=== PATIENT | female | born 1945 | race Two or more races ===

== ENCOUNTER → 2020-02-09 09:32 | Outpatient (BNVA) | payer MEDICARE, SELFPAY | PROVIDERS: PCP Internal Medicine; Referring Provider Internal Medicine; Visit Provider Internal Medicine Endocrinology, Diabetes & Metabolism | DX: Z13.89 Encounter for screening for other disorder (principal) | CPT/HCPCS: 99212 ==

== ENCOUNTER 2020-04-01 12:58 | Outpatient (REF) | payer MEDICARE, SELFPAY ==
--- NOTE | 2020-04-01 | MM_ITS ---
EXAMINATION: MM SCREENING DIGITAL BREAST TOMOSYNTHESIS, BILATERAL CLINICAL INFORMATION: Screening. Asymptomatic. The lifetime risk of breast cancer based on the Tyrer-Cuzick Model is 2%. COMPARISON: Mammography: 08/09/2018, 07/19/2017, 06/22/2016 TECHNIQUE: Digital breast tomosynthesis is performed in both the craniocaudal and mediolateral oblique views along with computer-aided detection (CAD). Synthesized 2D images are generated from the tomosynthesis. FINDINGS: There are scattered areas of fibroglandular density (ACR BI-RADS breast composition Category b). Breast tissue composition borders on heterogeneously dense in the anterior breasts. Parenchymal pattern is similar to prior studies. There are multiple bilateral benign round and rim and some vascular calcifications again seen. There are no significant masses, abnormal calcifications, or other abnormalities. MM/MM tomosynthesis screening BI IMPRESSION: No mammographic evidence of malignancy. ASSESSMENT: BI-RADS 2: Benign RECOMMENDATION: Routine annual mammography screening. This patient's information was entered into a reminder system with a target due date for their next mammogram.
== END 2020-04-01 12:59 | disposition home or self-care (01) ==
LOC: HO.MAMMO 12:58
PROVIDERS: PCP Internal Medicine; Visit Provider Internal Medicine
DX: Z12.31 Encounter for screening mammogram for malignant neoplasm of breast (principal)
CPT/HCPCS: 77063; 77067

== ENCOUNTER → 2020-05-28 09:56 | Outpatient (BNVA) | payer MEDICARE, SELFPAY | PROVIDERS: PCP Internal Medicine; Visit Provider Internal Medicine Endocrinology, Diabetes & Metabolism | DX: E11.65 Type 2 diabetes mellitus with hyperglycemia (principal); E11.42 Type 2 diabetes mellitus with diabetic polyneuropathy; E11.21 Type 2 diabetes mellitus with diabetic nephropathy; Z79.4 Long term (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; E78.00 Pure hypercholesterolemia, unspecified; E55.9 Vitamin D deficiency, unspecified; I10 Essential (primary) hypertension; E53.8 Deficiency of other specified B group vitamins | CPT/HCPCS: 82947; 99212 ==

== ENCOUNTER 2020-05-28 10:45 | Outpatient (REF) | payer MEDICARE, SELFPAY ==
[2020-05-28 13:58] LABS: MANUAL DIFF FLAG NO
[2020-05-28 14:05] LABS: Basophils Percent Auto 0.4 % (0-2); Eosinophils Absolute Auto 0.2 X10*3/uL (0.0-0.4); Eosinophils Percent Auto 2.5 % (0-4); Hematocrit 35.4 % (37-47); Hemoglobin 10.8 g/dl (12.0-16.0); Imm Gran Abs Auto 0.02 X10*3/uL (0.00-0.03); Imm Gran Pct Auto 0.3 % (0.0-0.4); Lymphocytes Absolute Auto 1.8 X10*3/uL (1.2-4.9); Lymphocytes Percent Auto 24.4 % (20-40); Mean Corpuscular HGB Conc 30.5 g/dl (31.0-35.0); Mean Corpuscular Hemoglobin 25.7 pg (27.0-33.0); Mean Corpuscular Volume 84.3 fL (80-98); Mean Platelet Volume 12.2 fL (9.4-12.3); Monocytes Absolute Auto 0.5 X10*3/uL (0.1-1.2); Monocytes Percent Auto 6.4 % (2-11); Neutrophils Absolute Auto 4.8 X10*3/uL (2.0-8.3); Platelet Count 263 X10*3/uL (160-400); Red Cell Distribution Width 14.1 % (11.0-16.0); White Blood Count 7.2 X10*3/uL (4.8-10.8)
[2020-05-28 14:38] LABS: Alanine Aminotransferase 12 U/L (0-31); Albumin Level 3.9 g/dL (3.5-5.0); Alkaline Phosphatase 100 U/L (39-117); Anion Gap 11 (12-20); Aspartate Amino Transferase 17 U/L (5-31); Bilirubin Total 0.3 mg/dL (0.0-1.0); Blood Urea Nitrogen 31 mg/dL (9-16); Calcium 9.3 mg/dL (8.4-10.2); Carbon Dioxide 29 mmol/L (22-29); Chloride 105 mmol/L (96-108); Cholesterol 182 mg/dL; Estimated Glomerular Filt Rate 34; Glucose Fasting 146 mg/dL (60-99); HDL Cholesterol 54 mg/dL; LDL Cholesterol Calculated 101 mg/dl; Potassium 4.4 mmol/L (3.3-5.1); Sodium 141 mmol/L (135-145); Total Protein 7.3 g/dL (6.5-8.0); Triglycerides 135 mg/dL
[2020-05-28 15:01] LABS: Creatinine Urine 128.34 mg/dL; Microalbum/Creatinine Ratio Ur 168.3 ug/mg cr
[2020-05-28 15:20] LABS: Vitamin B12 300 pg/mL (200-900)
[2020-05-30 00:22] LABS: LDL Cholesterol Direct 90 mg/dL (<100)
== END 2020-05-28 10:46 | disposition home or self-care (01) ==
LOC: HO.10HDL 10:45
PROVIDERS: Internal Medicine; Visit Provider Internal Medicine Endocrinology, Diabetes & Metabolism
DX: D64.9 Anemia, unspecified (principal); E11.9 Type 2 diabetes mellitus without complications
CPT/HCPCS: 36415; 80053; 80061; 82043; 82607; 83721; 85025

== ENCOUNTER 2021-02-23 10:44 | Outpatient (REF) | payer MEDICARE, SELFPAY ==
--- NOTE | ~2021-02-23 | MM_ITS ---
EXAMINATION: BONE DENSITOMETRY CLINICAL INDICATION: Encounter for screening for osteoporosis. COMPARISON: None (current study represents initial baseline exam). TECHNIQUE: Using a GENELINK DXA System (software version: 13.1) manufactured by [employer], dual-energy x-ray absorptiometry was performed of the lumbar spine and left hip. The images are of good technical quality. Summary results are attached. FINDINGS: AP SPINE L1-L4: BMD 0.870 g/cm2, Z-score -1.4, T-score -2.6, osteoporosis. LEFT FEMUR, NECK: BMD 0.717 g/cm2, Z-score -0.7, T-score -2.3, osteopenia. LEFT FEMUR, TOTAL: BMD 0.893 g/cm2, Z-score 0.5, T-score -0.9, normal. IDENTIFIED RISK FACTORS: Anticonvulsants, menopause, hysterectomy. HISTORY OF FRACTURE: None listed. MEDICATIONS: Vitamin D. MM/XR DEXA axial skeleton IMPRESSION: 1. DIAGNOSIS: Osteoporosis based on the lowest T-score value of -2.6 in the lumbar spine applying World Health Organization criteria. 2. 10-YEAR FRACTURE RISK PREDICTION, FRAX: According to the guidelines, FRAX calculation should only be performed on patients in the osteopenia bone density category. 3. Treatment Recommendations: NOF guidelines recommend consideration for treatment in postmenopausal women and men age 50 and older presenting with the following: -A hip or vertebral (clinical or morphometric) fracture. -T-score less than or equal to -2.5 at the femoral neck or spine after appropriate evaluation to exclude secondary causes. -Low bone mass at the hip or spine and a 10-year fracture probability by FRAX of greater than or equal to 3% for hip fracture or greater than or equal to 20% for major osteoporotic fracture based on the [place] adapted WHO algorithm. 4. Other Recommendations: All treatment decisions require clinical judgment and consideration of individual patient factors, including patient preferences, comorbidities, previous drug use, risk factors not captured in the FRAX model (e.g. frailty, falls, vitamin D deficiency, increased bone turnover, interval significant decline in bone density) and possible under or overestimation of fracture risk by FRAX. Additional medical evaluation for secondary cause of low bone mineral density may be appropriate. FUTURE SCAN RECOMMENDATION: People with diagnosed cases of osteoporosis or at high risk for fracture should have regular bone mineral density tests. For patients eligible for Medicare, routine testing is allowed once every 2 years. The testing frequency can be increased to one year for patients who have rapidly progressing disease, those who are receiving or discontinuing medical therapy to restore bone mass, or have additional risk factors.
== END 2021-02-23 10:45 | disposition home or self-care (01) ==
LOC: HO.MAMMO 10:44
PROVIDERS: PCP Student in an Organized Health Care Education/Training Program; Visit Provider Nurse Practitioner Family
DX: Z13.820 Encounter for screening for osteoporosis (principal); M81.0 Age-related osteoporosis without current pathological fracture; Z78.0 Asymptomatic menopausal state; Z90.722 Acquired absence of ovaries, bilateral; Z79.899 Other long term (current) drug therapy
CPT/HCPCS: 77080

== ENCOUNTER 2021-04-25 10:08 | Outpatient (REF) | payer MEDICARE, SELFPAY ==
[2021-04-25 13:40] LABS: MANUAL DIFF FLAG NO
[2021-04-25 13:54] LABS: Basophils Percent Auto 0.4 % (0-2); Eosinophils Absolute Auto 0.2 X10*3/uL (0.0-0.4); Hemoglobin 11.5 g/dl (12.0-16.0); Imm Gran Abs Auto 0.02 X10*3/uL (0.00-0.03); Imm Gran Pct Auto 0.3 % (0.0-0.4); Lymphocytes Absolute Auto 1.7 X10*3/uL (1.2-4.9); Lymphocytes Percent Auto 22.5 % (20-40); Mean Corpuscular HGB Conc 30.3 g/dl (31.0-35.0); Mean Corpuscular Hemoglobin 24.9 pg (27.0-33.0); Mean Corpuscular Volume 82.4 fL (80.0-98.0); Mean Platelet Volume 12.5 fL (9.4-12.3); Monocytes Absolute Auto 0.4 X10*3/uL (0.1-1.2); Monocytes Percent Auto 4.9 % (2-11); Neutrophils Absolute Auto 5.2 x10*3/uL (2.0-8.3); Neutrophils Percent Auto 69.9 % (45-73); Platelet Count 270 X10*3/uL (160-400); Red Blood Count 4.61 X10*6/uL (4.20-5.50); Red Cell Distribution Width 15.1 % (11.0-16.0); White Blood Count 7.4 X10*3/uL (4.8-10.8)
[2021-04-25 14:06] LABS: Cholesterol 168 mg/dL; HDL Cholesterol 48 mg/dL; LDL Cholesterol Calculated 100 mg/dl; Triglycerides 103 mg/dL
[2021-04-25 14:18] LABS: Creatinine Urine 187.58 mg/dL; Microalbum/Creatinine Ratio Ur 260.1 ug/mg cr
[2021-04-30 13:15] LABS: Vitamin D 25-OH, D2 <4 ng/mL; Vitamin D 25-OH, D3 39 ng/mL; Vitamin D 25-OH, Total 39 ng/mL (30-100)
== END 2021-04-25 10:09 | disposition home or self-care (01) ==
LOC: HO.10HDL 10:08
PROVIDERS: Visit Provider Internal Medicine
DX: D64.9 Anemia, unspecified (principal); E55.9 Vitamin D deficiency, unspecified; E11.9 Type 2 diabetes mellitus without complications; E78.5 Hyperlipidemia, unspecified
CPT/HCPCS: 36415; 80061; 82043; 82306; 85025

== ENCOUNTER → 2021-08-17 09:28 | Outpatient (BNVA) | payer MEDICARE, SELFPAY | PROVIDERS: PCP Internal Medicine; Visit Provider Nurse Practitioner Gerontology | DX: E11.65 Type 2 diabetes mellitus with hyperglycemia (principal); E11.42 Type 2 diabetes mellitus with diabetic polyneuropathy; E11.21 Type 2 diabetes mellitus with diabetic nephropathy; E78.00 Pure hypercholesterolemia, unspecified; E55.9 Vitamin D deficiency, unspecified; E53.8 Deficiency of other specified B group vitamins; I10 Essential (primary) hypertension; Z79.4 Long term (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 | CPT/HCPCS: 82947; 83036; 99212 ==

== ENCOUNTER 2021-09-22 10:13 | Outpatient (REF) | payer MEDICARE, SELFPAY ==
--- NOTE | ~2021-09-22 | MM_ITS ---
EXAMINATION: MM SCREENING DIGITAL BREAST TOMOSYNTHESIS, BILATERAL CLINICAL INFORMATION: Screening. Asymptomatic. The lifetime risk of breast cancer based on the Tyrer-Cuzick Model is 1.8%. COMPARISON: Mammography: April 01, 2020 and studies dating back to November 28, 2011 TECHNIQUE: Digital breast tomosynthesis is performed in both the craniocaudal and mediolateral oblique views along with computer-aided detection (CAD). Synthesized 2D images are generated from the tomosynthesis. FINDINGS: The breasts are heterogeneously dense, which may obscure small masses (ACR BI-RADS breast composition Category c). There is a stable parenchymal pattern within the left breast with no new abnormal dominant mass or new suspicious grouping of microcalcifications. Within the lateral aspect of the right breast there is a region of some increasing linear calcifications for which spot magnification views are recommended. MM/MM tomosynthesis screening BI IMPRESSION: Right breast calcifications for further evaluation with spot magnification views. ASSESSMENT: BI-RADS 0: Incomplete - Need Additional Imaging Evaluation RECOMMENDATION: 1. Additional views of the right breast. 2. Targeted ultrasound if warranted after review of the additional views. 3. Radiology department staff will contact the patient for additional imaging. This patient's information was entered into a reminder system with a target due date for their next mammogram.
== END 2021-09-22 10:14 | disposition home or self-care (01) ==
LOC: HO.MAMMO 10:13
PROVIDERS: PCP Internal Medicine; Visit Provider Internal Medicine
DX: Z12.31 Encounter for screening mammogram for malignant neoplasm of breast (principal)
CPT/HCPCS: 77063; 77067

== ENCOUNTER → 2021-09-26 09:49 | Outpatient (BNVA) | payer MEDICARE, SELFPAY | PROVIDERS: PCP Internal Medicine | DX: Z87.440 Personal history of urinary (tract) infections (principal); Z87.442 Personal history of urinary calculi | CPT/HCPCS: 51798; 99202 ==

== ENCOUNTER 2021-10-05 13:24 | Outpatient (REF) | payer MEDICARE, SELFPAY ==
--- NOTE | ~2021-10-05 | MM_ITS ---
EXAMINATION: MM DIAGNOSTIC DIGITAL MAMMOGRAPHY, RIGHT CLINICAL INFORMATION: Recall from screening for question of new punctate calcifications anterior lateral right breast. COMPARISON: Mammography: 09/22/2021, 04/01/2020, 08/09/2018 TECHNIQUE: Digital mammography is performed in the following views: Magnification CC, magnification ML FINDINGS: There are scattered areas of fibroglandular density (ACR BI-RADS breast composition Category b). The additional magnification views show some fine vascular calcification anterior outer breast on CC view corresponding to the area of recall. Other benign coarse round, ring, vascular, and ductal secretory calcifications are again seen. No pleomorphic types or ductal distribution. Results are discussed with the patient at time of visit, using an records management coordinator. MM/MM added views RT IMPRESSION: Some fine vascular calcifications reside anterior outer breast corresponding to area of recall. Other benign calcifications again noted scattered in the breast. ASSESSMENT: BI-RADS 2: Benign RECOMMENDATION: Routine annual mammography screening. This patient's information was entered into a reminder system with a target due date for their next mammogram.
== END 2021-10-05 13:25 | disposition home or self-care (01) ==
LOC: HO.MAMMO 13:24
PROVIDERS: PCP Internal Medicine; Visit Provider Internal Medicine
DX: R92.1 Mammographic calcification found on diagnostic imaging of breast (principal)
CPT/HCPCS: 77065

== ENCOUNTER 2021-11-24 09:58 | Outpatient (REF) | payer MEDICARE, SELFPAY ==
--- NOTE | ~2021-11-24 | US_ITS ---
EXAMINATION: US RETROPERITONEAL LIMITED (RENAL ONLY) CLINICAL INFORMATION: Calculus of kidney. COMPARISON: US retroperitoneal limited (renal only) 02/17/2019 and 12/26/2018. XR abdomen KUB 10/24/2017 and 02/14/2017. CT abdomen and pelvis with contrast 01/21/2018. TECHNIQUE: Real-time imaging of the kidneys. FINDINGS: RIGHT KIDNEY: 10.1 x 5.2 x 4.3 cm (SAG x AP x TRV). The kidney is normal in size, contour, and echogenicity. Renal cortical thickness is normal. 3 x 4 mm echogenic density in the midpole questionable for a stone. No focal parenchymal lesions or hydronephrosis. LEFT KIDNEY: 9.5 x 4.6 x 4.2 cm (SAG x AP x TRV). The kidney is normal in size, contour, and echogenicity. Renal cortical thickness is normal. There is a 8 mm cyst in the upper pole. No renal calculi or hydronephrosis. US/US renal BI IMPRESSION: Question small right renal stone. Small left renal cyst.
== END 2021-11-24 09:59 | disposition home or self-care (01) ==
LOC: HO.US 09:58
DX: N20.0 Calculus of kidney (principal)
CPT/HCPCS: 76775

== ENCOUNTER → 2022-03-10 10:36 | Outpatient (BNVA) | payer MEDICARE, SELFPAY | PROVIDERS: PCP Internal Medicine; Visit Provider Internal Medicine Endocrinology, Diabetes & Metabolism | DX: E11.65 Type 2 diabetes mellitus with hyperglycemia (principal); E11.21 Type 2 diabetes mellitus with diabetic nephropathy; E11.40 Type 2 diabetes mellitus with diabetic neuropathy, unspecified; Z79.4 Long term (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 | CPT/HCPCS: 82947; 99212 ==

== ENCOUNTER → 2022-04-14 13:02 | Outpatient (BNVA) | payer MEDICARE, SELFPAY | PROVIDERS: PCP Internal Medicine; Visit Provider Registered Nurse Diabetes Educator | DX: E11.21 Type 2 diabetes mellitus with diabetic nephropathy (principal) | CPT/HCPCS: 99211 ==

== ENCOUNTER 2022-05-24 20:58 | Emergency (ER) | payer MEDICARE, SELFPAY ==
[2022-05-24] VITALS (9 sets, daily range): BP systolic 157–187; BP diastolic 59–99; PULSE 95–120; RESP 16–18; TEMP 36.8–36.9; O2SAT 94–99; BMI 33.0; BMI 32.7
--- NOTE | ~2022-05-24 | XR_ITS ---
EXAMINATION: XR CHEST CLINICAL INFORMATION: Chest pain. COMPARISON: Chest x-ray 05/21/2015 TECHNIQUE: Frontal portable view of the chest was obtained. 9:56 PM FINDINGS: Lungs are clear. No pulmonary vascular congestion. There is no pleural effusion. The heart size is normal. The cardiac and mediastinal contours are normal. There are calcifications of the thoracic aorta. There are multilevel degenerative changes of dorsal spine. XR/XR chest 1V IMPRESSION: Unremarkable examination.
--- NOTE | 2022-05-24 21:08 | ECG_ITS ---
Test Reason : chest pain Blood Pressure : / mmHG Vent. Rate : 112 BPM Atrial Rate : 112 BPM P-R Int : 182 ms QRS Dur : 062 ms QT Int : 312 ms P-R-T Axes : 069 003 034 degrees QTc Int : 425 ms Sinus tachycardia Minimal voltage criteria for LVH, may be normal variant ( R in aVL ) Nonspecific ST and T wave abnormality Abnormal ECG When compared with ECG of 22-JAN-2019 09:35, Vent. rate has increased BY 41 BPM Nonspecific T wave abnormality, worse in Anterior leads Referred By: Generic ED Physician Electronically Signed By:WHIT ALLEN
--- NOTE | 2022-05-24 21:28 | ED_ITS ---
HPI - Chest Pain General Chief Complaint: Chest Pain Stated Complaint: Chest Pain Time Seen by Provider: 05/24/22 21:23 Source: patient Mode of arrival: EMS Limitations: no limitations History of Present Illness HPI narrative: Patient is 76 years old female with history of hypertension major depression diabetes type 2 on insulin, anxiety comes for having chest pain after having an anxiety attack started at 18:00 patient usually gets anxiety but never had similar chest pain in the past, this time felt heaviness in the mid chest with numbness of the jaw and right shoulder pain lasted for about 2 hours resolved after receiving 1 nitro sublingual and aspirin no chest pain on arrival on arrival patient's blood pressure was 187/64 heart rate 112 saturating 96% on room no nausea no vomiting no palpitations no short of breath Related Data Home Medications Medication Instructions Recorded Confirmed furosemide 20 mg tablet 20 mg PO BID 08/17/21 04/06/22 Previous Rx's Medication Instructions Recorded blood pressure monitor #1 ea 01/13/21 blood-glucose meter (FreeStyle #1 ea 01/31/21 Lite Meter kit) acetaminophen 650 mg 1,300 mg PO Q8H PRN fever or pain 04/28/21 tablet,extended release (Mapap 30 days #180 tabs Arthritis Pain) escitalopram oxalate 10 mg tablet 10 mg PO DAILY 90 days #90 tabs 11/09/21 simvastatin 40 mg tablet 40 mg PO BEDTIME 90 days #90 tabs 12/07/21 loratadine 10 mg tablet 10 mg PO DAILY #28 tabs 01/04/22 lisinopril 40 mg tablet 40 mg PO DAILY #28 tabs 01/05/22 metoprolol succinate 100 mg 100 mg PO DAILY #28 tabs 01/20/22 tablet,extended release 24 hr alendronate 70 mg tablet 70 mg PO QWEEK 90 days #13 tabs 03/01/22 blood sugar diagnostic (FreeStyle 1 strip miscellaneous QID for 03/10/22 Lite Strips) diabetes mellitus 90 days #300 strips glucagon 3 mg/actuation nasal 3 mg intranasal ONCE #2 ea 03/10/22 spray (Baqsimi) insulin glargine 100 unit/mL (3 20 unit (0.2 mL) subcut QAM #15 mL 04/16/22 mL) subcutaneous pen (Lantus Solostar U-100 Insulin) insulin lispro 100 unit/mL 8 unit (0.08 mL) subcut TID #15 mL 04/16/22 subcutaneous pen (Humalog KwikPen (U-100) Insulin) pen needle, diabetic 32 gauge x #100 ea 04/16/2208/15 (Comfort EZ Pen [place]) aspirin 81 mg tablet,delayed 81 mg PO DAILY 90 days #90 tabs 05/09/22 release cholecalciferol (vitamin D3) 25 25 mcg PO DAILY #28 tabs 05/12/22 mcg (1,000 unit) tablet lancets 28 gauge (FreeStyle 28 gauge miscellaneous QID for 05/12/22 Lancets) diabetes mellitus 90 days #300 caps linagliptin 5 mg tablet (Tradjenta) 5 mg PO DAILY 30 days #30 tabs 05/12/22 hydralazine 50 mg tablet 50 mg PO TID 30 days #90 tabs 05/24/22 pantoprazole 40 mg tablet,delayed 40 mg PO DAILY #90 tabs 05/24/22 release Allergies Allergy/AdvReac Type Severity Reaction Status Date / Time dulaglutide [Trulicity] Allergy Intermediate headache, Verified 05/24/22 21:16 memory loss amlodipine AdvReac Intermediate leg edema Verified 05/24/22 21:16 atorvastatin AdvReac Intermediate dry mouth Verified 05/24/22 21:16 omeprazole [OMEPRAZOLE] AdvReac Intermediate N/V; Verified 05/24/22 21:16 ABDOMINAL PAIN PMFSH Past Medical History Medical History Acute back pain Anemia Angina at rest Arthritis of knee B12 deficiency Chest discomfort Constipation Depression Diabetes mellitus Diabetic nephropathy associated with type 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 Elevated blood pressure reading Female pelvic pain KEYONNA (generalized anxiety disorder) Generalized abdominal pain GERD (gastroesophageal reflux disease) GERD (gastroesophageal reflux disease) HTN (hypertension) Hypertension Hypovitaminosis 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 Long-term use of aspirin therapy Mild recurrent major depression OA (osteoarthritis) Osteoporosis Pure hypercholesterolemia Renal stones Secondary hypertension Uncontrolled type 2 diabetes mellitus with hyperglycemia Surgical History History of total abdominal hysterectomy Hx of cataract removal with insertion of prosthetic lens Hx of colonoscopy Hx of lithotripsy Family History Family History Father Hypertension Diabetes Mother Diabetes Social History Social History Housing: Apartment Alcohol intake: never Patient Tobacco Use Status: Never used Tobacco Smoked in Last 30 Days: No e-Cigarette/Vaping Use: Never Used Second Hand Smoke Exposure: No Use of substances other than those prescribed or required for medical reasons: No Advance Directives: Yes Advance Directives Information Provided: No Advance Directives on File: No service: No Current occupational status: disabled Cognitive needs: Yes (cane ) Hearing needs: No Vision needs: No Physical Exam Vital Signs: Vital Signs: Last Vital Signs Temp 98.5 F 05/25/22 00:59 Pulse 82 05/25/22 00:59 Resp 21 H 05/25/22 00:59 BP 163/59 H 05/25/22 00:59 Pulse Ox 96 05/25/22 00:59 O2 Del Method 05/25/22 00:59 BMI result Body Mass Index 31.8 Appearance: Alert. Oriented X3. No acute distress. Eyes: PERRLA, No Nystagmus ENT: Pharynx normal. Oral Mucosa moist Neck: Normal inspection. Neck supple. CVS: Normal heart rate and rhythm. Pulses normal. Respiratory: No respiratory distress. Equal air entry bilateral, no wheezing/rales/rhonchi Abdomen: Soft and nontender. Bowel sounds are present, no mass palpable, no CVA tenderness Skin: Skin warm and dry. Normal skin color. Normal skin turgor. Extremities: No lower extremity edema. No calf tenderness Neuro: Oriented X 3. No motor deficit. No sensory deficit.No cerebellar signs , cranial nerves II-XII intact Medications Administered Discontinued Medications Generic Name Dose Route Start Last Admin Trade Name Freq PRN Reason Stop Dose Admin Aspirin 162 mg 05/24/22 21:41 05/24/22 22:07 Aspirin Enteric Coated 81 Mg Tablet. PO 05/24/22 21:42 Not Given ONCE ONE Heparin Sodium (Porcine) 5,000 unit 05/24/22 22:31 05/24/22 22:56 Heparin Sodium,Porcine 5,000 Unit/Ml Vial IVPUSH 05/24/22 22:32 5,000 unit ONCE ONE Administration Heparin Sodium/Sodium Chloride 25,000 unit in 250 mls @ 0 mls/hr 05/25/22 00:45 05/25/22 00:53 Heparin Sodium,Porcine/1/2ns IVCONT 12 units/kg/hr .Q0M RUSLAN 9.49 mls/hr Administration Protocol Per Protocol Lorazepam 0.5 mg 05/24/22 21:39 05/24/22 22:06 Lorazepam 0.5 Mg Tablet PO 05/24/22 21:40 0.5 mg ONCE ONE Administration Metoprolol Tartrate 5 mg 05/24/22 21:39 05/24/22 22:06 Metoprolol Tartrate 5 Mg/5 Ml Vial IVPUSH 05/24/22 21:40 5 mg ONCE ONE Administration Nitroglycerin 1 inch 05/24/22 22:17 05/24/22 22:21 Nitroglycerin 2 % Oint 1 Gm Packet TRANSDERMA 05/24/22 22:18 1 inch ONCE ONE Administration Medical Decision Making Medical Decision Making [facility] Narrative: 2334 Patient with chest pain no acute ischemic changes in EKG initial troponin was 71.8 will repeat delta troponin patient's chest pain improved after the nitroglycerin recurred in the ER nitropaste was applied and pain improved likely ACS plan for admission heparin 5000 bolus was given awaiting for the delta tro ponin, started on heparin drip. 0 200 patient is still complaining of mild discomfort in right shoulder without any movements no jaw pain no chest pain will start patient on nitroglycerin drip case discussed with Tug [employer] Dr. Light advised to consult [facility]iology for possible catheterization advised to continue heparin drip. 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 advised to continue nitroglycerin drip and heparin, delta troponin increased to 154 Differential Diagnosis Differential Diagnoses: The differential diagnosis associated with the presentation includes ACS/unstable angina/STEMI/non-STEMI Lab Data [facility] Lab Attestation statement: I reviewed the patient's lab results. 05/24/22 21:48 05/24/22 21:48 Labs: Lab Results 05/24/22 05/24/22 05/24/22 Range/Units 21:48 21:48 21:48 WBC 8.9 (4.8-10.8) X10*3/uL RBC 4.16 L (4.20-5.50) X10*6/uL Hgb 11.7 L (12.0-16.0) g/dl Hct 36.4 L (37.0-47.0) % MCV 87.5 (80.0-98.0) fL MCH 28.1 (27.0-33.0) pg MCHC 32.1 (31.0-35.0) g/dl RDW 14.0 (11.0-16.0) % Plt Count 210 (160-400) X10*3/uL MPV 11.9 (9.4-12.3) fL Immature Gran % (Auto) 0.3 (0.0-0.4) % Neut % (Auto) 82.4 H (45-73) % Lymph % (Auto) 10.8 L (20-40) % [place] % (Auto) 5.5 (2-11) % Eos % (Auto) 0.6 (0-4) % Baso % (Auto) 0.4 (0-2) % Lymph # (Auto) 1.0 L (1.2-4.9) X10*3/uL [place] # (Auto) 0.5 (0.1-1.2) X10*3/uL Eos # (Auto) 0.1 (0.0-0.4) X10*3/uL Baso # (Auto) 0.0 (0.0-0.2) X10*3/uL Abs Immat Gran (auto) 0.03 (0.00-0.03) X10*3/uL Absolute Neuts (auto) 7.4 (2.0-8.3) x10*3/uL Absolute Nucleated RBC 0.000 (0.0-0.012) X10*3/uL Nucleated RBC % (auto) 0.0 (0.0-0.2) /100WBC PT 10.4 (10.0-13.1) SEC INR 0.9 (0.9-1.1) APTT 31.1 (26.0-36.4) SEC Sodium 139 (135-145) mmol/L Potassium 4.3 (3.3-5.1) mmol/L Chloride 106 (96-108) mmol/L Carbon Dioxide 24 (22-29) mmol/L Anion Gap 13 (12-20) BUN 16 (9-16) mg/dL Creatinine 1.40 (0.5-1.4) mg/dL Estim Creat Clear Calc 32.8 Estimated GFR 36 Random Glucose 232 H (60-115) mg/dL Calcium 9.1 (8.4-10.2) mg/dL Total Bilirubin 0.3 (0.0-1.0) mg/dL AST 21 (5-31) U/L ALT 12 (0-31) U/L Alkaline Phosphatase 86 (39-117) U/L Troponin I High Sens (<3.5-17.0) ng/L Total Protein 6.6 (6.5-8.0) g/dL Albumin 3.6 (3.5-5.0) g/dL COVID-19 (KEVIN) (Negative) COVID-19 Clin Com 05/24/22 05/24/22 05/25/22 Range/Units 21:48 23:37 00:15 WBC (4.8-10.8) X10*3/uL RBC (4.20-5.50) X10*6/uL Hgb (12.0-16.0) g/dl Hct (37.0-47.0) % MCV (80.0-98.0) fL MCH (27.0-33.0) pg MCHC (31.0-35.0) g/dl RDW (11.0-16.0) % Plt Count (160-400) X10*3/uL MPV (9.4-12.3) fL Immature Gran % (Auto) (0.0-0.4) % Neut % (Auto) (45-73) % Lymph % (Auto) (20-40) % [place] % (Auto) (2-11) % Eos % (Auto) (0-4) % Baso % (Auto) (0-2) % Lymph # (Auto) (1.2-4.9) X10*3/uL [place] # (Auto) (0.1-1.2) X10*3/uL Eos # (Auto) (0.0-0.4) X10*3/uL Baso # (Auto) (0.0-0.2) X10*3/uL Abs Immat Gran (auto) (0.00-0.03) X10*3/uL Absolute Neuts (auto) (2.0-8.3) x10*3/uL Absolute Nucleated RBC (0.0-0.012) X10*3/uL Nucleated RBC % (auto) (0.0-0.2) /100WBC PT (10.0-13.1) SEC INR (0.9-1.1) APTT (26.0-36.4) SEC Sodium (135-145) mmol/L Potassium (3.3-5.1) mmol/L Chloride (96-108) mmol/L Carbon Dioxide (22-29) mmol/L Anion Gap (12-20) BUN (9-16) mg/dL Creatinine (0.5-1.4) mg/dL Estim Creat Clear Calc Estimated GFR Random Glucose (60-115) mg/dL Calcium (8.4-10.2) mg/dL Total Bilirubin (0.0-1.0) mg/dL AST (5-31) U/L ALT (0-31) U/L Alkaline Phosphatase (39-117) U/L Troponin I High Sens 71.8 H* 154.1 H* D (<3.5-17.0) ng/L Total Protein (6.5-8.0) g/dL Albumin (3.5-5.0) g/dL COVID-19 (KEVIN) Negative (Negative) COVID-19 Clin Com See Note Independent Interpretation I performed an independent interpretation of an: EKG Interpretation: Sinus tachycardia with heart rate 112, LVH, nonspecific ST T wave changes no acute ischemic repeat ekg showed slight uprising st segment in ant lateral leads Critical Care Time Critical Care Time Critical Care Time: Yes Total Critical Care Time: 65 Attestation: The patient was critically ill with a high probability of imminent or life threatening deterioration. I spent greater than 70 minutes of discontinuous time evaluating the patient,delivering critical care at the bedside, discussing and evaluating pertinent data with consultants. Critical care time does not include time spent performing separately billable procedures or teaching. Total time spent performing critical care was 65 minutes. Discharge Plan Discharge Clinical Impression: Acute coronary syndrome, Acute non-ST elevation myocardial infarction (NSTEMI) Patient Disposition: Xfer [facility] Transfer Details: [facility] Dr. eFliz Prescriptions: No Action (DME) blood-glucose meter [FreeStyle Lite Meter] Kit See Rx Instructions .ROUTE .MEDSUPPLY Qty: 1 0RF Rx Instructions: As directed four times a day escitalopram oxalate 10 mg tablet 10 mg PO DAILY 90 Days Qty: 90 3RF simvastatin 40 mg tablet 40 mg PO BEDTIME 90 Days Qty: 90 1RF loratadine 10 mg tablet 10 mg PO DAILY Qty: 28 6RF lisinopril 40 mg tablet 40 mg PO DAILY Qty: 28 4RF metoprolol succinate 100 mg tablet extended release 24 hr 100 mg PO DAILY Qty: 28 3RF alendronate 70 mg tablet 70 mg PO QWEEK 90 Days Qty: 13 1RF insulin glargine [Lantus Solostar U-100 Insulin] 100 unit/mL (3 mL) insulin pen 20 unit subcut QAM Qty: 15 5RF insulin lispro [Humalog KwikPen Insulin] 100 unit/mL insulin pen 8 unit subcut TID Qty: 15 4RF (DME) pen needle, diabetic [Comfort EZ Pen [place]] 32 gauge x 5/16 needle See Rx Instructions .Route Qty: 100 4RF Rx Instructions: As directed -injects 5 X/day aspirin 81 mg tablet,delayed release (DR/EC) 81 mg PO DAILY 90 Days Qty: 90 1RF cholecalciferol (vitamin D3) 25 mcg (1,000 unit) tablet 25 mcg PO DAILY Qty: 28 5RF lancets [FreeStyle Lancets] 28 gauge misc 28 gauge miscellaneous QID 90 Days Qty: 300 2RF Tradjenta 5 mg tablet 5 mg PO DAILY 30 Days Qty: 30 1RF pantoprazole 40 mg tablet,delayed release (DR/EC) 40 mg PO DAILY Qty: 90 6RF hydralazine 50 mg tablet 50 mg PO TID 30 Days Qty: 90 1RF (DME) blood pressure monitor Kit See Rx Instructions .Route Qty: 1 0RF Rx Instructions: As directed acetaminophen [Mapap Arthritis Pain] 650 mg tablet extended release 1,300 mg PO Q8H PRN (Reason: fever or pain) 30 Days Qty: 180 6RF furosemide 20 mg tablet 20 mg PO BID Baqsimi 3 mg/actuation spray,non-aerosol 3 mg intranasal ONCE Qty: 2 5RF FreeStyle Lite Strips Strip 1 strip miscellaneous QID 90 Days Qty: 300 3RF Interventions: Acute Care Transfer Worksheet (ED) Last Done: 05/25/22 02:30 Discharge Date/Time: 05/25/22 05:11
--- NOTE | 2022-05-24 21:45 | PC.NURSE ---
pt also states that she has numbness in her jaw. daughter at bedside. all aware ofplan of care.
[2022-05-24 21:52] LABS: MANUAL DIFF FLAG NO
[2022-05-24 21:55] LABS: Basophils Percent Auto 0.4 % (0-2); Eosinophils Absolute Auto 0.1 X10*3/uL (0.0-0.4); Eosinophils Percent Auto 0.6 % (0-4); Hematocrit 36.4 % (37.0-47.0); Hemoglobin 11.7 g/dl (12.0-16.0); Imm Gran Abs Auto 0.03 X10*3/uL (0.00-0.03); Imm Gran Pct Auto 0.3 % (0.0-0.4); Lymphocytes Percent Auto 10.8 % (20-40); Mean Corpuscular HGB Conc 32.1 g/dl (31.0-35.0); Mean Corpuscular Hemoglobin 28.1 pg (27.0-33.0); Mean Corpuscular Volume 87.5 fL (80.0-98.0); Mean Platelet Volume 11.9 fL (9.4-12.3); Monocytes Absolute Auto 0.5 X10*3/uL (0.1-1.2); Monocytes Percent Auto 5.5 % (2-11); Neutrophils Absolute Auto 7.4 x10*3/uL (2.0-8.3); Neutrophils Percent Auto 82.4 % (45-73); Platelet Count 210 X10*3/uL (160-400); Red Blood Count 4.16 X10*6/uL (4.20-5.50); White Blood Count 8.9 X10*3/uL (4.8-10.8)
[2022-05-24 22:02] LABS: INTERNATIONAL NORM RATIO 0.9 (0.9-1.1); Prothrombin Time 10.4 SEC (10.0-13.1)
[2022-05-24 22:05] LABS: Partial Thromboplastin Time 31.1 SEC (26.0-36.4)
[2022-05-24] MEDS: Metoprolol Tartrate 5 MG/5 ML VIAL IVPUSH (22:06)
[2022-05-24] MEDS: LORazepam 0.5 MG TABLET PO (22:06)
--- NOTE | 2022-05-24 22:10 | PC.NURSE ---
pt states that CP is fully resolved. jaw remains nmumb and morena shoulders have pain. reproducible with movement. shoulder pain started around time of arrival to ED. pt appeared anxious at arrival and is calmer. RR decreased. .
[2022-05-24 22:12] LABS: Alanine Aminotransferase 12 U/L (0-31); Albumin Level 3.6 g/dL (3.5-5.0); Alkaline Phosphatase 86 U/L (39-117); Anion Gap 13 (12-20); Aspartate Amino Transferase 21 U/L (5-31); Bilirubin Total 0.3 mg/dL (0.0-1.0); Blood Urea Nitrogen 16 mg/dL (9-16); Calcium 9.1 mg/dL (8.4-10.2); Carbon Dioxide 24 mmol/L (22-29); Chloride 106 mmol/L (96-108); Creatinine Clr Calc Pharmacy 32.8; Estimated Glomerular Filt Rate 36; Glucose Random 232 mg/dL (60-115); Potassium 4.3 mmol/L (3.3-5.1); Sodium 139 mmol/L (135-145); Total Protein 6.6 g/dL (6.5-8.0)
[2022-05-24 22:17] LABS: Troponin-I High Sensitivity 71.8 ng/L (<3.5-17.0)
[2022-05-24] MEDS: Nitroglycerin 2 % Oint 1 GM Packet 1 INCH TRANSDERMA (22:21)
--- NOTE | 2022-05-24 22:23 | PC.NURSE ---
pt reported developing cp during admin of metoprolol after 1mg administered. med held and md consulted. nitro ordered, metoprolol admin completed. pt remains alert. skin pwd. no changes on monitor. 12 lead to be repeated. cp is described as tight .
--- NOTE | 2022-05-24 22:26 | ECG_ITS ---
Test Reason : chest pain Blood Pressure : / mmHG Vent. Rate : 098 BPM Atrial Rate : 098 BPM P-R Int : 220 ms QRS Dur : 064 ms QT Int : 354 ms P-R-T Axes : 067 -06 051 degrees QTc Int : 451 ms Sinus rhythm with 1st degree A-V block Minimal voltage criteria for LVH, may be normal variant ( R in aVL ) Borderline ECG When compared with ECG of 24-MAY-2022 21:12, Nonspecific T wave abnormality no longer evident in Anterior leads Referred By: Estrada Watson Electronically Signed By:WHIT ALLEN
[2022-05-24] MEDS: Heparin Sodium,Porcine 5,000 UNIT/ML VIAL 5000 UNIT IVPUSH (22:56)
--- NOTE | 2022-05-24 23:01 | PC.NURSE ---
c/o slight dizziness when trying to get up to br. back in bed to await commode.
--- NOTE | 2022-05-24 23:56 | PC.NURSE ---
Addendum entered by Bo Santos 05/24/22 23:59: Pt second trop was drawn and sent to the lab pt is BP Q1 5 mins. Original Note: Pt's hypertensive on the monitor, pt is on the continuos cardiac rehabilitation specialist and it shoes NSR with slightly elevated t wave. Pt family member is at bedside, pt has a commode to utlize as needed and was advised to call the nurse if she needs assistance due to she feels dizzy. Pt second IV line was inserted 20g on her right wrist. will continue to monitor.
[2022-05-25 00:22] LABS: Troponin-I High Sensitivity 154.1 ng/L (<3.5-17.0)
--- NOTE | 2022-05-25 00:27 | ECG_ITS ---
Test Reason : chest pain Blood Pressure : / mmHG Vent. Rate : 086 BPM Atrial Rate : 086 BPM P-R Int : 206 ms QRS Dur : 070 ms QT Int : 378 ms P-R-T Axes : 062 -09 034 degrees QTc Int : 452 ms Normal sinus rhythm Minimal voltage criteria for LVH, may be normal variant ( R in aVL ) Borderline ECG When compared with ECG of 24-MAY-2022 22:27, No significant change was found Referred By: Estrada Watson Electronically Signed By:WHIT ALLEN
[2022-05-25 00:30] VITALS: BMI 31.8
[2022-05-25 00:40] LABS: COVID-19 Test Negative (Negative); IDNOW Serial# 6674DD1D
[2022-05-25] MEDS: Heparin Sodium,Porcine/1/2NS 25,000 UNIT/250 ML IV.SOLN 9.49 UNIT IVCONT (00:53)
[2022-05-25 00:59] VITALS: BP 163/59; PULSE 82; RESP 21; TEMP 36.9; O2SAT 96
--- NOTE | 2022-05-25 01:01 | PC.NURSE ---
Pt's hep drip was administered, 12u/kg/, order was created for PTT at 6am following the protocol. Pt is on continuos quality assurance monitor and no changes.
--- NOTE | 2022-05-25 06:24 | PC.NURSE ---
Pt was transfer to [facility] [place]/25/2022 at 02:30 am related to non stemi secondary to hypertension.
== END 2022-05-25 05:11 | disposition short-term general hospital (02) ==
PROVIDERS: Emergency Provider Internal Medicine; PCP Internal Medicine
DX: I21.4 Non-ST elevation (NSTEMI) myocardial infarction (principal); R07.89 Other chest pain; I10 Essential (primary) hypertension; E11.9 Type 2 diabetes mellitus without complications; F41.9 Anxiety disorder, unspecified; Z20.822 Contact with and (suspected) exposure to COVID-19; Z20.828 Contact with and (suspected) exposure to other viral communicable diseases; Z79.899 Other long term (current) drug therapy
CPT/HCPCS: 36415; 71045; 80053; 84484; 85025; 85610; 85730; 87635; 93005; 96365; 96375; 99285; J1643

== ENCOUNTER 2022-06-08 09:22 | Outpatient (REF) | payer MEDICARE, SELFPAY ==
[2022-06-08 10:46] LABS: MANUAL DIFF FLAG NO
[2022-06-08 11:04] LABS: Basophils Absolute Auto 0.1 X10*3/uL (0.0-0.2); Basophils Percent Auto 0.7 % (0-2); Eosinophils Absolute Auto 0.1 X10*3/uL (0.0-0.4); Eosinophils Percent Auto 1.1 % (0-4); Hemoglobin 11.7 g/dl (12.0-16.0); Imm Gran Abs Auto 0.02 X10*3/uL (0.00-0.03); Imm Gran Pct Auto 0.3 % (0.0-0.4); Lymphocytes Absolute Auto 1.9 X10*3/uL (1.2-4.9); Lymphocytes Percent Auto 26.7 % (20-40); Mean Corpuscular HGB Conc 31.6 g/dl (31.0-35.0); Mean Corpuscular Hemoglobin 27.6 pg (27.0-33.0); Mean Corpuscular Volume 87.3 fL (80.0-98.0); Monocytes Absolute Auto 0.4 X10*3/uL (0.1-1.2); Monocytes Percent Auto 5.7 % (2-11); Neutrophils Absolute Auto 4.6 x10*3/uL (2.0-8.3); Neutrophils Percent Auto 65.5 % (45-73); Platelet Count 263 X10*3/uL (160-400); Red Blood Count 4.24 X10*6/uL (4.20-5.50); White Blood Count 7.1 X10*3/uL (4.8-10.8)
[2022-06-08 11:16] LABS: Cholesterol 168 mg/dL; HDL Cholesterol 54 mg/dL; Iron 65 mcg/dL (30-160); LDL Cholesterol Calculated 93 mg/dl; Percent Iron Saturation 21 % (15-50); Total Iron Binding Capacity 311 mcg/dL (228-428); Triglycerides 109 mg/dL; Unsaturated Iron Binding 246 ug/dL
[2022-06-08 12:46] LABS: Creatinine Urine 155.95 mg/dL; Microalbum/Creatinine Ratio Ur 227.6 ug/mg cr
== END 2022-06-08 09:23 | disposition home or self-care (01) ==
LOC: HO.10HDL 09:22
PROVIDERS: Referring Provider Internal Medicine Endocrinology, Diabetes & Metabolism; Visit Provider Internal Medicine
DX: E78.5 Hyperlipidemia, unspecified (principal); D64.9 Anemia, unspecified; E55.9 Vitamin D deficiency, unspecified; E11.65 Type 2 diabetes mellitus with hyperglycemia; Z79.4 Long term (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
CPT/HCPCS: 36415; 80061; 82043; 82306; 83540; 85025

== ENCOUNTER → 2022-06-14 10:20 | Outpatient (BNVA) | payer MEDICARE, SELFPAY | PROVIDERS: PCP Internal Medicine; Visit Provider Internal Medicine Endocrinology, Diabetes & Metabolism | DX: E11.65 Type 2 diabetes mellitus with hyperglycemia (principal); Z79.4 Long term (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 | CPT/HCPCS: 82947; 83036; 99212 ==

== ENCOUNTER → 2022-08-11 10:13 | Outpatient (BNVA) | payer MEDICARE, SELFPAY | PROVIDERS: PCP Internal Medicine; Visit Provider Registered Nurse Diabetes Educator | DX: E11.42 Type 2 diabetes mellitus with diabetic polyneuropathy (principal); Z79.4 Long term (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 | CPT/HCPCS: 99211 ==

== ENCOUNTER → 2022-09-06 10:38 | Outpatient (BNVA) | payer MEDICARE, SELFPAY | PROVIDERS: PCP Internal Medicine; Visit Provider Internal Medicine Endocrinology, Diabetes & Metabolism | DX: E11.65 Type 2 diabetes mellitus with hyperglycemia (principal); E11.40 Type 2 diabetes mellitus with diabetic neuropathy, unspecified; E11.22 Type 2 diabetes mellitus with diabetic chronic kidney disease; N18.9 Chronic kidney disease, unspecified; Z79.4 Long term (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 | CPT/HCPCS: 82947; 83036; 99212 ==

== ENCOUNTER 2022-11-13 09:08 | Outpatient (AMB) | payer MEDICARE, SELFPAY ==
--- NOTE | 2022-11-13 09:31 | MHC.AMDMED ---
Intake Intake Visit Reasons: DM Blood Bank Assistant Required: Yes Blood Bank Assistant Language: Morgue Technician Name: Pts Granddaughter Information Interpreted: non-clinical & clinical Accompanied by: Grand Child Allergies dulaglutide [Trulicity] Allergy (Intermediate, Verified 09/06/22 10:59) headache, memory loss amlodipine Adverse Reaction (Intermediate, Verified 09/06/22 10:59) leg edema atorvastatin Adverse Reaction (Intermediate, Verified 09/06/22 10:59) dry mouth omeprazole [OMEPRAZOLE] Adverse Reaction (Intermediate, Verified 09/06/22 10:59) N/V; ABDOMINAL PAIN HPI Comprehensive Diabetes Asmnt Most Recent Diabetes Results: Microalb/Creat Ratio 227.6 ug/mg cr 06/08/22 Cholesterol 168 mg/dL 06/08/22 HDL Cholesterol 54 mg/dL 06/08/22 Triglycerides 109 mg/dL 06/08/22 Creatinine 1.40 mg/dL (0.5-1.4) 05/24/22 Blood Urea Nitrogen 16 mg/dL (9-16) 05/24/22 Sodium 139 mmol/L (135-145) 05/24/22 Potassium 4.3 mmol/L (3.3-5.1) 05/24/22 Chloride 106 mmol/L (96-108) 05/24/22 Carbon Dioxide 24 mmol/L (22-29) 05/24/22 Calcium 9.1 mg/dL (8.4-10.2) 05/24/22 AST 21 U/L (5-31) 05/24/22 ALT 12 U/L (0-31) 05/24/22 Total Protein 6.6 g/dL (6.5-8.0) 05/24/22 Albumin 3.6 g/dL (3.5-5.0) 05/24/22 [facility] Medical History Acute back pain Anemia Angina at rest Arthritis of knee B12 deficiency Chest discomfort Constipation Depression Diabetes mellitus Diabetic nephropathy associated with type 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 Elevated blood pressure reading Female pelvic pain KEYONNA (generalized anxiety disorder) Generalized abdominal pain GERD (gastroesophageal reflux disease) GERD (gastroesophageal reflux disease) HTN (hypertension) Hypertension Hypovitaminosis 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 Long-term use of aspirin therapy Mild recurrent major depression OA (osteoarthritis) Osteoporosis Pure hypercholesterolemia Renal stones Secondary hypertension Uncontrolled type 2 diabetes mellitus with hyperglycemia Surgical History History of total abdominal hysterectomy Hx of cataract removal with insertion of prosthetic lens Hx of colonoscopy Hx of lithotripsy Family History Father Hypertension Diabetes Mother Diabetes Social History Housing: Apartment Alcohol intake: never Patient Tobacco Use Status: Never used Tobacco e-Cigarette/Vaping Use: Never Used Second Hand Smoke Exposure: No service: No Current occupational status: disabled Cognitive needs: Yes (cane ) Hearing needs: No Vision needs: No Assessment & Plan Assessment & Plan (1) Diabetic polyneuropathy associated with type 2 diabetes mellitus: Code(s): E11.42 - Type 2 diabetes mellitus with diabetic polyneuropathy Plan: CGM Info Instructed Pt on what CGM can and can't do CGM Can: Give Pt minute by minute reading of glucose levels Displays glucose trend arrows that represents the direction glucose levels are fluctuating Give insight on decisions about how to dose insulin CGM cannot: Improve glucose control on its own Completely eliminate the need for all finger sticks Make dosing decision for you Patient will make a trip appointment to do a a Dexcom G7 trial Patient uses freestyle Lite meter to test glucose 3 times daily Patient has 1 episode fasting hypoglycemia Instructed patient if bedtime glucose is less than 140 mg/dL, have a 15 g snack before going to sleep DIABETES PROBLEMS HOMECARE INSTRUCTIONS Hypo instructions ? When first signs of insulin reaction occur, immediately drink orange juice or cola, or suck on a sugar cube, but only if the person is conscious. Signs and symptoms of low blood sugar (happen quickly) Each person's reaction to low blood sugar is different. Learn your own signs and symptoms of when your blood sugar is low. Taking time to write these symptoms down may help you learn your own symptoms of when your blood sugar is low. From milder, more common indicators to most severe, signs and symptoms of low blood sugar include: Feeling shaky Being nervous or anxious Sweating, chills and clamminess Irritability or impatience Confusion Fast heartbeat Feeling lightheaded or dizzy Hunger Nausea Color draining from the skin (pallor) Feeling Sleepy Feeling weak or having no energy Blurred/impaired vision Tingling or numbness in the lips, tongue, or cheeks Headaches Coordination problems, clumsiness Hypoglycemia or blood glucose under 80 use the rule of 15's: If you have your blood glucose meter test your blood glucose, if you do not have your meter still follow below instruction: Keep quick-sugar foods with you at all times.? Take 15 grams of fast acting carbohydrates. Examples are 4 ounces of fruit juice or regular soda pop, 8 ounces fat-free milk, 1 tablespoon of table sugar, honey or corn syrup, jam, one miniature box of raisins, 7-8 gumdrops or Life Savers candy, 4 glucose tablets, and glucose gel.? Retest blood glucose in 15 minutes, if blood glucose is still under 80 ,repeat rule of 15's. If blood glucose is under 50, take 30 grams of fast acting carbohydrates If you are having hypoglycemia, or insulin reaction, more that a few times a week, call MD or personal development educator Coding Level of Care Code Est Pt Level 1 (44005) Diagnoses Diabetic polyneuropathy associated with type 2 diabetes mellitus E11.42
== END 2022-11-13 13:36 | disposition home or self-care (01) ==
PROVIDERS: PCP Internal Medicine; Visit Provider Registered Nurse Diabetes Educator
DX: E11.42 Type 2 diabetes mellitus with diabetic polyneuropathy (principal)

== ENCOUNTER → 2022-11-13 09:08 | Outpatient (BNVA) | payer MEDICARE, SELFPAY | PROVIDERS: Visit Provider Registered Nurse Diabetes Educator | DX: E11.65 Type 2 diabetes mellitus with hyperglycemia (principal); E11.42 Type 2 diabetes mellitus with diabetic polyneuropathy; E11.21 Type 2 diabetes mellitus with diabetic nephropathy; Z79.4 Long term (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 | CPT/HCPCS: 99211 ==

== ENCOUNTER 2022-11-24 09:50 | Outpatient (REF) | payer MEDICARE, SELFPAY ==
--- NOTE | ~2022-11-24 | US_ITS ---
EXAMINATION: US RETROPERITONEAL LIMITED (RENAL ONLY) CLINICAL INFORMATION: Calculus of kidney. COMPARISON: Renals only ultrasound 6 dated 02/17/2019 and 12/26/2018. CT abdomen and pelvis with contrast dated 01/21/2018. KUBs dated 10/24/2017 and 02/14/2017. TECHNIQUE: Real-time imaging of the kidneys. FINDINGS: RIGHT KIDNEY: 8.6 x 4.0 x 4.8 cm (SAG x AP x TRV). The kidney is normal in size, contour, and echogenicity. Renal cortical thickness is normal. No hydronephrosis. At the interpolar aspect, a 5 mm nonobstructing calculus is seen. At the interpolar aspect, a 4 mm anechoic, simple cyst is seen. This is a benign finding, for which no imaging follow-up is recommended. LEFT KIDNEY: 9.1 x 4.2 x 3.3 cm (SAG x AP x TRV). The kidney is normal in size, contour, and echogenicity. Renal cortical thickness is normal. No focal parenchymal lesions or hydronephrosis. At the interpolar aspect, a 6 mm nonobstructing calculus is seen. At the lower pole, a 4 mm nonobstructing calculus is seen. US/US renal BI IMPRESSION: There are nonobstructing bilateral renal calculi, as detailed. No hydronephrosis is seen bilaterally.
== END 2022-11-24 09:51 | disposition home or self-care (01) ==
LOC: HO.US 09:50
PROVIDERS: PCP Internal Medicine; Visit Provider Nurse Practitioner Family
DX: N20.0 Calculus of kidney (principal)
CPT/HCPCS: 76775

== ENCOUNTER 2022-12-08 09:02 | Outpatient (REF) | payer MEDICARE, SELFPAY | END 2022-12-08 09:03 | disposition home or self-care (01) | LOC: HO.LNP 09:02 | PROVIDERS: Visit Provider Nurse Practitioner Family | DX: N39.0 Urinary tract infection, site not specified (principal); M81.0 Age-related osteoporosis without current pathological fracture; N20.0 Calculus of kidney; N28.1 Cyst of kidney, acquired; R10.9 Unspecified abdominal pain; Z79.82 Long term (current) use of aspirin; Z79.899 Other long term (current) drug therapy | CPT/HCPCS: 81003; 87086; 99212 ==

== ENCOUNTER 2022-12-08 09:02 | Outpatient (AMB) | payer MEDICARE, SELFPAY ==
--- NOTE | 2022-12-08 09:46 | A.OFFVIS_ITS ---
Intake Intake Visit Reasons: one year nephrolithiasis follow up w/renal US(set) Intake Note: Patient presents for follow up nephrolithiasis/ultrasound (imaging 11/24/22) Urology Medications: none Blood Thinner: aspirin Elevator Builder Required: Yes Accompanied by: Unknown Allergies dulaglutide [Trulicity] Allergy (Intermediate, Verified 12/08/22 09:47) headache, memory loss amlodipine Adverse Reaction (Intermediate, Verified 12/08/22 09:47) leg edema atorvastatin Adverse Reaction (Intermediate, Verified 12/08/22 09:47) dry mouth omeprazole [OMEPRAZOLE] Adverse Reaction (Intermediate, Verified 12/08/22 09:47) N/V; ABDOMINAL PAIN Medication List - Last Reconciled 12/09/22 by CORINNE Perera acetaminophen ER (Mapap Arthritis Pain) 1,300 mg (2 x 650 mg) PO Q8H PRN 30 days alendronate 70 mg PO QWEEK 90 days aspirin 81 mg PO DAILY 90 days blood pressure monitor As directed blood sugar diagnostic (FreeStyle Lite Strips) 1 strip miscellaneous QID 90 days blood-glucose meter (FreeStyle Lite Meter kit) As directed four times a day cholecalciferol (vitamin D3) 25 mcg PO DAILY escitalopram oxalate 10 mg PO DAILY 90 days furosemide 20 mg PO BID glucagon 3 mg/actuation (Baqsimi) 3 mg intranasal ONCE glucose 4 grams PO Q15M PRN hydralazine 50 mg PO TID 30 days insulin glargine (Lantus Solostar U-100 Insulin) 20 units (0.2 mL) subcut QAM insulin lispro (Humalog KwikPen (U-100) Insulin) 2 - 4 units subcut TID lactulose 10 grams (15 mL) PO DAILY PRN 30 days lancets (FreeStyle Lancets) 28 gauge miscellaneous QID 90 days linagliptin (Tradjenta) 5 mg PO DAILY 30 days lisinopril 20 mg PO DAILY loratadine 10 mg PO DAILY metoprolol succinate ER 100 mg PO DAILY nitrofurantoin macrocrystal 100 mg PO BID 10 days pantoprazole 40 mg PO DAILY pen needle, diabetic (Comfort EZ Pen Peetz) As directed -injects 5 X/day pen needle, diabetic (UltiCare Pen Needle) As directed simvastatin 40 mg PO BEDTIME 90 days HPI HPI Comments History of Present Illness Details Rupali is a 77 year old Cymro speaking female patient of Dr. Triana who is accompanied by her granddaughter Shahida at todays visit. She has a past medical history of anemia, osteoarthritis, vitamin B12 deficiency, constipation, depression, diabetes mellitus, anxiety, GERD, hypertension, osteoporosis, hypercholesteremia, and nephrolithiasis. She presents to the office today for a follow up of her nephrolithaisis. When asked she reports to be doing and feeling well. Recent renal imaging results reviewed with the patient and her granddaughter today. Right kidney with no hydronephrosis. At the interpolar aspect, a 5 mm nonobstructing calculus is seen. At the interpolar aspect, a 4 mm anechoic, simple cyst is seen. Per radiology report no imaging follow-up is recommended. The left kidney with no hydronephrosis and or lesions. At the interpolar aspect, a 6 mm nonobstructing calculus is seen. At the lower pole, a 4mm nonobstructing calculus is seen. When asked she does report intermittent bilateral flank pain. She also reports new onset urinary frequency, urinary urgency, and dysuria. When asked she denies incontinence, nocturia, hematuria, foul smelling urine, changes to urinary stream, flank pain, fever, and or chills. In office urinalysis results reviewed with the patient and grandaughter today. Discussed obtaining CT KUB for further assessment and evaluation. 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 Hypertension 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 Pure hypercholesterolemia Hypovitaminosis D Depression Long-term use of aspirin therapy Diabetes mellitus Surgical History Hx of colonoscopy Hx of cataract removal with insertion of prosthetic lens Hx of lithotripsy History of total abdominal hysterectomy Family History Father Hypertension Diabetes Mother Diabetes Social History Housing: Apartment Alcohol intake: never Patient Tobacco Use Status: Never used Tobacco e-Cigarette/Vaping Use: Never Used Second Hand Smoke Exposure: No service: No Current occupational status: disabled Cognitive needs: Yes (cane ) Hearing needs: No Vision needs: No Review of Systems Const Reports as per [facility] Eyes Reports no additional complaints ENT Reports no additional complaints Card Reports as per HPI Resp Reports no additional complaints GI Reports as per HPI Reports as per HPI Musc Reports as per HPI Neuro Reports as per HPI Psych Reports as per HPI Endo Reports as per HPI Physical Exam Const General: cooperative, healthy appearing, comfortable, no acute distress, well developed, alert and awake Orientation/consciousness: patient oriented x3 Limitations: no limitations HEENT Head: Yes normal to inspection, Yes normocephalic and Yes atraumatic Ears: hearing grossly normal bilaterally Eyes General: appearance normal, both eyes and all related structures Neck Neck: Yes normal visual inspection and Yes trachea midline Chest Chest palpation & inspection: normal inspection of the chest Resp Effort & Inspection: normal respiratory effort and able to speak in complete sentences Cardio Rate: regular rate GI Inspection: Yes normal to inspection General: Yes no CVA tenderness Back/Spine/Pelvis Back: no CVA tenderness Skin General skin exam: no rashes or lesions noted Neuro General: patient oriented x3 Extrem General: Yes normal to inspection Psych Appearance: grossly normal and well kempt Mental Status: mental status grossly normal Speech and movement: Normal speech and movement present and Clear speech present Affect: normal affect Attitude: cooperative Thought process: Normal thought process present Thought content: Normal thought content present Insight: Fair insight present (Psych) Judgement: Fair judgement present (Psych) Results AMB Urinalysis, Automated UA Leukoctes 500 Derick/uL Last Edit by Stanley Garg on 12/08/22 09:54 UA Nitrite Last Edit by Stanley Garg on 12/08/22 09:54 UA Urobilinogen 0.2 mg/dL Last Edit by Stanley Garg on 12/08/22 09:54 UA Protein 30 mg/dL Last Edit by Stanley Garg on 12/08/22 09:54 UA pH 6.0 Last Edit by Stanley Garg on 12/08/22 09:54 UA Blood 0 Jerry/uL Last Edit by Stanley Garg on 12/08/22 09:54 UA Specific Jackson 1.015 Last Edit by Stanley Garg on 12/08/22 09:54 UA Ketone Negative Last Edit by Stanley Garg on 12/08/22 09:54 UA Bilirubin 1 mg/dL Last Edit by Stanley Garg on 12/08/22 09:54 UA Glucose 0 mg/dL Last Edit by Stanley Garg on 12/08/22 09:54 Results Reviewed Results Reviewed: Laboratory Last Values Urine pH (Auto) 6.0 12/08/22 09:53 Specific Jackson (Auto) 1.015 12/08/22 09:53 Urine Protein (Auto) 30 mg/dL 12/08/22 09:53 Glucose (UA)(Auto) 0 mg/dL 12/08/22 09:53 Urine Ketones (Auto) Negative 12/08/22 09:53 Urine Blood (Auto) 0 Jerry/uL 12/08/22 09:53 Urine Bilirubin (Auto) 1 mg/dL 12/08/22 09:53 Urine Urobilinogen (Auto) 0.2 mg/dL 12/08/22 09:53 Leukocyte Esterase (Auto) 500 Derick/uL 12/08/22 09:53 Date of Service: 11/24/22 EXAMINATION: US RETROPERITONEAL LIMITED (RENAL ONLY) FINDINGS: RIGHT KIDNEY: 8.6 x 4.0 x 4.8 cm (SAG x AP x TRV). The kidney is normal in size, contour, and echogenicity. Renal cortical thickness is normal. No hydronephrosis. At the interpolar aspect, a 5 mm nonobstructing calculus is seen. At the interpolar aspect, a 4 mm anechoic, simple cyst is seen. This is a benign finding, for which no imaging follow-up is recommended. LEFT KIDNEY: 9.1 x 4.2 x 3.3 cm (SAG x AP x TRV). The kidney is normal in size, contour, and echogenicity. Renal cortical thickness is normal. No focal parenchymal lesions or hydronephrosis. At the interpolar aspect, a 6 mm nonobstructing calculus is seen. At the lower pole, a 4 mm nonobstructing calculus is seen. IMPRESSION: There are nonobstructing bilateral renal calculi, as detailed. No hydronephrosis is seen bilaterally. Assessment & Plan Assessment & Plan (1) Renal calculi: Code(s): N20.0 - Calculus of kidney (2) Urinary tract infection: Code(s): N39.0 - Urinary tract infection, site not specified (3) Renal cyst: Code(s): N28.1 - Cyst of kidney, acquired Plan In office urinalysis results reviewed with the patient; will send for urine culture Start Macrobid as discussed and prescribed Recent renal imaging results reviewed with the patient; as noted above Discussed, educated, and stressed the importance of drinking plenty of water daily Will obtain CT KUB for further assessment and evaluation Discussed seeking medical treatment and or calling office if symptoms persist and or worsen. Follow up in 2-4 weeks with imaging to be completed prior; or sooner with any questions, concerns, or issues. [facility] phone number is [phone] Orders: Orders CT kidney stone 12/08/22 N20.0 - Calculus of kidney, R10.9 - Unspecified abdominal pain AMB Urinalysis Automated 12/08/22 Z13.9 - Encounter for screening, unspecified Urine Culture 12/08/22 N39.0 - Urinary tract infection, site not specified Medications: New nitrofurantoin macrocrystal must administer with a meal/food 100 mg PO BID 10 days 20 caps 0RF N39.0 - Urinary tract infection, site not specified Patient Instructions: The patient had an opportunity to ask questions regarding the treatment plan. All questions were answered. Physical exam, labs, and imaging were discussed and reviewed in detail. As well as risks, benefits, and discussion of treatment choices. No major barriers to understanding were identified. The patient expressed understanding and agreement with the above treatment plan. The patient was made aware they should contact our office by phone for worsening of their current condition, the appearance of new symptoms, or with any questions or concerns. Compliance is encouraged with any medications and follow up testing that is ordered. It is a privilege to be allowed the opportunity to participate in? your urological care.? Again, if you have any questions or concerns If you have any questions or concerns please do not hesitate to contact me. The office is [phone]. This note is constructed using voice recognition software. While every effort has been made to ensure accuracy brush cleaner errors may have been included. Yours sincerely, DARIAN Perera-SALINAS Coding Level of Care Code Est Pt Level 4 (71060) Diagnoses Renal calculi N20.0 Urinary tract infection N39.0 Renal cyst N28.1
== END 2022-12-08 09:59 | disposition home or self-care (01) ==
PROVIDERS: PCP Internal Medicine; Visit Provider Nurse Practitioner Family
DX: N20.0 Calculus of kidney (principal); N39.0 Urinary tract infection, site not specified; N28.1 Cyst of kidney, acquired
CPT/HCPCS: 99214

== ENCOUNTER 2023-01-15 09:47 | Outpatient (REF) | payer MEDICARE, SELFPAY ==
--- NOTE | ~2023-01-15 | CT_ITS ---
EXAMINATION: CT ABDOMEN AND PELVIS WITHOUT CONTRAST (KIDNEY STONE) CLINICAL INFORMATION: Renal calculus. COMPARISON: Renal ultrasound dated 11/24/2022; CT abdomen and pelvis dated 01/21/2018. TECHNIQUE: Multidetector volumetric imaging was performed from the superior aspect of the liver through the pubic symphysis. Sagittal and coronal reformatted images were obtained on the technologist's workstation. This CT examination was performed using dose optimization techniques as appropriate, variously including the following: *Automated exposure control *Adjustment of mA and/or kV according to patient size (this includes techniques or standardized protocols for targeted exams where dose is matched to indication/reason for exam; i.e. extremities or head) *Use of iterative reconstruction technique DLP: 400 mGy-cm FINDINGS: LUNG BASES: The visualized lung bases are unremarkable. There are mild coronary artery atherosclerotic calcifications. LIVER, GALLBLADDER, AND BILIARY TREE: The liver is normal in size, shape, and attenuation. No focal hepatic lesion or biliary ductal dilatation is present. The gallbladder is unremarkable with no evidence of radiopaque gallstones, gallbladder wall thickening, or obvious pericholecystic inflammatory changes. PANCREAS: Unremarkable. SPLEEN: Unremarkable. ADRENAL GLANDS: Unremarkable. KIDNEYS AND URETERS: The kidneys are normal in size, shape, and attenuation. At the interpolar aspect of the left kidney (4:189 and 199), 5 mm and 4 mm nonobstructing calculi are seen. At the lower pole of the left kidney (4:243), adjacent 3 mm and 1 mm nonobstructing calculi are seen. No left renal or bilateral ureteric calculus is seen. There is no obstructive uropathy. No perinephric stranding. BLADDER: Unremarkable. GASTROINTESTINAL TRACT: There is a moderate stool burden. No obstruction, free intraperitoneal air or abscess is seen. There is no focal bowel wall thickening. The vermiform appendix is normal. ABDOMINAL WALL: There is a small fat-containing umbilical hernia. LYMPH NODES: Normal. VASCULAR: There is moderate aortoiliac atherosclerotic calcification. No abdominal aortic aneurysm is seen. PELVIC VISCERA: Surgically absent. No pelvic mass, free fluid or lymphadenopathy is seen. OSSEOUS STRUCTURES: There is multi-level lower thoracic spondylosis. At T11-T12 through L1-L2, there is degenerative disc disease, with vacuum phenomenon. No acute or aggressive osseous finding is noted. CT/CT kidney stone IMPRESSION: 1. There are small, nonobstructing left renal calculi, as detailed. No further urinary calculus is seen, and there is no obstructive uropathy. 2. There is a moderate stool burden. No obstruction, free intraperitoneal air or abscess is seen. No appendicitis or diverticulitis is seen. 3. There is a small fat-containing umbilical hernia. 4. There is no abdominopelvic mass, free fluid or lymphadenopathy. 5. There are degenerative changes of the thoracolumbar spine, as detailed. Fleischner guidelines were followed.
== END 2023-01-15 09:48 | disposition home or self-care (01) ==
LOC: HO.CT 09:47
PROVIDERS: PCP Internal Medicine; Visit Provider Nurse Practitioner Family
DX: N20.0 Calculus of kidney (principal); R10.9 Unspecified abdominal pain
CPT/HCPCS: 74176

== ENCOUNTER 2023-01-24 11:04 | Outpatient (REF) | payer MEDICARE, SELFPAY ==
[2023-01-24 13:17] LABS: MANUAL DIFF FLAG NO
[2023-01-24 13:22] LABS: Basophils Percent Auto 0.5 % (0-2); Eosinophils Absolute Auto 0.2 X10*3/uL (0.0-0.4); Eosinophils Percent Auto 2.5 % (0-4); Hematocrit 38.1 % (37.0-47.0); Hemoglobin 12.1 g/dl (12.0-16.0); Imm Gran Abs Auto 0.02 X10*3/uL (0.00-0.03); Imm Gran Pct Auto 0.3 % (0.0-0.4); Lymphocytes Absolute Auto 1.7 X10*3/uL (1.2-4.9); Lymphocytes Percent Auto 21.6 % (20-40); Mean Corpuscular HGB Conc 31.8 g/dl (31.0-35.0); Mean Corpuscular Hemoglobin 27.5 pg (27.0-33.0); Mean Corpuscular Volume 86.6 fL (80.0-98.0); Mean Platelet Volume 11.8 fL (9.4-12.3); Monocytes Absolute Auto 0.4 X10*3/uL (0.1-1.2); Neutrophils Absolute Auto 5.4 x10*3/uL (2.0-8.3); Neutrophils Percent Auto 70.1 % (45-73); Platelet Count 232 X10*3/uL (160-400); Red Cell Distribution Width 14.1 % (11.0-16.0); White Blood Count 7.7 X10*3/uL (4.8-10.8)
[2023-01-24 13:49] LABS: Albumin Level 3.6 g/dL (3.5-5.0); Anion Gap 11 (12-20); Blood Urea Nitrogen 28 mg/dL (9-16); Calcium 9.6 mg/dL (8.4-10.2); Carbon Dioxide 30 mmol/L (22-29); Chloride 102 mmol/L (96-108); Estimated Glomerular Filt Rate 36; Magnesium 1.7 mg/dL (1.6-2.6); Phosphorus 3.1 mg/dL (2.7-4.5); Potassium 4.1 mmol/L (3.3-5.1); Sodium 139 mmol/L (135-145)
[2023-01-24 14:06] LABS: Vitamin D 25-OH Total 43.2 ng/mL (>30)
[2023-01-24 14:21] LABS: Appearance Urine Clear; Color Urine Yellow; Glucose Urine UA Negative (Negative); Leukocyte Esterase Urine Moderate (2+) (Negative); Nitrite Urine Negative (Negative); UMIC TRIGGER UA YES; Urine Blood Negative (Negative); Urine Ketones Negative (Negative); Urine Protein Trace mg/dL (Neg-Trace)
[2023-01-24 14:27] LABS: Bacteria Urine None Seen (None Seen); Hyaline Casts Urine 0-2 /LPF (0-2); RBC Urine 0-2 /HPF (0-2); Squamous Epithelial Cell Urine 0-2 /HPF (0-2)
[2023-01-24 14:38] LABS: Creatinine Urine 120.93 mg/dL; Protein/Creatinine Ratio, Ur 0.19 (<0.2); Total Protein Urine Random 23 mg/dL (<12)
[2023-01-25 14:39] LABS: Calcium (PTHI) 9.3 mg/dL (8.6-10.4); PTHI 67 pg/mL (16-77)
== END 2023-01-24 11:05 | disposition home or self-care (01) ==
LOC: HO.10HDL 11:04
PROVIDERS: Visit Provider Internal Medicine Nephrology
DX: E11.22 Type 2 diabetes mellitus with diabetic chronic kidney disease (principal); I12.9 Hypertensive chronic kidney disease with stage 1 through stage 4 chronic kidney disease, or unspecified chronic kidney disease; N18.32 Chronic kidney disease, stage 3b; N25.0 Renal osteodystrophy; R82.90 Unspecified abnormal findings in urine
CPT/HCPCS: 36415; 80051; 81001; 82040; 82043; 82306; 82310; 82565; 82570; 83735; 83970; 84100; 84156; 84520; 85025; 87086

== ENCOUNTER 2023-02-07 10:45 | Outpatient (AMB) | payer MEDICARE, SELFPAY ==
[2023-02-07 10:47] VITALS: BP 162/50; PULSE 68; BMI 27.9
--- NOTE | 2023-02-07 10:47 | A.OFFVIS_ITS ---
Intake Vital Signs 02/07/23 10:47 Height 5 ft 2 in Weight 152 lb 8.958 oz BMI 27.9 BP 162/50 H Blood Pressure Location Lt brachial Position Sitting Pulse 68 Pulse Source Pulse Oximeter Intake Visit Reasons: f/u Type 2 DM Intake Note: Patient present today to follow up on Type 2 Diabetes Mellitus. Last Diabetic Eye exam: 02/01/23 Last Podiatry Visit:12/2022 Random Glucose: 229 mg/dl HgA1C: 7.0 % Animal Cruelty Investigation Supervisor Required: Yes Animal Cruelty Investigation Supervisor Language: Dipper And Drier Name: Janessa family member Information Interpreted: non-clinical & clinical Accompanied by: Grand Child Allergies dulaglutide [Trulicity] Allergy (Intermediate, Verified 02/07/23 11:03) headache, memory loss amlodipine Adverse Reaction (Intermediate, Verified 02/07/23 11:03) leg edema atorvastatin Adverse Reaction (Intermediate, Verified 02/07/23 11:03) dry mouth omeprazole [OMEPRAZOLE] Adverse Reaction (Intermediate, Verified 02/07/23 11:03) N/V; ABDOMINAL PAIN Medication List - Last Reconciled 02/07/23 by Jerry Joyce MD acetaminophen ER (Mapap Arthritis Pain) 1,300 mg (2 x 650 mg) PO Q8H PRN 30 days alendronate 70 mg PO QWEEK 90 days aspirin 81 mg PO DAILY 90 days blood pressure monitor As directed blood sugar diagnostic (FreeStyle Lite Strips) 1 strip miscellaneous QID 90 days blood-glucose meter (FreeStyle Lite Meter kit) As directed four times a day cholecalciferol (vitamin D3) 25 mcg PO DAILY escitalopram oxalate 10 mg PO DAILY 90 days furosemide 20 mg PO BID glucagon 3 mg/actuation (Baqsimi) 3 mg intranasal ONCE glucose 4 grams PO Q15M PRN hydralazine 50 mg PO TID 30 days [incontinence wipes As directed] insulin glargine (Lantus Solostar U-100 Insulin) 20 units (0.2 mL) subcut QAM insulin lispro (Humalog KwikPen (U-100) Insulin) 2 - 4 units subcut TID lactulose 10 grams (15 mL) PO DAILY PRN 30 days lancets (FreeStyle Lancets) 28 gauge miscellaneous QID 90 days linagliptin (Tradjenta) 5 mg PO DAILY 30 days lisinopril 20 mg PO DAILY loratadine 10 mg PO DAILY metoprolol succinate ER 100 mg PO DAILY nitrofurantoin macrocrystal 100 mg PO BID 10 days pantoprazole 40 mg PO DAILY pen needle, diabetic (Comfort EZ [place]) As directed -injects 5 X/day pen needle, diabetic (UltiCare Pen Needle) As directed simvastatin 40 mg PO BEDTIME 90 days HPI HPI Comments History of Present Illness Details . Patient is 77-year-old female with type 2 diabetes diagnosed over 20 years ago.? who presents for management.? ? Patient reports that she does not get enough insulin for the full month at times. Past medical history: Diabetes type 2, hypertension, hyperlipidemia, vitamin-D deficiency. Micro and macrovascular complications: Nephropathy neuropathy Diabetes medications: Lantus 20 units . Humalog to 3 units if point care is>150 and 4 units if >200 , Tradjenta 5 mg Blood glucose monitoring: In the past 2 weeks average blood glucose 140, 2.9 readings per day, range 58 -2575. 78% of blood sugars are in range with 24% hyperglycemia in 0% hypoglycemia. Symptoms reported: numbness, tingling, cramping in lower extremities Hypoglycemia: Happening very infrequently Exercise: walks a little when has errands, limited due to knee pain. 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 optho: 02/01/2023 last appt Sees podiatry Laboratory Tests 01/13/21 15:49 Hgb A1c (Clinic) 7.3 H [facility] Medical History OA (osteoarthritis) GERD (gastroesophageal reflux disease) Uncontrolled type 2 diabetes mellitus with hyperglycemia Renal stones Generalized abdominal pain HTN (hypertension) Elevated blood pressure reading Female pelvic pain Chest discomfort Secondary hypertension Angina at rest Constipation Acute back pain Arthritis of knee Osteoporosis KEYONNA (generalized anxiety disorder) Mild recurrent major depression GERD (gastroesophageal reflux disease) Anemia B12 deficiency Diabetic nephropathy associated with type 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 Hypertension 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 Pure hypercholesterolemia Hypovitaminosis D Depression Long-term use of aspirin therapy Diabetes mellitus Surgical History Hx of colonoscopy Hx of cataract removal with insertion of prosthetic lens Hx of lithotripsy History of total abdominal hysterectomy Family History Father Hypertension Diabetes Mother Diabetes Social History Housing: Apartment Alcohol intake: never Patient Tobacco Use Status: Never used Tobacco e-Cigarette/Vaping Use: Never Used Second Hand Smoke Exposure: No service: No Current occupational status: disabled Cognitive needs: Yes (cane ) Hearing needs: No Vision needs: No Physical Exam Vital Signs: Last Vital Signs Pulse 68 02/07/23 10:47 BP 162/50 H 02/07/23 10:47 BMI result Body Mass Index 27.9 Absence of Cushingoid features. Absence of acromegalic features. Neck exam reveals nl size thyroid about 15 gms. No thyroid nodules palpable. No carotid bruits present. Lungs CTA. Heart S1 S2, Reg R/R. No M/R/ G. Skin exam reveals absence of vitiligo or acanthosis nigricans. Abdominal exam reveals Soft NT/ND with NA BS. No organomegaly present. Neck Other: . Extrem Other: Visual exam of foot performed. No ulcerations or open lesions. No onchomycosis, no callouses.Pulses 2 + distally Sensation intact to monofilament exam. Vi bratory sensation sensed is decreased with 128 Hz tuning fork Results AMB Hemoglobin A1c AMB Hemoglobin A1c 7.0 % Last Edit by Dorys Villalta on 02/07/23 11:09 Results Reviewed Results Reviewed: 02/07/23 10:58 Glucose, Whole Blood Routine Laboratory Last Values Glucose (Clinic) 229 mg/dL (60-115) H 02/07/23 10:58 Assessment & Plan Assessment & Plan (1) Diabetes mellitus: Code(s): E11.9 - Type 2 diabetes mellitus without complications Qualifiers: Diabetes mellitus type: type 2 Diabetes mellitus terminal operator insulin use: with terminal operator use Diabetes mellitus complication status: with hyperglycemia Qualified Code(s): E11.65 - Type 2 diabetes mellitus with hyperglycemia; Z79.4 - [facility] (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 Plan: This is a 77-year-old white female with a history of type 2 diabetes being treated with premixed insulin and Tradjenta with fair but adequate glycemic control with known microvascular complications namely neuropathy and CKD. Plan is to continue the present regimen . At this point, patient returned to the care of her primary care provider I returned back to endocrinology should her HbA1c deteriorate Orders: Orders AMB Hemoglobin A1c Today E11.42 - Type 2 diabetes mellitus with diabetic polyneuropathy Medications: Refilled insulin glargine (Lantus Solostar U-100 Insulin) 20 units (0.2 mL) subcut QAM 45 mL 5RF lancets (FreeStyle Lancets) 28 gauge miscellaneous QID 90 days 300 caps 4RF for diabetes mellitus E11.65 - Type 2 diabetes mellitus with hyperglycemia, Z79.4 - [facility] (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 Coding Level of Care Code Est Pt Level 4 (57055) Diagnoses Type 2 diabetes mellitus with hyperglycemia, with long-term current use of insulin E11.65; Z79.4 Diabetes mellitus type: type 2 Diabetes mellitus terminal operator insulin use: with terminal operator use Diabetes mellitus complication status: with hyperglycemia
[2023-02-07 11:02] LABS: Glucose, Whole Blood 229 mg/dL (60-115)
== END 2023-02-07 11:09 | disposition home or self-care (01) ==
PROVIDERS: PCP Internal Medicine; Visit Provider Internal Medicine Endocrinology, Diabetes & Metabolism
DX: E11.65 Type 2 diabetes mellitus with hyperglycemia (principal); Z79.4 Long term (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; E11.42 Type 2 diabetes mellitus with diabetic polyneuropathy
CPT/HCPCS: 99214

== ENCOUNTER → 2023-02-07 10:45 | Outpatient (BNVA) | payer MEDICARE, SELFPAY | PROVIDERS: PCP Internal Medicine; Visit Provider Internal Medicine Endocrinology, Diabetes & Metabolism | DX: E11.65 Type 2 diabetes mellitus with hyperglycemia (principal); Z79.4 Long term (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 | CPT/HCPCS: 82947; 83036; 99212 ==

== ENCOUNTER 2023-03-06 15:08 | Outpatient (AMB) | payer MEDICARE, SELFPAY ==
--- NOTE | 2023-03-06 15:08 | MHC.OFFVIS ---
Intake Intake Visit Reasons: 1m/CT KUB(set) Intake Note: Patient presents for follow up nephrolithiasis/KUB (imaging 01/15/23) Urology Medications: none Blood Thinner: aspirin Tool Turret Lathe Set Up Operator Required: Yes Accompanied by: Unknown Allergies dulaglutide [Trulicity] Allergy (Intermediate, Verified 03/06/23 15:46) headache, memory loss amlodipine Adverse Reaction (Intermediate, Verified 03/06/23 15:46) leg edema atorvastatin Adverse Reaction (Intermediate, Verified 03/06/23 15:46) dry mouth omeprazole [OMEPRAZOLE] Adverse Reaction (Intermediate, Verified 03/06/23 15:46) N/V; ABDOMINAL PAIN Medication List - Last Reconciled 03/06/23 by CORINNE Perera acetaminophen ER (Mapap Arthritis Pain) 1,300 mg (2 x 650 mg) PO Q8H PRN 30 days alendronate 70 mg PO QWEEK 90 days aspirin 81 mg PO DAILY 90 days blood pressure monitor As directed blood sugar diagnostic (FreeStyle Lite Strips) 1 strip miscellaneous QID 90 days blood-glucose meter (FreeStyle Lite Meter kit) As directed four times a day cholecalciferol (vitamin D3) 25 mcg PO DAILY escitalopram oxalate 10 mg PO DAILY 90 days furosemide 20 mg PO BID glucagon 3 mg/actuation (Baqsimi) 3 mg intranasal ONCE glucose 4 grams PO Q15M PRN hydralazine 50 mg PO TID 30 days [incontinence wipes As directed] insulin glargine (Lantus Solostar U-100 Insulin) 20 units (0.2 mL) subcut QAM insulin lispro (Humalog KwikPen (U-100) Insulin) 2 - 4 units subcut TID lactulose 10 grams (15 mL) PO DAILY PRN 30 days lancets (FreeStyle Lancets) 28 gauge miscellaneous QID 90 days linagliptin (Tradjenta) 5 mg PO DAILY 30 days lisinopril 20 mg PO DAILY loratadine 10 mg PO DAILY metoprolol succinate ER 100 mg PO DAILY pantoprazole 40 mg PO DAILY pen needle, diabetic (Comfort EZ Pen [place]) As directed -injects 5 X/day pen needle, diabetic (UltiCare Pen Needle) As directed simvastatin 40 mg PO BEDTIME 90 days HPI HPI Comments History of Present Illness Details Rupali is a 77 year old Syriac speaking female patient of Dr. Triana. She has a past medical history of anemia, osteoarthritis, vitamin B12 deficiency, constipation, depression, diabetes mellitus, anxiety, GERD, hypertension, osteoporosis, hypercholesteremia, and nephrolithiasis. She is being follow-up on today via telehealth for her history of nephrolithiasis and is accompanied by her granddaughter Shahida. She presents to the office today for a follow up of her nephrolithaisis. Of note, patient was seen approximately 3 months ago at which time a CT KUB was ordered for further assessment evaluation. These results reviewed with the patient today and her grandaughter. At the interpolar aspect of the left kidney 5 mm and 4 mm nonobstructing renal calculi are seen. At the lower pole of the left kidney 3 mm 1 mm nonobstructing calculi are seen. No left renal or bilateral ureteric calculus are seen. There is no obstructive uropathy. The bladder is unremarkable. When asked she reports to be doing and feeling well. She denies any bothersome urinary issues at this time. She denies incontinence, nocturia, hematuria, foul smelling urine, changes to urinary stream, flank pain, fever, and or chills. Discussed continuation of surveillance monitoring regarding nephrolithiasis. Discussed importance of drinking plenty of water daily. She otherwise offers no other issues or concerns at this time. [facility] Medical History OA (osteoarthritis) GERD (gastroesophageal reflux disease) Uncontrolled type 2 diabetes mellitus with hyperglycemia Renal stones Generalized abdominal pain HTN (hypertension) Elevated blood pressure reading Female pelvic pain Chest discomfort Secondary hypertension Angina at rest Constipation Acute back pain Arthritis of knee Osteoporosis KEYONNA (generalized anxiety disorder) Mild recurrent major depression GERD (gastroesophageal reflux disease) Anemia B12 deficiency Diabetic nephropathy associated with type 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 Hypertension intermediate (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 Pure hypercholesterolemia Hypovitaminosis D Depression Long-term use of aspirin therapy Diabetes mellitus Surgical History Hx of colonoscopy Hx of cataract removal with insertion of prosthetic lens Hx of lithotripsy History of total abdominal hysterectomy Family History Father Hypertension Diabetes Mother Diabetes Social History Housing: Apartment Alcohol intake: never Patient Tobacco Use Status: Never used Tobacco e-Cigarette/Vaping Use: Never Used Second Hand Smoke Exposure: No service: No Current occupational status: disabled Cognitive needs: Yes (cane ) Hearing needs: No Vision needs: No Review of Systems Const Reports as per HPI Eyes Reports no additional complaints ENT Reports no additional complaints Card Reports as per HPI Resp Reports no additional complaints GI Reports as per HPI Reports as per HPI Musc Reports as per HPI Neuro Reports as per HPI Psych Reports as per HPI Endo Reports as per HPI Physical Exam Const General: cooperative Resp Effort & Inspection: able to speak in complete sentences Psych Speech and movement: Clear speech present Attitude: cooperative Thought process: Normal thought process present Thought content: Normal thought content present Insight: Fair insight present (Psych) Judgement: Fair judgement present (Psych) Results Reviewed Results Reviewed: Date of Service: 01/15/23 Procedure(s): CT kidney stone EXAMINATION: CT ABDOMEN AND PELVIS WITHOUT CONTRAST (KIDNEY STONE) FINDINGS: LUNG BASES: The visualized lung bases are unremarkable. There are mild coronary artery atherosclerotic calcifications. LIVER, GALLBLADDER, AND BILIARY TREE: The liver is normal in size, shape, and attenuation. No focal hepatic lesion or biliary ductal dilatation is present. The gallbladder is unremarkable with no evidence of radiopaque gallstones, gallbladder wall thickening, or obvious pericholecystic inflammatory changes. PANCREAS: Unremarkable. SPLEEN: Unremarkable. ADRENAL GLANDS: Unremarkable. KIDNEYS AND URETERS: The kidneys are normal in size, shape, and attenuation. At the interpolar aspect of the left kidney (4:189 and 199), 5 mm and 4 mm nonobstructing calculi are seen. At the lower pole of the left kidney (4:243), adjacent 3 mm and 1 mm nonobstructing calculi are seen. No left renal or bilateral ureteric calculus is seen. There is no obstructive uropathy. No perinephric stranding. BLADDER: Unremarkable. GASTROINTESTINAL TRACT: There is a moderate stool burden. No obstruction, free intraperitoneal air or abscess is seen. There is no focal bowel wall thickening. The vermiform appendix is normal. ABDOMINAL WALL: There is a small fat-containing umbilical hernia. LYMPH NODES: Normal. VASCULAR: There is moderate aortoiliac atherosclerotic calcification. No abdominal aortic aneurysm is seen. PELVIC VISCERA: Surgically absent. No pelvic mass, free fluid or lymphadenopathy is seen. OSSEOUS STRUCTURES: There is multi-level lower thoracic spondylosis. At T11-T12 through L1-L2, there is degenerative disc disease, with vacuum phenomenon. No acute or aggressive osseous finding is noted. CT/CT kidney stone IMPRESSION: 1. There are small, nonobstructing left renal calculi, as detailed. No further urinary calculus is seen, and there is no obstructive uropathy. 2. There is a moderate stool burden. No obstruction, free intraperitoneal air or abscess is seen. No appendicitis or diverticulitis is seen. 3. There is a small fat-containing umbilical hernia. 4. There is no abdominopelvic mass, free fluid or lymphadenopathy. 5. There are degenerative changes of the thoracolumbar spine, as detailed. Assessment & Plan Assessment & Plan (1) Renal cyst: Code(s): N28.1 - Cyst of kidney, acquired (2) Renal calculi: Code(s): N20.0 - Calculus of kidney Plan Recent CT KUB results reviewed with the patient and her granddaughter today; as noted above Will continue with surveillance monitoring Patient denies any bothersome urinary issues or concerns at this time Reports to be happy with current voiding parameters. Discussed, educated, and instructed on the importance of drinking plenty of water daily. Continue adding 1 oz of lemon juice to water daily. Will obtain renal ultrasound and KUB in 6 months Follow-up in 6 months with imaging to be completed prior; or sooner with any issues, concerns, and or questions. Orders: Orders XR KUB 6 Months N20.0 - Calculus of kidney US renal BI 6 Months N20.0 - Calculus of kidney Patient Instructions: The patient had an opportunity to ask questions regarding the treatment plan. All questions were answered. Physical exam, labs, and imaging were discussed and reviewed in detail. As well as risks, benefits, and discussion of treatment choices. No major barriers to understanding were identified. The patient expressed understanding and agreement with the above treatment plan. The patient was made aware they should contact our office by phone for worsening of their current condition, the appearance of new symptoms, or with any questions or concerns. Compliance is encouraged with any medications and follow up testing that is ordered. It is a privilege to be allowed the opportunity to participate in? your urological care.? Again, if you have any questions or concerns If you have any questions or concerns please do not hesitate to contact me. The office is [phone]. This note is constructed using voice recognition software. While every effort has been made to ensure accuracy electromatic typist errors may have been included. Yours sincerely, DARIAN Perera- Telehealth Telehealth Location of provider rendering services: practice address Location of patient: address on file Patient Identification confirmed using: Name, : Yes Telehealth method: voice only Patient verbally consented to treatment: Yes Patient verbally consented to billing insurance company: Yes Patient informed of any privacy concerns related to visit: Yes Minutes spent on Phone/Video with Pt.: 20 Coding Level of Care Code Tele Est Pt Level 3 (24813) Diagnoses Renal cyst N28.1 Renal calculi N20.0
== END 2023-03-06 15:42 | disposition home or self-care (01) ==
LOC: HO.HUSH 15:08
PROVIDERS: PCP Internal Medicine; Visit Provider Nurse Practitioner Family
DX: N28.1 Cyst of kidney, acquired (principal); N20.0 Calculus of kidney
CPT/HCPCS: 99442

== ENCOUNTER → 2023-03-06 15:08 | Outpatient (BNVA) | payer MEDICARE, SELFPAY | PROVIDERS: PCP Internal Medicine; Visit Provider Nurse Practitioner Family ==

== ENCOUNTER 2023-05-21 10:57 | Outpatient (REF) | payer MEDICARE, MEDICAID, SELFPAY ==
--- NOTE | ~2023-05-21 | MM_ITS ---
EXAMINATION: MM SCREENING DIGITAL BREAST TOMOSYNTHESIS, BILATERAL CLINICAL INFORMATION: Screening. Asymptomatic. COMPARISON: Mammography: This study is compared with prior exams dating back to 2019. TECHNIQUE: Digital breast tomosynthesis is performed in both the craniocaudal and mediolateral oblique views along with computer-aided detection (CAD). Synthesized 2D images are generated from the tomosynthesis. FINDINGS: The breasts are heterogeneously dense, which may obscure small masses (ACR BI-RADS breast composition Category c). There are no significant masses, abnormal calcifications, or other abnormalities. There are scattered bilateral benign calcifications. MM/MM tomosynthesis screening BI IMPRESSION: No mammographic evidence of malignancy. ASSESSMENT: BI-RADS BI-RADS 2 - Benign Findings RECOMMENDATION: Routine annual mammography screening. 1 year F/U This examination should not preclude the clinical evaluation of a suspicious palpable abnormality. This patient's information was entered into a reminder system with a target due date for their next mammogram.
== END 2023-05-21 10:58 | disposition home or self-care (01) ==
LOC: HO.MAMMO 10:57
PROVIDERS: PCP Internal Medicine; Visit Provider Internal Medicine
DX: Z12.31 Encounter for screening mammogram for malignant neoplasm of breast (principal)
CPT/HCPCS: 77063; 77067

== ENCOUNTER → 2023-05-21 11:15 | Outpatient (BNV) | payer MEDICARE, MEDICAID, SELFPAY | PROVIDERS: PCP Internal Medicine; Visit Provider Radiology Diagnostic Radiology | DX: Z12.31 Encounter for screening mammogram for malignant neoplasm of breast (principal) | CPT/HCPCS: 77063; 77067 ==

== ENCOUNTER 2023-07-04 12:43 | Outpatient (AMB) | payer OTHER, SELFPAY ==
--- NOTE | 2023-07-04 12:47 | A.OFFPC_ITS ---
Vital Signs 07/04/23 12:48 07/04/23 13:40 Height 5 ft 2 in Weight 144 lb BMI 26.3 BP 148/54 H 140/60 H Blood Pressure Location Lt brachial Lt brachial Position Sitting Sitting Intake Visit Reasons: pre-op clearance Intake Note: Preop for 07/22 bilateral lower eye lid ectropion repair and bilateral conjunctivoplasty Target Man Required: No Accompanied by: Grand Child Allergies dulaglutide [Trulicity] Allergy (Intermediate, Verified 07/04/23 13:14) headache, memory loss amlodipine Adverse Reaction (Intermediate, Verified 07/04/23 13:14) leg edema atorvastatin Adverse Reaction (Intermediate, Verified 07/04/23 13:14) dry mouth omeprazole [OMEPRAZOLE] Adverse Reaction (Intermediate, Verified 07/04/23 13:14) N/V; ABDOMINAL PAIN Medication List - Last Reconciled 07/04/23 by Bonny Chavez MD acetaminophen ER (Mapap Arthritis Pain) 1,300 mg (2 x 650 mg) PO Q8H PRN 30 days alendronate 70 mg PO QWEEK 90 days aspirin 81 mg PO DAILY 90 days blood pressure monitor As directed blood sugar diagnostic (FreeStyle Test strips) As directed blood sugar diagnostic (OneTouch Ultra Test strips) Uxd 1 test strips four times a day blood-glucose meter (OneTouch Ultra2 Meter) As directed cholecalciferol (vitamin D3) 25 mcg PO DAILY escitalopram oxalate 10 mg PO DAILY 90 days furosemide 20 mg PO BID glucagon 3 mg/actuation (Baqsimi) 3 mg intranasal ONCE glucose 4 grams PO Q15M PRN hydralazine 50 mg PO TID 30 days [incontinence wipes As directed] insulin glargine (Lantus Solostar U-100 Insulin) 20 units (0.2 mL) subcut QAM insulin lispro (Humalog KwikPen (U-100) Insulin) 2 - 4 units subcut TID lactulose 10 grams (15 mL) PO DAILY PRN 30 days lancets (OneTouch UltraSoft 2 Lancet) Uxd 1 lancet four times a day lancets (FreeStyle Lancets) As directed linagliptin (Tradjenta) 5 mg PO DAILY 30 days lisinopril 20 mg PO DAILY loratadine 10 mg PO DAILY metoprolol succinate ER 100 mg PO DAILY pantoprazole 40 mg PO DAILY pen needle, diabetic (Comfort EZ Pen Mcclellan) As directed -injects 5 X/day pen needle, diabetic (UltiCare Pen Needle) As directed simvastatin 40 mg PO BEDTIME 90 days Tobacco use date assessed: 07/04/23 Fall risk assessment: No Falls in past year Last assessed Fall Risk: 07/04/23 Dental Screening Dental Screen Date: 07/04/23 Did you have a dental visit in the last 12 months?: No Did you have a dental problem in the last 6 months where you did not have access to dental care?: No Was dental information given to patient?: Patient has dentist HPI HPI Comments History of Present Illness Details This is a 77-year-old female with mild major depression and diabetes mellitus type 2 on long-term current use of insulin that comes accompanied by SHAKE [employer]TER for preop evaluation of lower eyelid ectropion repair and bilateral conjunctivoplasty scheduled for 07/23/2023. Depression stable with medications. A1c within goal. Patient has 5-7 Mets of ADLs. EKG was normal. Labs still pending for medical clearance. Patient denies any chest pain or shortness of breath. Blood pressure stable with lisinopril and hydralazine. [facility] Medical History OA (osteoarthritis) GERD (gastroesophageal reflux disease) Uncontrolled type 2 diabetes mellitus with hyperglycemia Renal stones Generalized abdominal pain HTN (hypertension) Elevated blood pressure reading Female pelvic pain Chest discomfort Secondary hypertension Angina at rest Constipation Acute back pain Arthritis of knee Osteoporosis KEYONNA (generalized anxiety disorder) Mild recurrent major depression GERD (gastroesophageal reflux disease) Anemia B12 deficiency Diabetic nephropathy associated with type 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 Hypertension assisted (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 Pure hypercholesterolemia Hypovitaminosis D Depression Long-term use of aspirin therapy Diabetes mellitus Surgical History Hx of colonoscopy Hx of cataract removal with insertion of prosthetic lens Hx of lithotripsy History of total abdominal hysterectomy Family History Father Hypertension Diabetes Mother Diabetes Social History Housing: Apartment Alcohol intake: never Patient Tobacco Use Status: Never used Tobacco e-Cigarette/Vaping Use: Never Used Second Hand Smoke Exposure: No service: No Current occupational status: disabled Cognitive needs: Yes (cane ) Hearing needs: No Vision needs: No Questionnaire PHQ-9 Over the last 2 weeks, how often have you been bothered by any of the following problems? 1. Little interest or pleasure in doing things: not at all 2. Feeling down, depressed, or hopeless: several days 3. Trouble falling or staying asleep, or sleeping too much: not at all 4. Feeling tired or having little energy: not at all 5. Poor appetite or overeating: several days 6. Feeling bad about yourself - or that you are a failure or have let yourself or your family down: not at all 7. Trouble concentrating on things, such as reading the newspaper or watching television: not at all 8. Moving or speaking so slowly that other people could have noticed. Or the opposite - being so fidgety or restless that you have been moving around a lot more than usual: not at all 9. Thoughts that you would be better off or of hurting yourself in some way: not at all Total score: 2 Depression Screening Interpretation: Positive Depression Screening Follow-up: Existing condition Depression Screening Done: Yes 67334 - PHQ-9 Billing: Yes Source: Developed by Drs. Jerry Abdi, Cate Young, Raymond De La O and colleagues, with an educational keely from [employer]. Thrive Questionnaire Date Thrive assessed: 07/04/23 I am a: Patient What is your living situation today?: I have a steady place to live Within the past 12 months, did the food you bought not last and you didn't have the money to get more?: Never true Within the past 12 months, did you worry whether your food would run out before you got money to buy more?: Never true Do you have trouble paying for medicines?: No Do you have trouble getting transportation to medical appointments?: No Do you have trouble paying your heating and electricity bill?: No Do you have trouble taking care of your child, family member or friend?: No Do you have trouble with day-to-day activities such as bathing, preparing meals, shopping, managing finances, etc.?: No Are you currently unemployed and looking for a job?: No Are you interested in more education?: No Please select the resources that you would like help with: None Currently or been in a relationship where the following occur: no concerns reported THRIVE Score: 0 AUDIT C Alcohol Use Questionnaire (AUDIT-C) 1. How often do you have a drink containing alcohol?: Never Total Score: 0 Score Reviewed/Action Taken: No KEYONNA-7 AMB Questionnaire KEYONNA-7 Date KEYONNA - 7 assessed: 07/04/23 Feeling nervous, anxious, or on edge: 1 = Several days Not being able to stop or control worryin = Not at all Worrying too much about different things: 1 = Several days Trouble relaxin = Not at all Being so restless that it is hard to sit still: 0 = Not at all Becoming easily annoyed or irritable: 0 = Not at all Feeling afraid as if something awful might happen: 0 = Not at all Total KEYONNA-7 score (0-4 normal; 5-9 mild; 10-14 moderate; 15-21 severe): 2 Source: Developed by Drs. Jerry Abdi, Cate Young, Raymond De La O and colleagues, with an educational keely from [employer]. KEYONNA-7 Assessment Billing KEYONNA-7 Assessment Tool: KEYONNA-7 Assessment 55861 Review of Systems Const All systems reviewed & are unremarkable except as noted in HPI and below Eyes Reports no additional complaints, Denies change in vision and Denies other visual disturbances Card Denies chest pain at rest, Denies chest pain with activity, Denies edema, Denies irregular heart rhythm, Denies claudication, Denies dyspnea, Denies dyspnea on exertion, Denies orthopnea, Denies paroxysmal nocturnal dyspnea and Denies slow heart rate Resp Denies cough, Denies dyspnea and Denies dyspnea on exertion Physical exam (Primary Care) Vital Signs: Last Vital Signs BP 140/60 H 07/04/23 13:40 BMI result Body Mass Index 26.3 Tobacco/Smoking Status: Tobacco use Status Tobacco use date assessed 07/04/23 07/04/23 13:00 Patient Tobacco Use Status Never used Tobacco 07/04/23 12:50 e-Cigarette/Vaping Use Never Used 07/04/23 12:50 PHQ-9: PHQ-9 Score PHQ-9: Total score 2 07/04/23 13:42 Depression Screening Interpretation: Positive Depression Screening Follow-up: Existing condition Thrive Assessment: Date of Thrive Assessment Date Thrive assessed 07/04/23 07/04/23 13:00 Currently or been in a relationship where the following occur: no concerns reported Resp Effort & Inspection: normal respiratory effort Auscultation: clear to auscultation bilaterally Cardio Jugular venous distension: no JVD Rate: regular rate Rhythm: regular rhythm Heart sounds: S1 normal heart sound present and S2 normal heart sound present Extrem General: Yes full ROM Results AMB Hemoglobin A1c AMB Hemoglobin A1c 7.0 % Last Edit by NADEGE See on 07/04/23 13:0 1 Results Reviewed Results Reviewed: Laboratory Last Values Hgb A1c (Clinic) 7.0 % (4.0-6.0) H 07/04/23 12:47 Assessment and Plan Assessment & Plan (1) Preop examination: Code(s): Z01.818 - Encounter for other preprocedural examination Plan: Labs pending for medical clearance. (2) Mild recurrent major depression: Code(s): F33.0 - Major depressive disorder, recurrent, mild Plan: Continue escitalopram. (3) Diabetes mellitus: Code(s): E11.9 - Type 2 diabetes mellitus without complications Qualifiers: Diabetes mellitus type: type 2 Diabetes mellitus intermediate insulin use: with terminal makeup operator use Diabetes mellitus complication status: with hyperglycemia Qualified Code(s): E11.65 - Type 2 diabetes mellitus with hyperglycemia; Z79.4 - assisted (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 Plan: Continue insulin and Tradjenta. A1c goal is equal or less than 7%. (4) Hypertension: Code(s): I10 - Essential (primary) hypertension Qualifiers: Hypertension type: essential hypertension Qualified Code(s): I10 - Essential (primary) hypertension Plan: Continue lisinopril and hydralazine. Blood pressure goal is equal or less than 130/80. Orders: Orders Lipid Panel Today E78.5 - Hyperlipidemia, unspecified Vitamin D 25-OH Total Today E55.9 - Vitamin D deficiency, unspecified Comprehensive [place]. Panel Fast Today E11.65 - Type 2 diabetes mellitus with hyperglycemia, Z79.4 - assisted (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 AMB Hemoglobin A1c Today E11.9 - Type 2 diabetes mellitus without complications Microalbumin, Random (w Creat) Today E11.9 - Type 2 diabetes mellitus without complications Complete Blood Count Auto Diff Today D64.9 - Anemia, unspecified IRON PROFILE Today D64.9 - Anemia, unspecified Vitamin B12 and Folate Today E53.8 - Deficiency of other specified B group vitamins Coding Level of Care Code Est Pt Level 4 (86573) Diagnoses Preop examination Z01.818 Mild recurrent major depression F33.0 Type 2 diabetes mellitus with hyperglycemia, with long-term current use of insulin E11.65; Z79.4 Diabetes mellitus type: type 2 Diabetes mellitus terminal makeup operator insulin use: with intermediate use Diabetes mellitus complication status: with hyperglycemia Essential hypertension I10 Hypertension type: essential hypertension Additional Codes KEYONNA-7 Assessment Billing - KEYONNA-7 Assessment Tool: KEYONNA-7 Assessment [id number] ([id number]) Time Spent (min) 25
[2023-07-04 12:48] VITALS: BP 148/54; BMI 26.3
[2023-07-04 13:40] VITALS: BP 140/60
== END 2023-07-04 13:30 | disposition home or self-care (01) ==
PROVIDERS: PCP Internal Medicine; Visit Provider Internal Medicine
DX: E11.65 Type 2 diabetes mellitus with hyperglycemia (principal); F33.0 Major depressive disorder, recurrent, mild; Z79.4 Long term (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; Z01.818 Encounter for other preprocedural examination; I10 Essential (primary) hypertension
CPT/HCPCS: 83036; 99214

== ENCOUNTER 2023-07-06 09:55 | Outpatient (REF) | payer OTHER, SELFPAY ==
[2023-07-06 10:19] LABS: MANUAL DIFF FLAG NO
[2023-07-06 10:40] LABS: Basophils Percent Auto 0.5 % (0-2); Eosinophils Absolute Auto 0.1 X10*3/uL (0.0-0.4); Eosinophils Percent Auto 1.6 % (0-4); Hematocrit 38.3 % (37.0-47.0); Hemoglobin 12.3 g/dl (12.0-16.0); Imm Gran Abs Auto 0.04 X10*3/uL (0.00-0.03); Imm Gran Pct Auto 0.6 % (0.0-0.4); Lymphocytes Absolute Auto 1.8 X10*3/uL (1.2-4.9); Lymphocytes Percent Auto 28.8 % (20-40); Mean Corpuscular HGB Conc 32.1 g/dl (31.0-35.0); Mean Corpuscular Hemoglobin 28.8 pg (27.0-33.0); Mean Corpuscular Volume 89.7 fL (80.0-98.0); Mean Platelet Volume 11.6 fL (9.4-12.3); Monocytes Absolute Auto 0.5 X10*3/uL (0.1-1.2); Neutrophils Absolute Auto 3.9 x10*3/uL (2.0-8.3); Neutrophils Percent Auto 60.5 % (45-73); Platelet Count 207 X10*3/uL (160-400); Red Blood Count 4.27 X10*6/uL (4.20-5.50); Red Cell Distribution Width 13.8 % (11.0-16.0); White Blood Count 6.4 X10*3/uL (4.8-10.8)
[2023-07-06 11:39] LABS: Alanine Aminotransferase 15 U/L (0-31); Albumin Level 3.7 g/dL (3.5-5.0); Alkaline Phosphatase 62 U/L (39-117); Anion Gap 10 (12-20); Aspartate Amino Transferase 22 U/L (5-31); Bilirubin Total 0.4 mg/dL (0.0-1.0); Blood Urea Nitrogen 27 mg/dL (9-16); Carbon Dioxide 32 mmol/L (22-29); Chloride 105 mmol/L (96-108); Cholesterol 170 mg/dL (<200); Estimated Glomerular Filt Rate 38; Glucose Fasting 124 mg/dL (60-99); HDL Cholesterol 61 mg/dL (>40); Iron 86 mcg/dL (30-160); LDL Cholesterol Calculated 97 mg/dL (<100); Percent Iron Saturation 31 % (15-50); Potassium 4.3 mmol/L (3.3-5.1); Sodium 143 mmol/L (135-145); Total Iron Binding Capacity 278 mcg/dL (228-428); Total Protein 7.2 g/dL (6.5-8.0); Triglycerides 61 mg/dL (<150); Unsaturated Iron Binding 192 ug/dL
[2023-07-06 11:56] LABS: Vitamin D 25-OH Total 54.3 ng/mL (>30)
[2023-07-06 12:35] LABS: Vitamin B12 393 pg/mL (200-900)
[2023-07-06 13:09] LABS: Creatinine Urine 189.31 mg/dL; Microalbum/Creatinine Ratio Ur 75.5 ug/mg cr (<30)
== END 2023-07-06 09:56 | disposition home or self-care (01) ==
LOC: HO.LAB 09:55
PROVIDERS: PCP Internal Medicine; Visit Provider Internal Medicine
DX: E55.9 Vitamin D deficiency, unspecified (principal); E11.65 Type 2 diabetes mellitus with hyperglycemia; E53.8 Deficiency of other specified B group vitamins; E78.5 Hyperlipidemia, unspecified; D64.9 Anemia, unspecified; Z79.4 Long term (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
CPT/HCPCS: 36415; 80053; 80061; 82043; 82306; 82570; 82607; 82746; 83540; 85025

== ENCOUNTER → 2023-07-13 10:17 | Outpatient (REF) | payer OTHER, SELFPAY ==
--- NOTE | 2023-07-13 10:22 | ECG_ITS ---
Test Reason : PREPROC EXAM Blood Pressure : / mmHG Vent. Rate : 076 BPM Atrial Rate : 076 BPM P-R Int : 212 ms QRS Dur : 074 ms QT Int : 388 ms P-R-T Axes : 045 -09 048 degrees QTc Int : 436 ms Sinus rhythm with 1st degree A-V block Minimal voltage criteria for LVH, may be normal variant ( R in aVL ) Borderline ECG When compared with ECG of 25-MAY-2022 00:49, No significant change was found Referred By: Bonny Chavez Electronically Signed By:Maninder Whaley
== END ==
LOC: HO.CARD 10:17
PROVIDERS: PCP Internal Medicine; Visit Provider Internal Medicine
DX: Z01.818 Encounter for other preprocedural examination (principal)
CPT/HCPCS: 93005

== ENCOUNTER → 2023-07-13 10:22 | Outpatient (BNV) | payer OTHER, SELFPAY | PROVIDERS: PCP Internal Medicine; Visit Provider Internal Medicine Cardiovascular Disease | DX: I44.0 Atrioventricular block, first degree (principal) | CPT/HCPCS: 93010 ==

== ENCOUNTER 2023-07-23 10:28 | Outpatient (AMB) | payer OTHER, SELFPAY ==
[2023-07-23 10:33] VITALS: BP 120/60; PULSE 67; TEMP 36.4; O2SAT 95; BMI 27.6
--- NOTE | 2023-07-23 10:33 | AM.OFFWIN_ITS ---
Intake Vital Signs 07/23/23 10:33 Height 5 ft 2 in Weight 151 lb BMI 27.6 BP 120/60 Blood Pressure Location Lt brachial Position Sitting Pulse 67 Pulse Source Pulse Oximeter Temp 97.5 F Temp Source Temporal Artery Scan Pulse Oximetry (%) 95 Oxygen Delivery Method Room Air Intake Visit Reasons: EP fever sore/ear pain headache body aches (lobby) Intake Note: pt is here today for fever sore ear pain headache body aches started sunday Patient Tobacco Use Status: Never used Tobacco Allergies dulaglutide [Trulicity] Allergy (Intermediate, Verified 07/23/23 10:38) headache, memory loss amlodipine Adverse Reaction (Intermediate, Verified 07/23/23 10:38) leg edema atorvastatin Adverse Reaction (Intermediate, Verified 07/23/23 10:38) dry mouth omeprazole [OMEPRAZOLE] Adverse Reaction (Intermediate, Verified 07/23/23 10:38) N/V; ABDOMINAL PAIN Do you need a note to return to daycare/school/sports/work: No HPI HPI Comments History of Present Illness Details Patient presents to the walk in today for sick visit, she is accompanied by her granddaughter Reports 2 days sinus congestion, fatigue, bodyaches, fever. Denies known sick contacts Denies fever, chest pain, shortness of breath, palpitations, syncope, weakness Denies headache, ear pain, sore throat, nausea, vomiting, diarrhea Patient has insulin-dependent diabetic, she has been monitoring her blood sugars closely. Fasting this morning was 123. [facility] Medical History OA (osteoarthritis) GERD (gastroesophageal reflux disease) Uncontrolled type 2 diabetes mellitus with hyperglycemia Renal stones Generalized abdominal pain HTN (hypertension) Elevated blood pressure reading Female pelvic pain Chest discomfort Secondary hypertension Angina at rest Constipation Acute back pain Arthritis of knee Osteoporosis KEYONNA (generalized anxiety disorder) Mild recurrent major depression GERD (gastroesophageal reflux disease) Anemia B12 deficiency Diabetic nephropathy associated with type 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 Hypertension retirement (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 Pure hypercholesterolemia Hypovitaminosis D Depression Long-term use of aspirin therapy Diabetes mellitus Surgical History Hx of colonoscopy Hx of cataract removal with insertion of prosthetic lens Hx of lithotripsy History of total abdominal hysterectomy Family History Father Hypertension Diabetes Mother Diabetes Social History Housing: Apartment Alcohol intake: never Patient Tobacco Use Status: Never used Tobacco e-Cigarette/Vaping Use: Never Used Second Hand Smoke Exposure: No service: No Current occupational status: disabled Cognitive needs: Yes (cane ) Hearing needs: No Vision needs: No Review of Systems Const All systems reviewed & are unremarkable except as noted in HPI and below Physical Exam Vital Signs: Last Vital Signs Temp 97.5 F 07/23/23 10:33 Pulse 67 07/23/23 10:33 BP 120/60 07/23/23 10:33 Pulse Ox 95 07/23/23 10:33 Oxygen Delivery Method Room Air 07/23/23 10:33 BMI result Body Mass Index 27.6 General: awake, alert, oriented. Answers questions appropriately. Fully engaged in examination. Skin: dry, intact, warm to the touch HEENT: TMs intact bilaterally, without erythema. Posterior pharynx without erythema or exudate. Sclera without icterus or injection. Cardiac: External chest normal in appearance. Respiratory: LSCTAB. Abdomen: without gross distension. Neurological: Oriented to person, place, time and situation. Thought process intact. Psychiatric: Appropriate mood and affect. Good judgment and insight. Results AMB Rapid Strep AMB Rapid Strep Negative Last Edit by Alexis Bravo MA on 07/23/23 11:48 Assessment & Plan Assessment & Plan (1) URI (upper respiratory infection): Code(s): J06.9 - Acute upper respiratory infection, unspecified Plan URI, no abx warranted. SARS-CoV2/FLU/RSV swab collected, results pending. Patient aware she will be called with results. Rest, drink plenty of fluids, tylenol or motrin as needed. Follow up with pcp or in clinic for any new or worsening symptoms. Go to ER for shortness of breath, chest pain, palpitations, weakness, dizziness. Orders: Orders SARS-CoV2/FLU/RSV Today J06.9 - Acute upper respiratory infection, unspecified Coding Level of Care Code Est Pt Level 3 (94007) Diagnoses URI (upper respiratory infection) J06.9
== END 2023-07-23 11:48 | disposition home or self-care (01) ==
PROVIDERS: PCP Internal Medicine; Visit Provider Registered Nurse Emergency
DX: J06.9 Acute upper respiratory infection, unspecified (principal)
CPT/HCPCS: 99213

== ENCOUNTER 2023-07-23 11:02 | Outpatient (REF) | payer OTHER, SELFPAY ==
[2023-07-23 15:04] LABS: Influenza A PCR NEGATIVE (Negative); Influenza B PCR NEGATIVE (Negative); Resp Syncy Virus RNA Qual PCR NEGATIVE (Negative); SARS COV2 PCR INHOUSE NEGATIVE (Negative)
== END 2023-07-23 11:03 | disposition home or self-care (01) ==
LOC: HO.LAB 11:02
PROVIDERS: Visit Provider Registered Nurse Emergency
DX: R09.89 Other specified symptoms and signs involving the circulatory and respiratory systems (principal); J06.9 Acute upper respiratory infection, unspecified
CPT/HCPCS: 0241U

== ENCOUNTER 2023-08-20 12:34 | Outpatient (REF) | payer OTHER, SELFPAY ==
--- NOTE | ~2023-08-20 | US_ITS ---
EXAMINATION: US RETROPERITONEAL LIMITED (RENAL ONLY) CLINICAL INFORMATION: Calculus of kidney. COMPARISON: CT abdomen and pelvis 01/15/2023. Renal ultrasound 11/24/2022 and 11/24/2021. X-ray abdomen KUB 10/24/2017 and 02/14/2017. TECHNIQUE: Real-time imaging of the kidneys. Limited visualization due to bowel gas. FINDINGS: RIGHT KIDNEY: 10.1 x 5.1 x 5.0 cm (SAG x AP x TRV). No hydronephrosis. No renal calculi. Renal cortical thickness is normal. Limited visualization. LEFT KIDNEY: 9.1 x 5.4 x 4.4 cm (SAG x AP x TRV). No hydronephrosis. Left renal calculi measures 6 mm lower pole, 6 mm upper pole and 5 mm mid pole. Renal cortical thickness is normal. Limited visualization. US/US renal BI IMPRESSION: Left renal calculi. No hydronephrosis.
== END 2023-08-20 12:35 | disposition home or self-care (01) ==
LOC: HO.US 12:34
PROVIDERS: PCP Internal Medicine; Visit Provider Nurse Practitioner Family
DX: N20.0 Calculus of kidney (principal)
CPT/HCPCS: 76775

== ENCOUNTER 2023-10-17 14:40 | Outpatient (REF) | payer OTHER, SELFPAY ==
--- NOTE | ~2023-10-17 | XR_ITS ---
EXAMINATION: XR ABDOMEN KUB CLINICAL INDICATION: Renal calculi COMPARISON: Ultrasound from 08/20/2023 TECHNIQUE: AP view of the abdomen. FINDINGS: The bowel gas pattern is normal with no evidence of ileus or obstruction. The bones are unremarkable. Calcifications seen to the right of the lumbar spine not in the ureter, seen on CT scan of December 2022 Punctate calcifications seen in the expected location of left kidney, between 11 and 12 ribs, most likely small renal calculi XR/XR KUB IMPRESSION: Small renal calculi on the left
== END 2023-10-17 14:41 | disposition home or self-care (01) ==
LOC: HO.XRAY 14:40
PROVIDERS: PCP Internal Medicine; Visit Provider Nurse Practitioner Family
DX: N20.0 Calculus of kidney (principal)
CPT/HCPCS: 74018

== ENCOUNTER 2023-10-18 10:46 | Outpatient (AMB) | payer OTHER, SELFPAY ==
--- NOTE | 2023-10-18 10:48 | MHC.OFFVIS ---
Intake Visit Reasons: 6 month follow up/ US(set) Intake Note: Patient presents today for follow up on: Kidney Stone, Renal Cyst, and Imaging Imaging Completed: 08/20/23(ultrasound); 10/17/23(KUB X-ray) Urology Medications: none Blood Thinner: aspirin Operations Intelligence Required: Yes Accompanied by: Unknown Allergies dulaglutide [Trulicity] Allergy (Intermediate, Verified 10/18/23 11:25) headache, memory loss amlodipine Adverse Reaction (Intermediate, Verified 10/18/23 11:25) leg edema atorvastatin Adverse Reaction (Intermediate, Verified 10/18/23 11:25) dry mouth omeprazole [OMEPRAZOLE] Adverse Reaction (Intermediate, Verified 10/18/23 11:25) N/V; ABDOMINAL PAIN Medication List - Last Reconciled 10/18/23 by CORINNE Peerra acetaminophen ER (Mapap Arthritis Pain) 1,300 mg (2 x 650 mg) PO Q8H PRN 30 days alendronate 70 mg PO QWEEK 90 days aspirin 81 mg PO DAILY 90 days blood pressure monitor As directed blood sugar diagnostic (FreeStyle Test strips) As directed four times per day blood sugar diagnostic (OneTouch Ultra Test strips) Uxd 1 test strips four times a day blood-glucose meter (Boosted BoardsTouch Ultra2 Meter) As directed cholecalciferol (vitamin D3) 25 mcg PO DAILY escitalopram oxalate 10 mg PO DAILY 90 days furosemide 20 mg PO BID glucagon 3 mg/actuation (Baqsimi) 3 mg intranasal ONCE glucose 4 grams PO Q15M PRN hydralazine 50 mg PO TID 30 days [incontinence wipes As directed] insulin glargine (Lantus Solostar U-100 Insulin) 20 units (0.2 mL) subcut QAM insulin lispro (Humalog KwikPen (U-100) Insulin) 2 - 4 units subcut TID lactulose 10 grams (15 mL) PO DAILY PRN 30 days lancets (Boosted BoardsTouch UltraSoft 2 Lancet) Uxd 1 lancet four times a day lancets (FreeStyle Lancets) As directed linagliptin (Tradjenta) 5 mg PO DAILY 30 days lisinopril 20 mg PO DAILY loratadine 10 mg PO DAILY metoprolol succinate ER 100 mg PO DAILY nitrofurantoin macrocrystal 100 mg PO BID 10 days pantoprazole 40 mg PO DAILY pen needle, diabetic (Comfort EZ Pen [place]) As directed -injects 5 X/day pen needle, diabetic (UltiCare Pen Needle) As directed pyridoxine (vitamin B6) 100 mg PO DAILY 90 days simvastatin 40 mg PO BEDTIME 90 days HPI Comments Details: Rupali is a 77 year old Finnish speaking female patient of Dr. Triana who was accompanied by her PHYSICIAN NEONATOLOGY/grand daughter (Shahida) at todays office visit. She has a past medical history of anemia, osteoarthritis, vitamin B12 deficiency, constipation, depression, diabetes mellitus, anxiety, GERD, hypertension, osteoporosis, hypercholesteremia, and nephrolithiasis. She presents to the office today for follow-up of her nephrolithiasis. Recent renal ultrasound and KUB results reviewed with the patient and her PHYSICIAN NEONATOLOGY today. Bilateral kidneys with no hydronephrosis. Left renal calculi noted measuring approximately 6 mm lower pole, 6 mm upper pole, and 5 mm mid pole. When asked she does report noting new onset urinary frequency with bladder pressure. In office urinalysis with 3+ leukocytes negative nitrates. Discussed possible urinary tract infection. She otherwise denies incontinence, nocturia, hematuria, foul smelling urine, changes to urinary stream, flank pain, fever, and or chills. Discussed at length potential causes of nephrolithiasis as well as further intervention to include surveillance monitoring versus surgical intervention. Risks and benefits of these interventions were discussed at length. Discussed importance of drinking plenty of water daily. She otherwise offers no other issues or concerns at this time. [facility] Medical History OA (osteoarthritis) GERD (gastroesophageal reflux disease) Uncontrolled type 2 diabetes mellitus with hyperglycemia Renal stones Generalized abdominal pain HTN (hypertension) Elevated blood pressure reading Female pelvic pain Chest discomfort Secondary hypertension Angina at rest Constipation Acute back pain Arthritis of knee Osteoporosis KEYONNA (generalized anxiety disorder) Mild recurrent major depression GERD (gastroesophageal reflux disease) Anemia B12 deficiency Diabetic nephropathy associated with type 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 Hypertension intermediate 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 (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 Pure hypercholesterolemia Hypovitaminosis D Depression Long-term use of aspirin therapy Diabetes mellitus Surgical History Hx of colonoscopy Hx of cataract removal with insertion of prosthetic lens Hx of lithotripsy History of total abdominal hysterectomy Family History Father Hypertension Diabetes Mother Diabetes Social History Housing: Apartment Alcohol intake: never Patient Tobacco Use Status: Never used Tobacco e-Cigarette/Vaping Use: Never Used Second Hand Smoke Exposure: No service: No Current occupational status: disabled Cognitive needs: Yes (cane ) Hearing needs: No Vision needs: No Review of Systems Const Reports as per HPI Eyes Reports no additional complaints ENT Reports no additional complaints Card Reports as per HPI Resp Reports no additional complaints GI Reports as per HPI Reports as per HPI Musc Reports as per HPI Neuro Reports as per HPI Psych Reports as per HPI Endo Reports as per HPI Physical Exam Const General: cooperative, healthy appearing, comfortable, no acute distress, well developed, alert and awake Orientation/consciousness: patient oriented x3 Limitations: no limitations HEENT Head: Yes normal to inspection, Yes normocephalic and Yes atraumatic Ears: hearing grossly normal bilaterally Eyes General: appearance normal, both eyes and all related structures Neck Neck: Yes normal visual inspection and Yes trachea midline Chest Chest palpation & inspection: normal inspection of the chest Resp Effort & Inspection: normal respiratory effort and able to speak in complete sentences Cardio Rate: regular rate GI Inspection: Yes normal to inspection General: Yes no CVA tenderness Back/Spine/Pelvis Back: no CVA tenderness Skin General skin exam: no rashes or lesions noted Neuro General: patient oriented x3 Extrem General: Yes normal to inspection Psych Appearance: grossly normal and well kempt Mental Status: mental status grossly normal Speech and movement: Normal speech and movement present and Clear speech present Affect: normal affect Attitude: cooperative Thought process: Normal thought process present Thought content: Normal thought content present Insight: Fair insight present (Psych) Judgement: Fair judgement present (Psych) Results AMB Urinalysis, Automated UA Leukoctes 500 Derick/uL Last Edit by Stanley Garg on 10/18/23 11:06 UA Nitrite Negative Last Edit by Stanley Garg on 10/18/23 11:06 UA Urobilinogen 0.2 mg/dL Last Edit by Stanley Garg on 10/18/23 11:06 UA Protein 30 mg/dL Last Edit by Stanley Garg on 10/18/23 11:06 UA pH 6.0 Last Edit by Stanley Garg on 10/18/23 11:06 UA Blood 0 Jerry/uL Last Edit by Stanley Garg on 10/18/23 11:06 UA Specific [place] 1.020 Last Edit by Stanley Garg on 10/18/23 11:06 UA Ketone Negative Last Edit by Stanley Garg on 10/18/23 11:06 UA Bilirubin 0 mg/dL Last Edit by Stanley Garg on 10/18/23 11:06 UA Glucose 0 mg/dL Last Edit by Stanley Garg on 10/18/23 11:06 Results Reviewed Results Reviewed: Laboratory Last Values Urine pH (Auto) 6.0 10/18/23 10:54 Specific [place] (Auto) 1.020 10/18/23 10:54 Urine Protein (Auto) 30 mg/dL 10/18/23 10:54 Glucose (UA)(Auto) 0 mg/dL 10/18/23 10:54 Urine Ketones (Auto) Negative 10/18/23 10:54 Urine Blood (Auto) 0 Jerry/uL 10/18/23 10:54 Urine Nitrite (Auto) Negative 10/18/23 10:54 Urine Bilirubin (Auto) 0 mg/dL 10/18/23 10:54 Urine Urobilinogen (Auto) 0.2 mg/dL 10/18/23 10:54 Leukocyte Esterase (Auto) 500 Derick/uL 10/18/23 10:54 Date of Service: 08/20/23 Procedure(s): US renal BI FINDINGS: RIGHT KIDNEY: 10.1 x 5.1 x 5.0 cm (SAG x AP x TRV). No hydronephrosis. No renal calculi. Renal cortical thickness is normal. Limited visualization. LEFT KIDNEY: 9.1 x 5.4 x 4.4 cm (SAG x AP x TRV). No hydronephrosis. Left renal calculi measures 6 mm lower pole, 6 mm upper pole and 5 mm mid pole. Renal cortical thickness is normal. Limited visualization. IMPRESSION: Left renal calculi. No hydronephrosis. Assessment & Plan Assessment & Plan (1) Urinary tract infection: Code(s): N39.0 - Urinary tract infection, site not specified Category: Medical (2) Renal calculi: Code(s): N20.0 - Calculus of kidney Category: Medical Plan In office urinalysis results reviewed with the patient today; as noted above; will send for urine culture. Recent renal imaging results reviewed with the patient today; as noted above. Discussed at length potential causes of nephrolithiasis as well as further intervention to include surveillance monitoring versus surgical intervention; risks and benefits of these interventions were discussed at length; will continue with surveillance monitoring at this time. Discussed, educated, and stressed the importance of adequate hydration relation to UTI as well as nephrolithiasis and overall health and well-being. Start Macrobid as discussed and prescribed. Start vitamin B6 as discussed and prescribed. Follow-up in 1-3 months with [facility]; or sooner with any issues, concerns, and or questions. Orders: Orders Urine Culture Today N39.0 - Urinary tract infection, site not specified AMB Urinalysis Automated Today Z13.9 - Encounter for screening, unspecified Medications: New nitrofurantoin macrocrystal must administer with a meal/food 100 mg PO BID 10 days 20 caps 0RF N39.0 - Urinary tract infection, site not specified pyridoxine (vitamin B6) 100 mg PO DAILY 90 days 90 tabs 1RF N20.0 - Calculus of kidney Patient Instructions: The patient had an opportunity to ask questions regarding the treatment plan. All questions were answered. Physical exam, labs, and imaging were discussed and reviewed in detail. As well as risks, benefits, and discussion of treatment choices. No major barriers to understanding were identified. The patient expressed understanding and agreement with the above treatment plan. The patient was made aware they should contact our office by phone for worsening of their current condition, the appearance of new symptoms, or with any questions or concerns. Compliance is encouraged with any medications and follow up testing that is ordered. It is a privilege to be allowed the opportunity to participate in? your urological care.? Again, if you have any questions or concerns If you have any questions or concerns please do not hesitate to contact me. The office is [phone]. This note is constructed using voice recognition software. While every effort has been made to ensure accuracy livestock counter errors may have been included. Yours sincerely, CORINNE Perera Coding Level of Care Code Est Pt Level 4 (15319) Diagnoses Urinary tract infection N39.0 Renal calculi N20.0
== END 2023-10-18 11:25 | disposition home or self-care (01) ==
PROVIDERS: PCP Internal Medicine; Visit Provider Nurse Practitioner Family
DX: N39.0 Urinary tract infection, site not specified (principal); N20.0 Calculus of kidney; Z13.9 Encounter for screening, unspecified
CPT/HCPCS: 99214

== ENCOUNTER → 2023-10-18 10:46 | Outpatient (BNVA) | payer MEDICARE, SELFPAY | PROVIDERS: PCP Internal Medicine; Visit Provider Nurse Practitioner Family | DX: N20.0 Calculus of kidney (principal); N39.0 Urinary tract infection, site not specified | CPT/HCPCS: 81003; 99212 ==

== ENCOUNTER 2023-11-07 09:59 | Outpatient (REF) | payer OTHER, SELFPAY | END 2023-11-07 10:00 | disposition home or self-care (01) | LOC: HO.10HDL 09:59 | PROVIDERS: Visit Provider Internal Medicine Nephrology | DX: Z13.89 Encounter for screening for other disorder (principal) ==

== ENCOUNTER 2023-11-07 10:16 | Outpatient (REF) | payer OTHER, SELFPAY ==
[2023-11-07 11:03] LABS: MANUAL DIFF FLAG NO
[2023-11-07 11:27] LABS: Basophils Percent Auto 0.5 % (0-2); Eosinophils Absolute Auto 0.1 X10*3/uL (0.0-0.4); Eosinophils Percent Auto 1.5 % (0-4); Hematocrit 38.3 % (37.0-47.0); Hemoglobin 12.3 g/dl (12.0-16.0); Imm Gran Abs Auto 0.05 X10*3/uL (0.00-0.03); Imm Gran Pct Auto 0.8 % (0.0-0.4); Lymphocytes Absolute Auto 1.8 X10*3/uL (1.2-4.9); Lymphocytes Percent Auto 27.6 % (20-40); Mean Corpuscular HGB Conc 32.1 g/dl (31.0-35.0); Mean Corpuscular Hemoglobin 28.7 pg (27.0-33.0); Mean Corpuscular Volume 89.3 fL (80.0-98.0); Monocytes Absolute Auto 0.4 X10*3/uL (0.1-1.2); Monocytes Percent Auto 6.5 % (2-11); Neutrophils Absolute Auto 4.1 x10*3/uL (2.0-8.3); Neutrophils Percent Auto 63.1 % (45-73); Platelet Count 211 X10*3/uL (160-400); Red Blood Count 4.29 X10*6/uL (4.20-5.50); Red Cell Distribution Width 13.7 % (11.0-16.0); White Blood Count 6.5 X10*3/uL (4.8-10.8)
[2023-11-07 11:34] LABS: Albumin Level 3.9 g/dL (3.5-5.0); Anion Gap 10 (12-20); Blood Urea Nitrogen 20 mg/dL (9-16); Calcium 10.1 mg/dL (8.4-10.2); Carbon Dioxide 30 mmol/L (22-29); Chloride 108 mmol/L (96-108); Estimated Glomerular Filt Rate 42; Magnesium 1.6 mg/dL (1.6-2.6); Phosphorus 3.6 mg/dL (2.7-4.5); Potassium 4.7 mmol/L (3.3-5.1); Sodium 143 mmol/L (135-145)
[2023-11-07 11:41] LABS: Appearance Urine Clear; Color Urine Yellow; Glucose Urine UA Negative (Negative); Leukocyte Esterase Urine Large (3+) (Negative); Nitrite Urine Negative (Negative); PH 5.5 (5.0-9.0); Specific Gravity - Urine 1.015 (1.005-1.025); UMIC TRIGGER UA YES; Urine Blood Negative (Negative); Urine Ketones Negative (Negative); Urine Protein Trace mg/dL (Neg-Trace)
[2023-11-07 11:46] LABS: Bacteria Urine Trace (None Seen); Hyaline Casts Urine 0-2 /LPF (0-2); RBC Urine 0-2 /HPF (0-2); WBC Urine >50 /HPF (0-5)
[2023-11-07 11:49] LABS: Creatinine Urine 78.66 mg/dL; Microalbum/Creatinine Ratio Ur 125.8 ug/mg cr (<30); Protein/Creatinine Ratio, Ur 0.27 (<0.2); Total Protein Urine Random 21 mg/dL (<12)
[2023-11-07 14:30] LABS: Parathyroid Hormone Intact 102.8 pg/mL (8.7-77.1)
== END 2023-11-07 10:17 | disposition home or self-care (01) ==
LOC: HO.10HDL 10:16
PROVIDERS: Visit Provider Internal Medicine Nephrology
DX: E11.22 Type 2 diabetes mellitus with diabetic chronic kidney disease (principal); N18.32 Chronic kidney disease, stage 3b; N25.0 Renal osteodystrophy
CPT/HCPCS: 36415; 80051; 81001; 82040; 82043; 82306; 82310; 82565; 82570; 83735; 83970; 84100; 84156; 84520; 85025

== ENCOUNTER 2023-11-08 10:42 | Outpatient (AMB) | payer OTHER, SELFPAY ==
[2023-11-08 10:48] VITALS: BP 168/68; BMI 26.9
--- NOTE | 2023-11-08 10:48 | MHC.PC.OV ---
Vital Signs 11/08/23 10:48 Height 5 ft 2 in Weight 147 lb BMI 26.9 BP 168/68 H Blood Pressure Location Lt brachial Position Sitting Intake Visit Reasons: dm Intake Note: Patient here for a follow up DM Flumer Required: No Accompanied by: Daughter Allergies dulaglutide [Trulicity] Allergy (Intermediate, Verified 11/08/23 11:09) headache, memory loss amlodipine Adverse Reaction (Intermediate, Verified 11/08/23 11:09) leg edema atorvastatin Adverse Reaction (Intermediate, Verified 11/08/23 11:09) dry mouth omeprazole [OMEPRAZOLE] Adverse Reaction (Intermediate, Verified 11/08/23 11:09) N/V; ABDOMINAL PAIN Medication List - Last Reconciled 11/08/23 by Bonny Chavez MD acetaminophen ER (Mapap Arthritis Pain) 1,300 mg (2 x 650 mg) PO Q8H PRN 30 days alendronate 70 mg PO QWEEK 90 days aspirin 81 mg PO DAILY 90 days blood pressure monitor As directed blood sugar diagnostic (FreeStyle Test strips) As directed four times per day blood sugar diagnostic (OneTouch Ultra Test strips) Uxd 1 test strips four times a day blood-glucose meter (OneTouch Ultra2 Meter) As directed cholecalciferol (vitamin D3) 25 mcg PO DAILY escitalopram oxalate 10 mg PO DAILY 90 days furosemide 20 mg PO BID glucagon 3 mg/actuation (Baqsimi) 3 mg intranasal ONCE glucose 4 grams PO Q15M PRN hydralazine 50 mg PO TID 30 days [incontinence wipes As directed] insulin glargine (Lantus Solostar U-100 Insulin) 20 units (0.2 mL) subcut QAM insulin lispro (Humalog KwikPen (U-100) Insulin) 2 - 4 units subcut TID lactulose 10 grams (15 mL) PO DAILY PRN 30 days lancets (OneTouch UltraSoft 2 Lancet) Uxd 1 lancet four times a day lancets (FreeStyle Lancets) As directed linagliptin (Tradjenta) 5 mg PO DAILY 30 days lisinopril 20 mg PO DAILY loratadine 10 mg PO DAILY metoprolol succinate ER 100 mg PO DAILY pantoprazole 40 mg PO DAILY pen needle, diabetic (Comfort EZ Pen [place]) As directed -injects 5 X/day pen needle, diabetic (UltiCare Pen Needle) As directed pyridoxine (vitamin B6) 100 mg PO DAILY 90 days simvastatin 40 mg PO BEDTIME 90 days Tobacco use date assessed: 07/04/23 Fall risk assessment: No Falls in past year Last assessed Fall Risk: 11/08/23 Dental Screening Dental Screen Date: 07/04/23 HPI HPI Comments History of Present Illness Details This is an 78-year-old female with diabetes mellitus type 2 on long-term current use of insulin, hypertension, pure hypercholesterolemia, mild recurrent major depression and osteoporosis that comes today accompanied by granddaughter for follow-up on her conditions. A1c within goal. Blood pressure elevated and will be recheck in 3 weeks by nurse navigator. Depression stable with medications. Last DEXA scan was 2020 and this will be repeated. Lipid panel will be order and her LDL goal should be less than 70. No chest pain or shortness on breath. [facility] Medical History (Updated 11/08/23 @ 13:17 by Bonny Chavez MD) OA (osteoarthritis) GERD (gastroesophageal reflux disease) Uncontrolled type 2 diabetes mellitus with hyperglycemia Renal stones Generalized abdominal pain HTN (hypertension) Elevated blood pressure reading Female pelvic pain Chest discomfort Secondary hypertension Angina at rest Constipation Acute back pain Arthritis of knee Osteoporosis KEYONNA (generalized anxiety disorder) Mild recurrent major depression GERD (gastroesophageal reflux disease) Anemia B12 deficiency Diabetic nephropathy associated with type 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 Hypertension detention (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 Pure hypercholesterolemia Hypovitaminosis D Depression Long-term use of aspirin therapy Diabetes mellitus Surgical History Hx of colonoscopy Hx of cataract removal with insertion of prosthetic lens Hx of lithotripsy History of total abdominal hysterectomy Family History Father Hypertension Diabetes Mother Diabetes Social History Housing: Apartment Alcohol intake: never Patient Tobacco Use Status: Never used Tobacco e-Cigarette/Vaping Use: Never Used Second Hand Smoke Exposure: No service: No Current occupational status: disabled Cognitive needs: Yes (cane ) Hearing needs: No Vision needs: No Questionnaire Thrive Questionnaire Date Thrive assessed: 07/04/23 KEYONNA-7 AMB Questionnaire KEYONNA-7 Date KEYONNA - 7 assessed: 07/04/23 Source: Developed by Drs. Jerry Abdi, Cate Young, Raymond De La O and colleagues, with an educational keely from [employer]. Review of Systems Const All systems reviewed & are unremarkable except as noted in HPI and below Card Denies chest pain at rest, Denies chest pain with activity, Denies edema, Denies irregular heart rhythm, Denies claudication, Denies dyspnea, Denies dyspnea on exertion, Denies orthopnea, Denies paroxysmal nocturnal dyspnea and Denies slow heart rate Resp Denies cough, Denies dyspnea and Denies dyspnea on exertion Physical exam (Primary Care) Vital Signs: Last Vital Signs BP 168/68 H 11/08/23 10:48 BMI result Body Mass Index 26.9 Tobacco/Smoking Status: Tobacco use Status Tobacco use date assessed 07/04/23 11/08/23 10:54 Patient Tobacco Use Status Never used Tobacco 11/08/23 10:54 e-Cigarette/Vaping Use Never Used 11/08/23 10:54 Thrive Assessment: Date of Thrive Assessment Date Thrive assessed 07/04/23 11/08/23 10:54 Resp Effort & Inspection: normal respiratory effort Auscultation: clear to auscultation bilaterally Cardio Jugular venous distension: no JVD Rate: regular rate Rhythm: regular rhythm Heart sounds: S1 normal heart sound present and S2 normal heart sound present Extrem General: Yes full ROM Results AMB Hemoglobin A1c AMB Hemoglobin A1c 6.5 % Last Edit by NADEGE See on 11/08/23 10:59 Results Reviewed Results Reviewed: Laboratory Last Values Hgb A1c (Clinic) 6.5 % (4.0-6.0) H 11/08/23 10:47 Assessment and Plan Assessment & Plan (1) Mild recurrent major depression: Code(s): F33.0 - Major depressive disorder, recurrent, mild Plan: Continue escitalopram. (2) Osteoporosis: Code(s): M81.0 - Age-related osteoporosis without current pathological fracture Qualifiers: Osteoporosis type: age-related Presence of current pathological fracture: without current pathological fracture Qualified Code(s): M81.0 - Age-related osteoporosis without current pathological fracture Plan: Continue alendronate once a week. Repeat DEXA scan. (3) Essential hypertension: Code(s): I10 - Essential (primary) hypertension Plan: Continue hydralazine and lisinopril. Blood pressure goal is equal or less than 130/80. 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 A1c goal is equal or less than 7%. (5) Pure hypercholesterolemia: Code(s): E78.00 - Pure hypercholesterolemia, unspecified Plan: Continue statins. Repeat lipid panel. LDL goal is less than 70. Orders: Orders AMB Hemoglobin A1c Today E11.65 - Type 2 diabetes mellitus with hyperglycemia, Z79.4 - long term care phlebotomist (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 XR DEXA axial skeleton Today N95.9 - Unspecified menopausal and perimenopausal disorder Coding Level of Care Code Est Pt Level 4 (19411) Complex EM visit Add On G2211 Diagnoses Mild recurrent major depression F33.0 Age-related osteoporosis without current pathological fracture M81.0 Osteoporosis type: age-related Presence of current pathological fracture: without current pathological fracture Essential hypertension I10 Type 2 diabetes mellitus with hyperglycemia, with long-term current use of insulin E11.65; Z79.4 Diabetes mellitus type: type 2 Diabetes mellitus senior living insulin use: with senior living use Diabetes mellitus complication status: with hyperglycemia Pure hypercholesterolemia E78.00 Time Spent (min) 24
== END 2023-11-08 11:17 | disposition home or self-care (01) ==
PROVIDERS: PCP Internal Medicine; Visit Provider Internal Medicine
DX: E11.65 Type 2 diabetes mellitus with hyperglycemia (principal); F33.0 Major depressive disorder, recurrent, mild; Z79.4 Long term (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; M81.0 Age-related osteoporosis without current pathological fracture; I10 Essential (primary) hypertension; E78.00 Pure hypercholesterolemia, unspecified
CPT/HCPCS: 83036; 99214; G2211

== ENCOUNTER 2023-12-18 11:30 | Outpatient (AMB) | payer OTHER, SELFPAY ==
--- NOTE | 2023-12-18 11:42 | A.OFFVIS_ITS ---
Intake Visit Reasons: 2m/PVR Intake Note: Patient presents today for follow up on: uti, kidney stone Urology Medications: vitamin b6 Blood Thinner: aspirin PVR: 0ml's Vegetable Grader Required: Yes Accompanied by: Unknown Allergies dulaglutide [Trulicity] Allergy (Intermediate, Verified 12/18/23 13:07) headache, memory loss amlodipine Adverse Reaction (Intermediate, Verified 12/18/23 13:07) leg edema atorvastatin Adverse Reaction (Intermediate, Verified 12/18/23 13:07) dry mouth omeprazole [OMEPRAZOLE] Adverse Reaction (Intermediate, Verified 12/18/23 13:07) N/V; ABDOMINAL PAIN Medication List - Last Reconciled 12/18/23 by CORINNE Perera acetaminophen ER (Mapap Arthritis Pain) 1,300 mg (2 x 650 mg) PO Q8H PRN 30 days alendronate 70 mg PO QWEEK 90 days aspirin 81 mg PO DAILY 90 days blood pressure monitor As directed blood sugar diagnostic (FreeStyle Test strips) As directed four times per day blood sugar diagnostic (OneTouch Ultra Test strips) Uxd 1 test strips four times a day blood-glucose meter (SpaceClaimTouch Ultra2 Meter) As directed cholecalciferol (vitamin D3) 25 mcg PO DAILY escitalopram oxalate 10 mg PO DAILY 90 days furosemide 20 mg PO BID glucagon 3 mg/actuation (Baqsimi) 3 mg intranasal ONCE glucose 4 grams PO Q15M PRN hydralazine 50 mg PO TID 30 days [incontinence wipes As directed] insulin glargine (Lantus Solostar U-100 Insulin) 20 units (0.2 mL) subcut QAM insulin lispro (Humalog KwikPen (U-100) Insulin) 2 - 4 units (0.02 - 0.04 mL) subcut TID 90 days lactulose 10 grams (15 mL) PO DAILY PRN 30 days lancets (SpaceClaimTouch UltraSoft 2 Lancet) Uxd 1 lancet four times a day lancets (FreeStyle Lancets) As directed linagliptin (Tradjenta) 5 mg PO DAILY 30 days lisinopril 20 mg PO DAILY loratadine 10 mg PO DAILY metoprolol succinate ER 100 mg PO DAILY pantoprazole 40 mg PO DAILY pen needle, diabetic (Comfort EZ Pen [place]) As directed -injects 5 X/day pen needle, diabetic (UltiCare Pen Needle) As directed pyridoxine (vitamin B6) 100 mg PO DAILY 90 days simvastatin 40 mg PO BEDTIME 90 days HPI Comments Details: Rupali is a 78 year old German speaking female patient of Dr. Triana who was accompanied by her TOWER HOIST OPERATOR/grand daughter (Shahida) at [facility] office visit. She has a past medical history of anemia, osteoarthritis, vitamin B12 deficiency, constipation, depression, diabetes mellitus, anxiety, GERD, hypertension, osteoporosis, hypercholesteremia, and nephrolithiasis. Of note, patient was seen approximately 2 months ago at which time she was treated for urinary tract infection. She presents to the office today for follow-up for review. She reports having completed antibiotic therapy as prescribed and lower urinary tract symptoms she had been experiencing have subsided. Was unable to provide urine for urinalysis however PVR 0 mL. She does have a history of nephrolithiasis previous workup has included a KUB 10/23 that noted punctate calcifications seen within the left kidney most likely renal calculi. She currently denies any bothersome urinary issues or concerns. She denies incontinence, nocturia, hematuria, foul smelling urine, changes to urinary stream, flank pain, fever, and or chills. Discussed at length potential causes of nephrolithiasis as well as further intervention to include surveillance monitoring versus surgical intervention. Risks and benefits of these intervent ions were discussed at length. Discussed importance of drinking plenty of water daily. She otherwise offers no other issues or concerns at this time. [facility] Medical History OA (osteoarthritis) GERD (gastroesophageal reflux disease) Uncontrolled type 2 diabetes mellitus with hyperglycemia Renal stones Generalized abdominal pain HTN (hypertension) Elevated blood pressure reading Female pelvic pain Chest discomfort Secondary hypertension Angina at rest Constipation Acute back pain Arthritis of knee Osteoporosis KEYONNA (generalized anxiety disorder) Mild recurrent major depression GERD (gastroesophageal reflux disease) Anemia B12 deficiency Diabetic nephropathy associated with type 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 Hypertension assisted (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 Pure hypercholesterolemia Hypovitaminosis D Depression Long-term use of aspirin therapy Diabetes mellitus Surgical History Hx of colonoscopy Hx of cataract removal with insertion of prosthetic lens Hx of lithotripsy History of total abdominal hysterectomy Family History Father Hypertension Diabetes Mother Diabetes Social History Housing: Apartment Alcohol intake: never Patient Tobacco Use Status: Never used Tobacco e-Cigarette/Vaping Use: Never Used Second Hand Smoke Exposure: No service: No Current occupational status: disabled Cognitive needs: Yes (cane ) Hearing needs: No Vision needs: No Office Procedures Post Void Residual Post Residual Void Post Void Residual (PVR): [id number] Void Residual by ultrasound Assessment & Plan Assessment & Plan (1) Renal cyst: Code(s): N28.1 - Cyst of kidney, acquired Category: Medical (2) Urinary tract infection: Code(s): N39.0 - Urinary tract infection, site not specified Category: Medical (3) Flank pain: Code(s): R10.9 - Unspecified abdominal pain Category: Medical (4) Renal calculi: Code(s): N20.0 - Calculus of kidney Category: Medical Plan Unable to obtain urine for urinalysis however PVR 0 mL. Patient currently denies any bothersome urinary issues or concerns. She reports be happy with current voiding parameters. Discussed, educated, and stressed the importance of adequate hydration relation to nephrolithiasis as well as overall health and wellbeing. Continue vitamin B6 as discussed and prescribed. Will obtain KUB in 6 months and renal u/s for further assessment evaluation and surveillance monitoring of nephrolithiasis. Follow-up in 6 months with imaging to be completed prior; or sooner with any issues, concerns, and or questions. Orders: Orders AMB Post Void Residual by ultrasound Today N39.0 - Urinary tract infection, site not specified XR KUB 6 Months N20.0 - Calculus of kidney US renal BI 6 Months N20.0 - Calculus of kidney Patient Instructions: The patient had an opportunity to ask questions regarding the treatment plan. All questions were answered. Physical exam, labs, and imaging were discussed and reviewed in detail. As well as risks, benefits, and discussion of treatment choices. No major barriers to understanding were identified. The patient expressed understanding and agreement with the above treatment plan. The patient was made aware they should contact our office by phone for worsening of their current condition, the appearance of new symptoms, or with any questions or concerns. Compliance is encouraged with any medications and follow up testing that is ordered. It is a privilege to be allowed the opportunity to participate in? your urological care.? Again, if you have any questions or concerns If you have any questions or concerns please do not hesitate to contact me. The office is [phone]. This note is constructed using voice recognition software. While every effort has been made to ensure accuracy consulting networking engineer errors may have been included. Yours sincerely, CORINNE Perera Coding Level of Care Code Est Pt Level 3 (78077) Complex EM visit Add On G2211 Diagnoses Renal cyst N28.1 Urinary tract infection N39.0 Flank pain R10.9 Renal calculi N20.0 CPT Codes Post Residual Void - PVR CPT Code: 98137-Amda Void Residual by ultrasound ([id number])
== END 2023-12-18 12:23 | disposition home or self-care (01) ==
PROVIDERS: PCP Internal Medicine; Visit Provider Nurse Practitioner Family
DX: N28.1 Cyst of kidney, acquired (principal); N39.0 Urinary tract infection, site not specified; R10.9 Unspecified abdominal pain; N20.0 Calculus of kidney
CPT/HCPCS: 99213; G2211

== ENCOUNTER → 2023-12-18 11:30 | Outpatient (BNVA) | payer OTHER, SELFPAY | PROVIDERS: PCP Internal Medicine; Visit Provider Nurse Practitioner Family | DX: N20.0 Calculus of kidney (principal); N39.0 Urinary tract infection, site not specified; R10.9 Unspecified abdominal pain; N28.1 Cyst of kidney, acquired | CPT/HCPCS: 51798; 99212 ==

== ENCOUNTER 2023-12-26 10:54 | Outpatient (REF) | payer OTHER, SELFPAY ==
--- NOTE | ~2023-12-26 | MM_ITS ---
EXAMINATION: BONE DENSITOMETRY CLINICAL INDICATION: Menopause. COMPARISON: Baseline BD dated 02/23/2021. TECHNIQUE: Using a dooyoo DXA System (software version: 13.1) manufactured by [employer], dual-energy x-ray absorptiometry was performed of the lumbar spine and left hip. The images are of good technical quality. Summary results are attached. FINDINGS: LEFT FEMUR, NECK: Current: BMD 0.810 g/cm2, Z-score 0.5, T-score -1.6, osteopenia. Baseline: BMD 0.717 g/cm2. LEFT FEMUR, TOTAL: Current: BMD 0.937 g/cm2, Z-score 1.4, T-score -0.6, normal, 4.9% increase from baseline (<5% change is not significant). Baseline: BMD 0.893 g/cm2. AP SPINE L1-L4: Current: BMD 0.985 g/cm2, Z-score 0.2, T-score -1.6, osteopenia, 13.2% increase from baseline (<5% change is not significant). Baseline: BMD 0.870 g/cm2. IDENTIFIED RISK FACTORS: Menopause, hysterectomy, osteoporosis. HISTORY OF FRACTURE: None listed. MEDICATIONS: Calcium, vitamin D, bisphosphonate. MM/XR DEXA axial skeleton IMPRESSION: 1. DIAGNOSIS: Osteopenia based on the lowest T-score value of -1.6 in the femur neck and lumbar spine applying World Health Organization criteria. 2. 10-YEAR FRACTURE RISK PREDICTION, FRAX: Not performed in this patient on estrogen or bone building treatments. 3. Treatment Recommendations: NOF guidelines recommend consideration for treatment in postmenopausal women and men age 50 and older presenting with the following: -A hip or vertebral (clinical or morphometric) fracture. -T-score less than or equal to -2.5 at the femoral neck or spine after appropriate evaluation to exclude secondary causes. -Low bone mass at the hip or spine and a 10-year fracture probability by FRAX of greater than or equal to 3% for hip fracture or greater than or equal to 20% for major osteoporotic fracture based on the [place] adapted WHO algorithm. 4. Other Recommendations: All treatment decisions require clinical judgment and consideration of individual patient factors, including patient preferences, comorbidities, previous drug use, risk factors not captured in the FRAX model (e.g. frailty, falls, vitamin D deficiency, increased bone turnover, interval significant decline in bone density) and possible under or overestimation of fracture risk by FRAX. Additional medical evaluation for secondary cause of low bone mineral density may be appropriate. FUTURE SCAN RECOMMENDATION: People with diagnosed cases of osteoporosis or at high risk for fracture should have regular bone mineral density tests. For patients eligible for Medicare, routine testing is allowed once every 2 years. The testing frequency can be increased to one year for patients who have rapidly progressing disease, those who are receiving or discontinuing medical therapy to restore bone mass, or have additional risk factors. Electronically signed by: Sd Suggs MD 01/08/2024 08:33 AM EDT
== END 2023-12-26 10:55 | disposition home or self-care (01) ==
LOC: HO.MAMMO 10:54
PROVIDERS: PCP Internal Medicine; Visit Provider Internal Medicine
DX: Z13.820 Encounter for screening for osteoporosis (principal); Z78.0 Asymptomatic menopausal state
CPT/HCPCS: 77080

== ENCOUNTER 2024-04-09 10:58 | Outpatient (AMB) | payer OTHER, SELFPAY ==
--- NOTE | 2024-04-09 11:06 | A.OFFPC_ITS ---
Vital Signs 04/09/24 11:07 Height 5 ft 2 in Weight 144 lb BMI 26.3 BP 132/52 L Blood Pressure Location Lt brachial Position Sitting Intake Visit Reasons: dm Intake Note: Patient here for a follow up DM Operations Consultant Required: No Accompanied by: Grand Child Allergies dulaglutide [Trulicity] Allergy (Intermediate, Verified 04/09/24 11:20) headache, memory loss amlodipine Adverse Reaction (Intermediate, Verified 04/09/24 11:20) leg edema atorvastatin Adverse Reaction (Intermediate, Verified 04/09/24 11:20) dry mouth omeprazole [OMEPRAZOLE] Adverse Reaction (Intermediate, Verified 04/09/24 11:20) N/V; ABDOMINAL PAIN Medication List - Last Reconciled 04/09/24 by Bonny Chavez MD acetaminophen ER (Mapap Arthritis Pain) 1,300 mg (2 x 650 mg) PO Q8H PRN 30 days alendronate 70 mg PO QWEEK 90 days aspirin 81 mg PO DAILY 90 days blood pressure monitor As directed blood sugar diagnostic (FreeStyle Test strips) As directed four times per day blood sugar diagnostic (OneTouch Ultra Test strips) Uxd 1 test strips four times a day blood-glucose meter (OneTouch Ultra2 Meter) As directed calcium carbonate-vitamin D3 500 mg-5 mcg (200 unit) (Oyster Shell Calcium- Vitamin D3) 1 tab PO BID 90 days cholecalciferol (vitamin D3) 25 mcg PO DAILY escitalopram oxalate 10 mg PO DAILY 90 days furosemide 20 mg PO BID glucagon 3 mg/actuation (Baqsimi) 3 mg intranasal ONCE glucose 4 grams PO Q15M PRN hydralazine 50 mg PO TID 30 days [incontinence wipes As directed] insulin glargine (Lantus Solostar U-100 Insulin) 20 units (0.2 mL) subcut QAM insulin lispro (Humalog KwikPen (U-100) Insulin) 2 - 4 units (0.02 - 0.04 mL) subcut TID 90 days lactulose 10 grams (15 mL) PO DAILY PRN 30 days lancets (OneTouch UltraSoft 2 Lancet) Uxd 1 lancet four times a day lancets (FreeStyle Lancets) As directed linagliptin (Tradjenta) 5 mg PO DAILY 30 days lisinopril 20 mg PO DAILY loratadine 10 mg PO DAILY metoprolol succinate ER 100 mg PO DAILY pantoprazole 40 mg PO DAILY pen needle, diabetic (Comfort EZ Pen [place]) As directed -injects 5 X/day pen needle, diabetic (UltiCare Pen Needle) As directed pyridoxine (vitamin B6) 100 mg PO DAILY 90 days simvastatin 40 mg PO BEDTIME 90 days Tobacco use date assessed: 07/04/23 Fall risk assessment: No Falls in past year Last assessed Fall Risk: 04/09/24 Dental Screening Dental Screen Date: 04/09/24 Did you have a dental visit in the last 12 months?: No Did you have a dental problem in the last 6 months where you did not have access to dental care?: No Was dental information given to patient?: Patient has dentist HPI HPI Comments History of Present Illness Details This is an 78-year-old female with diabetes mellitus type 2 on long- term current use of insulin, hypertension, pure hypercholesterolemia, GERD, mild recurrent major depression and hyperparathyroidism that comes today complaining of daily persistent headaches that has been bothering her and I will refer her to Neurology. Accompanied by OPEN PIT QUARRY SUPERVISOR which is granddaughter. She also has some wheezing bilateral and I will order an inhaler and send her for a chest x-ray and this is most likely due to mild asthma. No chest pain or shortness on breath. Compliant with medications. A1c slightly more elevated. Blood pressure stable. Lipid panel will be order and her LDL goal should be less than 70. GERD stable with PPIs. Depression well controlled with escitalopram. Had an elevated PTH and labs were order for further evaluation. [facility] Medical History (Updated 04/09/24 @ 12:18 by Bonny Chavez MD) OA (osteoarthritis) GERD (gastroesophageal reflux disease) Uncontrolled type 2 diabetes mellitus with hyperglycemia Renal stones Generalized abdominal pain HTN (hypertension) Elevated blood pressure reading Female pelvic pain Chest discomfort Secondary hypertension Angina at rest Constipation Acute back pain Arthritis of knee Osteoporosis KEYONNA (generalized anxiety disorder) Mild recurrent major depression GERD (gastroesophageal reflux disease) Anemia B12 deficiency Diabetic nephropathy associated with type 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 Hypertension retirement (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 Pure hypercholesterolemia Hypovitaminosis D Depression Long-term use of aspirin therapy Diabetes mellitus Surgical History Hx of colonoscopy Hx of cataract removal with insertion of prosthetic lens Hx of lithotripsy History of total abdominal hysterectomy Family History Father Hypertension Diabetes Mother Diabetes Social History Housing: Apartment Alcohol intake: never Patient Tobacco Use Status: Never used Tobacco e-Cigarette/Vaping Use: Never Used Second Hand Smoke Exposure: No service: No Current occupational status: disabled Cognitive needs: Yes (cane ) Hearing needs: No Vision needs: No Questionnaire PHQ-9 Over the last 2 weeks, how often have you been bothered by any of the following problems? 1. Little interest or pleasure in doing things: not at all 2. Feeling down, depressed, or hopeless: several days 3. Trouble falling or staying asleep, or sleeping too much: not at all 4. Feeling tired or having little energy: not at all 5. Poor appetite or overeating: more than half the days 6. Feeling bad about yourself - or that you are a failure or have let yourself or your family down: not at all 7. Trouble concentrating on things, such as reading the newspaper or watching television: not at all 8. Moving or speaking so slowly that other people could have noticed. Or the opposite - being so fidgety or restless that you have been moving around a lot more than usual: not at all 9. Thoughts that you would be better off or of hurting yourself in some way: not at all Total score: 3 Depression Screening Interpretation: Positive Depression Screening Follow-up: Existing condition, In treatment and Follow-up Visit Requested Depression Screening Done: Yes 04387 - PHQ-9 Billing: Yes Source: Developed by Drs. Jerry Abdi, Cate Young, Raymond De La O and colleagues, with an educational keely from [employer]. Thrive Questionnaire Date Thrive assessed: 04/09/24 I am a: Patient What is your living situation today?: I have a steady place to live Within the past 12 months, did the food you bought not last and you didn't have the money to get more?: Never true Within the past 12 months, did you worry whether your food would run out before you got money to buy more?: Never true Do you have trouble paying for medicines?: No Do you have trouble getting transportation to medical appointments?: No Do you have trouble paying your heating and electricity bill?: No Do you have trouble taking care of your child, family member or friend?: No Do you have trouble with day-to-day activities such as bathing, preparing meals, shopping, managing finances, etc.?: No Are you currently unemployed and looking for a job?: No Are you interested in more education?: No Please select the resources that you would like help with: None Currently or been in a relationship where the following occur: No concerns reported THRIVE Score: 0 AUDIT C Alcohol Use Questionnaire (AUDIT-C) 1. How often do you have a drink containing alcohol?: Never Total Score: 0 KEYONNA-7 AMB Questionnaire KEYONNA-7 Date KEYONNA - 7 assessed: 04/09/24 Feeling nervous, anxious, or on edge: 1 = Several days Not being able to stop or control worryin = Not at all Worrying too much about different things: 1 = Several days Trouble relaxin = Not at all Being so restless that it is hard to sit still: 0 = Not at all Becoming easily annoyed or irritable: 0 = Not at all Feeling afraid as if something awful might happen: 0 = Not at all Total KEYONNA-7 score (0-4 normal; 5-9 mild; 10-14 moderate; 15-21 severe): 2 Source: Developed by Drs. Jerry Abdi, Cate Young, Raymond De La O and colleagues, with an educational keely from [employer]. KEYONNA-7 Assessment Billing KEYONNA-7 Assessment Tool: KEYONNA-7 Assessment 79746 Review of Systems Const All systems reviewed & are unremarkable except as noted in HPI and below Reports headache(s) ENT Reports headache(s) Card Denies chest pain at rest, Denies chest pain with activity, Denies edema, Denies irregular heart rhythm, Denies claudication, Denies dyspnea, Denies dyspnea on exertion, Denies orthopnea, Denies paroxysmal nocturnal dyspnea and Denies slow heart rate Resp Denies cough, Denies dyspnea and Denies dyspnea on exertion Neuro Reports headache(s) Physical exam (Primary Care) Vital Signs: Last Vital Signs BP 132/52 L 04/09/24 11:07 BMI result Body Mass Index 26.3 Tobacco/Smoking Status: Tobacco use Status Tobacco use date assessed 07/04/23 04/09/24 11:09 Patient Tobacco Use Status Never used Tobacco 04/09/24 11:09 e-Cigarette/Vaping Use Never Used 04/09/24 11:09 PHQ-9: PHQ-9 Score PHQ-9: Total score 3 04/09/24 11:59 Depression Screening Interpretation: Positive Depression Screening Follow-up: Existing condition, In treatment and Follow-up Visit Requested Thrive Assessment: Date of Thrive Assessment Date Thrive assessed 04/09/24 04/09/24 11:09 Currently or been in a relationship where the following occur: No concerns reported Resp Effort & Inspection: normal respiratory effort Auscultation: clear to auscultation bilaterally Cardio Jugular venous distension: no JVD Rate: regular rate Rhythm: regular rhythm Heart sounds: S1 normal heart sound present and S2 normal heart sound present Extrem General: Yes full ROM Psych Appearance: grossly normal Office Procedures Flu Questionnaire Does the patient have a severe egg allergy?: No Does the patient have severe life threatening allergies?: No Does the patient have a fever or illness today?: No Has the patient ever had Guillain-Center [place] Syndrome?: No Has the patient ever had any past reaction to a flu shot?: No Results AMB Hemoglobin A1c AMB Hemoglobin A1c 7.4 % Last Edit by NADEGE See on 04/09/24 11:2 0 Immunizations Fluarix Triv 8704-5040 (PF) 45 mcg (15 mcg x 3)/0.5 mL IM syringe Performing Provider: Bonny Chavez MD [facility] Administered by: CHEMA Berrios on 04/09/24 11:55 Dose Route Admin Location Dispensed Lot Number Expiration Date [facility] Accounting Specialist 0.5 mL IM Left Deltoid 0.5 mL [id number] 09/29/24 [id number] [employer] VIS Given Date VIS Provided VIS Publication Date 04/09/24 Single Vaccine 20 Eligibility Eligibility Date Funding Source Not [facility] Eligible 04/09/24 Private Results Reviewed Results Reviewed: Laboratory Last Values Hgb A1c (Clinic) 7.4 % (4.0-6.0) H 04/09/24 11:06 Coding Level of Care Code Est Pt Level 4 (50838) Complex EM visit Add On G2211 Diagnoses Mild persistent asthma without complication J45.30 Asthma persistence: persistent Asthma complication type: uncomplicated New daily persistent headache G44.52 Hyperparathyroidism E21.3 Mild recurrent major depression F33.0 Essential hypertension I10 Gastroesophageal reflux disease, unspecified whether esophagitis present K21.9 Esophagitis presence: esophagitis presence not specified Type 2 diabetes mellitus with hyperglycemia, with long-term current use of insulin E11.65; Z79.4 Diabetes mellitus type: type 2 Diabetes mellitus prison insulin use: with prison use Diabetes mellitus complication status: with hyperglycemia Pure hypercholesterolemia E78.00 Additional Codes KEYONNA-7 Assessment Billing - KEYONNA-7 Assessment Tool: KEYONNA-7 Assessment 69102 ([id number]) PHQ-9 - 90017 - PHQ-9 Billing: Yes ([id number]) Time Spent (min) 24 Assessment & Plan Assessment & Plan (1) Mild asthma: Code(s): J45.909 - Unspecified asthma, uncomplicated Category: Medical Qualifiers: Asthma persistence: persistent Asthma complication type: uncomplicated Qualified Code(s): J45.30 - Mild persistent asthma, uncomplicated Plan: Start rescue inhaler as needed. (2) New daily persistent headache: Code(s): G44.52 - New daily persistent headache (NDPH) Category: Medical Plan: Referred to neurology. Start magnesium at bedtime. (3) Hyperparathyroidism: Code(s): E21.3 - Hyperparathyroidism, unspecified Category: Medical Plan: Repeat labs. (4) Mild recurrent major depression: Code(s): F33.0 - Major depressive disorder, recurrent, mild Category: Medical Plan: Continue escitalopram. (5) Essential hypertension: Code(s): I10 - Essential (primary) hypertension Category: Medical Plan: Continue lisinopril and hydralazine. Blood pressure goal is equal or less than 130/80. (6) GERD (gastroesophageal reflux disease): Code(s): K21.9 - Gastro-esophageal reflux disease without esophagitis Category: Medical Qualifiers: Esophagitis presence: esophagitis presence not specified Qualified Code(s): K21.9 - Gastro-esophageal reflux disease without esophagitis Plan: Continue PPIs. (7) Diabetes mellitus: Code(s): E11.9 - Type 2 diabetes mellitus without complications Category: Medical Qualifiers: Diabetes mellitus type: type 2 Diabetes mellitus prison insulin use: with prison use Diabetes mellitus complication status: with hyperglycemia Qualified Code(s): E11.65 - Type 2 diabetes mellitus with hyperglycemia; Z79.4 - intermediate accountant (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 Plan: Continue insulin. A1c goal is equal or less than 7%. Dietary changes advised. (8) Pure hypercholesterolemia: Code(s): E78.00 - Pure hypercholesterolemia, unspecified Category: Medical Plan: Continue statins. Repeat lipid panel. LDL goal is less than 70. Orders: Orders Lipid Panel Today E78.5 - Hyperlipidemia, unspecified Vitamin D 25-OH Total Today E55.9 - Vitamin D deficiency, unspecified Vitamin B12 and Folate Today E11.65 - Type 2 diabetes mellitus with hyperglycemia, E53.8 - Deficiency of other specified B group vitamins, Z79.4 - retirement (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 Parathyroid Hormone Intact Today E21.3 - Hyperparathyroidism, unspecified Influenza [id number] Immunization Today Z23 - Encounter for immunization AMB Hemoglobin A1c Today E11.65 - Type 2 diabetes mellitus with hyperglycemia, Z79.4 - retirement (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 Microalbumin, Random (w Creat) Today R80.9 - Proteinuria, unspecified Comprehensive [place]. Panel Fast Today E11.65 - Type 2 diabetes mellitus with hyperglycemia, Z79.4 - retirement (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 XR chest 2V Today R06.2 - Wheezing Referrals Neurology Referral G44.52 - New daily persistent headache (NDPH) Medications: New magnesium oxide 400 mg PO BEDTIME 90 tabs 1RF 90 days Ventolin HFA 90 mcg/actuation (albuterol sulfate) 2 puffs inhalation Q6H PRN 18 grams 1RF shortness of breath or wheezing 30 days NS J45.909 - Unspecified asthma, uncomplicated, R06.2 - Wheezing Changed From acetaminophen ER (Mapap Arthritis Pain) 1,300 mg (2 x 650 mg) PO Q8H 30 days PRN 180 tabs 6RF fever or pain To acetaminophen ER 1,300 mg (2 x 650 mg) PO Q8H PRN 180 tabs 6RF fever or pain 30 days Refilled lactulose 10 grams (15 mL) PO DAILY PRN 237 mL 0RF constipation 30 days
[2024-04-09 11:07] VITALS: BP 132/52; BMI 26.3
== END 2024-04-09 11:51 | disposition home or self-care (01) ==
PROVIDERS: PCP Internal Medicine; Visit Provider Internal Medicine
DX: E21.3 Hyperparathyroidism, unspecified (principal); F33.0 Major depressive disorder, recurrent, mild; E11.65 Type 2 diabetes mellitus with hyperglycemia; Z79.4 Long term (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; J45.30 Mild persistent asthma, uncomplicated; G44.52 New daily persistent headache (NDPH); I10 Essential (primary) hypertension; K21.9 Gastro-esophageal reflux disease without esophagitis; E78.00 Pure hypercholesterolemia, unspecified; Z23 Encounter for immunization

== ENCOUNTER → 2024-04-09 10:58 | Outpatient (BNVA) | payer OTHER, SELFPAY ==
--- NOTE | 2024-05-13 06:24 | PM.PNNEP ---
Subjective Subjective Date of Service: 05/12/24 Interval history: Longstanding RTANE patient seen by me today re: CKD 3 today Full notes in our office TText me or call office any questions Procedures Date of Service Date of Service: 05/13/24 Assessment & Plan Time Spent With Patient Time: Total time managing care of this patient today ____ minutes.
== END ==
PROVIDERS: PCP Internal Medicine; Visit Provider Internal Medicine
DX: Z23 Encounter for immunization (principal); J45.30 Mild persistent asthma, uncomplicated; G44.52 New daily persistent headache (NDPH); E21.3 Hyperparathyroidism, unspecified; F33.0 Major depressive disorder, recurrent, mild; I10 Essential (primary) hypertension; K21.9 Gastro-esophageal reflux disease without esophagitis; E11.65 Type 2 diabetes mellitus with hyperglycemia; Z79.4 Long term (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; E78.00 Pure hypercholesterolemia, unspecified
CPT/HCPCS: 83036; 90471; 90656; 96127; 99212

== ENCOUNTER 2024-05-26 09:40 | Outpatient (AMB) | payer OTHER, SELFPAY ==
--- OUTSIDE RECORDS SUMMARY | 2024-05-26 10:32 | XMS_ITS | Encounter Summary ---
Author Organization [facility] Address [address] [facility] [address] [place] [address] Phone Care Team Providers Care Usability Engineer Name Role Phone Bonny Lopez MD Primary Care Provider [phone] Reason for Visit * Reason Comments Med Refill Encounter Details Date Type Department [facility] Team [facility] Contact [facility] Description 07/19/2022 Refill [facility] [address] [facility] [place] [facility] [address] [place] [address] Migel Wyman MD Stage 3b chronic kidney disease (HCC); Hypertensive chronic kidney disease Social History Tobacco Use Types Packs/Day Years Used Date Smoking Tobacco: Former Smokeless Tobacco: Never Comments:Smoking History Inf o:Every day Alcohol Use Standard Drinks/Week Comments No 0 (1 standard drink = 0.6 oz pur e alcohol) Comments Unknown Sex and Gender Information Value Date Recorded Sex Assigned at Not on file Legal Sex Female 4:46 PM EST Gender Identity Not on file Sexual Orientation Not on file documented as of this encounter Plan of Treatment Upcoming Encounters Date Type Department Care Team ([facility] Contact Info) Description 03/09/2025 1:45 PM EST Office Visit [facility] [address] [place] [phone] Earnest Baer MD [address] [facility] [address] [place] [address] documented as of this encounter Visit Diagnoses Diagnosis Stage 3b chronic kidney disease (HCC) Hypertensive chronic kidney disease documented in this encounter Care Teams Usability Engineer Relationship Specialty Start Date End Date Bonny Lopez MD [address] [place], [place] [id number] PCP - General Internal Medicine 01/27/21 documented as of this encounter
--- OUTSIDE RECORDS SUMMARY | 2024-05-26 10:32 | XMS_ITS | Encounter Summary ---
Author Organization [facility] Address [address] [facility] [address] [place] [address] Phone Care Team Providers Care Pilot Name Role Phone Bonny Lopez MD Primary Care Provider [phone] Reason for Visit * Reason Comments Med Refill Encounter Details Date Type Department Care Team ([facility] Contact Info) Description 09/13/2022 Refill [facility] [address] [facility] [place] [facility] [address] [place] [address] Migel Wyman MD Stage 3b [...] Upcoming Encounters Date Type Department Care Team ([facility] Contact Info) Description 03/09/2025 1:45 PM EST Office Visit [facility] [address] [place] [phone] Earnest Baer MD [address] [facility] [address] [place] [address] documented as of this encounter Visit Diagnoses Diagnosis Stage 3b chronic kidney disease (HCC) Hypertensive chronic kidney disease documented in this encounter Care Teams Pilot Relationship Specialty Start Date End Date Bonny Lopez MD [address] [place], [place] [phone] PCP - General Internal Medicine 01/27/21 documented as of this encounter
--- OUTSIDE RECORDS SUMMARY | 2024-05-26 10:32 | XMS_ITS | Clinical Summary ---
Author Organization [employer] Address [address] [facility] [address] [place] [address] Care Team Providers Care Interior Design Assistant Name Role Phone Unavailable Primary Care Provider Unavailabl e Allergies Active Allergy Reactions Criticality Noted Date Comments Ibuprofen 01/30/2022 Nitrofurantoin 01/30/2022 Ofloxacin 01/30/2022 Sulfamethoxazole-Trimethoprim 2021 Medications aspirin 81 MG EC tablet Take 1 tablet by mouth Once per day. 10/11/2021 Active atorvastatin (Lipitor) 40 MG tablet Take 1 tablet by mouth Once per day. Active alendronate (Fosamax) 70 MG tablet 07/05/2021 Active Calcium Carb-Cholecalcif dana (Oyster Shell Calcium w/D) 500-5 MG-MCG tablet 02/06/2024 Activ e cholecalciferol (Vitamin D3) 25 MCG (1000 UT) tablet 01/16/2024 Active lisinopril-hydro CHLOROthiazide 10-12.5 MG tablet Take 1 tablet by mouth. 05/28/2007 Active escitalopram (Lexapro) 10 MG tablet Take 10 mg by mouth. 10/11/2021 Active furosemide (Lasix) 20 MG tablet Take 40 mg by mouth Once per day. 10/11/2021 Active hydrALAZINE (Apresoline) 50 MG tablet Take 1 tablet by mouth 3 times daily. 05/26/2022 Active Lantus SoloStar 100 UNIT/ML pen 12/21/2023 Act maye loratadine (Claritin) 10 MG tablet Take 1 tablet by mouth Once per day. 05/25/2022 Active metoprolol succinate XL (Toprol-XL) 100 MG 24 hr tablet 02/14/2024 Act maye pantoprazole (ProtoNix) 40 MG EC tablet Take 1 tablet by mouth Once per day. 10/11/2021 Active Tradjenta 5 MG tablet Take 5 mg by mouth. 10/11/2021 Active simvastatin (Zocor) 40 MG tablet Take 1 tablet by mouth Once per day. 10/11/2021 Active pyridoxine (Vitamin B-6) 100 MG tablet 02/14/2024 Activ e Immunizations Name Administration Dates Next Due Influenza High-dose Quadriva lent Preservative Free 02/03/2020 Influenza, High Dose Seasona l, Preservative Free 12/31/2018,01/17/2017,03/24/2015 Influenza, IIV3, injectable 02/03/2020,1 ,01/17/2017,03/24 Pfizer Covid-19 Vaccine 12+ 03/07/2021 Pfizer Covid-19 Vaccine 12+ Bivalent 03/08/2022 Pfizer Covid-19 Vaccine 12+ ivy-sucrose ([place] Cap) 11/29/2021 Pneumococcal Polysaccharide PPSV23 07/06/2016, RSV Bivalent 08/22/2023 Zoster, Recombinant 08/22/2023 Social History Tobacco Use Types Packs/Day Years Used Date Smoking Tobacco: Never Smokeless Tobacco: Never Tobacco Cessation:Counseling Given: Not Answered Comments Unknown Sex and Gender Information Value Date Recorded Sex Assigned at Female 01/30/2022 10:14 AM EDT Legal Sex Female 10:14 AM EDT Gender Identity Female 01/30/2022 10:14 AM EDT Sexual Orientation Don't know 01/30/2022 10 :14 AM EDT Last Filed Vital Signs Vital Sign Reading Time Taken Comments Blood Pressure 127/49 02/19/2024 11:04 AM EST Pulse 74 02/19/2024 11:04 AM EST Temperature - - Respiratory Rate - - Oxygen Saturation - - Inhaled Oxygen Concentration - - Weight - - Height - - Body Mass Index - - Plan of Treatment Upcoming Encounters Date Type Department Care Team (Late st Contact Info) Description 08/20/2024 11:00 AM EDT Office Visit [facility] [address] [place] [address] [address] [place] [address] Health Maintenance Due Date Last Done Comments Dental X-Ray: Bitewings 1945 Depression Screening 1945 Lipid Panel 1945 SDOH Screening 1943 Alcohol/Substance Use Screening 1955 DTaP/Tdap/Td Vaccines (1 - Tdap) 08/06/1962 Pneumococcal Vaccine: 50+ Years (2 of 2 - PCV) 07/06/2017 07/06/2016, 09/19/2015 Zoster Vaccines (2 of 2) 10/17/2023 08/22/2023 COVID-19 Vaccine ( season) 2023 03/08/2022, 11/29/2021, 03/07/2021, Additional history exists Influenza Vaccine (#1) 2023 , 02/03/2020, 12/31/2018, Additional history exists Dental Oral Exam 08/12/2024 02/12/2024 Dental Prophylaxis 08/19/2024 02/19/2024 Tobacco Screening 02/18/2025 02/19/2024 Dental X-Ray: Full Mouth 02/12/2027 02/12/2024 RSV Patients and Patients Aged 60 years or older Completed 08/22/2023 HIB Vaccines Aged Out No longer eligi ble based on patient's age to complete this topic HPV Vaccines Aged Out No longer eligi ble based on patient's age to complete this topic Hepatitis A Vaccines Aged Out No long er eligible based on patient's age to complete this topic Hepatitis B Vaccines Aged Out No long er eligible based on patient's age to complete this topic IPV Vaccines Aged Out No longer eligi ble based on patient's age to complete this topic Meningococcal Vaccine Aged Out No mera won eligible based on patient's age to complete this topic RSV under 20 months Aged Out No longe r eligible based on patient's age to complete this topic Rotavirus Vaccines Aged Out No longer eligible based on patient's age to complete this topic Procedures Procedure Name Priority Date/Time Associated Diagnosis Comments PROPHYLAXIS - ADULT Routine 02/19/2024 1 1:00 AM EST PANORAMIC RADIOGRAPHIC IMAGE Routine 02/12/2024 11:00 AM EST PERIODIC ORAL EVALUATION - ESTABLISHED PATIENT Routine 02/12/2024 11:00 AM EST from Last 3 Months or Most Recently Relevant to Health [place] [id number] [facility] - [facility] [id number] [address] [id number] [address] [phone] [address] [id number]
--- OUTSIDE RECORDS SUMMARY | 2024-05-26 10:32 | XMS_ITS | Continuity of Care Document ---
Author Organization [facility] Address [address] [place] [address]- Care Team Providers Care Mold Maintenance Technician Name Role Phone Kong Chavez MD, Bonny Villagran Primary Care Physician [phone] Encounter [facility] [place](s): 04/03/24 - 05/03/24 [facility]/[address] [address]- Encounter Type: Triage Allergies, Adverse Reactions, Alerts Substance Criticality Severity Reaction Reaction Severity Status Macrobid Active Floxin Active Bactrim Active Motrin Active Immunizations Given and Recorded Vaccine Date Status Refusal Reason [id number] 12y+ bivalent booster vax 03/08/22 Recorded SARS-CoV-2 mRNA ([id number]) vax 11/29/21 Recorded SARS-CoV-2 (COVID-19) mRNA BNT-162b2 vac 03/07/21 Recorded SARS-CoV-2 (COVID-19) Ad26 vaccine 06/23/20 Record ed influenza virus vaccine, inactivated 02/03/20 Tawanda rded influenza virus vaccine, inactivated 12/31/18 Tawanda rded influenza virus vaccine, inactivated 01/17/17 Tawanda rded influenza virus vaccine, inactivated 03/24/15 Tawanda rded pneumococcal 23-valent vaccine 07/06/16 Recorded pneumococcal 23-valent vaccine 09/19/15 Recorded Medications alendronate 70 mg oral tablet 1 tablet = 70 mg, By Mouth, Every week, 0 Refills, Maintenance, 05/25/22 4:10:00 AM EST, Tablet, ; Start Date: 05/25/22 Status: Ordered Repeat number: 1 Aspirin Low Dose 81 mg oral delayed release tablet 1 tablet = 81 mg, By Mouth, Daily, 0 Refills, Maintenance, 05/25/22 4:10:00 AM EST, EC Tablet, ; Start Date: 05/25/22 Status: Ordered Repeat number: 1 escitalopram 10 mg oral tablet 1 tablet = 10 mg, By Mouth, Daily, 0 Refills, Maintenance, 05/25/22 4:10:00 AM EST, Tablet, ; Start Date: 05/25/22 Status: Ordered Repeat number: 1 furosemide 20 mg oral tablet 1, capsule, By Mouth, 2 times a day, Refills 0, Maintenance, 05/25/22 4:10:00 AM EST, ; Start Date: 05/25/22 Status: Ordered Repeat number: 1 hydrALAZINE 50 mg oral tablet 1 tablet = 50 mg, By Mouth, 3 times a day, 0 Refills, Maintenance, 05/26/22 2:42:00 PM EST, Tablet, ; Start Date: 05/26/22 Status: Ordered Repeat number: 1 Insulin Glargine Inj = 20 units, Subcutaneous Injection, Daily at bedtime, 0 Refills, Maintenance, 05/25/22 4:17:00 AM EST, Injection, ; Start Date: 05/25/22 Status: Ordered Repeat number: 1 Insulin Lispro KwikPen 100 units/mL injectable solution = 8 units, Subcutaneous Injection, 3 times a day before meals, Maintenance, 05/29/22 11:09:00 AM EST, ; Start Date: 05/29/22 Status: Ordered Repeat number: 1 lisinopril 20 mg oral tablet 20 mg, 1, tablet, By Mouth, Daily, Refills 0, Maintenance, 05/26/22 2:42:00 PM EST, ; Start Date: 05/26/22 Status: Ordered Repeat number: 1 loratadine 10 mg oral tablet 10 mg, 1, tablet, By Mouth, Daily, Refills 0, Maintenance, 05/25/22 4:10:00 AM EST, ; Start Date: 05/25/22 Status: Ordered Repeat number: 1 Metoprolol Succinate ER 100 mg oral tablet, extended release 1 tablet = 100 mg, By Mouth, Daily, (D/C), 0 Refills, Maintenance, 05/25/22 4:10:00 AM EST, ER Tablet, ; Start Date: 05/25/22 Status: Ordered Repeat number: 1 pantoprazole 40 mg oral delayed release tablet 1 tablet = 40 mg, By Mouth, Daily, 0 Refills, Maintenance, 05/25/22 4:10:00 AM EST, EC Tablet Start Date: 05/25/22 Status: Ordered Repeat number: 1 simvastatin 40 mg oral tablet 40 mg, 1, tablet, By Mouth, Daily at bedtime, Refills 0, Maintenance, 05/25/22 4:10:00 AM EST, ; Start Date: 05/25/22 Status: Ordered Repeat number: 1 Tradjenta 5 mg oral tablet 1 tablet = 5 mg, By Mouth, Daily, 0 Refills, Maintenance, 05/25/22 4:11:00 AM EST, Tablet, ; Start Date: 05/25/22 Status: Ordered Repeat number: 1 Vitamin D3 1000 intl units oral tablet 1 tablet = 25 mcg, By Mouth, Daily, 0 Refills, Maintenance, 05/26/22 2:41:00 PM EST, Tablet, ; Start Date: 05/26/22 Status: Ordered Repeat number: 1 Problem List Condition Confirmation Course Effective Dates Status Health St atus Informant Obese class I Confirmed Active Social History Social History Type Response Smoking Status Never (less than 100 in lifetime) entered on: 10/11/21 Sex Sex Representation Female (finding) Patient Care team information Care Team Personnel Name: Lizeth Senior RN Position: S RN Member Role: Primary Care Nurse Name: Kong Chavez MD , Bonny Villagran Position: Reference Physician Member Role: PCP Address: [address] [place], [place] [address] Telecom: Care Team Related Persons Name: CHANDAN LORA Insurance Providers Guarantor name: CHANDAN [facility] Plan Information #: 1 Payer: NA Member Number: NA Policy Number: NA Group Number: [id number]
--- OUTSIDE RECORDS SUMMARY | 2024-05-26 10:32 | XMS_ITS | Encounter Summary ---
Author Organization [facility] Address [address] [facility] [address] [place] [address] Phone Care Team Providers Care Assistant Director Of Admissions Name Role Phone Bonny Lopez MD Primary Care Provider [phone] Encounter Details Date Type Department Care Team (Late Contact Info) Description 10/10/2023 Office Communication [facility] [address] [place] [address] [place] [address] Earnest Baer MD [address] [address] Social History Tobacco Use Types Packs/Day Years [...] on file documented as of this encounter Miscellaneous Notes * Telephone Encounter - Earnest Baer MD - 10/10/2023 2:38 PM EDT Need f/u with me in 3-4 wks documented in this encounter Plan of Treatment Upcoming Encounters Date Type Department Care Team (Late Contact Info) Description 03/09/2025 1:45 PM EST Office Visit [facility] [address] [place] [address] [place] [address] Earnest Baer MD [address] [address] documented as of this encounter Visit Diagnoses Not on filedocumented in this encounter Care Teams Assistant Director Of Admissions Relationship Specialty Start Date End Date Bonny Lopez MD [address] [place] [address] PCP - General Internal Medicine 01/27/21 documented as of this encounter
--- OUTSIDE RECORDS SUMMARY | 2024-05-26 10:32 | XMS_ITS | Encounter Summary ---
Author Organization [facility] Address [address] [facility] [address] [place] [address] Phone Care Team Providers Care Mortgage Loan Processor Name Role Phone Bonny Lopez MD Primary Care Provider [phone] Reason for Visit * Reason Comments Med Refill Encounter Details Date Type Department Care Team ([facility] Contact Info) Description 08/16/2022 Refill [facility] [address] [facility] [place] [facility] [address] [place] [address] Migel Wyman MD Stage 3b [...] Upcoming Encounters Date Type Department Care Team ([facility] Contact Info) Description 03/09/2025 1:45 PM EST Office Visit [facility] [address] [place] [phone] Earnest Baer MD [address] [place] [place] [place] [address] documented as of this encounter Visit Diagnoses Diagnosis Stage 3b chronic kidney disease (HCC) Hypertensive chronic kidney disease documented in this encounter Care Teams Mortgage Loan Processor Relationship Specialty Start Date End Date Bonny Lopez MD [address] [place], [place] [id number] PCP - General Internal Medicine 01/27/21 documented as of this encounter
--- OUTSIDE RECORDS SUMMARY | 2024-05-26 10:33 | XMS_ITS | Continuity of Care Document ---
Author Organization [facility] Address [address] [place] [address]- Care Team Providers Care Want Ad Supervisor Name Role Phone Kong Chavez MD, Brianda Primary Care Physician [phone] [place] [facility] [place]24 [place] 05/23/24 [facility] [address] [place] [address]- Encounter Type: Triage Allergies, Adverse Reactions, Alerts Substance Criticality Severity Reaction Reaction Severity Status Macrobid Active Floxin Active Bactrim Active Motrin Active Immunizations Given and Recorded Vaccine Date Status Refusal Reason [id number] 12y+ bivalent booster vax 03/08/22 Recorded SARS-CoV-2 mRNA (jlclwva-[id number]-fwtvn) vax 11/29/21 Recorded SARS-CoV-2 (COVID-19) mRNA BNT-162b2 [...] Care team information Care Team Personnel Name: Parrish VILLALBA, Lizeth Position: S RN Member Role: Primary Care Nurse Name: Kong Chavez MD , Bonny Villagran Position: Reference Physician Member Role: PCP Address: [address] [place] [address] Telecom: Care Team Related Persons Name: CHANDAN LORA Insurance Providers Guarantor name: CHANDAN [facility] Health Plan Information #: 1 Payer: NA Member Number: NA Policy Number: NA Group Number: NA
--- OUTSIDE RECORDS SUMMARY | 2024-05-26 10:33 | XMS_ITS | Clinical Summary ---
Author Organization [facility] Address [address] [facility] [address] [place] [address] Phone Care Team Providers Care Construction Project Assistant Name Role Phone Bonny Lopez MD Primary Care Provider [phone] Allergies Active Allergy Reactions Criticality Noted Date Comments Ibuprofen 01/30/2022 Nitrofurantoin 01/30/2022 Ofloxacin 01/30/2022 Sulfamethoxazole-Trimethoprim 2021 Medications Blood Pressure kit 1 kit by Other route 02/02/20 20 Active aspirin (ST BENITA) 81 MG EC tablet Take 1 tablet by mouth 1 (one) time each day Active atorvastatin (LIPITOR) 40 MG tablet Take 1 tablet by mouth 1 (one) time each day Active loratadine (CLARITIN) 10 MG tablet Take 1 tablet by mouth 1 (one) time each day Active metoprolol succinate XL (TOPROL-XL) 50 MG 24 hr tablet Take 1.5 tablets by mouth every night Active pantoprazole (PROTONIX) 40 MG EC tablet Take 1 tablet by mouth 1 (one) time each day Active simvastatin (ZOCOR) 40 MG tablet Take 1 tablet by mouth 1 (one) time each day Active HumaLOG MIX 50/50 KWIKPEN (50-50) 100 UNIT/ML inj pen 06/26/19 21 Active Invokamet XR 50-500 MG tablet sustained-rele ase 24 hour 07/06/19 21 Active alendronate (FOSAMAX) 70 MG tablet 07/06/19 22 Active lisinopril 20 MG tabletIndicati ons:Stage 3b chronic kidney disease (HCC),Hyperten sive chronic kidney disease TAKE 1 TABLET BY MOUTH DAILY 28 tablet 11 09/12/19 24 Active furosemide (LASIX) 20 MG tabletIndicati ons:Stage 3b chronic kidney disease (HCC),Hyperten sive chronic kidney disease TAKE 2 TABLETS BY MOUTH ONCE DAILY. 56 tablet 11 09/12/19 24 Active cloNIDine (CATAPRES) 0.1 MG tablet TAKE 1 TABLET BY MOUTH TWICE DAILY IN THE MORNING AND EVENING. 60 tablet 05/20/19 25 Active hydrALAZINE 50 MG tablet TAKE 1 TABLET BY MOUTH THREE TIMES A DAY 84 tablet 05/20/19 25 Active cloNIDine (CATAPRES) 0.1 MG tablet TAKE 1 TABLET BY MOUTH TWICE DAILY IN THE MORNING AND EVENING. 60 tablet 04/22/19 25 025 Discontinued(Al ternate therapy) hydrALAZINE 50 MG tablet TAKE 1 TABLET BY MOUTH THREE TIMES A DAY 84 tablet 04/22/19 25 025 Discontinued hydrALAZINE 50 MG tablet TAKE 1 TABLET BY MOUTH THREE TIMES A DAY 84 tablet 05/01/19 25 025 Discontinued Active Problems Problem Noted Date Diagnosed Date Renal osteodystrophy 11/08/2023 Obese class I 01/30/2022 Renal osteodystrophy 07/28/2021 Stage 3b chronic kidney disease 07/06/2020 Type 2 diabetes mellitus wit h diabetic chronic kidney disease 07/06/2020 Hypertensive chronic kidney disease 07/06/2020 Diabetes mellitus 06/21/2020 Essential hypertension 06/21/2020 Gastroesophageal reflux disease 06/21/2020 Microalbuminuria 06/21/2020 Renal disorder due to type 2 diabetes mellitus 0 06/21/2020 Acute nontraumatic kidney injury 06/21/2020 Encounters Date Type Department Care Team Description 05/20/2024 [facility]ill [facility] [address] [place] [phone] Sarthak Hooker MD 05/12/2024 1:30 PM EST Office [facility] [address] [place] [address] Earnest Baer MD Stage 3b chronic kidney disease (HCC) (Primary Dx); Renal osteodystrophy; Hypertensive chronic kidney disease 04/29/2024 [facility]ill [facility] [address] [place] [address] Sarthak Hooker MD 04/22/2024 Refill [facility] [address] [place] [address] Earnest Baer MD 03/22/2024 [facility]ill [facility] [address] [place] [address] Earnest Baer MD 02/27/2024 Refill [facility] [address] [place] [address] Earnest Baer MD from Last 3 Months Immunizations Name Administration Dates Next Due Influenza Split High Dose Pr eservative Free IM 12/31/2018,01/17/2017,03/24/2015 [place] SARS-COV-2 06/23/2020 Pfizer SARS-COV-2 03/07/2021 Pneumococcal Polysaccharide 07/06/2016, 6 Shingrix 08/22/2023 Family History Medical History Relation Comments Cancer Child daughter Diabetes Father Hypertension Father Diabetes Mother Hypertension Mother Diabetes Sibling 1 Cancer Sibling 2 2 Sisters Relation Status Comments Child Father Mother Sibling 1 Sibling 2 Social History Tobacco Use Types Packs/Day Years Used Date Smoking Tobacco: Former Smokeless Tobacco: Never Tobacco Cessation:Counseling Given: Not Answered Comments:Smoking History Info:Every day Alcohol Use Standard Drinks/Week Comments No 0 (1 standard drink = 0.6 oz pur e alcohol) Comments Unknown Sex and Gender Information Value Date Recorded Sex Assigned at Not on file Legal Sex Female 4:46 PM EST Gender Identity Not on file Sexual Orientation Not on file Last Filed Vital Signs Vital Sign Reading Time Taken Comments Blood Pressure 120/68 05/12/2024 1:17 PM EST Pulse 64 05/12/2024 1:17 PM EST Temperature - - Respiratory Rate - - Oxygen Saturation 97% 05/12/2024 1:17 PM EST Inhaled Oxygen Concentration - - Weight 63.7 kg (140 lb 6.4 oz) 05/12/2024 1:17 P M EST Height 154.9 cm (5' 1 ) 01/30/2022 1:53 PM EDT Body Mass Index 26.53 01/30/2022 1:53 PM EDT Plan of Treatment Upcoming Encounters Date Type Department Care Team (Late st Contact Info) Description 03/09/2025 1:45 PM EST Office [facility] [address] [place] [address] Earnest Baer MD [address] [facility] [address] [place] [phone] Health Maintenance Due Date Last Done Comments Pneumococcal Vaccine: 65+ Years (3 of 3 - PCV) 07/06/2017 07/06/2016, 09/19/2015 Diabetes: Hemoglobin A1C 05/02/2020 Diabetes: Ophthalmology Exam 05/02/2020 Diabetes: Pedal Pulse Checked 05/02/2020 Diabetes: Sensory Foot Exam 05/02/2020 Diabetes: Visual Foot Exam 05/02/2020 Influenza Vaccine (#1) 2023 9, 01/17/2017, 03/24/2015 Hepatitis B Vaccine Aged Out No longe r eligible based on patient's age to complete this topic Insurance [facility] ([id number]) [facility] ([id number]) [place] [id number] Care Teams Construction Project Assistant Relationship Specialty Start Date End Date Bonny Lopez MD [address] [place] [address] PCP - General Internal Medicine 01/27/21
--- OUTSIDE RECORDS SUMMARY | 2024-05-26 10:33 | XMS_ITS | Encounter Summary ---
Author Organization [facility] Address [address] [facility] [address] [place] [address] Phone Care Team Providers Care Kier Tender Name Role Phone Bonny Lopez MD Primary Care Provider [phone] Reason for Visit * Reason Comments Med Refill Encounter Details Date Type Department Care Team ([facility] Contact Info) Description 04/29/2024 Refill [facility] [address] [facility] [address] [place] [address] Sarthak Hooker MD [address] [address] Social History Tobacco Use Types [...] Visit [facility] [address] [place] [address] [place] [address] Earnest Baer MD [address] [address] documented as of this encounter Visit Diagnoses Not on filedocumented in this encounter Care Teams Kier Tender Relationship Specialty Start Date End Date Bonny Lopez MD [address] [place] [address] PCP - General Internal Medicine 01/27/21 documented as of this encounter
--- OUTSIDE RECORDS SUMMARY | 2024-05-26 10:33 | XMS_ITS | Encounter Summary ---
Author Organization [facility] Address [address] [facility] [address] [place] [address] Phone Care Team Providers Care Assembler Tractor Name Role Phone Bonny Lopez MD Primary Care Provider [phone] Reason for Visit * Reason Comments Med Refill Encounter Details Date Type Department Care Team ([facility] Contact Info) Description 05/20/2024 Refill [facility] [address] [place] [address] [place] [address] Sarthak Hooker MD [address] [address] Social History Tobacco Use Types [...] Office Visit [facility] [address] [place] [address] [place] [address] Earnest Baer MD [address] [facility] [address] [place] [address] documented as of this encounter Visit Diagnoses Not on filedocumented in this encounter Care Teams Assembler Tractor Relationship Specialty Start Date End Date Bonny Lopez MD [address] [place] [address] PCP - General Internal Medicine 01/27/21 documented as of this encounter
--- OUTSIDE RECORDS SUMMARY | 2024-05-26 10:33 | XMS_ITS | Encounter Summary ---
Author Organization [facility] Address [address] [address] Phone Care Team Providers Care Shank Threader Name Role Phone Bonny Lopez MD Primary Care Provider [phone] Reason for Visit * Reason Comments Stage 3b chronic kidney disease Encounter Details Date Type Department Care Team ([facility] st Contact Info) Description 05/12/2024 1:30 PM EST [facility] Visit [facility] [address] [place] [address] [facility] [place] [address] Earnest Baer MD [address] [address] Stage 3b chronic kidney disease (HCC) (Primary Dx); Renal osteodystrophy; Hypertensive chronic kidney disease Social History Tobacco [...] on file documented as of this encounter Last Filed Vital Signs Vital Sign Reading Time Taken Comments Blood Pressure 120/68 05/12/2024 1:17 PM EST Pulse 64 05/12/2024 1:17 PM EST Temperature - - Respiratory Rate - - Oxygen Saturation 97% 05/12/2024 1:17 PM EST Inhaled Oxygen Concentration - - Weight 63.7 kg (140 lb 6.4 oz) 05/12/2024 1:17 P M EST Height - - Body Mass Index 26.53 01/30/2022 1:53 PM EDT documented in this encounter Patient Instructions * Patient Instructions* Earnest Baer MD - 05/12/2024 1:30 PM EST No NSAIDS - Do not take non-steroidal anti-inflammatory medications (NSAIDS) such as Ibuprofen (Advil, Motrin, etc), Naproxen (Aleve, etc), Celecoxib (Celebrex) or Ketoprofen. These common arthritis medications can cause permanent kidney damage or worsen your kidney damage. For mild occasional pain, Acetaminophen (Tylenol, etc) is safe for your kidneys. Sodium and Your CKD Diet: How to Spice Up Your Cooking What is sodium? Sodium is a mineral found naturally in foods and is the major part of table salt. What are the effects of eating too much sodium? When your kidneys are not healthy, extra sodium and fluid build up in your body. This can cause swollen ankles, puffiness, a rise in blood pressure, shortness of breath, and/or fluid around your heart and lungs. See the following table for suggestions on how to reduce sodium in your diet. LIMIT THE [AMOUNT OF... FOOD TO LIMIT BECAUSE OF THEIR HIGH SODIUM CONTENT ACCEPTABLE SUBSTITUTES SALT & SALT SEASONINGS Table salt Seasoning salt Garlic salt Onion salt Celery salt Lemon pepper Lite salt Meat tenderizer Bouillon cubes Flavor enhancers Fresh garlic, fresh onion, garlic powder, onion powder, black [pepper, lemon juice, low-sodium/salt-free seasoning blends, vinegar SALTY FOODS Barbecue sauce Steak sauce Soy sauce Teriaky sauce Oyster sauce Salted Snacks such as Crackers Potato chips [place] chips Pretzels Tortilla chips Nuts Popcorn Crook seeds Homemade or low- sodium sauces and salad dressings; Vinegar, dry mustard, unsalted popcorn, pretzels, tortilla or corn chips Cured Foods Ham Salt pork Benjamin Sauerkraut Pickles, pickle relish Lox & Lindre Olives Fresh beef, veal, pork, poultry, fish, eggs [place] MEATS Hot Dogs Cold cuts, deli meats Pastrami Sausage Corned beef Spam Low-salt deli meats PROCESSED FOODS Buttermilk Cheese Canned: Soups Tomato products Vegetable juices Canned vegetables Convenience Foods such as: TV Dinners Canned raviolis [place] Macaroni & Cheese Spaghetti Frozen prepared foods Fast foods Natural cheese (1-2 oz Per week) Homemade or marlena,1- sodium soups, canned food without added salt Homemade casseroles without added salt, made with fresh or raw vegetables, fresh meat, mateo, pasta, or unsalted canned vegetables Some salt or sodium is needed for body water balance. But when your kidneys lose the ability to control sodium and water balance, you may experience the following: thirst fluid gain high blood pressure discomfort during dialysis By using less sodium in your diet, you can control these problems. Hints to keep your sodium intake down Cook with herbs and spices instead of salt. (Refer to Spice Up Your Cooking section for further suggestions.) Read food labels and choose those foods low in sodium. Avoid salt substitutes and specialty low-sodium foods made with salt substitutes because they are high in potassium. When eating out, ask for meat or fish without salt. Ask for gravy or sauce on the side; these may contain large amounts of salt and should be used in small amounts . Limit use of canned, processed and frozen foods. Some information about reading labels Understanding the terms: Sodium Free - Only a trivial amount of sodium per serving. Very Low Sodium - 35 mg or less per serving. Low Sodium - 140 mg or less per serving. Reduced Sodium - Foods in which the level of sodium is reduced by 25%. Light or Lite in Sodium - Foods in which the sodium is reduced by at least 50% . Simple rule of thumb : If salt is listed in the first five ingredients, the item is probably too high in sodium to use. All food labels now have milligrams (mg) of sodium listed. Follow these steps when reading the sodiwn information on the label: 1. Know how much sodium you are allowed each day. Remember that there are 1000 milligrams (mg) in 1gram. For zoci2xrp, if your diet prescription is 2 grams of sodium , your limit is 2000 milligrams per day. Consider the sodium value or other food to be eaten during the day. 2. Look at the package label. Check the serving size. Nutrition values are expressed per becky g. How does this compare to your total daily allowance? If the sodium level is 500 mg or more per serving, the item is not a good choice. 3. Compare labels of similar products. Select the lowest sodium level for the same serving size. How to Spice Up Your Cooking Giving up salt does not mean giving up flavor. Learn to season your food with herbs and spices. Be creative and experiment for a new and exciting flavor. What kinds of spices and herbs should I use instead of salt to add flavor? Try the following spices with the foods listed. Allspice: Use with beef, fish, beets, cabbage, canots, peas, fruit. Basil: Use with beef, pork, most vegetables. [place]: Use with beef, pork, most vegetables. Tracy: Use with beef, pork, green beans, cauliflower, cabbage, beets, asparagus, and in dips and marinades. Cardamom: Use with fruit and in baked goods. Snider: Use with beef, chicken, pork, fish, green beans, carrots and in marinades. Dill: Use with beef, chicken, green beans, cabbage, carrots, peas and in dips. Nidia: Use with beef, chicken, pork, green beans, cauliflower and eggplant. Marjoram: Use with beef, chicken, pork, green beans, cauliflower and eggplant. Eri: Use with chicken, pork, cauliflower, peas and in marinades. Thyme: Use with beef, chicken, pork, fish, green beans, beets and carrots. Miles: Use with chicken, pork, eggplant and in dressing. Tarragon: Use with fish, chicken, asparagus, beets, cabbage, cauliflower and in marinades. Tips for cooking with herbs and spices Purchase spices and herbs in small amounts . When they sit on the shelf for years they lose their flavor. Use no more than ?? teaspoon of dried spice (?? of fresh) per pound of meat. Add ground spices to food about 15 minutes before the end of the cooking period. Add whole spices to food at least one hour before the end of the cooking period. Combine herbs with oil or butter, set for 30 minutes to bring out their flavor, then brush on foodswhile they cook, or brush meat with oil and sprinkle herbs one hour before coolcing. Crush dried herbs before adding to foods. Can I use salt substitutes? Caution! If you are told to limit potassium in your diet, be very cautious about using salt substitutes because most of them contain some form of potassium. Check with your doctor or dietitian beforeusing and salt substitute. [place] and create your own seasoning containing those spices that you like. If you would like to become a volunteer and find out more about what's happening where you live, contact your local [facility] Affiliate. Blood pressure monitoring education: Monitor home blood pressure values after sitting for 5 minutes with back and arm support. Keep a log. Bring your log and blood pressure cuff to your next visit. documented in this encounter Progress Notes * Earnest Baer MD - 05/12/2024 1:30 PM EST Images from the original note were not included. Patient Name: Rupali Freeman, Female Date of : 1945, 78 y.o. Date: 05/12/24 [] New Patient [x] Established Patient [] New Hospital Follow Up [] Established Hospital Follow Up [] Telemed Visit [] H&P Referring MD: No primary care provider on file. PCP: Bonny Lopez MD Reason For Visit: CKD 3b, DM, HTN Rupali Freeman is a 78 y.o. female seen today in f/u regarding stage 3 CKD on backdrop of DM and HTN. Cont ot stuggle with fluid issues. Torsemide switched to bumex and she is going to update us with her current meds Denies chest pain or shortness of breath. No blood in the urine or difficulties urinating. Complains of mild arthritic complaints but avoids use of NSAIDs. The following portions of the patient's chart were reviewed in this encounter and updated as appropriate: Allergies Meds Problems Med Hx Surg Hx Fam Hx Constitutional: Negative for chills and fever. Respiratory: Negative for cough and shortness of breath. Cardiovascular: Negative for chest pain, palpitations and leg swelling. Gastrointestinal: Negative for abdominal pain, nausea and vomiting. Genitourinary: Negative for dysuria, frequency, hematuria and urgency. Full 13 point review of systems unremarkable except as noted above. Past Medical History: Diagnosis Date Gastroesophageal reflux disease Hyperlipidemia Hypertension Type 2 diabetes mellitus (HCC) Past Surgical History: Procedure Laterality Date CATARACT SURGERY morena OTHER SURGICAL HISTORY SUDHA uterus causing bladder pressure. Social History Tobacco Use Smoking status: Former Smokeless tobacco: Never Tobacco comments: Smoking History Info:Every day Substance Use Topics Alcohol use: No Family History Problem Relation Age of Onset Diabetes Mother Hypertension Father Cancer Child daughter Hypertension Mother Diabetes Sibling Diabetes Father Cancer Sibling 2 Sisters Current Outpatient Medications Medication Sig Dispense Refill alendronate (FOSAMAX) 70 MG tablet aspirin (ST BENITA) 81 MG EC tablet Take 1 tablet by mouth 1 (one) time each day atorvastatin (LIPITOR) 40 MG tablet Take 1 tablet by mouth 1 (one) time each day Blood Pressure kit 1 kit by Other route furosemide (LASIX) 20 MG tablet TAKE 2 TABLETS BY MOUTH ONCE DAILY. 56 tablet 11 HumaLOG MIX 50/50 KWIKPEN (50-50) 100 UNIT/ML inj pen hydrALAZINE 50 MG tablet TAKE 1 TABLET BY MOUTH THREE TIMES A DAY 84 tablet 0 Invokamet XR 50-500 MG tablet sustained-release 24 hour lisinopril 20 MG tablet TAKE 1 TABLET BY MOUTH DAILY 28 tablet 11 loratadine (CLARITIN) 10 MG tablet Take 1 tablet by mouth 1 (one) time each day metoprolol succinate XL (TOPROL-XL) 50 MG 24 hr tablet Take 1.5 tablets by mouth every night pantoprazole (PROTONIX) 40 MG EC tablet Take 1 tablet by mouth 1 (one) time each day simvastatin (ZOCOR) 40 MG tablet Take 1 tablet by mouth 1 (one) time each day No current facility-administered medications for this visit. Allergies Allergen Reactions Ibuprofen Nitrofurantoin Ofloxacin Sulfamethoxazole-Trimethoprim Objective: Vitals: 05/12/24 1317 BP: 120/68 BP Location: Right upper arm Patient Position: Sitting BP Cuff Size: Adult Pulse: 64 SpO2: 97% Weight: 140 lb 6.4 oz (63.7 kg) 132/70 No results found for: EGFRAFR Est GFR Non Date Value Ref Range Status 03/01/2022 35 ML/MIN/1.73 M2 Final Comment: Creatinine based estimated glomerular filtration (eGFR) in adults is calculated using the National Kidney Foundation recommended 2020 CKD-EPI equation. Estimates GFR from serum creatinine, age and sex. Testing performed or reported by [facility], a Service of [facility], [address] [place] [address] Jess Bojorquez MD, Warehouse Director ADAMPHUC# [id number] Chemistry Lab Units 11/07/23 1057 07/09/23 0000 01/24/23 1312 CREATININE mg/dL 1.24 1.33* 1.41* BUN mg/dL 20* 27* 28* POTASSIUM mmol/L 4.7 4.3 4.1 SODIUM mmol/L 143 143 139 CO2 mmol/L 30* -- 30* CHLORIDE mmol/L 108 105.0 102 ALBUMIN g/dL 3.9 -- 3.6 Bone Mineral Lab Units 11/07/23 1100 11/07/23 1057 07/09/23 0000 01/24/23 1312 CALCIUM mg/dL -- 10.1 10.0 9.6 PHOSPHORUS mg/dL -- 3.6 -- 3.1 MAGNESIUM mg/dL -- 1.6 -- 1.7 PTH pg/mL 102.8* -- -- 67 VITAMIN D ng/mL -- 57.0 -- 43.2 CBC Lab Units 11/07/23 1100 07/09/23 0000 01/24/23 1312 WBC AUTO X10*3/uL 6.5 6.4 7.7 RBC AUTO X10*6/uL 4.29 -- 4.40 MCV fL 89.3 89.7 86.6 HEMATOCRIT % 38.3 38.3 38.1 HEMOGLOBIN g/dl 12.3 12.3 12.1 PLATELETS AUTO X10*3/uL 211 207 232 Urine Lab Units 11/07/23 1100 01/24/23 1336 PROT/CREAT RATIO UR 0.27* 0.19 ALB MG/G CREAT UR ug/mg cr 125.8* 81.0* Urine Lab Units 11/07/23 1100 01/24/23 1336 PH U 5.5 6.0 COLOR U Yellow Yellow GLUCOSE U MG/DL mg/dL Negative Negative WBC UR HPF /HPF >50* 11-20* RBC UR HPF /HPF 0-2 0-2 Iron Studies Lab Units 07/09/23 0000 TIBC ug/dL 278 PLAN: Assessment & Plan 78 Y/O FEMALE STAGE 3 CKD DIABETIC HYPERTENSIVE PATINET 1. CKD 3b: c/w DN/HTN renal dis depsite absence of signif albuminuria 2. Edema: resolved off CCB 3. DM 4. HTN: controlled; goal < 130/80 5. Metabolic Bone Disease of CKD: cont to track CA, Phos, HCO3, PTH and vit D levels and treat accordingly To Maximize renal protection: - cont NIDHI -add in future SGLT2i if she is currentl not taking -add Kerendia in future as well oncr BP better - target LDL < 70 - cont to stress strict BP/BS control and avoid NSAIDS PLAN: need update on current meds and then look to add SGLT2i; BP merds renewed; cont to stress L/Schanges including low salt diet and compressive stockings; ; stress improtance of BS/BP; avoid NSAIDs 1. Stage 3b chronic kidney disease (HCC) 2. Renal osteodystrophy 3. Hypertensive chronic kidney disease Orders Placed This Encounter PTH, Intact Renal Function Panel Urinalysis with microscopic Urine Albumin / Creatinine Ratio Urine Culture Protein, Total, Random Urine w/Creatinine (Protein/Creat Ratio) Vitamin D 25 Hydroxy CBC Phosphorus Magnesium Albumin Calcium Return in about 9 months (around 02/09/2025). Earnest Baer MD Vitals reviewed. Constitutional: She appears well-developed. No distress. Cardiovascular: Normal rate, regular rhythm and normal heart sounds. She exhibits no edema. Pulmonary/Chest: Effort normal and breath sounds normal. No respiratory distress. Abdominal: Soft. There is no abdominal tenderness. No hernia. Skin: Skin is warm and dry. Psychiatric: She has a normal mood and affect. Her behavior is normal. documented in this encounter Plan of Treatment Upcoming Encounters Date Type Department Care Team (Late st Contact Info) Description 03/09/2025 1:45 PM EST Office [facility] [address] [place] [address] [place] [address] Earnest Baer MD [address] [facility] [address] [place] [address] (work) Scheduled Orders Name Type Priority Associated Diagnoses Orde r Schedule PTH, Intact Lab Routine Stage 3b chronic kidney disease (HCC) Renal osteodystrophy Hypertensive chronic kidney disease Expected: 05/12/2024, Expires: 06/09/2025 Renal Function Panel Lab Routine Stage 3b chronic kidney disease (HCC) Renal osteodystrophy Hypertensive chronic kidney disease Expected: 05/12/2024, Expires: 06/09/2025 Urinalysis with microscopic Lab Routine Stage 3b chronic kidney disease (HCC) Renal osteodystrophy Hypertensive chronic kidney disease Expected: 05/12/2024, Expires: 06/09/2025 Urine Albumin / Creatinine Ratio Lab Routine Stage 3b chronic kidney disease (HCC) Renal osteodystrophy Hypertensive chronic kidney disease Expected: 05/12/2024, Expires: 06/09/2025 Urine Culture Lab Routine Stage 3b chronic kidney disease (HCC) Renal osteodystrophy Hypertensive chronic kidney disease Expected: 05/12/2024, Expires: 06/09/2025 Protein, Total, Random Urine w/Creatinine (Protein/Creat Ratio) Lab Routine Stage 3b chronic kidney disease (HCC) Renal osteodystrophy Hypertensive chronic kidney disease Expected: 05/12/2024, Expires: 06/09/2025 Vitamin D 25 Hydroxy Lab Routine Stage 3b chronic kidney disease (HCC) Renal osteodystrophy Hypertensive chronic kidney disease Expected: 05/12/2024, Expires: 06/09/2025 CBC Lab Routine Stage 3b chronic kidney disease (HCC) Renal osteodystrophy Hypertensive chronic kidney disease Expected: 05/12/2024, Expires: 06/09/2025 Phosphorus Lab Routine Stage 3b chronic kidney disease (HCC) Renal osteodystrophy Hypertensive chronic kidney disease Expected: 05/12/2024, Expires: 06/09/2025 Magnesium Lab Routine Stage 3b chronic kidney disease (HCC) Renal osteodystrophy Hypertensive chronic kidney disease Expected: 05/12/2024, Expires: 06/09/2025 Albumin Lab Routine Stage 3b chronic kidney disease (HCC) Renal osteodystrophy Hypertensive chronic kidney disease Expected: 05/12/2024, Expires: 06/09/2025 Calcium Lab Routine Stage 3b chronic kidney disease (HCC) Renal osteodystrophy Hypertensive chronic kidney disease Expected: 05/12/2024, Expires: 06/09/2025 documented as of this encounter Visit Diagnoses Diagnosis Stage 3b chronic kidney disease (HCC)- Primary Renal osteodystrophy Hypertensive chronic kidney disease documented in this encounter Care Teams Shank Threader Relationship Specialty Start Date End Date Bonny Lopez MD [address] [place] [address] PCP - General Internal Medicine 01/27/21 documented as of this encounter
--- OUTSIDE RECORDS SUMMARY | 2024-05-26 10:33 | XMS_ITS | Encounter Summary ---
Author Organization [facility] Address [address] [facility] [place] [facility] [address] [place] [address] Phone Care Team Providers Care Environmental Engineer Name Role Phone Bonny Lopez MD Primary Care Provider [phone] Reason for Visit * Reason Comments Med Refill Encounter Details Date Type Department Care Team ([facility] Contact Info) Description 07/21/2020 [facility] [address] [facility] [place] [facility] [address] [place] [address] Navin Leon MD Social History Tobacco Use Types Packs/Day Years Used Date Smoking Tobacco: Former Comments:Smoking History Inf o:Every day Alcohol Use [...] Upcoming Encounters Date Type Department Care Team ([facility] Contact Info) Description 03/09/2025 1:45 PM EST Office [facility] [address] [place] [place] [phone] Earnest Baer MD [address] [facility] [address] [place] [phone] documented as of this encounter Visit Diagnoses Not on filedocumented in this encounter Care Teams Environmental Engineer Relationship Specialty Start Date End Date Bonny Lopez MD [address] [place], [place] [phone] PCP - General Internal Medicine 01/27/21 documented as of this encounter
--- NOTE | 2024-05-26 10:46 | AM.OFFWIN_ITS ---
Intake Vital Signs 3 05/26/24 10:47 Height 5 ft 2 in Weight 144 lb BMI 26.3 BP 130/68 Blood Pressure Location Lt brachial Position Sitting Pulse 70 Pulse Source Pulse Oximeter Temp 98.0 F Temp Source Oral Pulse Oximetry (%) 97 Oxygen Delivery Method Room Air Intake Visit Reasons: EP ? spots on both hands & arms Patient Tobacco Use Status: Never used Tobacco Allergies dulaglutide [Trulicity] Allergy (Intermediate, Verified 05/26/24 10:47) headache, memory loss amlodipine Adverse Reaction (Intermediate, Verified 05/26/24 10:47) leg edema atorvastatin Adverse Reaction (Intermediate, Verified 05/26/24 10:47) dry mouth omeprazole [OMEPRAZOLE] Adverse Reaction (Intermediate, Verified 05/26/24 10:47) N/V; ABDOMINAL PAIN Do you need a note to return to daycare/school/sports/work: No HPI HPI Comments 2 History of Present Illness0 Details 78 y/o female patient who presents to [facility] walk in clinic with c/o small bruises on upper extremities. Pt reports noticing bruises few days ago. Denies any recent trauma or injury. [facility] Medical History (Updated 05/26/24 @ 11:21 by Sis Oh NP) Easy bruising OA (osteoarthritis) GERD (gastroesophageal reflux disease) Uncontrolled type 2 diabetes mellitus with hyperglycemia Renal stones Generalized abdominal pain HTN (hypertension) Elevated blood pressure reading Female pelvic pain Chest discomfort Secondary hypertension Angina at rest Constipation Acute back pain Arthritis of knee Osteoporosis [place]ONNA (generalized anxiety disorder) Mild recurrent major depression GERD (gastroesophageal reflux disease) Anemia B12 deficiency Diabetic nephropathy associated with type 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 Pure hypercholesterolemia Hypovitaminosis D Depression Long-term use of aspirin therapy Diabetes mellitus Surgical History Hx of colonoscopy Hx of cataract removal with insertion of prosthetic lens Hx of lithotripsy History of total abdominal hysterectomy Family History Father Hypertension Diabetes Mother Diabetes Social History Housing: Apartment Alcohol intake: never Patient Tobacco Use Status: Never used Tobacco e-Cigarette/Vaping Use: Never Used Second Hand Smoke Exposure: No service: No Current occupational status: disabled Cognitive needs: Yes (cane ) Hearing needs: No Vision needs: No Review of Systems Const All systems reviewed & are unremarkable except as noted in HPI and below Physical Exam Vital Signs: Last Vital Signs Temp 98.0 F 05/26/24 10:47 Pulse 70 05/26/24 10:47 BP 130/68 05/26/24 10:47 Pulse Ox 97 05/26/24 10:47 Oxygen Delivery Method Room Air 05/26/24 10:47 BMI result Body Mass Index 26.3 Const General: cooperative and no acute distress Nutritional Appearance: overweight Orientation/consciousness: patient oriented x3 Skin Full body images: 2 1. Skin very thin, small bruise on both extremities. 2. Skin very thin, small bruise on both extremities. Neuro General: patient oriented x3 Extrem Right upper extremity: elbow/forearm Details: normal ROM and ecchymosis (right Forearm); no tenderness and no swelling Left upper extremity: elbow/forearm Details: normal ROM and ecchymosis; no tenderness and no swelling Psych Speech and movement: Normal speech and movement present Assessment & Plan Assessment & Plan (1) Easy bruising: Code(s): R23.3 - Spontaneous ecchymoses Plan: Currently takes Aspirin daily. H/o CKD 3 Will continue to monitor. Coding Level of Care Code Est Pt Level 4 (91075) Diagnoses Easy bruising R23.3 Time Spent (min) 20
[2024-05-26 10:47] VITALS: BP 130/68; PULSE 70; TEMP 36.7; O2SAT 97; BMI 26.3
== END 2024-05-26 11:19 | disposition home or self-care (01) ==
PROVIDERS: PCP Internal Medicine; Visit Provider Nurse Practitioner Family
DX: R23.3 Spontaneous ecchymoses (principal)

== ENCOUNTER → 2024-05-26 09:40 | Outpatient (BNVA) | payer OTHER, SELFPAY | PROVIDERS: PCP Internal Medicine | DX: R23.3 Spontaneous ecchymoses (principal) | CPT/HCPCS: 99212 ==

== ENCOUNTER 2024-06-13 11:06 | Outpatient (REF) | payer OTHER, SELFPAY ==
--- NOTE | ~2024-06-13 | US_ITS ---
CLINICAL HISTORY: N20.0 - Calculus of kidney US Renal Comparison: US/SR - US RENAL BI - 08/20/23 12:48 EDT Findings: Right kidney normal size and echotexture, 9.5 cm length. Left kidney normal size and echotexture, 9.4 cm length. upper pole calculus measuring 4 mm and lower pole calculus measuring 4 mm. No hydronephrosis of either kidney. Normal color Doppler IMPRESSION: 1. Two left renal calculi as above. This document has been electronically signed by: Michael Montenegro MD on 06/14/2024 08:49:30
--- OUTSIDE RECORDS SUMMARY | 2024-06-13 12:46 | XMS_ITS | Encounter Summary ---
Author Organization [facility] Address [address] [facility] [place] [facility] [address] [place] [address] Phone Care Team Providers Care Board Certified Behavioral Analyst Name Role Phone Bonny Lopez MD Primary Care Provider [phone] Reason for Visit * Reason Comments Med Refill Encounter Details Date Type Department Care Team ([facility] Contact Info) Description 09/13/2022 [facility] [address] [facility] [place] [facility] [address] [place] [address] Migel Wyman MD Stage 3b [...] Department Care Team ([facility] Contact Info) Description 03/09/2025 1:45 PM EST Office Visit [facility] [address] [place] [phone] Earnest Baer MD [address] [facility] [address] [place] [address] documented as of this encounter Visit Diagnoses Diagnosis Stage 3b chronic kidney disease (HCC) Hypertensive chronic kidney disease documented in this encounter Care Teams Board Certified Behavioral Analyst Relationship Specialty Start Date End Date Bonny Lopez MD [address] [place], [place] [phone] PCP - General Internal Medicine 01/27/21 documented as of this encounter
--- OUTSIDE RECORDS SUMMARY | 2024-06-13 12:46 | XMS_ITS | Encounter Summary ---
Author Organization [facility] Address [address] [facility] 200 [place] [address] Phone Care Team Providers Care Healthcare Liaison Name Role Phone Bonny Lopez MD Primary Care Provider [phone] Encounter Details Date Type Department Care Team (Late Contact Info) Description 10/10/2023 Office Communication [facility] [address] [place] [address] Earnest Bear MD [address] [address] Social History Tobacco Use Types [...] Visit [facility] [address] [place] [address] [place] [address] Earnest Baer MD [address] [address] documented as of this encounter Visit Diagnoses Not on filedocumented in this encounter Care Teams Healthcare Liaison Relationship Specialty Start Date End Date Bonny Lopez MD [address] [place] [address] PCP - General Internal Medicine 01/27/21 documented as of this encounter
--- OUTSIDE RECORDS SUMMARY | 2024-06-13 12:46 | XMS_ITS | Encounter Summary ---
Author Organization [facility] [place] Address 100 [facility] 200 [place] [address] Phone Care Team Providers Care Cell Room Operator Name Role Phone Bonny Lopez MD Primary Care Provider [phone] Reason for Visit * Reason Comments Med Refill Encounter Details Date Type Department Care Team ([facility] Contact Info) Description 08/16/2022 Refill [facility] [place] [facility] 200 [place] [address] Migel Wyman MD Stage 3b [...] Upcoming Encounters Date Type Department Care Team ([facility] Contact Info) Description 03/09/2025 1:45 PM EST Office Visit [facility] [address] [place] [phone] Earnest Baer MD 0796 [facility] 204 [place] [address] documented as of this encounter Visit Diagnoses Diagnosis Stage 3b chronic kidney disease (HCC) Hypertensive chronic kidney disease documented in this encounter Care Teams Cell Room Operator Relationship Specialty Start Date End Date Bonny Lopez MD [address] [place], [place] [phone] PCP - General Internal Medicine 01/27/21 documented as of this encounter
--- OUTSIDE RECORDS SUMMARY | 2024-06-13 12:46 | XMS_ITS | Continuity of Care Document ---
Author Organization [facility] Address [address] [place] [address]- Care Team Providers Care Clarifier Operator Name Role Phone Kong Chavez MD, Brianda Primary Care Physician Encounter [facility] Date(s): 04/30/24 - 05/30/24 [facility] [address] [place] [address]- Encounter Type: Triage Allergies, Adverse Reactions, Alerts Substance Criticality Severity Reaction Reaction Severity Status Macrobid Active Floxin Active Bactrim Active Motrin Active Immunizations Given and Recorded Vaccine Date Status Refusal Reason [id number] 12y+ bivalent booster vax 03/08/22 Recorded SARS-CoV-2 mRNA ([id number]) vax 11/29/21 Recorded SARS-CoV-2 (COVID-19) mRNA BNT-162b2 vac 03/07/21 Recorded SARS-CoV-2 (COVID-19) Ad26 vaccine 06/23/20 Record ed influenza virus vaccine, inactivated 02/03/20 Atwanda rded influenza virus vaccine, inactivated 12/31/18 Tawanda [...] Position: Reference Physician Member Role: PCP Address: [address] [place] [address] Telecom: Care Team Related Persons Name: CHANDAN LORA Insurance Providers Guarantor name: CHANDAN [facility] Health Plan Information #: 1 Payer: NA Member Number: NA Policy Number: NA Group Number: NA
--- OUTSIDE RECORDS SUMMARY | 2024-06-13 12:46 | XMS_ITS | Clinical Summary ---
Author Organization [facility] Address 3550 [facility] 204 [place] [address] Phone Care Team Providers Care Legal Executive Assistant Name Role Phone Bonny Lopez MD Primary Care Provider [phone] Allergies Active Allergy Reactions Criticality Noted Date Comments Ibuprofen 01/30/2022 Nitrofurantoin 01/30/2022 Ofloxacin 01/30/2022 Sulfamethoxazole-Trimethoprim 2021 Medications Blood Pressure kit 1 kit by Other route 0 Active aspirin (ST BENITA) 81 MG EC [...] 50/50 KWIKPEN (50-50) 100 UNIT/ML inj pen 1 Active Invokamet XR 50-500 MG tablet sustained-rele ase 24 hour 1 Active alendronate (FOSAMAX) 70 MG tablet 2 Active lisinopril 20 MG tabletIndicati ons:Stage 3b chronic kidney disease (HCC),Hyperten sive chronic kidney disease TAKE 1 TABLET BY MOUTH DAILY 28 tablet 11 4 Active furosemide (LASIX) 20 MG tabletIndicati ons:Stage 3b chronic kidney disease (HCC),Hyperten sive chronic kidney disease TAKE 2 TABLETS BY MOUTH ONCE DAILY. 56 tablet 11 4 Active cloNIDine (CATAPRES) 0.1 MG tablet TAKE 1 TABLET BY MOUTH TWICE DAILY IN THE MORNING AND EVENING. 60 tablet 5 Active hydrALAZINE 50 MG tablet TAKE 1 TABLET BY MOUTH THREE TIMES A DAY 84 tablet 5 Active hydrALAZINE 50 MG tablet TAKE 1 TABLET BY MOUTH THREE TIMES A DAY 84 tablet 5 05/20/19 25 Discontinued Active Problems Problem Noted Date Diagnosed [...] 05/20/2024 Refill [facility] [address] [place] [address] Sarthak Hooker MD 05/12/2024 1:30 PM EST Office Visit [facility] [address] [place] [address] Earnest Bare MD Stage 3b chronic kidney disease (HCC) (Primary Dx); Renal osteodystrophy; Hypertensive chronic kidney disease 04/29/2024 Refill [facility] [address] [place] [address] Sarthak Hooker MD 04/22/2024 Refill [facility] [address] [place] [address] Earnest Baer MD 03/22/2024 Refill [facility] [address] [place] [address] Earnest Baer MD from Last 3 Months [...] Visit [facility] [address] [place] [address] Earnest Baer MD 6651 [facility] 204 [place] [address] Health Maintenance Due Date Last Done Comments [...] patient's age to complete this topic Insurance ([id number]) DIANDRA MOSS [id number] [facility] ([id number]) Care Teams Legal Executive Assistant Relationship Specialty Start Date End Date Bonny Lopez MD [address] [place] [address] PCP - General Internal Medicine 01/27/21
--- OUTSIDE RECORDS SUMMARY | 2024-06-13 12:46 | XMS_ITS | Encounter Summary ---
Author Organization [facility] Address 100 [facility] 200 [place] [address] Phone Care Team Providers Care Senior Information Security Engineer Name Role Phone Bonny Lopez MD Primary Care Provider Reason for Visit * Reason Comments Med Refill Encounter Details Date Type Department Care Team ([facility] Contact Info) Description 07/19/2022 Refill [facility] [place] [facility] 200 [place] [address] Migel Wyman MD Stage 3b [...] Upcoming Encounters Date Type Department Care Team ([facility] Contact Info) Description 03/09/2025 1:45 PM EST Office Visit [facility] [address] [place] [phone] Earnest Baer MD 7260 [facility] [address] [place] [address] documented as of this encounter Visit Diagnoses Diagnosis Stage 3b chronic kidney disease (HCC) Hypertensive chronic kidney disease documented in this encounter Care Teams Senior Information Security Engineer Relationship Specialty Start Date End Date Bonny Lopez MD [address] [place], [place] [phone] PCP - General Internal Medicine 01/27/21 documented as of this encounter
--- OUTSIDE RECORDS SUMMARY | 2024-06-13 12:46 | XMS_ITS | Clinical Summary ---
Author Organization [employer] Address 75 [facility] 7t [place] [address] Care Team Providers Care Deputy Clerk Name Role Phone Unavailable Primary Care Provider [...] Description 08/20/2024 11:00 AM EDT Office Visit [facility] [address] [place] [address] [address]is [address] [place] [address] Health Maintenance Due Date Last [...] Most Recently Relevant to Health Maintenance [place] [id number] [facility] [place] [id number] [address] [place] [address] [place] [address] [place] [phone]
--- OUTSIDE RECORDS SUMMARY | 2024-06-13 12:46 | XMS_ITS | Encounter Summary ---
Author Organization [facility] Address 100 [facility] 200 [place] [address] Phone Care Team Providers Care Supervisor Alteration Workroom Name Role Phone Bonny Lopez MD Primary Care Provider [phone] Reason for Visit * Reason Comments Med Refill Encounter Details Date Type Department Care Team ([facility] Contact Info) Description 05/20/2024 Refill [facility] [address] [place] [place] [address] Sarthak Hooker MD [address] [address] Social History Tobacco Use Types [...] Office Visit [facility] [address] [place] [address] [place] [address] Earnest Baer MD 3208 [facility] 204 [place] [address] documented as of this encounter Visit Diagnoses Not on filedocumented in this encounter Care Teams Supervisor Alteration Workroom Relationship Specialty Start Date End Date Bonny Lopez MD [address] [place] [address] PCP - General Internal Medicine 01/27/21 documented as of this encounter
--- OUTSIDE RECORDS SUMMARY | 2024-06-13 12:46 | XMS_ITS | Encounter Summary ---
Author Organization [facility] Address 100 [facility] 200 [place] [address] Phone Care Team Providers Care Aesthetician Name Role Phone Bonny Lopez MD Primary Care Provider [phone] Reason for Visit * Reason Comments Med Refill Encounter Details Date Type Department Care Team ([facility] Contact Info) Description 07/21/2020 Refill [facility] 100 [facility] [place] [facility] [address] [place] [address] Navin Leon MD Social History [...] Upcoming Encounters Date Type Department Care Team ([facility] Contact Info) Description 03/09/2025 1:45 PM EST Office Visit [facility] [address] [place] [address] [place] [phone] Earnest Baer MD 9872 [facility] 204 [place] [address] documented as of this encounter Visit Diagnoses Not on filedocumented in this encounter Care Teams Aesthetician Relationship Specialty Start Date End Date Bonny Lopez MD [address] [place], [place] [phone] PCP - General Internal Medicine 01/27/21 documented as of this encounter
== END 2024-06-13 11:07 | disposition home or self-care (01) ==
LOC: HO.US 11:06
PROVIDERS: PCP Internal Medicine; Visit Provider Nurse Practitioner Family
DX: N20.0 Calculus of kidney (principal)
CPT/HCPCS: 76775

== ENCOUNTER → 2024-06-13 11:11 | Outpatient (BNV) | payer OTHER, SELFPAY | PROVIDERS: PCP Internal Medicine; Visit Provider Radiology Diagnostic Radiology | DX: N20.0 Calculus of kidney (principal) | CPT/HCPCS: 76775 ==

== ENCOUNTER 2024-06-30 13:04 | Outpatient (AMB) | payer OTHER, SELFPAY ==
--- NOTE | 2024-06-30 14:00 | AM.OFFWIN_ITS ---
Intake Vital Signs 06/30/24 14:01 Weight 140 lb BP 128/78 Blood Pressure Location Lt brachial Position Sitting Pulse 64 Pulse Source Pulse Oximeter Temp 98.2 F Temp Source Oral Pulse Oximetry (%) 98 Oxygen Delivery Method Room Air Intake Visit Reasons: EP-headaches, cold symptoms Intake Note: Patient here for headaches, jaw pain, ear pain, sinus pressure, eye pressure that has been present for about 2 weeks. Patient Tobacco Use Status: Never used Tobacco Allergies dulaglutide [Trulicity] Allergy (Intermediate, Verified 06/30/24 14:08) headache, memory loss amlodipine Adverse Reaction (Intermediate, Verified 06/30/24 14:08) leg edema atorvastatin Adverse Reaction (Intermediate, Verified 06/30/24 14:08) dry mouth omeprazole [OMEPRAZOLE] Adverse Reaction (Intermediate, Verified 06/30/24 14:08) N/V; ABDOMINAL PAIN Do you need a note to return to daycare/school/sports/work: No HPI HPI Comments History of Present Illness Details Patient declined [place] video interpretor, would prefer granddaughter to interpret instead. History - The patient is an 78-year-old female p resenting with left ear pain, facial job n and swelling, and other associated symptoms. - Symptoms started two weeks ago, includ ing pressure and pain on the left side, congestion, and headaches. - Pain is focused under the left ear and on the left side of the face, without notable changes in hearing, but there is tenderness in the gum area on her right side. - The patient, who is diabetic, has been taking Tylenol and jfam-kka-sgwnvlm diabetic medications without improvement. - There are no reports of fatigue, short ness of breath, wheezing, or fever. Physical Exam General: Cooperative, healthy appearing, comfortable and no acute distress Orientation/consciousness: Patient oriented x3 Limitations: No limitations Head: Normal to inspection Ears: Hearing grossly normal bilaterally, external ears normal, and TM's normal bilaterally, no mastoid tenderness bilateraly Nose: Normal external nose present, Normal nares present and No nasal discharge present Face and sinus: slight right cheek edema, TTP with small lump on left side of gums/cheek Mouth: Normal oral and palatal mucosa present and moist mucous membranes, but some redness and swelling in the gums, right side Throat: Yes tonsils normal, Yes uvula midline. Posterior oropharynx erythema Eyes: Appearance normal, both eyes and all related structures Neck: Normal visual inspection Respiratory: Normal respiratory effort, able to speak in complete sentences, no respiratory distress, not tachypneic, no tripod positioning and no use of accessory muscles Skin: No rashes or lesions noted Neuro: Patient oriented x3 Extremities: Normal to inspection and Yes no clubbing, cyanosis or edema PFSH Medical History (Updated 06/30/24 @ 14:27 by Vicki Chandler PA-C) Easy bruising OA (osteoarthritis) GERD (gastroesophageal reflux disease) Uncontrolled type 2 diabetes mellitus with hyperglycemia Renal stones Generalized abdominal pain HTN (hypertension) Elevated blood pressure reading Female pelvic pain Chest discomfort Secondary hypertension Angina at rest Constipation Acute back pain Arthritis of knee Osteoporosis KYEONNA (generalized anxiety disorder) Mild recurrent major depression GERD (gastroesophageal reflux disease) Anemia B12 deficiency Diabetic nephropathy associated with type 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 Pure hypercholesterolemia Hypovitaminosis D Depression Long-term use of aspirin therapy Diabetes mellitus Surgical History Hx of colonoscopy Hx of cataract removal with insertion of prosthetic lens Hx of lithotripsy History of total abdominal hysterectomy Family History Father Hypertension Diabetes Mother Diabetes Social History Housing: Apartment Alcohol intake: never Patient Tobacco Use Status: Never used Tobacco e-Cigarette/Vaping Use: Never Used Second Hand Smoke Exposure: No service: No Current occupational status: disabled Cognitive needs: Yes (cane ) Hearing needs: No Vision needs: No Review of Systems Const All systems reviewed & are unremarkable except as noted in HPI and below Physical Exam Vital Signs: Last Vital Signs Temp 98.2 F 06/30/24 14:01 Pulse 64 06/30/24 14:01 BP 128/78 06/30/24 14:01 Pulse Ox 98 06/30/24 14:01 Oxygen Delivery Method Room Air 06/30/24 14:01 Assessment & Plan Assessment & Plan (1) URI (upper respiratory infection): Code(s): J06.9 - Acute upper respiratory infection, unspecified Qualifiers: URI type: unspecified URI Qualified Code(s): J06.9 - Acute upper respiratory infection, unspecified Plan: VSS, pt well appearing and PE remarkable for small palpable lump in right cheek/gums, wtih swelling, possible abscess and URI. In light of the symptoms suggesting a possible dental abscess, I recommend initiating a course of Augmentin to address any infection, alongside warm salt water rinses for symptomatic relief. Advil may be used to manage inflammation and discomfort. This treatment plan aligns with the presentation of the patient's condition, considering her diabetes and the lack of response to previous self-medication efforts. The use of antibiotics is expected to mitigate the infection and alleviate the associated pain and swelling. . Patient was informed and verbally consented to the use of an ambient scribe for clinic note documentation during this visit (2) Abscess, dental: Code(s): K04.7 - Periapical abscess without sinus Plan: as above Medications: New amoxicillin-pot clavulanate 875-125 mg 1 tab PO Q12H 14 tabs 0RF Coding Level of Care Code Est Pt Level 3 (52015) Diagnoses Upper respiratory tract infection, unspecified type J06.9 URI type: unspecified URI Abscess, dental K04.7
[2024-06-30 14:01] VITALS: BP 128/78; PULSE 64; TEMP 36.8; O2SAT 98
--- OUTSIDE RECORDS SUMMARY | 2024-06-30 14:41 | XMS_ITS | Encounter Summary ---
Author Organization [facility] [place] Address 100 [facility] 200 [place] [address] Phone Care Team Providers Care Vending Machine Refiller Name Role Phone Bonny Lopez MD Primary Care Provider [phone] Reason for Visit * Reason Comments Med Refill Encounter Details Date Type Department [facility] Description 07/21/2020 Refill [facility] 100 [facility] [place] [facility] 200 [place] [address] Navin Leon MD Social History [...] Visit [facility] [address] [place] [phone] Earnest Baer MD 2886 [facility] 204 [place] [address] documented as of this encounter Visit Diagnoses Not on filedocumented in this encounter Care Teams Vending Machine Refiller Relationship Specialty Start Date End Date Bonny Lopez MD 260 [place], [place] [phone] PCP - General Internal Medicine 01/27/21 documented as of this encounter
--- OUTSIDE RECORDS SUMMARY | 2024-06-30 14:41 | XMS_ITS | Encounter Summary ---
Author Organization [facility] [place] Address 100 [facility] 200 [place] [address] Phone Care Team Providers Care Metal Bumper Name Role Phone Bonny Lopez MD Primary Care Provider [phone] Reason for Visit * Reason Comments Med Refill Encounter Details Date Type Department Care Team ([facility] Contact Info) Description 07/19/2022 Refill [facility] 100 [facility] [place] [facility] [address] [place] [address] Migel Wyman MD Stage 3b [...] Upcoming Encounters Date Type Department Care Team ([facility] Contact Info) Description 03/09/2025 1:45 PM EST Office Visit [facility] [address] [place] [phone] Earnest Baer MD 2080 [facility] 204 [place] [address] documented as of this encounter Visit Diagnoses Diagnosis Stage 3b chronic kidney disease (HCC) Hypertensive chronic kidney disease documented in this encounter Care Teams Metal Bumper Relationship Specialty Start Date End Date Bonny Lopez MD [address] [place], [place] [phone] PCP - General Internal Medicine 01/27/21 documented as of this encounter
--- OUTSIDE RECORDS SUMMARY | 2024-06-30 14:41 | XMS_ITS | Clinical Summary ---
Author Organization [employer] Address 75 [facility] 7t [place] [address] Care Team Providers Care Geographic Information System Analyst Name Role Phone Unavailable Primary Care Provider [...] Description 08/20/2024 11:00 AM EDT Office Visit [facility] [address] [place] [address] [address]is Knox [address] [place] [address] Health Maintenance Due Date Last [...] Most Recently Relevant to Health [place] [id number] [facility] [place] [address] [place] [address] [place] [address] [place] [address]
--- OUTSIDE RECORDS SUMMARY | 2024-06-30 14:41 | XMS_ITS | Clinical Summary ---
Author Organization [facility] Address 35[address] [facility] 204 [place] [address] Phone Care Team Providers Care Campus Chaplain Name Role Phone Bonny Lopez MD Primary Care Provider [phone] Allergies Active Allergy Reactions Criticality Noted Date [...] TIMES A DAY 84 tablet 5 Active cloNIDine (CATAPRES) 0.1 MG tablet TAKE 1 TABLET BY MOUTH TWICE DAILY IN THE MORNING AND EVENING. 60 tablet 5 06/19/19 25 Discontinued hydrALAZINE 50 MG tablet TAKE 1 TABLET BY MOUTH THREE TIMES A DAY 84 tablet 5 06/19/19 25 Discontinued Active Problems Problem Noted Date [...] Encounters Date Type Department Care Team Description 06/18/2024 Refill [facility] [address] [place] [address] Esau Harris MD 05/20/2024 Refill [facility] [address] [place] [address] Sarthak Hooker MD 05/12/2024 1:30 PM EST Office Visit [facility] [address] [place] [address] Earnest Baer MD Stage 3b chronic kidney disease (HCC) (Primary Dx); Renal osteodystrophy; Hypertensive chronic kidney disease 04/29/2024 Refill [facility] [address] [place] [place] [address] Sarthak Hooker MD 04/22/2024 Refill [facility] [address] [place] [address] Earnest Baer [...] Upcoming Encounters Date Type Department Care Team ([facility] st Contact Info) Description 03/09/2025 1:45 PM EST Office Visit [facility] [address] [place] [address] Earnest Baer MD 3550 [facility] [address] [place] [address] Health Maintenance Due Date Last Done Comments [...] patient's age to complete this topic Insurance [facility] ([id number]) DIANDRA MOSS [id number] [facility] ([id number]) DIANDRA MOSS [id number] Care Teams Campus Chaplain Relationship Specialty Start Date End Date Bonny Lopez MD [address] [place] [address] PCP - General Internal Medicine 01/27/21
--- OUTSIDE RECORDS SUMMARY | 2024-06-30 14:41 | XMS_ITS | Encounter Summary ---
Author Organization [facility] Address [facility] [address] [place] [address] Phone Care Team Providers Care Medical Physics Researcher Name Role Phone Bonny Lopez MD Primary Care Provider [phone] Reason for Visit * Reason Comments Med Refill Encounter Details Date Type Department Care Team ([facility] Contact Info) Description 09/13/2022 Refill [facility] [address] [place] [address] Migel Wyman MD Stage 3b [...] Upcoming Encounters Date Type Department Care Team ([facility] Contact Info) Description 03/09/2025 1:45 PM EST Office Visit [facility] [address] [place] [phone] Earnest Baer MD [address] [facility] [address] [place] [address] documented as of this encounter Visit Diagnoses Diagnosis Stage 3b chronic kidney disease (HCC) Hypertensive chronic kidney disease documented in this encounter Care Teams Medical Physics Researcher Relationship Specialty Start Date End Date Bonny Lopez MD [address] [place], [place] [id number] PCP - General Internal Medicine 01/27/21 documented as of this encounter
--- OUTSIDE RECORDS SUMMARY | 2024-06-30 14:41 | XMS_ITS | Encounter Summary ---
Author Organization [facility] Address [address] [facility] 200 [place] [address] Phone Care Team Providers Care Interior Designer Name Role Phone Bonny Lopez MD Primary Care Provider [phone] Encounter Details Date Type Department Care Team (Late Contact Info) Description 10/10/2023 Office Communication [facility] [address] [place] [address] Earnest Baer MD [address] [address] Social History Tobacco Use Types [...] [facility] [address] [place] [address] [place] [address] Earnest Baer MD [address] [address] documented as of this encounter Visit Diagnoses Not on filedocumented in this encounter Care Teams Interior Designer Relationship Specialty Start Date End Date Bonny Lopez MD [address] [place] [address] PCP - General Internal Medicine 01/27/21 documented as of this encounter
--- OUTSIDE RECORDS SUMMARY | 2024-06-30 14:41 | XMS_ITS | Encounter Summary ---
Author Organization [facility] Address [address] [facility] 200 [place] [address] Phone Care Team Providers Care Cash Grain Grower Name Role Phone Bonny Lopez MD Primary Care Provider [phone] Reason for Visit * Reason Comments Med Refill Encounter Details Date Type Department Care Team ([facility] Contact Info) Description 08/16/2022 Refill [facility] [place] [facility] [address] [place] [address] Migel Wyman MD Stage 3b [...] Visit [facility] [address] [place] [phone] Earnest Baer MD [address] [facility] [address] [place] [address] documented as of this encounter Visit Diagnoses Diagnosis Stage 3b chronic kidney disease (HCC) Hypertensive chronic kidney disease documented in this encounter Care Teams Cash Grain Grower Relationship Specialty Start Date End Date Bonny Lopez MD [address] [place], [place] [phone] PCP - General Internal Medicine 01/27/21 documented as of this encounter
== END 2024-06-30 14:29 | disposition home or self-care (01) ==
PROVIDERS: PCP Internal Medicine; Visit Provider Physician Assistant
DX: J06.9 Acute upper respiratory infection, unspecified (principal); K04.7 Periapical abscess without sinus

== ENCOUNTER → 2024-06-30 13:04 | Outpatient (BNVA) | payer OTHER, SELFPAY | PROVIDERS: PCP Internal Medicine; Visit Provider Physician Assistant | DX: J06.9 Acute upper respiratory infection, unspecified (principal) | CPT/HCPCS: 99212 ==

== ENCOUNTER 2024-07-04 10:13 | Outpatient (REF) | payer OTHER, SELFPAY ==
--- NOTE | ~2024-07-04 | XR_ITS ---
EXAMINATION: XR ABDOMEN 1 VIEW (KUB) HISTORY: N20.0 - Calculus of kidney COMPARISON: Comparison is made with the prior examination dated 10/17/2023. Correlation is also made with an unenhanced CT of the abdomen and pelvis dated 01/14/2023. FINDINGS: Two supine views of the abdomen are submitted. The bowel gas pattern is unremarkable, without evidence of mechanical obstruction. Again seen is a 6 mm calcification in the right of the L4 vertebral body from a previously shown to be within the subcutaneous fat of the right flank on CT. The previously described tiny calcifications in the left upper quadrant are stable. There are vascular calcifications in the pelvis. There are no abnormal soft tissue masses. There is degenerative disc disease of the spine. XR/XR KUB IMPRESSION: Stable tiny left upper quadrant calcifications, likely related to the left kidney. Electronically signed by: Jerry Kraus MD 07/07/2024 08:20 AM EDT
--- OUTSIDE RECORDS SUMMARY | 2024-07-04 11:41 | XMS_ITS | Encounter Summary ---
Author Organization [facility] [place] Address [facility] [place] [facility] 200 [place] [address] Phone Care Team Providers Care Sustainable Agriculture Faculty Name Role Phone Bonny Lopez MD Primary Care Provider [phone] Reason for Visit * Reason Comments Med Refill Encounter Details Date Type Department Care Team ([facility] Contact Info) Description 09/13/2022 Refill [facility] [place] [facility] [address] [place] [address] Migel Wyman MD Stage 3b [...] Upcoming Encounters Date Type Department Care Team ([facility] Contact Info) Description 03/09/2025 1:45 PM EST Office Visit [facility] [address] [place] [phone] Earnest Baer MD [address] [facility] [address] [place] [address] documented as of this encounter Visit Diagnoses Diagnosis Stage 3b chronic kidney disease (HCC) Hypertensive chronic kidney disease documented in this encounter Care Teams Sustainable Agriculture Faculty Relationship Specialty Start Date End Date Bonny Lopez MD [address] [place], [place] [phone] PCP - General Internal Medicine 01/27/21 documented as of this encounter
--- OUTSIDE RECORDS SUMMARY | 2024-07-04 11:41 | XMS_ITS | Encounter Summary ---
Author Organization [facility] [place] Address [address] [facility] 200 [place] [address] Phone Care Team Providers Care Utility Bagger Name Role Phone Bonny Lopez MD Primary Care Provider [phone] Reason for Visit * Reason Comments Med Refill Encounter Details Date Type Department Care Team ([facility] [address] [facility] Contact Info) Description 07/19/2022 Refill [facility] [place] [email or web address] [address] [place] [address] Migel Wyman MD Stage 3b [...] Care Team ([facility] [address] Contact Info) Description 03/09/2025 1:45 PM EST Office Visit [facility] [address] [place] [phone] Earnest Baer MD [address] [facility] 204 [place] [address] documented as of this encounter Visit Diagnoses Diagnosis Stage 3b chronic kidney disease (HCC) Hypertensive chronic kidney disease documented in this encounter Care Teams Utility Bagger Relationship Specialty Start Date End Date Bonny Lopez MD [address] [place], [place] [phone] PCP - General Internal Medicine 01/27/21 documented as of this encounter
--- OUTSIDE RECORDS SUMMARY | 2024-07-04 11:41 | XMS_ITS | Clinical Summary ---
Author Organization [facility] Address [address] [facility] [address] [place] [address] Phone Care Team Providers Care Training Coordinator Name Role Phone Bonny Lopez MD Primary Care Provider [phone] Allergies Active Allergy Reactions Criticality Noted Date [...] 06/18/2024 Refill [facility] [address] [place] [address] Esau Harris MD 05/20/2024 Refill [facility] [address] [place] [address] Sarthak Hooker MD 05/12/2024 1:30 PM EST Office Visit [facility] [address] [place] [address] Earnest Baer MD Stage 3b chronic kidney disease (HCC) (Primary Dx); Renal osteodystrophy; Hypertensive chronic kidney disease 04/29/2024 Refill [facility] [address] [place] [place] [place] [address] Sarthak Hooker MD 04/22/2024 Refill [facility] [address] [place] [address] Earnest Baer [...] Upcoming Encounters Date Type Department Care Team ([facility] st Contact Info) Description 03/09/2025 1:45 PM EST Office Visit [facility] [address] [place] [address] Earnest Baer MD 3550 [facility] [address] [place] [address] Health Maintenance Due Date Last Done Comments [...] patient's age to complete this topic Insurance [facility] ([id number]) DIAN[place]A [place] [id number] [facility] ([id number]) DIANDRA MOSS [id number] Care Teams Training Coordinator Relationship Specialty Start Date End Date Bonny Lopez MD [address] [place] [address] PCP - General Internal Medicine 01/27/21
--- OUTSIDE RECORDS SUMMARY | 2024-07-04 11:41 | XMS_ITS | Encounter Summary ---
Author Organization [facility] [place] Address [address] [facility] 200 [place] [address] Phone Care Team Providers Care Scheduling Agent Name Role Phone Bonny Lopez MD Primary Care Provider [phone] Encounter Details Date Type Department Care Team (Late Contact Info) Description 10/10/2023 Office Communication [facility] [address] [place] [address] Earnest Baer MD [address] [address] Social History Tobacco Use Types [...] [facility] [address] [place] [address] Earnest Baer MD [address] [address] documented as of this encounter Visit Diagnoses Not on filedocumented in this encounter Care Teams Scheduling Agent Relationship Specialty Start Date End Date Bonny Lopez MD [address] [place] [address] PCP - General Internal Medicine 01/27/21 documented as of this encounter
--- OUTSIDE RECORDS SUMMARY | 2024-07-04 11:41 | XMS_ITS | Encounter Summary ---
Author Organization [facility] [place] Address 100 [facility] 200 [place] [address] Phone Care Team Providers Care Cosmetic Manager Name Role Phone Bonny Lopez MD Primary Care Provider [phone] Reason for Visit * Reason Comments Med Refill Encounter Details Date Type Department Care Team ([facility] Contact Info) Description 08/16/2022 Refill [facility] [place] [facility] [address] [place] [address] Migel Wyman MD Stage 3b [...] Upcoming Encounters Date Type Department Care Team ([facility] Contact Info) Description 03/09/2025 1:45 PM EST Office Visit [facility] [address] [place] [phone] Earnest Baer MD [address] [facility] [address] [place] [address] documented as of this encounter Visit Diagnoses Diagnosis Stage 3b chronic kidney disease (HCC) Hypertensive chronic kidney disease documented in this encounter Care Teams Cosmetic Manager Relationship Specialty Start Date End Date Bonny Lopez MD [address] [place], [place] [phone] PCP - General Internal Medicine 01/27/21 documented as of this encounter
--- OUTSIDE RECORDS SUMMARY | 2024-07-04 11:41 | XMS_ITS | Encounter Summary ---
Author Organization [facility] Address [address] [facility] [place] [facility] 200 [place] [address] Phone Care Team Providers Care Mechanical Energy Engineer Name Role Phone Bonny Lopez MD Primary Care Provider [phone] Reason for Visit * Reason Comments Med Refill Encounter Details Date Type Department Care Team ([facility] Contact Info) Description 07/21/2020 Ref[facility] [place] [facility] 200 [place] [address] Navin Leon MD Social History [...] Upcoming Encounters Date Type Department Care Team ([facility] Contact Info) Description 03/09/2025 1:45 PM EST Office Visit [facility] [address] [place] [phone] Earnest Baer MD [address] [place] [phone] documented as of this encounter Visit Diagnoses Not on filedocumented in this encounter Care Teams Mechanical Energy Engineer Relationship Specialty Start Date End Date Bonny Lopez MD [address] [place], [place] [phone] PCP - General Internal Medicine 01/27/21 documented as of this encounter
== END 2024-07-04 10:14 | disposition home or self-care (01) ==
LOC: HO.XRAY 10:13
PROVIDERS: Absent Provider Internal Medicine; PCP Internal Medicine; Visit Provider Nurse Practitioner Family
DX: N20.0 Calculus of kidney (principal)
CPT/HCPCS: 74018

== ENCOUNTER → 2024-07-04 10:19 | Outpatient (BNV) | payer OTHER, SELFPAY | PROVIDERS: Absent Provider Internal Medicine; PCP Internal Medicine; Visit Provider Radiology Diagnostic Radiology | DX: N20.0 Calculus of kidney (principal) | CPT/HCPCS: 74018 ==

== ENCOUNTER 2024-07-07 09:45 | Outpatient (AMB) | payer OTHER, SELFPAY ==
--- NOTE | 2024-07-07 09:47 | A.OFFVIS_ITS ---
Intake Visit Reasons: 6m/US/KUB Intake Note: Patient presents today for follow up on: 6 month/US/KUB Urology Medications: vitamin b6 Blood Thinner: aspirin Accompanied by: Grand Child Allergies dulaglutide [Trulicity] Allergy (Intermediate, Verified 07/07/24 10:13) headache, memory loss amlodipine Adverse Reaction (Intermediate, Verified 07/07/24 10:13) leg edema atorvastatin Adverse Reaction (Intermediate, Verified 07/07/24 10:13) dry mouth omeprazole [OMEPRAZOLE] Adverse Reaction (Intermediate, Verified 07/07/24 10:13) N/V; ABDOMINAL PAIN Medication List - Last Reconciled 07/07/24 by CORINNE Perera acetaminophen ER 1,300 mg (2 x 650 mg) PO Q8H PRN 30 days alendronate 70 mg PO QWEEK 90 days amoxicillin-pot clavulanate 875-125 mg 1 tab PO Q12H aspirin 81 mg PO DAILY 90 days blood pressure monitor As directed blood sugar diagnostic (FreeStyle Test strips) As directed four times per day blood sugar diagnostic (OneTouch Ultra Test strips) Uxd 1 test strips four times a day blood-glucose meter (OneTouch Ultra2 Meter) As directed calcium carbonate-vitamin D3 500 mg-5 mcg (200 unit) (Oyster Shell Calcium- Vitamin D3) 1 tab PO BID 90 days cholecalciferol (vitamin D3) 25 mcg PO DAILY clonidine HCl mg PO escitalopram oxalate 10 mg PO DAILY 90 days furosemide 20 mg PO BID glucagon 3 mg/actuation (Baqsimi) 3 mg intranasal ONCE glucose 4 grams PO Q15M PRN hydralazine 50 mg PO TID 30 days [incontinence wipes As directed] insulin glargine (Lantus Solostar U-100 Insulin) 20 units (0.2 mL) subcut QAM insulin lispro (Humalog KwikPen (U-100) Insulin) 2 - 4 units (0.02 - 0.04 mL) subcut TID 90 days lactulose 10 grams (15 mL) PO DAILY PRN 30 days lancets (OneTouch UltraSoft 2 Lancet) Uxd 1 lancet four times a day lancets (FreeStyle Lancets) As directed linagliptin (Tradjenta) 5 mg PO DAILY 30 days lisinopril 20 mg PO DAILY loratadine 10 mg PO DAILY magnesium oxide 400 mg PO BEDTIME 90 days metoprolol succinate ER 100 mg PO DAILY pantoprazole 40 mg PO DAILY pen needle, diabetic (Comfort EZ Pen [place]) As directed -injects 5 X/day pen needle, diabetic (UltiCare Pen Needle) As directed pyridoxine (vitamin B6) 100 mg PO DAILY 90 days simvastatin 40 mg PO BEDTIME 90 days Ventolin HFA 90 mcg/actuation (albuterol sulfate) 2 puffs inhalation Q6H PRN 30 days NS HPI Comments Details: Rupali is a 78 year old Mexican speaking female patient of Dr. Triana who was accompanied by her AIR HOIST OPERATOR/grand daughter (Shahida) at todays office visit. She has a past medical history of anemia, osteoarthritis, vitamin B12 deficiency, constipation, depression, diabetes mellitus, anxiety, GERD, hypertension, osteoporosis, hypercholesteremia, and nephrolithiasis. She presents to the office today for follow-up of her nephrolithiasis and urinary tract infections. In discussion with the patient today she denies having had any UTIs and or UTI like symptoms since her last office visit here approximately 6 months ago. She does however report ongoing left lower lumbar and hip discomfort she continues to experience. Recent renal ultrasound and KUB results reviewed with the patient today. Renal ultrasound 06/24 notes bilateral kidneys are normal in size and echotexture. 4 mm upper pole nonobstructing left renal calculus and 4 mm l ower pole nonobstructing calculus. KUB 06/24 notes stable tiny left upper quadrant calcifications, likely related to left kidney. When asked she reports compliance with vitamin B6 as prescribed. We discussed potential causes of left-sided lower lumbar pain verses flank pain. No CVA tenderness noted on exam bilaterally. She currently denies any bothersome urinary issues or concerns. She denies incontinence, nocturia, hematuria, foul smelling urine, changes to urinary stream, flank pain, fever, and or chills. Discussed potential causes of nephrolithiasis as well as further intervention to include surveillance monitoring versus surgical intervention. Risks and benefits of these interventions were discussed at length. Discussed importance of drinking plenty of water daily. She otherwise offers no other issues or concerns at this time. Plan For the patient's nephrolithiasis, we discussed conservative management versus surgical intervention in risks and benefits of these interventions. Will continue with conservative management as stones are 4mm and nonobstructing. Ensuring continued adequate hydration is essential to assist with spontaneous passage. Continue vitamin B6. Future assessment will depend on symptom development, particularly any increase in intensity or continuity, which may necessitate further diagnostic measures. Patient was informed and verbally consented to the use of an ambient scribe for clinic note documentation during this visit. Discussion Notes During this visit, I discussed the current findings of the patient's kidney stones, highlighting that they are small and non-obstructive, hence warranting no immediate surgical intervention. I emphasized the importance of maintaining hydration to support stone passage and decrease further stone development risk. Continue vitamin B6. A plan for outpatient management was accepted, with instructions to monitor for any increase in symptoms that may necessitate a different approach. [facility] Medical History (Reviewed 07/07/24 @ 10:20 by RACHEL [facility]) Easy bruising OA (osteoarthritis) GERD (gastroesophageal reflux disease) Uncontrolled type 2 diabetes mellitus with hyperglycemia Renal stones Generalized abdominal pain HTN (hypertension) Elevated blood pressure reading Female pelvic pain Chest discomfort Secondary hypertension Angina at rest Constipation Acute back pain Arthritis of knee Osteoporosis KEYONNA (generalized anxiety disorder) Mild recurrent major depression GERD (gastroesophageal reflux disease) Anemia B12 deficiency Diabetic nephropathy associated with type 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 Hypertension long term care pharmacist (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 Pure hypercholesterolemia Hypovitaminosis D Depression Long-term use of aspirin therapy Diabetes mellitus Surgical History Hx of colonoscopy Hx of cataract removal with insertion of prosthetic lens Hx of lithotripsy History of total abdominal hysterectomy Family History Father Hypertension Diabetes Mother Diabetes Social History Housing: Apartment Alcohol intake: never Patient Tobacco Use Status: Never used Tobacco e-Cigarette/Vaping Use: Never Used Second Hand Smoke Exposure: No service: No Current occupational status: disabled Cognitive needs: Yes (cane ) Hearing needs: No Vision needs: No Review of Systems Const Reports as per [facility] Eyes Reports no additional complaints ENT Reports no additional complaints Card Reports as per [facility] Resp Reports no additional complaints GI Reports as per [facility] Reports as per [facility] Musc Reports as per [facility] Neuro Reports as per [facility] Psych Reports as per [facility] Endo Reports as per [facility] Physical Exam Const General: cooperative, healthy appearing, comfortable, no acute distress, well developed, alert and awake Orientation/consciousness: patient oriented x3 HEENT Head: Yes normal to inspection, Yes normocephalic and Yes atraumatic Ears: hearing grossly normal bilaterally Eyes General: appearance normal, both eyes and all related structures Neck Neck: Yes normal visual inspection and Yes trachea midline Chest Chest palpation & inspection: normal inspection of the chest Resp Effort & Inspection: normal respiratory effort and able to speak in complete sentences Cardio Rate: regular rate GI Inspection: Yes normal to inspection General: Yes no CVA tenderness Back/Spine/Pelvis Back: no CVA tenderness Skin General skin exam: no rashes or lesions noted Neuro General: patient oriented x3 Extrem General: Yes normal to inspection Psych Appearance: grossly normal and well kempt Mental Status: mental status grossly normal Speech and movement: Normal speech and movement present and Clear speech present Affect: normal affect Attitude: cooperative Thought process: Normal thought process present Thought content: Normal thought content present Insight: Fair insight present (Psych) Judgement: Fair judgement present (Psych) Results Reviewed Results Reviewed: Date of Service: 06/13/24 Procedure(s): US renal BI Findings: Right kidney normal size and echotexture, 9.5 cm length. Left kidney normal size and echotexture, 9.4 cm length. upper pole calculus measuring 4 mm and lower pole calculus measuring 4 mm. No hydronephrosis of either kidney. Normal color Doppler 1. Two left renal calculi as above. Date of Service: 07/04/24 Procedure(s): XR KUB FINDINGS: Two supine views of the abdomen are submitted. The bowel gas pattern is unremarkable, without evidence of mechanical obstruction. Again seen is a 6 mm calcification in the right of the L4 vertebral body from a previously shown to be within the subcutaneous fat of the right flank on CT. The previously described tiny calcifications in the left upper quadrant are stable. There are vascular calcifications in the pelvis. There are no abnormal soft tissue masses. There is degenerative disc disease of the spine. IMPRESSION: Stable tiny left upper quadrant calcifications, likely related to the left kidney. Assessment & Plan Assessment & Plan (1) Renal calculi: Code(s): N20.0 - Calculus of kidney Category: Medical Plan Unable to obtain urine for urinalysis as patient unable to void. Recent renal ultrasound and KUB results reviewed with the patient today; as noted above. We discussed potential causes of nephrolithiasis as well as further intervention and risks and benefits of these interventions. Discussed, educated, and stressed the importance of adequate hydration relation to nephrolithiasis as well as overall health and well-being. Continue vitamin B6 as discussed and prescribed. Will continue with surveillance monitoring at this time. Follow-up in 6 months with imaging to be completed prior; or sooner with any issues, concerns, and or questions. Orders: Orders US renal BI 6 Months N20.0 - Calculus of kidney Patient Instructions: The patient had an opportunity to ask questions regarding the treatment plan. All questions were answered. Physical exam, labs, and imaging were discussed and reviewed in detail. As well as risks, benefits, and discussion of treatment choices. No major barriers to understanding were identified. The patient expressed understanding and agreement with the above treatment plan. The patient was made aware they should contact our office by phone for worsening of their current condition, the appearance of new symptoms, or with any questions or concerns. Compliance is encouraged with any medications and follow up testing that is ordered. It is a privilege to be allowed the opportunity to participate in? your urological care.? Again, if you have any questions or concerns If you have any questions or concerns please do not hesitate to contact me. The office is [phone]. This note is constructed using voice recognition software. While every effort has been made to ensure accuracy special events coordinator errors may have been included. Yours sincerely, Carline Shipman, SMALL ENGINE MECHANIC-BC Coding Level of Care Code Est Pt Level 3 (01172) Complex EM visit Add On G2211 Diagnoses Renal calculi N20.0
--- OUTSIDE RECORDS SUMMARY | 2024-07-07 11:16 | XMS_ITS | Clinical Summary ---
Author Organization [facility] Address [address] [facility] [address] [place] [address] Phone Care Team Providers Care Chemistry Technologist Name Role Phone Bonny Lopez MD Primary Care Provider [phone] Allergies Active Allergy Reactions Criticality Noted Date [...] 06/18/2024 Refill [facility] [address] [place] [address] Esau Harris MD 05/20/2024 Refill [facility] [address] [place] [address] Sarthak Hooker MD 05/12/2024 1:30 PM EST Office Visit [facility] [address] [place] [address] Earnest Baer MD Stage 3b chronic kidney disease (HCC) (Primary Dx); Renal osteodystrophy; Hypertensive chronic kidney disease 04/29/2024 Refill [facility] [address] [place] [place] [address] Sarthak Hooker MD 04/22/2024 Refill [facility] [address] [place] [address] Earnest Baer [...] Upcoming Encounters Date Type Department Care Team ([facility] Contact Info) Description 03/09/2025 1:45 PM EST Office Visit [facility] [address] [place] [address] Earnest Baer MD [address] [facility] [address] [place] [address] Health Maintenance Due Date Last Done Comments Pneumococcal Vaccine: 65+ Years (3 of 3 - PCV) 07/06/2017 07/06/2016, 09/19/2015 Diabetes: Hemoglobin A1C 05/02/2020 Diabetes: Ophthalmology Exam 05/02/2020 Diabetes: Pedal Pulse Checked 05/02/2020 Diabetes: Sensory Foot Exam 05/02/2020 Diabetes: Visual Foot Exam 05/02/2020 Influenza Vaccine (Season Ended) 2024 12/31/2018, 01/17/2017, 03/24/2015 Hepatitis B Vaccine Aged Out No longe r eligible based on patient's age to complete this topic Insurance [facility] ([id number]) [place]A [place]OSS [id number] [facility] ([id number]) [place]ANDRA MOSS [id number] Care Teams Chemistry Technologist Relationship Specialty Start Date End Date Bonny Lopez MD [address] [place] [address] PCP - General Internal Medicine 01/27/21
--- OUTSIDE RECORDS SUMMARY | 2024-07-07 11:16 | XMS_ITS | Encounter Summary ---
Author Organization [facility] Address [address] [facility] [address] [place] [address] Phone Care Team Providers Care Medical Technician Name Role Phone Bonny Lopez MD Primary Care Provider Reason for Visit * Reason Comments Med Refill Encounter Details Date Type Department Care Team ([facility] Contact Info) Description 07/19/2022 Refill [facility] [place] [facility] [address] [place] [address] Migel Wyman MD Stage 3b [...] Upcoming Encounters Date Type Department Care Team ([facility] Contact Info) Description 03/09/2025 1:45 PM EST Office Visit [facility] [address] [place] [phone] Earnest Baer MD [address] [facility] [address] [place] [address] documented as of this encounter Visit Diagnoses Diagnosis Stage 3b chronic kidney disease (HCC) Hypertensive chronic kidney disease documented in this encounter Care Teams Medical Technician Relationship Specialty Start Date End Date Bonny Lopez MD [address] [place], [place] [phone] PCP - General Internal Medicine 01/27/21 documented as of this encounter
--- OUTSIDE RECORDS SUMMARY | 2024-07-07 11:16 | XMS_ITS | Encounter Summary ---
Author Organization [facility] Address [address] [facility] [address] [place] [address] Phone Care Team Providers Care Event Producer Name Role Phone Bonny Lopez MD Primary Care Provider [phone] Encounter Details Date Type Department Care Team (Late Contact Info) Description 10/10/2023 Office Communication [facility] [address] [place] [address] Earnest Baer MD [address] [address] Social History Tobacco Use Types [...] Visit [facility] [address] [place] [address] [place] [address] Earnest Baer MD [address] [address] documented as of this encounter Visit Diagnoses Not on filedocumented in this encounter Care Teams Event Producer Relationship Specialty Start Date End Date Bonny Lopez MD [address] [place] [address] PCP - General Internal Medicine 01/27/21 documented as of this encounter
--- OUTSIDE RECORDS SUMMARY | 2024-07-07 11:16 | XMS_ITS | Encounter Summary ---
Author Organization [facility] Address [address] [facility] [facility] [address] [place] [address] Phone Care Team Providers Care Department Head [employer] Name Role Phone Bonny Lopez MD Primary Care Provider [phone] Reason for Visit * Reason Comments Med Refill Encounter Details Date Type Department Care Team ([facility] Contact Info) Description 09/13/2022 Refill [facility] [address] [facility] [facility] [address] [place] [address] Migel Wyman MD Stage 3b [...] Upcoming Encounters Date Type Department Care Team ([facility] Contact Info) Description 03/09/2025 1:45 PM EST Office Visit [facility] [address] [place] [phone] Earnest Baer MD [address] [facility] [address] [place] [address] documented as of this encounter Visit Diagnoses Diagnosis Stage 3b chronic kidney disease (HCC) Hypertensive chronic kidney disease documented in this encounter Care Teams Department Head [employer] Relationship Specialty Start Date End Date Bonny Lopez MD [address] [place], [place] [phone] PCP - General Internal Medicine 01/27/21 documented as of this encounter
--- OUTSIDE RECORDS SUMMARY | 2024-07-07 11:16 | XMS_ITS | Encounter Summary ---
Author Organization [facility] [place] Address [address] [facility] [place] [facility] [address] [place] [address] Phone Care Team Providers Care River Rafting Guide Name Role Phone Bonny Lopez MD Primary Care Provider Reason for Visit * Reason Comments Med Refill Encounter Details Date Type Department Care Team ([facility] Contact Info) Description 07/21/2020 Ref[facility] [address] [facility] [place] [facility] [address] [place] [address] Navin Leon MD Social History [...] Upcoming Encounters Date Type Department Care Team ([facility] Contact Info) Description 03/09/2025 1:45 PM EST Office Visit [facility] [address] [place] [address] [place] [phone] Earnest Baer MD [address] [facility] [address] [place] [address] documented as of this encounter Visit Diagnoses Not on filedocumented in this encounter Care Teams River Rafting Guide Relationship Specialty Start Date End Date Bonny Lopez MD [address] [place], [place] [phone] PCP - General Internal Medicine 01/27/21 documented as of this encounter
--- OUTSIDE RECORDS SUMMARY | 2024-07-07 11:16 | XMS_ITS | Encounter Summary ---
Author Organization [facility] Address [address] [facility] [address] [place] [address] Phone Care Team Providers Care Glove Examiner Name Role Phone Bonny Lopez MD Primary Care Provider [phone] Reason for Visit * Reason Comments Med Refill Encounter Details Date Type Department Care Team ([facility] Contact Info) Description 08/16/2022 Refill [facility] [address] [facility] [place] [facility] [address] [place] [address] Migel Wyman MD Stage 3b [...] Visit [facility] [address] [place] [phone] Earnest Baer MD [address] [facility] [address] [place] [address] documented as of this encounter Visit Diagnoses Diagnosis Stage 3b chronic kidney disease (HCC) Hypertensive chronic kidney disease documented in this encounter Care Teams Glove Examiner Relationship Specialty Start Date End Date Bonny Lopez MD [address] [place], [place] [phone] PCP - General Internal Medicine 01/27/21 documented as of this encounter
--- OUTSIDE RECORDS SUMMARY | 2024-07-07 11:16 | XMS_ITS | Clinical Summary ---
Author Organization [employer] Address [address] [facility] [address] [place] [address] Care Team Providers Care Straightening Press Operator Helper Name Role Phone Unavailable Primary Care Provider [...] Description 08/20/2024 11:00 AM EDT Office Visit [facility] [address] [place] [address] [address] [place] [address] Health Maintenance Due Date Last [...] Most Recently Relevant to Health Maintenance [place] [id number] [facility] [place] [id number] [address] [phone] [address] [place] [phone] [address] [id number]
== END 2024-07-07 10:16 | disposition home or self-care (01) ==
LOC: HO.HUSH 09:45
PROVIDERS: PCP Internal Medicine; Visit Provider Nurse Practitioner Family
DX: N20.0 Calculus of kidney (principal)
CPT/HCPCS: 99213; G2211

== ENCOUNTER → 2024-07-07 09:45 | Outpatient (BNVA) | payer OTHER, SELFPAY | PROVIDERS: PCP Internal Medicine; Visit Provider Nurse Practitioner Family | DX: N20.0 Calculus of kidney (principal) | CPT/HCPCS: 99212 ==

== ENCOUNTER 2024-08-21 10:58 | Outpatient (AMB) | payer OTHER, SELFPAY ==
--- NOTE | 2024-08-21 11:03 | A.OFFPC_ITS ---
Vital Signs 08/21/24 11:04 Height 5 ft 2 in Weight 139 lb BMI 25.4 BP 126/64 Blood Pressure Location Lt brachial Position Sitting Intake Visit Reasons: dm Intake Note: Patient here for a follow up dm Automatic Data Processing Planner Required: No Accompanied by: Grand Child Allergies dulaglutide [Trulicity] Allergy (Intermediate, Verified 08/21/24 11:13) headache, memory loss amlodipine Adverse Reaction (Intermediate, Verified 08/21/24 11:13) leg edema atorvastatin Adverse Reaction (Intermediate, Verified 08/21/24 11:13) dry mouth omeprazole [OMEPRAZOLE] Adverse Reaction (Intermediate, Verified 08/21/24 11:13) N/V; ABDOMINAL PAIN Medication List - Last Reconciled 08/21/24 by Bonny Chavez MD acetaminophen ER 1,300 mg (2 x 650 mg) PO Q8H PRN 30 days alendronate 70 mg PO QWEEK 90 days aspirin 81 mg PO DAILY 90 days blood pressure monitor As directed blood sugar diagnostic (OneTouch Ultra Test strips) Uxd 1 test strips four times a day blood sugar diagnostic (FreeStyle Test strips) As directed four times per day blood-glucose meter (OpenSkyTouch Ultra2 Meter) As directed calcium carbonate-vitamin D3 500 mg-5 mcg (200 unit) (Oyster Shell Calcium- Vitamin D3) 1 tab PO BID 90 days cholecalciferol (vitamin D3) 25 mcg PO DAILY clonidine HCl mg PO escitalopram oxalate 10 mg PO DAILY 90 days furosemide 20 mg PO BID glucagon 3 mg/actuation (Baqsimi) 3 mg intranasal ONCE glucose 4 grams PO Q15M PRN hydralazine 50 mg PO TID 30 days [incontinence wipes As directed] insulin glargine (Lantus Solostar U-100 Insulin) 20 units (0.2 mL) subcut QAM insulin lispro (Humalog KwikPen (U-100) Insulin) 2 - 4 units (0.02 - 0.04 mL) subcut TID 90 days lactulose 10 grams (15 mL) PO DAILY PRN 30 days lancets (OpenSkyTouch UltraSoft 2 Lancet) Uxd 1 lancet four times a day lancets (FreeStyle Lancets) As directed linagliptin (Tradjenta) 5 mg PO DAILY 30 days lisinopril 20 mg PO DAILY loratadine 10 mg PO DAILY magnesium oxide 400 mg PO BEDTIME 90 days metoprolol succinate ER 100 mg PO DAILY pantoprazole 40 mg PO DAILY pen needle, diabetic (Comfort EZ Pen Clinton) As directed -injects 5 X/day pen needle, diabetic (UltiCare Pen Needle) As directed pyridoxine (vitamin B6) 100 mg PO DAILY 90 days simvastatin 40 mg PO BEDTIME 90 days Ventolin HFA 90 mcg/actuation (albuterol sulfate) 2 puffs inhalation Q6H PRN 30 days NS Tobacco use date assessed: 08/21/24 Fall risk assessment: No Falls in past year Last assessed Fall Risk: 08/21/24 Dental Screening Dental Screen Date: 08/21/24 Did you have a dental visit in the last 12 months?: No Did you have a dental problem in the last 6 months where you did not have access to dental care?: No Was dental information given to patient?: Patient declined HPI HPI Comments History of Present Illness Details The patient is an 79-year-old female presenting for a follow-up appointment concerning management of Type 2 Diabetes Mellitus, alongside other chronic conditions. Her Hemoglobin A1c level was reviewed and noted to be 6.3%, within the target range, reflecting adequate glucose control over the past two to three months. Hypertension management was also a focus, noted to be well- controlled during this visit. The patient has a history of osteopenia, diagnosed based on a bone density scan conducted last year, which showed improvement but requires ongoing monitoring and treatment. The patient reports an adverse reaction to atorvastatin, including headache and memory loss, as well as developing edema from amlodipine, dry mouth from atorvastatin, abdominal pain from omeprazole, and indicates ongoing treatment with several medications including aspirin, alendronate, calcium with vitamin D, clonidine, citalopram, furosemide, hydralazine, insulin glargine, lactulose, linagliptin, lisinopril, metoprolol, pantoprazole, pyridoxine, and simvastatin. Additionally, the patient expresses concerns about episodes of pain upon standing, intermittently present, which may be associated with arthritis. The patient's blood pressure is reported to be well-controlled. Symptoms related to kidney function have been previously addressed by another provider, with the patient being reassured of their health. [facility] Medical History Easy bruising OA (osteoarthritis) GERD (gastroesophageal reflux disease) Uncontrolled type 2 diabetes mellitus with hyperglycemia Renal stones Generalized abdominal pain HTN (hypertension) Elevated blood pressure reading Female pelvic pain Chest discomfort Secondary hypertension Angina at rest Constipation Acute back pain Arthritis of knee Osteoporosis KEYONNA (generalized anxiety disorder) Mild recurrent major depression GERD (gastroesophageal reflux disease) Anemia B12 deficiency Diabetic nephropathy associated with type 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 Hypertension ad terminal makeup operator (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 Pure hypercholesterolemia Hypovitaminosis D Depression Long-term use of aspirin therapy Diabetes mellitus Surgical History Hx of colonoscopy Hx of cataract removal with insertion of prosthetic lens Hx of lithotripsy History of total abdominal hysterectomy Family History Father Hypertension Diabetes Mother Diabetes Social History Housing: Apartment Alcohol intake: never Patient Tobacco Use Status: Never used Tobacco e-Cigarette/Vaping Use: Never Used Second Hand Smoke Exposure: No service: No Current occupational status: disabled Cognitive needs: Yes (cane ) Hearing needs: No Vision needs: No Questionnaire PHQ-9 Over the last 2 weeks, how often have you been bothered by any of the following problems? 1. Little interest or pleasure in doing things: not at all 2. Feeling down, depressed, or hopeless: not at all 3. Trouble falling or staying asleep, or sleeping too much: not at all 4. Feeling tired or having little energy: not at all 5. Poor appetite or overeating: not at all 6. Feeling bad about yourself - or that you are a failure or have let yourself or your family down: not at all 7. Trouble concentrating on things, such as reading the newspaper or watching television: not at all 8. Moving or speaking so slowly that other people could have noticed. Or the opposite - being so fidgety or restless that you have been moving around a lot more than usual: not at all 9. Thoughts that you would be better off or of hurting yourself in some way: not at all Total score: 0 Depression Screening Interpretation: Negative Depression Screening Done: Yes 02262 - PHQ-9 Billing: Yes Source: Developed by Drs. Jerry Abdi, Cate Young, Raymond De La O and colleagues, with an educational keely from [employer]. Thrive Questionnaire Date Thrive assessed: 04/09/24 I am a: Patient What is your living situation today?: I have a steady place to live Within the past 12 months, did the food you bought not last and you didn't have the money to get more?: Never true Within the past 12 months, did you worry whether your food would run out before you got money to buy more?: Never true Do you have trouble paying for medicines?: No Do you have trouble getting transportation to medical appointments?: No Do you have trouble paying your heating and electricity bill?: No Do you have trouble taking care of your child, family member or friend?: No Do you have trouble with day-to-day activities such as bathing, preparing meals, shopping, managing finances, etc.?: Yes Are you currently unemployed and looking for a job?: No Are you interested in more education?: No Please select the resources that you would like help with: None Currently or been in a relationship where the following occur: No concerns reported THRIVE Score: 0 AUDIT C Alcohol Use Questionnaire (AUDIT-C) 1. How often do you have a drink containing alcohol?: Never Total Score: 0 Score Reviewed/Action Taken: No KEYONNA-7 AMB Questionnaire KEYONNA-7 Date KEYONNA - 7 assessed: 04/09/24 Feeling nervous, anxious, or on edge: 0 = Not at all Not being able to stop or control worryin = Not at all Worrying too much about different things: 0 = Not at all Trouble relaxin = Not at all Being so restless that it is hard to sit still: 0 = Not at all Becoming easily annoyed or irritable: 0 = Not at all Feeling afraid as if something awful might happen: 0 = Not at all Total KEYONNA-7 score (0-4 normal; 5-9 mild; 10-14 moderate; 15-21 severe): 0 Source: Developed by Drs. Jerry Abdi, Raymond Nicholas and colleagues, with an educational keely from [employer]. KEYONNA-7 Assessment Billing KEYONNA-7 Assessment Tool: KEYONNA-7 Assessment 66256 Review of Systems Const All systems reviewed & are unremarkable except as noted in HPI and below Card Denies chest pain at rest, Denies chest pain with activity, Denies edema, Denies irregular heart rhythm, Denies claudication, Denies dyspnea, Denies dyspnea on exertion, Denies orthopnea, Denies paroxysmal nocturnal dyspnea and Denies slow heart rate Resp Denies cough, Denies dyspnea and Denies dyspnea on exertion GI Denies abdominal pain, Denies change in bowel habits, Denies excessive flatus, Denies nausea and Denies vomiting Physical exam (Primary Care) Vital Signs: Last Vital Signs BP 126/64 08/21/24 11:04 BMI result Body Mass Index 25.4 Tobacco/Smoking Status: Tobacco use Status Tobacco use date assessed 08/21/24 08/21/24 11:12 Patient Tobacco Use Status Never used Tobacco 08/21/24 11:12 e-Cigarette/Vaping Use Never Used 08/21/24 11:12 PHQ-9: PHQ-9 Score PHQ-9: Total score 0 08/21/24 11:12 Depression Screening Interpretation: Negative Thrive Assessment: Date of Thrive Assessment Date Thrive assessed 04/09/24 08/21/24 11:12 Currently or been in a relationship where the following occur: No concerns reported Resp Effort & Inspection: normal respiratory effort Auscultation: clear to auscultation bilaterally Cardio Jugular venous distension: no JVD Rate: regular rate Rhythm: regular rhythm Heart sounds: S1 normal heart sound present and S2 normal heart sound present Extrem General: Yes full ROM Results AMB Hemoglobin A1c AMB Hemoglobin A1c 6.3 % Last Edit by NADEGE See on 08/21/24 11:1 4 Coding Level of Care Code Est Pt Level 4 (84985) Complex EM visit Add On G2211 Diagnoses Hyperparathyroidism E21.3 Mild recurrent major depression F33.0 KEYONNA (generalized anxiety disorder) F41.1 Essential hypertension I10 Type 2 diabetes mellitus with hyperglycemia, with long-term current use of insulin E11.65; Z79.4 Diabetes mellitus type: type 2 Diabetes mellitus watermelon inspector insulin use: with watermelon inspector use Diabetes mellitus complication status: with hyperglycemia Pure hypercholesterolemia E78.00 Additional Codes PHQ-9 - 99223 - PHQ-9 Billing: Yes ([id number]) KEYONNA-7 Assessment Billing - KEYONNA-7 Assessment Tool: KEYONNA-7 Assessment 31552 ([id number]) Time Spent (min) 23 Assessment & Plan Assessment & Plan (1) Hyperparathyroidism: Code(s): E21.3 - Hyperparathyroidism, unspecified Category: Medical (2) Mild recurrent major depression: Code(s): F33.0 - Major depressive disorder, recurrent, mild Category: Medical (3) KEYONNA (generalized anxiety disorder): Code(s): F41.1 - Generalized anxiety disorder Category: Medical (4) Essential hypertension: Code(s): I10 - Essential (primary) hypertension Category: Medical (5) Diabetes mellitus: Code(s): E11.9 - Type 2 diabetes mellitus without complications Category: Medical Qualifiers: Diabetes mellitus type: type 2 Diabetes mellitus group home insulin use: with watermelon inspector use Diabetes mellitus complication status: with hyperglycemia Qualified Code(s): E11.65 - Type 2 diabetes mellitus with hyperglycemia; Z79.4 - ad terminal makeup operator (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 (6) Pure hypercholesterolemia: Code(s): E78.00 - Pure hypercholesterolemia, unspecified Category: Medical Plan I reviewed the patient's diabetes management, affirming the positive HbA1c results. Her stable blood pressure also reflects successful current medication therapy. Management of osteopenia and its monitoring with bone density scans remain unchanged. Attention was drawn towards addressing adverse medication effects, with possible adjustments in her regimen. Depression, anxiety, and insomnia are managed with citalopram, and continuous oversight is required. Arthritis symptoms will be monitored, and any worsening will be further evaluated. Patient was informed and verbally consented to the use of an ambient scribe for clinic note documentation during this visit. I discussed with the patient the effective control of her diabetes, as evidenced by her current HbA1c level, and reinforced the ongoing requirement for regular monitoring and adherence to prescribed medications. I emphasized the significance of continuing her current antihypertensive therapy, which is effectively managing her blood pressure. The importance of ongoing monitoring for osteopenia was communicated, alongside the adverse effects of medications, which I recommended reviewing for possible dosage adjustments. The plan for depression management was to maintain citalopram, considering the positive o utcomes so far. I addressed her concerns regarding arthritis symptoms, explaining we would monitor the situation and take further action if necessary. I provided instructions for laboratory tests and emphasized the need for scheduled follow-ups to ensure continued management of her health conditions. Orders: Orders AMB Hemoglobin A1c Today E11.65 - Type 2 diabetes mellitus with hyperglycemia, Z79.4 - ad terminal makeup operator (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 Vitamin B12 and Folate Today E53.8 - Deficiency of other specified B group vitamins Vitamin D 25-OH Total Today E55.9 - Vitamin D deficiency, unspecified Comprehensive Locust. Panel Fast Today I10 - Essential (primary) hypertension Calcium, Ionized Today E21.3 - Hyperparathyroidism, unspecified Lipid Panel Today E78.5 - Hyperlipidemia, unspecified Microalbumin, Random (w Creat) Today R80.9 - Proteinuria, unspecified Parathyroid Hormone Intact Today E21.3 - Hyperparathyroidism, unspecified Phosphorus Today E21.3 - Hyperparathyroidism, unspecified Patient Instructions: - Continue current medication regimen as prescribed. - Schedule and attend laboratory tests as needed for monitoring. - Keep appointments for follow-ups and bone density assessments. - Report any worsening of arthritis symptoms or medication side effects promptly. - Maintain lifestyle modifications to support management of diabetes and hypertension. - Reach out if experiencing any new or concerning symptoms.
[2024-08-21 11:04] VITALS: BP 126/64; BMI 25.4
--- OUTSIDE RECORDS SUMMARY | 2024-08-21 11:41 | XMS_ITS | Encounter Summary ---
Author Organization [facility] Address [address] [facility] [place] [facility] [address] [place] [address] Phone Care Team Providers Care Paint Spray Tender Name Role Phone Bonny Lopez MD Primary Care Provider [phone] Reason for Visit * Reason Comments Med Refill Encounter Details Date Type Department Care Team ([facility] Contact Info) Description 09/13/2022 Refill [facility] [address] [facility] [place] [facility] [address] [place] [address] Migel Wyman MD Stage 3b [...] Upcoming Encounters Date Type Department Care Team ([facility] Contact Info) Description 03/09/2025 1:45 PM EST Office Visit [facility] [address] [place] [id number] Earnest Baer MD [address] [place] [address] documented as of this encounter Visit Diagnoses Diagnosis Stage 3b chronic kidney disease (HCC) Hypertensive chronic kidney disease documented in this encounter Care Teams Paint Spray Tender Relationship Specialty Start Date End Date Bonny Lopez MD [address] [place], [place] [id number] PCP - General Internal Medicine 01/27/21 documented as of this encounter
--- OUTSIDE RECORDS SUMMARY | 2024-08-21 11:41 | XMS_ITS | Encounter Summary ---
Author Organization [facility] Address [address] [address] [place] [address] Phone Care Team Providers Care Color Worker Name Role Phone Bonny Lopez MD Primary Care Provider [phone] Reason for Visit * Reason Comments Med Refill Encounter Details Date Type Department Care Team ([facility] Contact Info) Description 07/19/2022 Refill [facility] [address] [facility] [place] [facility] [address] [place] [address] Migel Wyman MD Stage 3b [...] Upcoming Encounters Date Type Department Care Team ([facility] Contact Info) Description 03/09/2025 1:45 PM EST Office Visit [facility] [address] [place] [phone] Earnest Baer MD [address] [facility] [address] [place] [address] documented as of this encounter Visit Diagnoses Diagnosis Stage 3b chronic kidney disease (HCC) Hypertensive chronic kidney disease documented in this encounter Care Teams Color Worker Relationship Specialty Start Date End Date Bonny Lopez MD [address] [place], [place] [id number] PCP - General Internal Medicine 01/27/21 documented as of this encounter
--- OUTSIDE RECORDS SUMMARY | 2024-08-21 11:41 | XMS_ITS | Patient Health Record ---
Author Organization [facility] Address [address] [place] [address] Care Team Providers Care Community Program Assistant Name Role Phone Juan CURTIS, Bonny Primary Care Provider Unavail able Estevan Snyder Unavailable [phone] Allergies No Known Allergies Results Component Value Reference Range Notes HEMOGLOBIN A1C (GLYCOHEMOGLO BIN) Reviewed date:08/13/2024 12:37:14 PM Interpretation: Performing Lab: Notes/Report: HEMOGLOBIN A1C % (HH) 7.4 Reason For Referral No Information Medications Medication SIG (Take, Route, Frequency, Duration) Notes Start Date End Date Status hydrALAZINE HCl 50 MG 1 tablet with food Orally Twice a day Active Simvastatin 40 MG 1 tablet in the even ing Orally Once a day Active Furosemide 20 MG 1 tablet Orally Once a day Active Oyster Calcium Activ e cloNIDine HCl 0.1 MG 1 tablet Orally Onc e a day Active Extra Depth Orthopedic Shoes, (1) Pair With (3) Pair Custom Heat Molded Multidensity Innersoles Dx: NIDDM/PVD(E11.51), Hammertoe Foot Deformity(M20.41,M20.42), Preulcerative Skin Lesion(s)(L85.1) Wear Daily for 365 days 08/11/2024 Active Magnesium Active Alendronate Sodium 70 MG 1 tablet 30 min utes before the first food, beverage or medicine of the day with plain water Orally Active Vitamin B6 Active Aspir-81 Active Tradjenta 5 MG 1 tablet Orally Once a day Active Escitalopram Oxalate 10 MG 1 tablet Orally Once a day Active Loratadine 10 MG 1 tablet Orally Once a day Active Lantus 20 units Active Pantoprazole Sodium 40 MG 1 tablet 1/2 to 1 hour before morning meal Orally Once a day Active Metoprolol Succinate 100 MG 1 capsule Orally Once a day Active Lisinopril 20 MG 1 tablet Orally Once a day Active Social History Tobacco Use: Social History Observation Description Date Details (start date - stop date) Never Smoker NA - NA Tobacco use other than smoking: Question Answer Notes Are you an other tobacco user? No Tobacco Control (Standard) Question Answer Notes Tobacco use: Nonsmoker Additional Findings: Tobacco non-user Current no nsmoker AUDIT-C (Standard) Question Answer Notes Did you have a drink containing alcohol in the p ast year? No Points 0 Interpretation Negative Problems Problem Type SNOMED Code ICD Code Onset Dates Problem Status W/U Status Risk Notes Problem Acquired hammer toe of right foot (7187164697090 105) Other hammer toe(s) (acquired), right foot (M20.41) Active confirmed Problem Acquired hammer toe of left foot (5883070015952 103) Other hammer toe(s) (acquired), left foot (M20.42) Active confirmed Problem Type 2 diabetes mellitus with peripheral angiopathy (163139083) Type 2 diabetes mellitus with diabetic peripheral angiopathy without gangrene (E11.51) Active confirmed Q7(A), Q8(2B), Q9(1B,2C) Vital Signs Height 5ft 1in in 08/11/2024 Weight 144 lbs 08/11/2024 BMI 27.21 kg/m2 08/11/2024 Procedures Procedure Date Ordered Date Performed Result Body Sit e 95977-SNQVYUS NAIL, 1-5 08/11/2024 N/A 36763-LSFR SKIN LESIONS, 2 TO 4 08/11/2024 N/A [id number]-[id number] DYSTROPHIC NAILS ANY # 08/11/2024 N/A Encounters Encounter Location Date Provider Diagnosis [facility] [address] [address] 08/11/2024 Estevan Snyder Type 2 diabetes mellitus with diabetic peripheral angiopathy without gangrene E11.51 ; Other hammer toe(s) (acquired), right foot M20.41 ; Tinea unguium B35.1 ; Pain in right toe(s) M79.674 ; Pain in left toe(s) M79.675 and Other hammer toe(s) (acquired), left foot M20.42 Assessments Encounter Date Diagnosis (ICD Code) Assessment Notes Treatment Notes Treatment Clinical Notes Section Notes 08/11/2024 Other hammer toe(s) (acquired), right foot (ICD-10 - M20.41) Patient Educated with: DIABETIC FOOT CARE INSTRUCTIONS.p df (DIABETIC FOOT CARE INSTRUCTIONS.p df) 08/11/2024 Type 2 diabetes mellitus with diabetic peripheral angiopathy without gangrene (ICD-10 - E11.51) Q7(A), Q8(2B), Q9(1B,2C) 08/11/2024 Tinea unguium (ICD-10 - B35.1) 08/11/2024 Pain in right toe(s) (ICD-10 - M79.674) 08/11/2024 Pain in left toe(s) (ICD-10 - M79.675) 08/11/2024 Other hammer toe(s) (acquired), left foot (ICD-10 - M20.42) Plan Of Treatment Pending Test Test Name Order Date 51792-TSTCNDK NAIL, 1-5 08/11/2024 [id number] SKIN LESIONS, 2 TO 4 08/12/19 [id number] DYSTROPHIC NAILS ANY # Next Appt Details Provider Name:Estevan Snyder , 11/12/2024 10:00:00 AM, [address] [facility], [place] [address], [place], [address], Insurance Providers Payer Name Payer Address Payer Phone Subscriber Number Group Number Insured Name Patient Relationship to Insured Coverage Start Date Coverage End Date [facility] [employer] Claims [address] [place] [phone] [id number] Rupali Freeman Self - patient is the insured Medical (General) History Medical History History ICD Code Diabetic Headaches/Migraines High Blood Pressure Osteoporosis
--- OUTSIDE RECORDS SUMMARY | 2024-08-21 11:41 | XMS_ITS | Encounter Summary ---
Author Organization [facility] Address [address] [facility] [address] [place] [address] Phone Care Team Providers Care Sap Manager Name Role Phone Bonny Lopez MD Primary Care Provider [phone] Encounter Details Date Type Department Care Team (Late Contact Info) Description 10/10/2023 Office Communication [facility] [address] [place] [address] Earnest Baer MD [address] [address] Social History Tobacco Use Types [...] Visit [facility] [address] [place] [address] Earnest Baer MD [address] [address] documented as of this encounter Visit Diagnoses Not on filedocumented in this encounter Care Teams Sap Manager Relationship Specialty Start Date End Date Bonny Lopez MD [address] [place] [address] PCP - General Internal Medicine 01/27/21 documented as of this encounter
--- OUTSIDE RECORDS SUMMARY | 2024-08-21 11:41 | XMS_ITS | Encounter Summary ---
Author Organization [facility] Address [address] [facility] [address] [place] [address] Phone Care Team Providers Care Workday Senior Associate Name Role Phone Bonny Lopez MD Primary Care Provider [phone] Reason for Visit * Reason Comments Med Refill Encounter Details Date Type Department Care Team ([facility] Contact Info) Description 08/16/2022 Refill [facility] [address] [place] [facility] [address] [place] [address] Migel Wyman MD Stage 3b [...] Upcoming Encounters Date Type Department Care Team ([facility] Contact Info) Description 03/09/2025 1:45 PM EST Office Visit [facility] [address] [place] [phone] Earnest Baer MD [address] [facility] [address] [place] [address] documented as of this encounter Visit Diagnoses Diagnosis Stage 3b chronic kidney disease (HCC) Hypertensive chronic kidney disease documented in this encounter Care Teams Workday Senior Associate Relationship Specialty Start Date End Date Bonny Lopez MD [address] [place], [place] [phone] PCP - General Internal Medicine 01/27/21 documented as of this encounter
--- OUTSIDE RECORDS SUMMARY | 2024-08-21 11:42 | XMS_ITS | Clinical Summary ---
Author Organization [facility] Address [address] [facility] [address] [place] [address] Phone Care Team Providers Care Paper Sheeter Name Role Phone Bonny Lopez MD Primary Care Provider [phone] Allergies Active Allergy Reactions Criticality Noted Date [...] kidney disease TAKE 1 TABLET BY MOUTH ONCE DAILY 28 tablet 5 Active furosemide (LASIX) 20 MG tabletIndicati ons:Stage 3b chronic kidney disease (HCC),Hyperten sive chronic kidney disease TAKE 2 TABLETS BY MOUTH ONCE DAILY. 56 tablet 5 Active cloNIDine (CATAPRES) 0.1 MG tablet TAKE 1 TABLET BY MOUTH TWICE DAILY IN THE MORNING AND EVENING. 60 tablet 5 Active hydrALAZINE 50 MG tablet TAKE 1 TABLET BY MOUTH THREE TIMES A DAY 84 tablet 5 Active lisinopril 20 MG tabletIndicati ons:Stage 3b chronic kidney disease (HCC),Hyperten sive chronic kidney disease TAKE 1 TABLET BY MOUTH DAILY 28 tablet 4 08/13/19 25 Discontinued furosemide (LASIX) 20 MG tabletIndicati ons:Stage 3b chronic kidney disease (HCC),Hyperten sive chronic kidney disease TAKE 2 TABLETS BY MOUTH ONCE DAILY. 56 tablet 4 08/13/19 25 Discontinued cloNIDine (CATAPRES) 0.1 MG tablet TAKE 1 TABLET BY MOUTH TWICE DAILY IN THE MORNING AND EVENING. 60 tablet 5 08/13/19 25 Discontinued hydrALAZINE 50 MG tablet TAKE 1 TABLET BY MOUTH THREE TIMES A DAY 84 tablet 5 08/13/19 25 Discontinued Active Problems Problem Noted Date [...] Encounters Date Type Department Care Team Description 08/11/2024 [facility]ill [facility] [address] [place] [address] Esau Harris MD 08/11/2024 Refill [facility] [address] [place] [address] Juvenal Nolan MD Stage 3b chronic kidney disease (HCC); Hypertensive chronic kidney disease 07/14/2024 Refill [facility] [address] [place] [address] Esau Harris MD 06/18/2024 Refill [facility] [address] [place] [address] Esau Harris MD from Last 3 Months Immunizations Immunization Administration Dates Next Due Influenza Split High [...] [facility] [address] [place] [address] Earnest Baer MD [address] [phone] Health Maintenance Due Date Last Done Comments Pneumococcal Vaccine: 50+ Years (3 of 3 - PCV) 07/06/2017 07/06/2016, 09/19/2015 Diabetes: Hemoglobin A1C 05/02/2020 Diabetes: Ophthalmology Exam 05/02/2020 Diabetes: Pedal Pulse Checked 05/02/2020 Diabetes: Sensory Foot Exam 05/02/2020 Diabetes: Visual Foot Exam 05/02/2020 Influenza Vaccine (Season Ended) 2024 12/31/2018, 01/17/2017, 03/24/2015 Pneumococcal Vaccine: Peds ( 0 to 5 Years) and At-Risk Patients (6 to 49 Years) Discontinued 07/06/2016, 09/19/2015 Hepatitis B Vaccine Aged Out No longe r eligible based on patient's age to complete this topic Insurance MCR ([id number]) DIANDRA MOSS [id number] [facility] MCR ([id number]) DIANDRA MOSS [id number] Care Teams Paper Sheeter Relationship Specialty Start Date End Date Bonny Lopez MD [address] [place] [address] PCP - General Internal Medicine 01/27/21
--- OUTSIDE RECORDS SUMMARY | 2024-08-21 11:42 | XMS_ITS | Encounter Summary ---
Author Organization [facility] Address [address] [facility] [place] [facility] [address] [place] [address] Phone Care Team Providers Care Train Control Electronic Technician Name Role Phone Bonny Lopez MD Primary Care Provider [phone] Reason for Visit * Reason Comments Med Refill Encounter Details Date Type Department Care Team ([facility] Contact Info) Description 07/21/2020 Refill [facility] [address] [facility] [place] [facility] [address] [place] [address] Navin Leon MD Social History [...] Care Team ([facility] Contact Info) Description 03/09/2025 1:45 PM EST Office Visit [facility] [address] [place] [address] [place] [phone] Earnest Baer MD [address] [facility] [address] [place] [phone] documented as of this encounter Visit Diagnoses Not on filedocumented in this encounter Care Teams Train Control Electronic Technician Relationship Specialty Start Date End Date Bonny Lopez MD [address] [place], [place] [phone] PCP - General Internal Medicine 01/27/21 documented as of this encounter
--- OUTSIDE RECORDS SUMMARY | 2024-08-21 11:42 | XMS_ITS ---
Author Organization [facility] Address [address] [place] [address] Care Team Providers Care Business Team Leader Name Role Phone Bonny Martinez MD Primary Care Provider Unavail able Estevan Snyder Unavailable [phone] Allergies No Known Allergies REASON FOR VISIT At Risk Footcare, Painful Nail(s) aggravated by shoes and causing difficulty standing/walking., ToeIrritation Medications Medication SIG (Take, Route, Frequency, Duration) Notes Start Date End Date Status Pantoprazole Sodium 40 MG 1 tablet 1/2 to 1 hour before morning meal Orally Once a day Active Metoprolol Succinate 100 MG 1 capsule Orally Once a day Active Oyster Calcium Activ e Magnesium Active Tradjenta 5 MG 1 tablet Orally Once a day Active Simvastatin 40 MG 1 tablet in the even ing Orally Once a day Active cloNIDine HCl 0.1 MG 1 tablet Orally Onc e a day Active Extra Depth Orthopedic Shoes, (1) Pair With (3) Pair Custom Heat Molded Multidensity Innersoles Dx: NIDDM/PVD(E11.51), Hammertoe Foot Deformity(M20.41,M20.42), Preulcerative Skin Lesion(s)(L85.1) Wear Daily for 365 days 08/11/2024 Active Alendronate Sodium 70 MG 1 tablet 30 min utes before the first food, beverage or medicine of the day with plain water Orally Active Vitamin B6 Active Lisinopril 20 MG 1 tablet Orally Once a day Active hydrALAZINE HCl 50 MG 1 tablet with food Orally Twice a day Active Furosemide 20 MG 1 tablet Orally Once a day Active Aspir-81 Active Escitalopram Oxalate 10 MG 1 tablet Orally Once a day Active Loratadine 10 MG 1 tablet Orally Once a day Active Lantus 20 units Active Social History Tobacco Use: Social History [...] Problem Status W/U Status Risk Notes Problem Type 2 diabetes mellitus with peripheral angiopathy (330753962) Type 2 diabetes mellitus with diabetic peripheral angiopathy without gangrene (E11.51) Active confirmed Q7(A), Q8(2B), Q9(1B,2C) Problem Acquired hammer toe of right foot ([id number] 105) Other hammer toe(s) (acquired), right foot (M20.41) Active confirmed Problem Acquired hammer toe of left foot (6024853659071 103) Other hammer toe(s) (acquired), left foot (M20.42) Active confirmed Vital Signs Height 5ft 1in in 08/11/2024 Weight 144 lbs 08/11/2024 BMI 27.21 kg/m2 08/11/2024 Procedures Procedure Date Ordered Date Performed Result Body Sit e 61495-AYAZJGN NAIL, 1-5 08/11/2024 N/A 91899-ITFR SKIN LESIONS, 2 TO 4 08/11/2024 N/A H8568-QUDYREXU DYSTROPHIC NAILS ANY # 08/11/2024 N/A Encounters Encounter Location Date Provider Diagnosis [facility] [place] [address] [address] 08/11/2024 Estevan Snyder Type 2 diabetes mellitus with diabetic peripheral angiopathy without gangrene E11.51 ; Other hammer toe(s) (acquired), right foot M20.41 ; Tinea unguium B35.1 ; Pain in right toe(s) M79.674 ; Pain in left toe(s) M79.675 and Other hammer toe(s) (acquired), left foot M20.42 Assessments Encounter Date Diagnosis (ICD Code) Assessment Notes Treatment Notes Treatment Clinical Notes Section Notes 08/11/2024 Type 2 diabetes mellitus with diabetic peripheral angiopathy without gangrene (ICD-10 - E11.51) Q7(A), Q8(2B), Q9(1B,2C) 08/11/2024 Other hammer toe(s) (acquired), right foot (ICD-10 - M20.41) Patient Educated with: DIABETIC FOOT CARE INSTRUCTIONS.p df (DIABETIC FOOT CARE INSTRUCTIONS.p df) 08/11/2024 Tinea unguium (ICD-10 - B35.1) 08/11/2024 Pain in right toe(s) (ICD-10 - M79.674) 08/11/2024 Pain in left toe(s) (ICD-10 - M79.675) 08/11/2024 Other hammer toe(s) (acquired), left foot (ICD-10 - M20.42) Plan Of Treatment Medication Medication Name Sig Start Date Stop Date Notes Extra Depth Orthopedic Shoes , (1) Pair With (3) Pair Custom Heat Molded Multidensity Innersoles Dx: NIDDM/PVD(E11.51), Hammertoe Foot Deformity(M20.41,M20.42), Preulcerative Skin Lesion(s)(L85.1) Wear Daily for 365 days 08/11/2024 Treatment Notes Assessment Notes Other hammer toe(s) (acquired), right fo ot Patient Educated with: DIABETIC FOOT CARE INSTRUCTIONS.pdf (DIABETIC FOOT CARE INSTRUCTIONS.pdf) Pending Test Test Name Order Date 72831-KSGGGED NAIL, 1-5 08/11/2024 81550-VXXE SKIN LESIONS, 2 TO 4 08/12/19 25 Q0850-IUGYBLVH DYSTROPHIC NAILS ANY # Next Appt Details Follow Up: 3 Months, Reason: Provider Name:Estevan Snyder , 11/12/2024 10:00:00 AM, [address] [facility], [address], [place], [address], Procedure Notes * Category Sub-Category Detail Notes Keratoma Treatment Parring or Cutting o f Benign Hyperkeratotic Lesion(s) (-56) 2-4 Lesions - Due to the at risk nature of the patients medical condition as documented in the exam findings, performance of this keratoderma treatment is medically necessary as its management by an unskilled/untrained nonprofessional would put this patients foot and overall health at risk. Therefore, the benign hyperkeratotic lesions, (2) in total, locations as stated and described in the exam ( Medial, SUB MTH (s), 1, B/L ), were pared, and/or cut utilizing a sterile 15 blade, tissue nippers, and/or power dremel instrumentation by the physician of record - 11233, Q8 Debride Nails 1-5 Procedure: Due to the cli nical pathology outlined in the exam findings, performance of this nail treatment is medically necessary as its management by an unskilled/untrained nonprofessional would put this patients foot and overall health at risk. Therefore, debridement to affected nail(s), as described in exam ( TA, T5 ), was performed exclusively by the physician of record to reduce/remove overall nail length, girth, thickness, subungual debris, and necrotic tissue, by manual and/or electrical means through the use of a nail nipper and/or dremel stylegrinder, to a more viable healthy nail plate or bed tissue 5 nails or fewer in number. Silver nitrate was used for any petechial bleeding as necessary. Definitive antifungal treatment options, both pharmaceutical and surgical, have been reviewed and discussed with the patient. The patient solely prefers the use of intermittent/as needed professional debridement services for their nail condition and understands that additional periodic treatments may be required as necessary to maintain effective symptomatic relief - 15470 Nail Reduction Nail Reduction (-27) Trimming o f all dystrophic nails - Due to the at risk nature of the patients medical condition as documented in the exam findings, performance of this nail treatment is medically necessary as its management by an unskilled/untrained nonprofessional would put this patients foot and overall health at risk. Therefore, the dystrophic nails, in locations as stated and described in the exam ( T1, T2, T3, T4, T6, T7, T8, T9 ), were debrided by the phisician of record to reduce/remove overall nail length and girth, by manual and electrical means with use of a nail nipper and/or dremel, to more viable healthy nail plate or bed tissue - G0127, Q8 Progress Notes * Jaye HERNANDEZ:[birth year] (79 yo F)Acc No.[id number]:08/11/2024 Progress Notes Patient:?Rupali HERNANDEZ Provider:?Estevan Snyder DPM :1945???Age:79 Y???Sex:Female D ate:08/11/2024 Address:[address] [place], [place] [id number] Pcp:Bonny aMrtinez MD Subjective: * Chief Complaints: * ???At Risk FootcarePainful N ail(s) aggravated by shoes and causing difficulty standing/walking.Toe Irritation * HPI: ???At Risk footcare:?Pt States Last PCP Visit:?Date?06/19/2024 ?Misc?Patient accompanied by, SY RAMOS, who serves as, Aircraft Armament Mechanic/Management And Budget Analyst, and/who is physically present in exam room at time of visit.?Toe pain:?Location:?B/L feet.?Duration:?several years.?Course:?worse.?Aggravated by:?shoes, any pressure.?Treatments:?change in shoes.? * ROS:?General/Constitutional:?Nausea?denies.?Vomiting?denies.?Hunger Thirst?denies.?Loss appetite?denies.?Chills?denies.?Fatigue?denies.?Fever?denies.?Night Sweats?denies.?Unexplained weight loss?denies.?Unexplained weight gain?denies.?HEENTM:?Dentures?denies.?Dizziness?denies.?Glasses/contacts?admits.?Retinopathy?den ies.?Blurred/double vision?denies.?TMJ?denies.?Discharge/drainage?denies.?Implants?denies.?Sore throat?denies.?Dental implants?denies.?Hard of hearing ?denies.?Difficulty chewing/swallowing/speaking?denies.?Nose bleeds?denies.?Sore mouth?denies.?Respiratory:?On O xygen?denies.?Pneumonia/pleurisy?denies.?Bronchitis?denies.?Emphysema?denies.?Co ughing?denies.?Cough blood?denies.?Shortness of breath?denies.?Wheezing?denies.?Cardiovascular:?Pacemaker?denies.?MVP?denies.?WPW?denies.?CHF?denies.?Heart attack?denies.?Septal defect?denies.?Rapid beat?denies.?Chest pain ?denies.?Atrial Fib.?denies.?Murmur/Palpitations?denies.?Gastrointestinal:?Hemorrhoids?denies.?Stomach/Abdominal pain?denies.?Dark blood stool?denies.?Irritable bowel ?denies.?Constipation?denies.?Diarrhea?denies.?Hematology:?Swelling?denies.?Clots?denies.?Varicose Veins?denies.?Bruising?denies.?Bleeding problem?denies.?Genitourinary:?Blood urine?denies.?Frequent/Painfu/urination/bladder control?denies.?Kidney stones?denies.?Infection (UTI)?denies.?Nephropathy?denies.?sex trans dis (STD)?denies.?Prostate?denies.?Musculoskeletal:?Hammertoes?admits.?Bunions?denies.?Back Pain?denies.?Muscle Cramps/ Resting?denies.?Muscle cramps / walking?denies.?Generalized aches and pains?denies.?Weakness?denies.?Integ.:?Wilson?denies.?Scars?denies.?Corns/calluses?admits.?Ingrown nails?admits.?Painful nails?admits.?Open Sores?denies.?Rashes?denies.?Neurologic:?Difficulty sleeping?denies.?Brain disorder?denies.?Numbness?denies.?Balance t rouble?denies.?Confusion?denies.?Fainting/blackouts?denies.?Tingling?denies.?Olu mors?denies.? * Medical History:? * Surgical History:?No Surgica l History documented. * Hospitalization/Major Diagno stic Procedure:?No Hospitalization History. * Family History:?Mother: dece ased.?Father: .?Siblings: diagnosed with Other malignant neoplasm of unspecified site.?Children: diagnosed with Other malignant neoplasm of unspecified site.? * Social History:?Tobacco Use:?Tobacco use other than smoking?Are you an other tobacco user??No ?Tobacco Control (Standard)?Tobacco use:?Nonsmoker ?Additional Findings: Tobacco non-user?Current nonsmoker ???Drugs/Alcohol:?Drugs?Have you used drugs other than those for medical reasons in the past 12 months??No ???Miscellaneous:?Caffeine: yes. ?Children: yes. ?Marital status: . ???Drug/Alcohol:?AUDIT-C (Standard)?Did you have a drink containing alcohol in the past year??No ?Points?0 ?Interpretation?Negative * Medications:?TakingSimvastat in 40 MG Tablet 1 tablet in the evening Orally Once a day Vitamin B6 Tradjenta 5 MG Tablet 1 tablet Orally Once a day Oyster Calcium Magnesium Pantoprazole Sodium 40 MG Tablet Delayed Release 1 tablet 1/2 to 1 hour before morning meal Orally Once a day Metoprolol Succinate 100 MG Capsule ER 24 Hour Sprinkle 1 capsule Orally Once a day Loratadine 10 MG Tablet 1 tablet Orally Once a day Lantus , Notes to Pharmacist: 20 unitsLisinopril 20 MG Tablet 1 tablet Orally Once a day hydrALAZINE HCl 50 MG Tablet 1 tablet with food Orally Twice a day Furosemide 20 MG Tablet 1 tablet Orally Once a day Aspir-81 Escitalopram Oxalate 10 MG Tablet 1 tablet Orally Once a day cloNIDine HCl 0.1 MG Tablet 1 tablet Orally Once a day Alendronate Sodium 70 MG Tablet 1 tablet 30 minutes before the first food, beverage or medicine of the day with plain water Orally Medication List reviewed and reconciled with the patientTaking Simvastatin 40 MG Tablet 1 tablet in the evening Orally Once a day Taking Vitamin B6 Taking Tradjenta 5 MG Tablet 1 tablet Orally Once a day Taking Oyster Calcium Taking Magnesium Taking Pantoprazole Sodium 40 MG Tablet Delayed Release 1 tablet 1/2 to 1 hour before morning meal Orally Once a day Taking Metoprolol Succinate 100 MG Capsule ER 24 Hour Sprinkle 1 capsule Orally Once a day Taking Loratadine 10 MG Tablet 1 tablet Orally Once a day Taking Lantus , Notes to Pharmacist: 20 unitsTaking Lisinopril 20 MG Tablet 1 tablet Orally Once a day Taking hydrALAZINE HCl 50 MG Tablet 1 tablet with food Orally Twice a day Taking Furosemide 20 MG Tablet 1 tablet Orally Once a day Taking Aspir-81 Taking Escitalopram Oxalate 10 MG Tablet 1 tablet Orally Once a day Taking cloNIDine HCl 0.1 MG Tablet 1 tablet Orally Once a day Taking Alendronate Sodium 70 MG Tablet 1 tablet 30 minutes before the first food, beverage or medicine of the day with plain water Orally Medication List reviewed and reconciled with the patient * Allergies:?N.K.D.A.yes[Aller gies Verified] Objective: * Vitals:?Ht: 5ft 1in, Wt: 144 , BMI: 27.21, Shoe size: 7, BS: 114, Ht-cm: 154.94 cm, Wt-k.32 kg. * ???Past Orders: ???Lab:HEMOGLOBIN A1C (GLYCO HEMOGLOBIN) (Order Date - 04/09/2024) (Collection Date & Time - 04/09/2024 12:36 PM) ? Value Reference Range ?HEMOGLOBIN A1C % (HH) 7.4 * Examination: ???Ophthalmology Referral: ?DIABETES EYE EXAM?Procedure Performed:?Yes ?Date of Exam Performed?03/19/2024 ?Diabetic Retinopathy Screening:?Yes ?Retinal Screening Performed:?Yes ?Findings of Diabetic Eye Exam:?no retinopathy?Vascular: ?DP PULSES (B):?1/4, B/L.?PT PULSES (B):? 0/4, B/L.?CAPILLARY FILL TIME:? delayed, all digits, B/L.?TROPHIC CONDITION-TEXTURE/ELASTICITY/TURGOR/HAIR GROWTH (B):? decreased, fragile, thin, shiny skin, with sparse to absent hair growth, B/L.?TEMPERTURE GRADIENT (C):? decreased, cool to cool, proximal to distal, B/L.?PIGMENTATION:?mottled, B/L.?EDEMA (C):?absent, B/L.?CLAUDICATION (C):?denies, B/L.?REST PAIN:?denies, B/L.?PARESTHESIA (C):?absent, B/L.?BURNING (C):?absent, B/L.?Nails: ?NAILS are:?Elongated, overgrown, dystrophic, lytic, greater than 3mm thick, discolored and friable with crumbly malodorous subungual debris, with pain on palpation ( TA, T5 ), all other nails not described with characteristics as possessing mycosis are elongated, overgrown, and dystrophic ( T1, T2, T3, T4, T6, T7, T8, T9?).?Dermatologic: ?SKIN FINDINGS:?Skin exam reveals Keratotic lesion(s) located at, Medial, SUB MTH (s), 1, B/L.?Orthopedic: ?MUSCLE STRENGTH:?5/5 all groups in a symmetrical fashion, B/L.?FOOT MORPHOLOGY:?(-) Charcot collapse/destruction noted at MTJ.?DIGITAL DEFORMITIES:?Digital contracture, PIPJ, 2-5 B/L, incompl-reducible to push-up test, no over, nor underlapping,?there is?evidence of shoe producing skin irritation.?FOOTWEAR EVALUATION:?worn, non-supportive, shoe gear properties exacerbate patient's foot/toe deformity.?Neurological: ?SENSORY:?Neurological exam reveals intact sensorium, pain sensation normal, vibration sensation intact, pinprick sensation is normal in the lower extremities, 5.07 monofilament test performed at plantar aspects of 5 varied sites per foot shows sensation, normal, B/L, Pt denies, anesthesia, burning, paresthesia, tingling, B/L.?General Examination: ?GENERAL APPEARANCE:?Reveals a pleasant, alert, well nourished, well- developed, well hydrated individual, who demonstrates proper attention to hygiene/body habitus, and is in no acute distress.?ORIENTED:?person, place, and time.?FOOT EXAM:?Lower Extremity Neurological Exam performed:?Yes Date ?Visual exam of foot performed:?Yes ?Date?08/11/2024 ?Footwear Evaluation?Footwear Evaluation performed:?Yes??? Assessment: * Assessment: 1.?Other hammer toe(s) (acqu ired), right foot - M20.41???Specify :Chronic problem, Worse (4),Rx Management (4)???2.?Type 2 diabetes mellitus with diabetic peripheral angiopathy without gangrene - E11.51 (Primary)???Specify :Q8???Notes :Q7(A), Q8(2B), Q9(1B,2C)???3.?Tinea unguium - B35.1???4.?Pain in right toe(s) - M79.674???5.?Pain in left toe(s) - M79.675???6.?Other hammer toe(s) (acquired), left foot - M20.42???Specify :Chronic problem, Worse (4),Rx Management (4)??? Plan: * Treatment: 2.?Other hammer toe(s) (acqu ired), right foot? Start Extra Depth Orthopedic Shoes, (1) Pair ., With (3) Pair Custom Heat Molded Multidensity Innersoles, Dx: NIDDM/PVD(E11.51), Hammertoe Foot Deformity(M20.41,M20.42), Preulcerative Skin Lesion(s)(L85.1), Wear, Daily, 365 days, 2, Refills 0.?? Notes: Patient Educated with: DIABETIC FOOT CARE INSTRUCTIONS.pdf (DIABETIC FOOT CARE INSTRUCTIONS.pdf)?? 3.?Tinea unguium?Procedure: 89229-ABTOGRR NAIL, 1-5 * Procedures:?Debride Nails 1-5:?Procedure:?Due to the clinical pathology outlined in the exam findings, performance of this nail treatment is medically necessary as its management by an unskilled/untrained nonprofessional would put this patients foot and overall health at risk. Therefore, debridement to affected nail(s), as described in exam ( TA, T5 ), was performed exclusively by the physician of record to reduce/remove overall nail length, girth, thickness, subungual debris, and necrotic tissue, by manual and/or electrical means through the use of a nail nipper and/or dremel stylegrinder, to a more viable healthy nail plate or bed tissue 5 nails or fewer in number. Silver nitrate was used for any petechial bleeding as necessary. Definitive antifungal treatment options, both pharmaceutical and surgical, have been reviewed and discussed with the patient. The patient solely prefers the use of intermittent/as needed professional debridement services for their nail condition and understands that additional periodic treatments may be required as necessary to maintain effective symptomatic relief - 89706.?Keratoma Treatment:?Parring or Cutting of Benign Hyperkeratotic Lesion(s)?(-56) 2-4 Lesions - Due to the at risk nature of the patients medical condition as documented in the exam findings, performance of this keratoderma treatment is medically necessary as its management by an unskilled/untrained nonprofessional would put this patients foot and overall health at risk. Therefore, the benign hyperkeratotic lesions, (2) in total, locations as stated and described in the exam (?Medial,?SUB MTH (s),?1,?B/L?), were pared, and/or cut utilizing a sterile 15 blade, tissue nippers, and/or power dremel instrumentation by the physician of record - 82752, Q8.?Nail Reduction:?Nail Reduction?(-27) Trimming of all dystrophic nails - Due to the at risk nature of the patients medical condition as documented in the exam findings, performance of this nail treatment is medically necessary as its management by an unskilled/untrained nonprofessional would put this patients foot and overall health at risk. Therefore, the dystrophic nails, in locations as stated and described in the exam (?T1, T2, T3, T4, T6, T7, T8, T9?), were debrided by the phisician of record to reduce/remove overall nail length and girth, by manual and electrical means with use of a nail nipper and/or dremel, to more viable healthy nail plate or bed tissue - G0127, Q8.? * Procedure Codes:?G0127 STEFFANY ING DYSTROPHIC NAILS ANY #, Modifiers: XS , [id number] DEBRIDE NAIL, 1-5, Modifiers: XS 55991 TRIM SKIN LESIONS, 2 TO 4, Modifiers: XS , Q8 * Preventive Medicine:? ??Counseling:?Discussion:?-04: Office or other outpatient visit for the evaluation and management of a new patient, which required a medically appropriate history and/or examination and MODERATE level of DECISION MAKING for: 1 OR MORE CHRONIC PROBLEM(S) THATS WORSENING, 2 STABLE CHRONIC PROBLEMS, A NEWLY DIAGNOSED PROBLEM WITH UNCERTAIN PROGNOSIS, AN ACUTE COMPLICATED INJURY WITH MULTIPLE TREATMENT OPTIONS, OR AN ACUTE PROBLEM WITH ACCOMPANYING SYSTEMIC SYMPTOMS, THAT POSE(S) A MODERATE RISK OF MORBIDITY. THIS CONDITION MAY ALSO INCLUDE RX DRUG MANAGEMENT, OR A DECISON FOR MINOR SURGERY. The visit on the day of the encounter encompassed interpreting the data and educating the patient as to the nature of their condition, treatment options available according to their individual PMH, meds, allergies, and overall health/living conditions, as well as any potential risks or complications that may occur from a failure to adhere to, and participate in, the recommended course of therapy. The discussion included a complete verbal, and/or written explanation of the examination results, any x-rays taken, the proposed diagnosis, and outline of the treatment plan. A schedule for future care needs was also explained. The patient verbalized an understanding of the instructions at this time and agreed to be an active participant in their treatment. If the patient should think of any questions or concerns after the visit, I have encouraged the patient to call the office.?Diabetic Footcare:?The patient was advised against future self nail/callus care due to inherent risks for infection, loss of limb/life given diabetes, peripheral vascular disease.?Digital Surgery:?Digital surgery was discussed with the patient, We elected to try conservative treatment at the present time, due to the patients medical history and increased asssociated post-operative risks.?Digital Treatment:?HT- I explained to the patient the possible etiologies of Hammertoes, including genetics/foot type/shoegear/activity level/exercise routine and the risks/benefits of all the different treatment options for their pain including: No treatment at all, Rest, Ice, New/supportive/wider/deeper Shoegear, Digital Padding/Strapping/Taping/Bracing/Gel protective sleeves, Foot/Ankle AFO Bracing, Stretching exercises, Deep Tissue Massage, Arch support/shoe inserts with splay metatarsal padding, and Custom orthoses. I insisted that any digital devices be removed daily and not worn overnight for safety. The patient is to carefully examine the toes daily for any skin irritation while using any splinting or padding device. The advantages and disadvantages of each option were discussed and the patients questions re: shoegear, padding, custom vs prefabricated inserts, activity level, and consistency in home treatment regimens for optimal success were answered to their verbally confirmed satisfaction.?Shoe Gear Counseling:?SHOE Rx - The patient was counseled in great detail on their muscoloskeletal foot and toe deformities which coincided with the dermatological presentations visualized on exam. We discussed how their deformities put the integrity of their feet at risk for potential pedal complications which makes the accomidative diabetic shoes and cutomizable inserts medically necessary. We discussed the different shoe and insert treatment types and options, as well as the important advantages for adhering to regularly wearing these accomidative devices daily. The patient was made aware of the fact that a failure to abide by these recommedations may be deleterious to their foot health as they are able to prevent many pedal complications such as skin irritation, skin ulceration, infection, and even loss of toe/foot/leg/or life. Time was also spent with the patient dispensing and discussing proper diabetic footcare techniques including daily skin moisturization, daily foot inspection for any interruption in skin integrity including open lesions, or sign of infection such as redness/malodor/drainage/swelling. Also discussed and recommended were procedures regarding daily shoe inspection for the presence of internal foreign bodies as well as any visualized irregular shoe or insert wear. Patient questions re: shoes, inserts, and self foot inspections were answered to their satisfaction as the patient verbally confirmed a full understanding of the above information. A Rx for Extra Depth Orthopedic Shoes with 3 pair of custom heat-molded inserts was dispensed.? ??Screening/Special Tests:?Fall Risk?Screening:?No falls in the past year ?FALLS: Screening for Future Fall Risk?Have you had any falls with injury in the past year??No * Follow Up:?3 Months * Images: * Sign off status: Completed true * Provider:?Estevan Snyder DPM Date:?2024 Generated for Jair man/Rene/Jose on:?08/21/2024 11:41 AM EDT History and Physical Notes * HPI (History of Present Illness) Category Sub-Category Detail Notes Category Not es Toe pain Location: B/L feet Duration: several years Course: worse Aggravated by: shoes, any pressure Treatments: change in shoes At Risk footcare Pt States Last PCP Visit: Date: [facility] [place] Patient accompanied by, SY RAMOS, who serves as, Aircraft Armament Mechanic/Management And Budget Analyst, and/who is physically present in exam room at time of visit Examination Category Sub-Category Detail Notes Category Not es Neurological SENSORY: Neurological exa m reveals intact sensorium, pain sensation normal, vibration sensation intact, pinprick sensation is normal in the lower extremities, 5.07 monofilament test performed at plantar aspects of 5 varied sites per foot shows sensation, normal, B/L, Pt denies, anesthesia, burning, paresthesia, tingling, B/L Dermatologic SKIN FINDINGS: Skin exam reveal s Keratotic lesion(s) located at, Medial, SUB MTH (s), 1, B/L Orthopedic FOOT MORPHOLOGY: (-) 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 FOOTWEAR EVALUATION: worn, non-supportiv e, shoe gear properties exacerbate patient's foot/toe deformity DIGITAL DEFORMITIES: Digital contracture , PIPJ, 2-5 B/L, incompl-reducible to push-up test, no over, nor underlapping, there is evidence of shoe producing skin irritation MUSCLE STRENGTH: 5/5 all groups in a symmetrical fashion, B/L General Examination GENERAL APPEARANCE: Reveals a pleasant, alert, well nourished, well-developed, well hydrated individual, who demonstrates proper attention to hygiene/body habitus, and is in no acute distress FOOT EXAM: Lower Extremity Neurological Exa m performed:: Yes Date Visual exam of foot performed:: Yes Date: 08/11/2024 ORIENTED: person, place, and t kylie Footwear Evaluation Footwear Evaluation performe d:: Yes Ophthalmology Referral DIABETES EYE EXAM Procedure Perform ed:: Yes ?Date of Exam Performed: 03/19/2024 Diabetic Retinopathy Screening:: Yes Retinal Screening Performed:: Yes Findings of Diabetic Eye Exam:: no retin opathy Vascular DP PULSES (B): 1/4, B/L PT PULSES (B): 0/4, B/L CAPILLARY FILL TIME: delayed, all digits , B/L TEMPERTURE GRADIENT (C): decreased, cool to cool, proximal to distal, B/L TROPHIC CONDITION-TEXTURE/ELASTICITY/TURGOR/HAIR GROWTH (B): decreased, fragile, thin, shiny skin, wi th sparse to absent hair growth, B/L EDEMA (C): absent, B/L CLAUDICATION (C): denies, B/L REST PAIN: denies, B/L PIGMENTATION: mottled, B/L PARESTHESIA (C): absent, B/L BURNING (C): absent, B/L Nails NAILS are: Elongated, overg rown, dystrophic, lytic, greater than 3mm thick, discolored and friable with crumbly malodorous subungual debris, with pain on palpation ( TA, T5 ), all other nails not described with characteristics as possessing mycosis are elongated, overgrown, and dystrophic ( T1, T2, T3, T4, T6, T7, T8, T9 )
== END 2024-08-21 11:29 | disposition home or self-care (01) ==
LOC: HO.HMCH 10:59
PROVIDERS: PCP Internal Medicine; Visit Provider Internal Medicine
DX: E11.65 Type 2 diabetes mellitus with hyperglycemia (principal); Z79.4 Long term (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; E21.3 Hyperparathyroidism, unspecified; F33.0 Major depressive disorder, recurrent, mild; F41.1 Generalized anxiety disorder; I10 Essential (primary) hypertension; E78.00 Pure hypercholesterolemia, unspecified

== ENCOUNTER → 2024-08-21 10:58 | Outpatient (BNVA) | payer OTHER, SELFPAY | PROVIDERS: PCP Internal Medicine; Visit Provider Internal Medicine | DX: E21.3 Hyperparathyroidism, unspecified (principal); F33.0 Major depressive disorder, recurrent, mild; F41.1 Generalized anxiety disorder; I10 Essential (primary) hypertension; E11.65 Type 2 diabetes mellitus with hyperglycemia; E78.00 Pure hypercholesterolemia, unspecified; Z79.4 Long term (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; Z79.82 Long term (current) use of aspirin; Z79.899 Other long term (current) drug therapy; Z13.31 Encounter for screening for depression | CPT/HCPCS: 83036; 96127; 99212 ==

== ENCOUNTER 2024-09-19 10:26 | Outpatient (AMB) | payer OTHER, SELFPAY ==
[2024-09-19 10:36] VITALS: BP 110/60; PULSE 96; O2SAT 66; BMI 26.0
--- NOTE | 2024-09-19 10:36 | A.OFFVIS_ITS ---
Vital Signs 09/19/24 10:36 Height 5 ft 2 in Weight 142 lb BMI 26.0 BP 110/60 Blood Pressure Location Lt brachial Position Sitting Pulse 96 Pulse Source Pulse Oximeter Pulse Oximetry (%) 66 L Oxygen Delivery Method Room Air Intake Visit Reasons: INP-Persistant Headache Intake Note: New patient- Internal referral for headaches Heating Element Builder Required: No Heating Element Builder Name: Daughter Interpreted Accompanied by: Daughter Allergies dulaglutide (Trulicity) Allergy (Intermediate, Verified 09/19/24 10:39) headache, memory loss amlodipine Adverse Reaction (Intermediate, Verified 09/19/24 10:39) leg edema atorvastatin Adverse Reaction (Intermediate, Verified 09/19/24 10:39) dry mouth omeprazole (OMEPRAZOLE) Adverse Reaction (Intermediate, Verified 09/19/24 10:39) N/V; ABDOMINAL PAIN HPI Comments Details: 79-year-old female presents for new patient headache disorder consultation. Patient is accompanied by her granddaughter, Shahida. History of Present Illness - Patient reports she starting having episodes of headache and dizziness, which can occur separately or together approximately 2-3 months ago, without precipitating infection, accident, or specific trigger. * Patient denies history of headache or migraine. - Patient's granddaughter also notes that patient started to become more forgetful during this period as well, now patient is requiring more assistance with remembering appointments and doing daily tasks. - Dizziness is present, leading to a fear of falling. Previous neurological care for this headache: None Past medical history and ROS are notable for: - Osteoporosis is managed with weekly medication. Knee pain. Neck tightness- which is new. - Gait changes, fear falling, however denies falls. - Hypertension and HLD is treated with multiple medications, with inconsistent blood pressure control. - Anemia and Vitamin B12 deficiency are being treated. - History of kidney stones. - Diabetes mellitus is well-controlled. - Constipation Family history of migraine: Daughter and granddaughter Headache questionnaire: Onset of initial headache symptoms: 2-3 months ago Initial precipitating cause of this headache: No known triggers causes Previous workup for this headache: None Types of headache disorders: 1 Typical headache characteristics: Prodrome symptoms: Denies Aura: Denies Headache pain intensity: Mild Location, quality, characteristics of this headache: Bilateral frontal head discomfort and ear discomfort Associated migraine symptoms: dizziness, difficulty concentrating, watery eyes, activity intolerance Headache postdrome: Denies Headache aggravating factors: Unsure Headache triggers: Stress Time of day this headache usually occurs: No specific time of day Duration of this headache: 2 hours Frequency of this headache: Couple of days a week How does headache impact your life? Does need to lay down in a dark space Current acute medication use/interventions: Tylenol with usual positive effect Current preventative medication use: None Current non-pharmacological interventions: Rests in a dark place Past Medical History - Osteoporosis - Hypertension - Anemia - Vitamin B12 deficiency - Kidney stones - Diabetes mellitus Family History - Family history of migraine in mother and daughter Review of Systems - Neurological: Reports headache and dizziness. Denies photophobia or phonophobia. - Cognitive: Reports memory impairment over the past two to three months. Headache Lifestyle Factors - Drinks two cups of coffee daily - Drinks a lot of water and sugar-free juice Social History - Lives with , who does not assist with household tasks - Uses a cane for mobility due to fear of falling Cognitive Health The patient exhibits memory impairment over the past two to three months, requiring assistance with daily activities and showing increased forgetfulness. Exercise The patient uses a cane for mobility and has a cautious gait due to fear of falling. Nutrition The patient consumes two cups of coffee daily and drinks a lot of water and sugar-free juice. Sleep Patient denies any sleep problems. However, granddaughter states that patient does talk in her sleep. Substance Use - Denies alcohol, tobacco, or marijuana use COUNT INCLUDES THE [facility] Medical History Easy bruising OA (osteoarthritis) GERD (gastroesophageal reflux disease) Uncontrolled type 2 diabetes mellitus with hyperglycemia Renal stones Generalized abdominal pain HTN (hypertension) Elevated blood pressure reading Female pelvic pain Chest discomfort Secondary hypertension Angina at rest Constipation Acute back pain Arthritis of knee Osteoporosis KEYONNA (generalized anxiety disorder) Mild recurrent major depression GERD (gastroesophageal reflux disease) Anemia B12 deficiency Diabetic nephropathy associated with type 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 Pure hypercholesterolemia Hypovitaminosis D Depression Long-term use of aspirin therapy Diabetes mellitus Surgical History Hx of colonoscopy Hx of cataract removal with insertion of prosthetic lens Hx of lithotripsy History of total abdominal hysterectomy Family History Father Hypertension Diabetes Mother Diabetes Social History Housing: Apartment Alcohol intake: never Patient Tobacco Use Status: Never used Tobacco e-Cigarette/Vaping Use: Never Used Second Hand Smoke Exposure: No service: No Current occupational status: disabled Cognitive needs: Yes (cane ) Hearing needs: No Vision needs: No Physical Exam Vital Signs: Last Vital Signs Pulse 96 09/19/24 10:36 BP 110/60 09/19/24 10:36 Pulse Ox 66 L 09/19/24 10:36 Oxygen Delivery Method Room Air 09/19/24 10:36 BMI result Body Mass Index 26.0 Const Orientation/consciousness: patient oriented x3 Resp Effort & Inspection: normal respiratory effort and able to speak in complete sentences Neuro Other: - No palpable scalp tenderness. - Neurological: Left-sided weakness compared to right side observed. - Gait: Cautious gait with fear of falling noted. General: patient oriented x3 Cranial nerves: Yes CN's II-XII intact bilaterally Cognition (Neuro): normal cognition Deep tendon reflexes (DTR's): Right triceps reflex intensity grade: 2+, Left triceps reflex intensity grade: 2+, Rt Biceps (C5, C6): 2+, Left biceps reflex intensity grade: 2+, Right brachioradialis reflex intensity grade: 2+, Left brachioradialis reflex intensity grade: 2+, Right patellar reflex intensity grade: 2+ and Left patellar reflex intensity grade: 2+ Coordination: xeafid-dp-gvxi test normal and Romberg test negative Pupils: Normal pupillary reactivity/response: bilateral Psych Appearance: grossly normal Mental Status: mental status grossly normal Speech and movement: Normal speech and movement present Affect: normal affect Attitude: cooperative Thought process: Normal thought process present Assessment & Plan Assessment & Plan (1) New onset headache: Code(s): R51.9 - Headache, unspecified Category: Medical (2) Dizziness: Code(s): R42 - Dizziness and giddiness Category: Medical (3) Cognitive changes: Code(s): R41.89 - Other symptoms and signs involving cognitive functions and awareness Category: Medical Plan Discussion Notes I discussed the need for an MRI with contrast to evaluate the cause of the headache and dizziness. I explained the importance of hydration before and after the MRI. We also discussed the potential for physical therapy to assist with mobility and balance issues. I recommended continuing current medications and c onsidering vitamin B12 supplementation. Follow-up was advised to review MRI results and assess treatment efficacy. Patient was informed and verbally consented to the use of an ambient scribe for clinic note documentation during this visit. Assessment and Plan 1. Headache and dizziness - Plan for brain MRI with/without contrast to determine etiology, with hydration advised pre- and post-procedure. - Patient is hesitant to start prescription preventative medications at this time. - Start riboflavin 400 mg daily in the morning - Start magnesium 400 mg daily at bedtime. - May continue Tylenol 650-a 1000 mg every 4-6 hours as needed, not to exceed 3000 mg per day.. - Recommend physical therapy to enhance balance and reduce fall risk * Patient will consider - Continue to use cane - Headache treatment contraindications: Topiramate due to history of kidney stones. 2. Memory impairment - Check labs for common underlying etiologies - Check brain MRI with/without contrast to determine underlying etiologies - Consider further vitamin/nutritional supplementation to address cognitive concerns. - Continue to optimize cardiovascular and metabolic risk factors through through both pharmacological and lifestyle management. Will follow-up upon review of above and patient to follow-up in clinic in 3-4 months or sooner prn. Orders: Orders Vitamin B6 09/19/24 D64.9 - Anemia, unspecified, E53.8 - Deficiency of other specified B group vitamins, N20.0 - Calculus of kidney, R41.89 - Other symptoms and signs involving cognitive functions and awareness, R51.9 - Headache, unspecified, R42 - Dizziness and giddiness Erythrocyte Sedimentation Rate 09/19/24 E53.8 - Deficiency of other specified B group vitamins, N20.0 - Calculus of kidney, R41.89 - Other symptoms and signs involving cognitive functions and awareness, R51.9 - Headache, unspecified, R42 - Dizziness and giddiness BONNY Reflex Titer and Pattern 09/19/24 E53.8 - Deficiency of other specified B group vitamins, N20.0 - Calculus of kidney, R41.89 - Other symptoms and signs involving cognitive functions and awareness, R51.9 - Headache, unspecified, R42 - Dizziness and giddiness Syphilis Screen 09/19/24 E53.8 - Deficiency of other specified B group vitamins, N20.0 - Calculus of kidney, R41.89 - Other symptoms and signs involving cognitive functions and awareness, R51.9 - Headache, unspecified, R42 - Dizziness and giddiness Homocysteine 09/19/24 E53.8 - Deficiency of other specified B group vitamins, N20.0 - Calculus of kidney, R41.89 - Other symptoms and signs involving cognitive functions and awareness, R51.9 - Headache, unspecified, R42 - Dizziness and giddiness Lyme IgG/IgM w/reflex to WB 09/19/24 E53.8 - Deficiency of other specified B group vitamins, N20.0 - Calculus of kidney, R41.89 - Other symptoms and signs involving cognitive functions and awareness, R51.9 - Headache, unspecified, R42 - Dizziness and giddiness Methylmalonic Acid 09/19/24 E53.8 - Deficiency of other specified B group vitamins, N20.0 - Calculus of kidney, R41.89 - Other symptoms and signs involving cognitive functions and awareness, R51.9 - Headache, unspecified, R42 - Dizziness and giddiness MR head/brain wo/w con 09/19/24 R51.9 - Headache, unspecified, R41.89 - Other symptoms and signs involving cognitive functions and awareness, R26.9 - Unspecified abnormalities of gait and mobility Vitamin B1 09/19/24 E53.8 - Deficiency of other specified B group vitamins, N20.0 - Calculus of kidney, R41.89 - Other symptoms and signs involving cognitive functions and awareness, R51.9 - Headache, unspecified, R42 - Dizziness and giddiness C Reactive Protein 09/19/24 E53.8 - Deficiency of other specified B group vitamins, N20.0 - Calculus of kidney, R41.89 - Other symptoms and signs involving cognitive functions and awareness, R51.9 - Headache, unspecified, R42 - Dizziness and giddiness Rheumatoid Factor 09/19/24 E53.8 - Deficiency of other specified B group vitamins, N20.0 - Calculus of kidney, R41.89 - Other symptoms and signs involving cognitive functions and awareness, R51.9 - Headache, unspecified, R42 - Dizziness and giddiness TSH reflex Free T4 09/19/24 E53.8 - Deficiency of other specified B group vitamins, N20.0 - Calculus of kidney, R41.89 - Other symptoms and signs involving cognitive functions and awareness, R51.9 - Headache, unspecified, R42 - Dizziness and giddiness Medications: New riboflavin (vitamin B2) 400 mg PO DAILY 30 tabs 6RF 30 days Coding Level of Care Code New Pt Level 4 (27257) Diagnoses New onset headache R51.9 Dizziness R42 Cognitive changes R41.89
--- OUTSIDE RECORDS SUMMARY | 2024-09-19 10:46 | XMS_ITS | Clinical Summary ---
Author Organization [employer] Address [address] [facility] [address] [place] [address] Care Team Providers Care Pluck Separator Name Role Phone Unavailable Primary Care Provider [...] B-6) 100 MG tablet 02/14/2024 Activ e Encounters Date Type Department Care Team Description 08/20/2024 11:00 AM EDT Office Visit [facility] [address] [place] [id number] [address] Knox Generalized adult periodontitis (Primary Dx) from Last 3 Months Immunizations Immunization Administration Dates Next Due Influenza High-dose Quadriva [...] Sign Reading Time Taken Comments Blood Pressure 138/58 08/20/2024 10:47 AM EDT Pulse 74 02/19/2024 11:04 AM EST Temperature - - Respiratory Rate - - Oxygen Saturation - - Inhaled Oxygen Concentration - - Weight - - Height - - Body Mass Index - - Plan of Treatment Upcoming Encounters Date Type Department Care Team (Late st Contact Info) Description 12/31/2024 10:00 AM EDT Office Visit [facility] [address] [place], [place] [phone] Sis Knox [address] [place], [place] [phone] Health Maintenance Due Date Last Done Comments Dental X-Ray: Bitewings 1945 Depression Screening 1945 Lipid Panel 1945 SDOH Screening 1943 Alcohol/Substance Use Screening 1955 DTaP/Tdap/Td Vaccines (1 - Tdap) 08/06/1962 Pneumococcal Vaccine: 50+ Years (2 of 2 - PCV) 07/06/2017 07/06/2016, 09/19/2015 Zoster Vaccines (2 of 2) 10/17/2023 08/22/2023 COVID-19 Vaccine ( - season) 2023 03/08/2022, 11/29/2021, 03/07/2021, Additional history exists Dental Oral Exam 02/21/2025 08/20/2024, 02/12/2024 Dental Prophylaxis 02/21/2025 08/20/2024, 02/19/2024 Tobacco Screening 08/20/2025 08/20/2024 Dental X-Ray: Full Mouth 02/12/2027 02/12/2024 RSV Patients and Patients Aged 60 years or older Completed 08/22/2023 Influenza Vaccine Completed 04/09/2024, , 02/03/2020, Additional history exists HIB Vaccines Aged Out No longer eligi [...] patient's age to complete this topic Meningococcal B Vaccine Aged Out No l onger eligible based on patient's age to complete [...] Procedure Name Priority Date/Time Associated Diagnosis Comments PERIODIC ORAL EVALUATION - ESTABLISHED PATIENT Routine 08/20/2024 11:00 AM EDT TOPICAL APPLICATION OF FLUORIDE - EXCLUDING VARNISH Routine 08/20/2024 11:00 AM EDT PROPHYLAXIS - ADULT Routine 08/20/2024 1 1:00 AM EDT CASE PRESENTATION, DETAILED AND EXTENSIVE TREATMENT PLANNING Routine 08/20/2024 11:00 AM EDT PANORAMIC RADIOGRAPHIC IMAGE Routine 02/12/2024 11:00 AM EST from Last 3 Months or Most Recently Relevant to Health Maintenance Insurance [facility] < [address] [facility] [place] [id number] [place] [id number]
== END 2024-09-19 11:48 | disposition home or self-care (01) ==
LOC: HO.HSMS 10:26
PROVIDERS: PCP Internal Medicine; Visit Provider Nurse Practitioner Family
DX: R51.9 Headache, unspecified (principal); R42 Dizziness and giddiness; R41.89 Other symptoms and signs involving cognitive functions and awareness
CPT/HCPCS: 99204

== ENCOUNTER → 2024-09-19 10:26 | Outpatient (BNVA) | payer OTHER, SELFPAY | PROVIDERS: PCP Internal Medicine; Visit Provider Nurse Practitioner Family | DX: R51.9 Headache, unspecified (principal); R42 Dizziness and giddiness; R41.89 Other symptoms and signs involving cognitive functions and awareness | CPT/HCPCS: 99202 ==

== ENCOUNTER → 2024-10-26 15:55 | Outpatient (BNV) | payer OTHER, SELFPAY | PROVIDERS: PCP Internal Medicine; Visit Provider Radiology Diagnostic Radiology | DX: R51.9 Headache, unspecified (principal) | CPT/HCPCS: 70553 ==

== ENCOUNTER 2024-10-26 15:56 | Outpatient (REF) | payer OTHER, SELFPAY ==
--- NOTE | ~2024-10-26 | MR_ITS ---
CLINICAL HISTORY: R51.9 - Headache, unspecified MR brain without and with IV contrast Comparison: None provided Findings: Suboptimal evaluation of the posterior fossa due to pulsating artifacts. No abnormal diffusion restriction to suggest acute ischemia. No acute intracranial hemorrhage or extra-axial fluid collection. No intracranial mass, positive mass-effect, midline shift or hydrocephalus. No abnormal intracranial enhancement. Normal flow void within the intracranial vessels. Nonspecific mild supratentorial periventricular and deep hemispheric white matter signals. Punctate focus of blooming artifact in the right cerebellum, suggestive of old petechial hemorrhage or calcification. Age-appropriate cerebral atrophy. Small cavum vergae posteriorly. Left maxillary sinus mucous retention cyst. Visualized orbits, other paranasal sinuses and mastoid air cells are unremarkable. Calvarium and superficial soft tissue are unremarkable. Impression: 1. No acute intracranial finding or abnormal enhancement. 2. Nonspecific mild supratentorial white matter signals, most frequently ascribed to chronic small vessel ischemic disease. This document has been electronically signed by: Clarice Soto MD on 10/28/2024 13:06:09
--- OUTSIDE RECORDS SUMMARY | 2024-10-26 16:08 | XMS_ITS | Encounter Summary ---
Author Organization [facility] Address [address] [facility] [place] [facility] [address] [place] [address] Phone Care Team Providers Care Association Executive Name Role Phone Bonny Lopez MD Primary Care Provider [phone] Reason for Visit * Reason Comments Med Refill Encounter Details Date Type Department Care Team ([facility] Contact Info) Description 09/13/2022 Refill [facility] [address] [facility] [place] [facility] [address] [place] [address] Migel Wyman MD Stage 3b [...] Upcoming Encounters Date Type Department Care Team ([facility] Contact Info) Description 03/09/2025 1:45 PM EST Office Visit [facility] [address] [place] [phone] Earnest Baer MD [address] [facility] [address] [place] [address] documented as of this encounter Visit Diagnoses Diagnosis Stage 3b chronic kidney disease (HCC) Hypertensive chronic kidney disease documented in this encounter Care Teams Association Executive Relationship Specialty Start Date End Date Bonny Lopez MD [address] [place], [place] [phone] PCP - General Internal Medicine 01/27/21 documented as of this encounter
--- OUTSIDE RECORDS SUMMARY | 2024-10-26 16:08 | XMS_ITS | Patient Health Record ---
Author Organization [facility] Address [address] [place] [address] Care Team Providers Care Mail Superintendent Name Role Phone Juan CURTIS, Bonny Primary Care Provider Unavail able Estevan Snyder Unavailable [phone] Allergies No Known Allergies Results Component Value [...] Hammertoe Foot Deformity(M20.41,M20.42), Preulcerative Skin Lesion(s)(L85.1) Wear Daily; Duration: 365 days 08/11/2024 Active Magnesium Active Alendronate [...] Problem Acquired hammer toe of right foot (3460592181898 105) Other hammer toe(s) (acquired), right foot (M20.41) Active confirmed Problem Acquired hammer toe of left foot ([id number] 103) Other hammer toe(s) (acquired), left foot (M20.42) Active confirmed Problem Type 2 diabetes mellitus with peripheral angiopathy (310301493) Type 2 diabetes mellitus with diabetic peripheral angiopathy without gangrene (E11.51) Active confirmed Q7(A), Q8(2B), Q9(1B,2C) Vital Signs Height 5ft 1in in 08/11/2024 Weight 144 lbs 08/11/2024 BMI 27.21 kg/m2 08/11/2024 Procedures Procedure Date Ordered Date Performed Result Body Sit e 83280-UDWAHRT NAIL, 1-5 08/11/2024 N/A 73099-OQAY SKIN LESIONS, 2 TO 4 08/11/2024 N/A [id number] DYSTROPHIC NAILS ANY # 08/11/2024 N/A Encounters Encounter Location Date Provider Diagnosis [facility] [place] [address] [place] [id number] 08/11/2024 Estevan Snyder Type 2 diabetes mellitus [...] Treatment Pending Test Test Name Order Date [id number]-ZQONISN NAIL, 1-5 08/11/2024 [id number]-MCFX SKIN LESIONS, 2 TO 4 08/12/19 25 [id number] DYSTROPHIC NAILS ANY # Next Appt Details Provider Name:Estevan Snyder , 11/12/2024 10:00:00 AM, [address] [facility] [place] [address], [place], [address], Insurance Providers Payer Name Payer Address Payer Phone Subscriber Number Group Number Insured Name Patient Relationship to Insured Coverage Start Date Coverage End Date [facility] [employer] Claims [address] [place] [id number] Rupali Freeman Self - patient is the insured Medical (General) History Medical History History ICD Code Diabetic Headaches/Migraines High Blood Pressure Osteoporosis
--- OUTSIDE RECORDS SUMMARY | 2024-10-26 16:08 | XMS_ITS | Clinical Summary ---
Author Organization [employer] Address [address] [facility] [address]t [place] [address] Care Team Providers Care Bowling Ball Finisher Name Role Phone Unavailable Primary Care Provider [...] Description 08/20/2024 11:00 AM EDT Office Visit [facility] [address] [place] [id number] [address] Knox Generalized adult periodontitis (Primary Dx) [...] Visit [facility] [address] [place] [phone] Sis Knox [address] [place], [place] [phone] Health Maintenance Due Date Last Done Comments Dental X-Ray: Bitewings 1943 Depression Screening 1945 Lipid Panel 1945 SDOH Screening 1943 Alcohol/Substance Use Screening 1955 DTaP/Tdap/Td Vaccines (1 - Tdap) 08/06/1962 Pneumococcal Vaccine: 50+ Years (2 of 2 - PCV) 07/06/2017 07/06/2016, 09/19/2015 Zoster Vaccines (2 of 2) 10/17/2023 08/22/2023 COVID-19 Vaccine (5 - season) 2023 03/08/2022, 11/29/2021, 03/07/2021, Additional history exists Influenza Vaccine (#1) 2024 , 02/03/2020, 02/03/2020, Additional history exists Dental Oral Exam 02/21/2025 [...] Most Recently Relevant to Health Maintenance Insurance [facility] < [address] [facility]
== END 2024-10-26 15:57 | disposition home or self-care (01) ==
LOC: HO.MRI 15:56
PROVIDERS: PCP Internal Medicine; Visit Provider Internal Medicine
DX: R41.89 Other symptoms and signs involving cognitive functions and awareness (principal); R51.9 Headache, unspecified; R26.9 Unspecified abnormalities of gait and mobility
CPT/HCPCS: 70553; A9585

== ENCOUNTER 2024-11-18 14:29 | Outpatient (AMB) | payer OTHER, SELFPAY ==
[2024-11-18 14:32] VITALS: BP 134/62; PULSE 65; O2SAT 97; BMI 25.1
--- NOTE | 2024-11-18 14:32 | A.OFFVIS_ITS ---
Vital Signs 11/18/24 14:32 Height 5 ft 2 in Weight 137 lb 8 oz BMI 25.1 BP 134/62 Blood Pressure Location Lt brachial Position Sitting Pulse 65 Pulse Source Pulse Oximeter Pulse Oximetry (%) 97 Oxygen Delivery Method Room Air Intake Visit Reasons: burning headpain Intake Note: Pt presents to the office today for c/o a burning head pain that started about 2 months ago. Pt states she has pain that wraps around her head that goes to her neck and ears. District Operations Manager Required: No District Operations Manager Name: Daughter Interpreted Accompanied by: Grand Child Allergies dulaglutide (Trulicity) Allergy (Intermediate, Verified 11/18/24 14:35) headache, memory loss amlodipine Adverse Reaction (Intermediate, Verified 11/18/24 14:35) leg edema atorvastatin Adverse Reaction (Intermediate, Verified 11/18/24 14:35) dry mouth omeprazole (OMEPRAZOLE) Adverse Reaction (Intermediate, Verified 11/18/24 14:35) N/V; ABDOMINAL PAIN Medication List - Last Reconciled 11/18/24 by DARIAN Beckman acetaminophen ER 1,300 mg (2 x 650 mg) PO Q8H PRN 30 days alendronate 70 mg PO QWEEK 90 days amitriptyline 10 mg PO BEDTIME 30 days aspirin 81 mg PO DAILY 90 days blood pressure monitor As directed blood sugar diagnostic (OneTouch Ultra Test strips) Uxd 1 test strips four times a day blood sugar diagnostic (FreeStyle Test strips) As directed four times per day blood-glucose meter (OneTouch Ultra2 Meter) As directed calcium carbonate-vitamin D3 500 mg-5 mcg (200 unit) (Oyster Shell Calcium- Vitamin D3) 1 tab PO BID 90 days cholecalciferol (vitamin D3) 25 mcg PO DAILY clonidine HCl mg PO escitalopram oxalate 10 mg PO DAILY 90 days furosemide 20 mg PO BID glucagon 3 mg/actuation (Baqsimi) 3 mg intranasal ONCE glucose 4 grams PO Q15M PRN hydralazine 50 mg PO TID 30 days [incontinence wipes As directed] insulin glargine (Lantus Solostar U-100 Insulin) 20 units (0.2 mL) subcut QAM insulin lispro (Humalog KwikPen (U-100) Insulin) 2 - 4 units (0.02 - 0.04 mL) subcut TID 90 days lactulose 10 grams (15 mL) PO DAILY PRN 30 days lancets (OneTouch UltraSoft 2 Lancet) Uxd 1 lancet four times a day lancets (FreeStyle Lancets) As directed linagliptin (Tradjenta) 5 mg PO DAILY 30 days lisinopril 20 mg PO DAILY loratadine 10 mg PO DAILY magnesium oxide 400 mg PO BEDTIME 90 days metoprolol succinate ER 100 mg PO DAILY pantoprazole 40 mg PO DAILY pen needle, diabetic (Comfort EZ Pen Newport) As directed -injects 5 X/day pen needle, diabetic (UltiCare Pen Needle) As directed pyridoxine (vitamin B6) 100 mg PO DAILY 90 days riboflavin (vitamin B2) 400 mg PO DAILY 30 days simvastatin 40 mg PO BEDTIME 90 days Ventolin HFA 90 mcg/actuation (albuterol sulfate) 2 puffs inhalation Q6H PRN 30 days NS HPI Comments Details: 79-year-old female presents for follow-up for headache. Patient is accompanied by her granddaughter, Shahida. Patient denies any significant medical history changes. 10/28/2024, MRI brain with and without contrast: * No acute intracranial finding or abnormal enhancement. * Nonspecific mild supratentorial white matter signals, most frequently ascribed to chronic small vessel ischemic disease. Patient has not yet had labs done. Patient reports she continues to have a daily frontal/temporal/ear throbbing headache associated with photophobia, dizziness, concentrating, and activity intolerance. She has started riboflavin 400 mg q.a.m. and magnesium 400 mg q.h.s. She is taking Tylenol every day, but cannot quantify how much today. Today, she is open to discussing other prescription migraine treatment options. She states, jokingly, that her daughter thinks she may have Alzheimer's, as sometimes she may forget what she was about to say or do. She states this is worse when her headache symptoms are worse. 09/19/2024, initial HPI: 79-year-old female presents for new patient headache disorder consultation. Patient is accompanied by her granddaughter, Shahida. History of Present Illness - Patient reports she starting having episodes of headache and dizziness, which can occur separately or together approximately 2-3 months ago, without precipitating infection, accident, or specific trigger. * Patient denies history of headache or migraine. - Patient's granddaughter also notes that patient started to become more forgetful during this period as well, now patient is requiring more assistance with remembering appointments and doing daily tasks. - Dizziness is present, leading to a fear of falling. Previous neurological care for this headache: None Past medical history and ROS are notable for: - Osteoporosis is managed with weekly medication. Knee pain. Neck tightness- which is new. - Gait changes, fear falling, however denies falls. - Hypertension and HLD is treated with multiple medications, with inconsistent blood pressure control. - Anemia and Vitamin B12 deficiency are being treated. - History of kidney stones. - Diabetes mellitus is well-controlled. - Constipation Family history of migraine: Daughter and granddaughter Headache questionnaire: Onset of initial headache symptoms: 2-3 months ago Initial precipitating cause of this headache: No known triggers causes Previous workup for this headache: None Types of headache disorders: 1 Typical headache characteristics: Prodrome symptoms: Denies Aura: Denies Headache pain intensity: Mild Location, quality, characteristics of this headache: Bilateral frontal head discomfort and ear discomfort Associated migraine symptoms: dizziness, difficulty concentrating, watery eyes, activity intolerance Headache postdrome: Denies Headache aggravating factors: Unsure Headache triggers: Stress Time of day this headache usually occurs: No specific time of day Duration of this headache: 2 hours Frequency of this headache: Couple of days a week How does headache impact your life? Does need to lay down in a dark space Current acute medication use/interventions: Tylenol with usual positive effect Current preventative medication use: None Current non-pharmacological interventions: Rests in a dark place Headache Lifestyle Factors - Drinks two cups of coffee daily - Drinks a lot of water and sugar-free juice Social History - Lives with , who does not assist with household tasks - Uses a cane for mobility due to fear of falling Cognitive Health The patient exhibits memory impairment over the past two to three months, requiring assistance with daily activities and showing increased forgetfulness. Exercise The patient uses a cane for mobility and has a cautious gait due to fear of falling. Nutrition The patient consumes two cups of coffee daily and drinks a lot of water and sugar-free juice. Sleep Patient denies any sleep problems. However, granddaughter states that patient does talk in her sleep. Substance Use - Denies alcohol, tobacco, or marijuana use [facility] Medical History Easy bruising OA (osteoarthritis) GERD (gastroesophageal reflux disease) Uncontrolled type 2 diabetes mellitus with hyperglycemia Renal stones Generalized abdominal pain HTN (hypertension) Elevated blood pressure reading Female pelvic pain Chest discomfort Secondary hypertension Angina at rest Constipation Acute back pain Arthritis of knee Osteoporosis KEYONNA (generalized anxiety disorder) Mild recurrent major depression GERD (gastroesophageal reflux disease) Anemia B12 deficiency Diabetic nephropathy associated with type 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 Hypertension terminal supervisor (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 Pure hypercholesterolemia Hypovitaminosis D Depression Long-term use of aspirin therapy Diabetes mellitus Surgical History Hx of colonoscopy Hx of cataract removal with insertion of prosthetic lens Hx of lithotripsy History of total abdominal hysterectomy Family History Father Hypertension Diabetes Mother Diabetes Social History Housing: Apartment Alcohol intake: never Patient Tobacco Use Status: Never used Tobacco e-Cigarette/Vaping Use: Never Used Second Hand Smoke Exposure: No service: No Current occupational status: disabled Cognitive needs: Yes (cane ) Hearing needs: No Vision needs: No Physical Exam Vital Signs: Last Vital Signs Pulse 65 11/18/24 14:32 BP 134/62 11/18/24 14:32 Pulse Ox 97 11/18/24 14:32 Oxygen Delivery Method Room Air 11/18/24 14:32 BMI result Body Mass Index 25.1 Const Orientation/consciousness: patient oriented x3 Resp Effort & Inspection: normal respiratory effort and able to speak in complete sentences Neuro Other: Mildly photophobic Left-sided weakness compared to right side observed. Gait: Cautious gait General: patient oriented x3 Cranial nerves: Yes CN's II-XII intact bilaterally Cognition (Neuro): normal cognition Psych Appearance: grossly normal Mental Status: mental status grossly normal Speech and movement: Normal speech and movement present Affect: normal affect Attitude: cooperative Thought process: Normal thought process present Assessment & Plan Assessment & Plan (1) Chronic migraine without aura without status migrainosus, not intractable: Comment: Probable. ? component of vestibular migraine. Code(s): G43.709 - Chronic migraine without aura, not intractable, without status migrainosus Category: Medical (2) Dizziness: Code(s): R42 - Dizziness and giddiness Category: Medical (3) Cognitive changes: Code(s): R41.89 - Other symptoms and signs involving cognitive functions and awareness Category: Medical Plan Reviewed 10/28/2024, MRI brain with and without contrast: * No acute intracranial finding or abnormal enhancement. * Nonspecific mild supratentorial white matter signals, most frequently ascribed to chronic small vessel ischemic disease. * No findings to account for patient's headache or cognitive symptoms. For overall headache and dizziness care: * Considered PT for headache, dizziness, balance- patient declines at this time * Continue to use cane For acute headache and dizziness treatment: * May continue Tylenol 650-a 1000 mg every 4-6 hours as needed, not to exceed 3000 mg per day. For headache and dizziness prevention treatment: * Continue riboflavin 400 mg daily in the morning * Continue magnesium 400 mg daily at bedtime * Start Amitriptyline [10]mg daily at bedtime. * Potential side effects include but are not limited to fatigue, cardiac arrhythmias, mood changes. * Headache treatment contraindications: Topiramate due to history of kidney st ones. For Memory impairment * Check labs as ordered- for common underlying etiologies * Monitor cognitive symptom response to above treatment plan * Continue to optimize cardiovascular and metabolic risk factors through through both pharmacological and lifestyle management. * Plan to complete a MMSE in follow-up Will follow-up upon review of above and patient to follow-up in clinic in 3-6 months or sooner prn. Medications: New amitriptyline 10 mg PO BEDTIME 30 tabs 3RF 30 days Coding Level of Care Code Est Pt Level 4 (64106) Diagnoses Chronic migraine without aura without status migrainosus, not intractable G43.709 Dizziness R42 Cognitive changes R41.89
--- OUTSIDE RECORDS SUMMARY | 2024-11-18 15:51 | XMS_ITS | Encounter Summary ---
Author Organization [facility] Address [address] [facility] [address] [place] [address] Phone Care Team Providers Care Superintendent Local Name Role Phone Bonny Lopez MD Primary Care Provider [phone] Reason for Visit * Reason Comments Med Refill Encounter Details Date Type Department Care Team ([facility] Contact Info) Description 09/13/2022 Refill [facility] [address] [place] [address] Migel Wyman MD Stage 3b [...] Upcoming Encounters Date Type Department Care Team ([facility] Contact Info) Description 03/09/2025 1:45 PM EST Office Visit [facility] [address] [place] [phone] Earnest Baer MD [address] [facility] [address] [place] [address] documented as of this encounter Visit Diagnoses Diagnosis Stage 3b chronic kidney disease (HCC) Hypertensive chronic kidney disease documented in this encounter Care Teams Superintendent Local Relationship Specialty Start Date End Date Bonny Lopez MD [address] [place], [place] [phone] PCP - General Internal Medicine 01/27/21 documented as of this encounter
--- OUTSIDE RECORDS SUMMARY | 2024-11-18 15:51 | XMS_ITS | Clinical Summary ---
Author Organization [employer] Address [address] [facility] 7t [place] [address] Care Team Providers Care China Painter Name Role Phone Unavailable Primary Care Provider [...] Description 08/20/2024 11:00 AM EDT Office Visit [facility] [address] [place] [address] S[address] Knox Generalized adult periodontitis (Primary Dx) [...] Description 12/31/2024 10:00 AM EDT Office Visit [facility] [address] [place] [id number] Sis Knox [address] [place], [place] [phone] Health Maintenance Due Date Last Done Comments [...] Most Recently Relevant to Health Maintenance Insurance [facility] < [facility]
--- OUTSIDE RECORDS SUMMARY | 2024-11-18 15:51 | XMS_ITS | Patient Health Record ---
Author Organization [facility] Address [address] [place] [address] Care Team Providers Care Tenter Frame Operator Name Role Phone Juan CURTIS, Bonny Primary Care Provider Unavail able Estevan Snyder Unavailable [phone] Allergies No Known Allergies Results Component Value [...] Problem Acquired hammer toe of right foot (5604344171170 105) Other hammer toe(s) (acquired), right foot (M20.41) Active confirmed Problem Acquired hammer toe of left foot (7412898461389 103) Other hammer toe(s) (acquired), left foot (M20.42) Active confirmed Problem Type 2 diabetes mellitus with peripheral angiopathy (027230205) Type 2 diabetes mellitus with diabetic peripheral angiopathy without gangrene (E11.51) Active confirmed Q7(A), Q8(2B), Q9(1B,2C) Vital Signs Height 5ft 1in in 08/11/2024 Weight 144 lbs 08/11/2024 BMI 27.21 kg/m2 08/11/2024 Procedures Procedure Date Ordered Date Performed Result Body Sit e 52966-AYUTVXW NAIL, 1-5 08/11/2024 N/A 40132-HQAI SKIN LESIONS, 2 TO 4 08/11/2024 N/A P9719-[id number] DYSTROPHIC NAILS ANY # 08/11/2024 N/A Encounters Encounter Location Date Provider Diagnosis [facility] [place] [address] [place] [phone] 08/11/2024 Estevan Snyder Type 2 diabetes mellitus [...] Treatment Pending Test Test Name Order Date [id number]-RYLHSFX NAIL, 1-5 08/11/2024 05500-IJHI SKIN LESIONS, 2 TO 4 08/12/19 25 W3098-QQLMQXRI DYSTROPHIC NAILS ANY # Next Appt Details Provider Name:Estevan Patt Snyder , 01/14/2025 03:45:00 PM, [address] [facility], [facility] [address], [place], [address], Insurance Providers Payer Name Payer Address Payer Phone Subscriber Number Group Number Insured Name Patient Relationship to Insured Coverage Start Date Coverage End Date [facility] [employer] Claims [address] [place] [id number] Rupali Freeman Self - patient is the insured Medical (General) History Medical History History ICD Code Diabetic Headaches/Migraines High Blood Pressure Osteoporosis
== END 2024-11-18 15:42 | disposition home or self-care (01) ==
LOC: HO.HSMS 14:29
PROVIDERS: PCP Internal Medicine; Visit Provider Nurse Practitioner Family
DX: G43.709 Chronic migraine without aura, not intractable, without status migrainosus (principal); R42 Dizziness and giddiness; R41.89 Other symptoms and signs involving cognitive functions and awareness
CPT/HCPCS: 99214

== ENCOUNTER → 2024-11-18 14:29 | Outpatient (BNVA) | payer OTHER, SELFPAY | PROVIDERS: PCP Internal Medicine; Visit Provider Nurse Practitioner Family | DX: G43.709 Chronic migraine without aura, not intractable, without status migrainosus (principal); R42 Dizziness and giddiness; R41.89 Other symptoms and signs involving cognitive functions and awareness | CPT/HCPCS: 99212 ==

== ENCOUNTER 2024-12-22 09:22 | Outpatient (REF) | payer OTHER, SELFPAY ==
[2024-12-22 09:55] LABS: MANUAL DIFF FLAG NO
[2024-12-22 10:33] LABS: Hematocrit 33.7 % (37.0-47.0); Hemoglobin 10.8 g/dl (12.0-16.0); Imm Gran Abs Auto 0.04 X10*3/uL (0.00-0.03); Imm Gran Pct Auto 0.5 % (0.0-0.4); Lymphocytes Absolute Auto 1.6 X10*3/uL (1.2-4.9); Mean Corpuscular HGB Conc 32.0 g/dl (31.0-35.0); Mean Corpuscular Hemoglobin 29.2 pg (27.0-33.0); Mean Corpuscular Volume 91.1 fL (80.0-98.0); NRBC Abs Auto 0.000 X10*3/uL (0.0-0.012); NRBC Pct Auto 0.0 /100WBC (0.0-0.2); Platelet Count 219 X10*3/uL (160-400); Red Blood Count 3.70 X10*6/uL (4.20-5.50); White Blood Count 7.6 X10*3/uL (4.8-10.8)
--- OUTSIDE RECORDS SUMMARY | 2024-12-22 11:04 | XMS_ITS | Encounter Summary ---
Author Organization [facility] Address [address] [facility] [address] [place] [address] Phone Care Team Providers Care Manager Utilities Name Role Phone Bonny Lopez MD Primary Care Provider [phone] Reason for Visit * Reason Comments Med Refill Encounter Details Date Type Department Care Team ([facility] Contact Info) Description 08/16/2022 Refill [facility] [address] [facility] [address] [facility] [address] [place] [address] Migel Wyman MD Stage 3b [...] Upcoming Encounters Date Type Department Care Team ([facility] Contact Info) Description 03/09/2025 1:45 PM EST Office Visit [facility] [address] [place] [phone] Earnest Baer MD [address] [facility] [address] [place] [address] documented as of this encounter Visit Diagnoses Diagnosis Stage 3b chronic kidney disease (HCC) Hypertensive chronic kidney disease documented in this encounter Care Teams Manager Utilities Relationship Specialty Start Date End Date oBnny Lopez MD [address] [place], [place] [phone] PCP - General Internal Medicine 01/27/21 documented as of this encounter
--- OUTSIDE RECORDS SUMMARY | 2024-12-22 11:04 | XMS_ITS | Encounter Summary ---
Author Organization [facility] Address [address] [facility] [address] [place] [address] Phone Care Team Providers Care Service Desk Analyst Name Role Phone Bonny Lopez MD Primary Care Provider [phone] Reason for Visit * Reason Comments Med Refill Encounter Details Date Type Department Care Team ([facility] [address] Contact Info) Description 09/13/2022 Refill [facility] [address] [facility] [address] [place] [address] Migel Wyman MD Stage 3b [...] Visit [facility] [address] [place] [phone] Earnest Baer MD [address] [facility] [address] [place] [address] documented as of this encounter Visit Diagnoses Diagnosis Stage 3b chronic kidney disease (HCC) Hypertensive chronic kidney disease documented in this encounter Care Teams Service Desk Analyst Relationship Specialty Start Date End Date Bonny Lopez MD [address] [place], [place] [phone] PCP - General Internal Medicine 01/27/21 documented as of this encounter
--- OUTSIDE RECORDS SUMMARY | 2024-12-22 11:04 | XMS_ITS | Clinical Summary ---
Author Organization [employer] Address [address] [facility] 7[address] [place] [address] Care Team Providers Care Online Media Buyer Name Role Phone Unavailable Primary Care Provider [...] 100 MG tablet 02/14/2024 Activ e Immunizations Immunization Administration Dates Next Due Influenza [...] Description 12/31/2024 10:00 AM EDT Office Visit [facility] [address] [place] [address] [address] [place] [address] Health Maintenance Due Date Last Done Comments Dental X-Ray: Bitewings 1943 Depression Screening 1943 Lipid Panel 1943 SDOH Screening 1943 Alcohol/Substance Use Screening 1955 DTaP/Tdap/Td Vaccines (1 - Tdap) 08/06/1962 Pneumococcal Vaccine: 50+ Years (2 of 2 - PCV) 07/06/2017 07/06/2016, 09/19/2015 Zoster Vaccines (2 of 2) 10/17/2023 08/22/2023 COVID-19 Vaccine ( - season) 2024 03/08/2022, 11/29/2021, 03/07/2021, Additional history exists Influenza [...] Associated Diagnosis Comments PROPHYLAXIS - ADULT Routine 08/20/2024 1 1:00 AM EDT PERIODIC ORAL EVALUATION - ESTABLISHED PATIENT Routine 08/20/2024 11:00 AM EDT PANORAMIC RADIOGRAPHIC IMAGE Routine 02/12/2024 11:00 AM EST from Last 3 Months or Most Recently [place]vant [place] [address] [place] [id number] , [place] [address] [facility] [place] [address] [place] [address]
--- OUTSIDE RECORDS SUMMARY | 2024-12-22 11:05 | XMS_ITS | Clinical Summary ---
Author Organization [facility] Address [address] [facility] [address] [place] [address] Phone Care Team Providers Care Retail Property Manager Name Role Phone Bonny Lopez MD Primary Care Provider [phone] Allergies Active Allergy Reactions Criticality Noted Date Comments Ibuprofen 01/30/2022 Nitrofurantoin 01/30/2022 Ofloxacin 01/30/2022 Sulfamethoxazole-Trimethoprim 2021 Medications Blood Pressure kit 1 kit by Other route 02/02/2020 Active aspirin (ST BENITA) 81 MG EC [...] 50/50 KWIKPEN (50-50) 100 UNIT/ML inj pen 06/25/2020 Act maye Invokamet XR 50-500 MG tablet sustained-relea se 24 hour 07/05/2020 Active alendronate (FOSAMAX) 70 MG tablet 07/05/2021 Active lisinopril 20 MG tabletIndicatio ns:Stage 3b chronic kidney disease (HCC),Hypertens maye chronic kidney disease TAKE 1 TABLET BY MOUTH ONCE DAILY 28 tablet 11/21/2024 Active furosemide (LASIX) 20 MG tabletIndicatio ns:Stage 3b chronic kidney disease (HCC),Hypertens maye chronic kidney disease TAKE 2 TABLETS BY MOUTH ONCE DAILY. 56 tablet 11/21/2024 Active cloNIDine (CATAPRES) 0.1 MG tablet TAKE 1 TABLET BY MOUTH TWICE DAILY IN THE MORNING AND EVENING. 60 tablet 11/21/2024 Active hydrALAZINE 50 MG tablet TAKE 1 TABLET BY MOUTH THREE TIMES A DAY 84 tablet 11/21/2024 Active Active Problems Problem Noted Date Diagnosed Date [...] Encounters Date Type Department Care Team Description 11/20/2024 Refill [facility] [address] [place] [address] Earnest Baer MD Stage 3b chronic kidney disease (HCC); Hypertensive chronic kidney disease 10/29/2024 Refill [facility] [address] [place] [address] Earnest Baer MD Stage 3b chronic kidney disease (HCC); Hypertensive chronic kidney disease 10/07/2024 Refill [facility] [address] [place] [address] Earnest Baer MD Stage 3b chronic kidney disease (HCC); Hypertensive chronic kidney disease from Last 3 Months Immunizations Immunization Administration Dates Next Due Influenza Split High Dose Pr eservative Free IM 12/31/2018,01/17/2017,03/24/2015 CadenceMD SARS-COV-2 06/23/2020 Pfizer SARS-COV-2 03/07/2021 Pneumococcal Polysaccharide [...] [facility] [address] [place] [address] Earnest Baer MD [address] [facility] [address] [place] [address] Health Maintenance Due Date Last Done Comments Pneumococcal Vaccine: 50+ Years (3 of 3 - PCV) 07/06/2017 07/06/2016, 09/19/2015 Diabetes: Hemoglobin A1C 05/02/2020 Diabetes: Ophthalmology Exam 05/02/2020 Diabetes: Pedal Pulse Checked 05/02/2020 Diabetes: Sensory Foot Exam 05/02/2020 Diabetes: Visual Foot Exam 05/02/2020 Influenza Vaccine (#1) 2024 9, 01/17/2017, 03/24/2015 Pneumococcal Vaccine: Peds ( 0 to 5 Years) and At-Risk Patients (6 to 49 Years) Discontinued 07/06/2016, 09/19/2015 Hepatitis B Vaccine Aged Out No longe r eligible based on patient's age to complete this topic Insurance [facility] ([id number]) [facility] ([id number]) Care Teams Retail Property Manager Relationship Specialty Start Date End Date Bonny Lopez MD [address] [place] [address] PCP - General Internal Medicine 01/27/21
--- OUTSIDE RECORDS SUMMARY | 2024-12-22 11:05 | XMS_ITS | Encounter Summary ---
Author Organization [facility] Address [address] [facility] [place] [address] [place] [address] Phone Care Team Providers Care Molder Apprentice Name Role Phone Bonny Lopez MD Primary Care Provider [phone] Reason for Visit * Reason Comments Med Refill Encounter Details Date Type Department Care Team ([facility] Contact Info) Description 07/21/2020 Refill [facility] [address] [facility] [place] [facility] [address] [place] [address] Navin Leon MD Social History [...] [facility] [address] [place] [phone] Earnest Baer MD [address] [facility] [address] [place] [phone] documented as of this encounter Visit Diagnoses Not on filedocumented in this encounter Care Teams Molder Apprentice Relationship Specialty Start Date End Date Bonny Lopez MD [address] [place], [place] [phone] PCP - General Internal Medicine 01/27/21 documented as of this encounter
--- OUTSIDE RECORDS SUMMARY | 2024-12-22 11:05 | XMS_ITS | Encounter Summary ---
Author Organization [facility] Address [address] [facility] 200 [place] [address] Phone Care Team Providers Care Teacher Of The Visually Impaired Name Role Phone Bonny Lopez MD Primary Care Provider Encounter Details Date Type Department Care Team (Late Contact Info) Description 10/10/2023 Office Communication [facility] [address] [place] [address] Earnest Baer MD [address] [address] Social History Tobacco Use Types [...] Visit [facility] [address] [place] [address] Earnest Baer MD [address] [address] documented as of this encounter Visit Diagnoses Not on filedocumented in this encounter Care Teams Teacher Of The Visually Impaired Relationship Specialty Start Date End Date Bonny Lopez MD [address] [place] [address] PCP - General Internal Medicine 01/27/21 documented as of this encounter
--- OUTSIDE RECORDS SUMMARY | 2024-12-22 11:05 | XMS_ITS | Encounter Summary ---
Author Organization [facility] Address [address] [facility] [address] [place] [address] Phone Care Team Providers Care Pigs Feet Finisher Name Role Phone Bonny Lopez MD Primary Care Provider [phone] Reason for Visit * Reason Comments Med Refill Encounter Details Date Type Department Care Team ([facility] Contact Info) Description 07/19/2022 Refill [facility] [address] [facility] [place] [address] [place] [address] Migel Wyman MD Stage 3b [...] Upcoming Encounters Date Type Department Care Team ([facility] Contact Info) Description 03/09/2025 1:45 PM EST Office Visit [facility] [address] [place] [phone] Earnest Baer MD [address] [facility] [address] [place] [address] documented as of this encounter Visit Diagnoses Diagnosis Stage 3b chronic kidney disease (HCC) Hypertensive chronic kidney disease documented in this encounter Care Teams Pigs Feet Finisher Relationship Specialty Start Date End Date Bonny Lopez MD [address] [place], [place] [phone] PCP - General Internal Medicine 01/27/21 documented as of this encounter
[2024-12-22 11:16] LABS: Parathyroid Hormone Intact 100.6 pg/mL (8.7-77.1)
[2024-12-22 11:23] LABS: Microalbum/Creatinine Ratio Ur 26.6 ug/mg cr (<30)
[2024-12-22 11:33] LABS: Syphilis Screen Nonreactive (Nonreactive)
[2024-12-22 11:34] LABS: Alanine Aminotransferase 26 U/L (0-31); Albumin Level 4.1 g/dL (3.5-5.0); Alkaline Phosphatase 50 U/L (39-117); Anion Gap 11 (12-20); Aspartate Amino Transferase 58 U/L (5-31); Blood Urea Nitrogen 64 mg/dL (9-16); Calcium 9.8 mg/dL (8.4-10.2); Carbon Dioxide 33 mmol/L (22-29); Chloride 101 mmol/L (96-108); Cholesterol 164 mg/dL (<200); Estimated Glomerular Filt Rate 17; HDL Cholesterol 54 mg/dL (>40); Iron 72 mcg/dL (30-160); Percent Iron Saturation 29 % (15-50); Potassium 4.0 mmol/L (3.3-5.1); Sodium 141 mmol/L (135-145); Total Iron Binding Capacity 250 mcg/dL (228-428); Total Protein 7.3 g/dL (6.5-8.0); Triglycerides 88 mg/dL (<150); Unsaturated Iron Binding 178 ug/dL
[2024-12-22 11:51] LABS: Folate 4.6 ng/mL (> or = 4.0); Vitamin B12 429 pg/mL (200-900)
[2024-12-23 14:48] LABS: Calcium, Ionized 5.5 mg/dL (4.7-5.5); Lyme Abs Screen <0.90 index
[2024-12-23 21:38] LABS: Anti Nuclear Antibody Pattern Nuclear, Speckled; Anti Nuclear Antibody Screen POSITIVE (NEGATIVE); Anti Nuclear Antibody Titer 1:40 titer
== END 2024-12-22 09:23 | disposition home or self-care (01) ==
LOC: HO.LAB 09:22
PROVIDERS: Absent Provider Nurse Practitioner Family; PCP Internal Medicine; Visit Provider Internal Medicine
DX: I10 Essential (primary) hypertension (principal); E11.65 Type 2 diabetes mellitus with hyperglycemia; N20.0 Calculus of kidney; E21.3 Hyperparathyroidism, unspecified; E55.9 Vitamin D deficiency, unspecified; D64.9 Anemia, unspecified; E53.8 Deficiency of other specified B group vitamins; R41.89 Other symptoms and signs involving cognitive functions and awareness; R51.9 Headache, unspecified; R42 Dizziness and giddiness; R80.9 Proteinuria, unspecified; E78.5 Hyperlipidemia, unspecified; Z79.4 Long term (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; Z01.84 Encounter for antibody response examination
CPT/HCPCS: 36415; 80053; 80061; 82043; 82306; 82330; 82570; 82607; 82746; 83090; 83540; 83921; 83970; 84100; 84207; 84425; 84443; 85025; 85652; 86038; 86039; 86140; 86431; 86617; 86618; 86780

== ENCOUNTER 2024-12-30 10:36 | Outpatient (AMB) | payer OTHER, SELFPAY ==
--- OUTSIDE RECORDS SUMMARY | 2024-11-12 06:00 | XMS_ITS ---
Author Organization [facility] Address [address] [place] [address] Care Team Providers Care Corrugator Operator Helper Name Role Phone Bonny Martinez MD Primary Care Provider Unavail Estevan Ennis Unavailable [phone] Philip Encounters Encounter Location Date Provider Diagnosis [address] [address] 11/12/2024 Estevan Snyder Plan Of Treatment Next Appt Details Provider Name:Estevan Snyder , 01/14/2025 03:45:00 PM, [address] [place] [address], [phone], Progress Notes * Rupali HERNANDEZDOB:[birth year] (79 yo F)Acc No.[id number]:11/12/2024 Progress Note Patient: Chapin KIRKRupali Provider: Lowell Snyder DPM :1945 A ge:79 Y S ex:Female Date:11/12/2024 Address:[address] [place] [address] Pcp:Bonny Martinez MD Subjective: * Chief Complaints: [...] 0 11/12/2024 Generated for Jair Prince on: 12/30/2024 11:53 AM EDT
[2024-12-30 10:39] VITALS: BP 110/36; PULSE 81; TEMP 36.2; O2SAT 94; BMI 25.1
--- NOTE | 2024-12-30 10:39 | MHC.PC.OV ---
Vital Signs 12/30/24 10:39 12/30/24 11:25 Height 5 ft 2 in Weight 137 lb 4 oz BMI 25.1 BP 110/36 L 110/50 L Blood Pressure Location Lt brachial Lt brachial Position Sitting Sitting Pulse 81 Pulse Source Pulse Oximeter Temp 97.1 F Pulse Oximetry (%) 94 Oxygen Delivery Method Room Air Intake Visit Reasons: 4mth f/u Oxidation Operator Required: No Accompanied by: Self / Same As Patient Allergies dulaglutide (Trulicity) Allergy (Intermediate, Verified 12/30/24 11:02) headache, memory loss amlodipine Adverse Reaction (Intermediate, Verified 12/30/24 11:02) leg edema atorvastatin Adverse Reaction (Intermediate, Verified 12/30/24 11:02) dry mouth omeprazole (OMEPRAZOLE) Adverse Reaction (Intermediate, Verified 12/30/24 11:02) N/V; ABDOMINAL PAIN Medication List - Last Reconciled 12/30/24 by Bonny Chavez MD acetaminophen ER 1,300 mg (2 x 650 mg) PO Q8H PRN 30 days alendronate 70 mg PO QWEEK 90 days amitriptyline 10 mg PO BEDTIME 30 days aspirin 81 mg PO DAILY 90 days blood pressure monitor As directed blood sugar diagnostic (OneTouch Ultra Test strips) Uxd 1 test strips four times a day blood sugar diagnostic (FreeStyle Test strips) As directed four times per day blood-glucose meter (OneTouch Ultra2 Meter) As directed calcium carbonate-vitamin D3 500 mg-5 mcg (200 unit) (Oyster Shell Calcium-Vitamin D3) 1 tab PO BID 90 days cholecalciferol (vitamin D3) 25 mcg PO DAILY clonidine HCl mg PO escitalopram oxalate 10 mg PO DAILY 90 days furosemide 20 mg PO BID glucagon 3 mg/actuation (Baqsimi) 3 mg intranasal ONCE glucose 4 grams PO Q15M PRN hydralazine 50 mg PO TID 30 days [incontinence wipes As directed] insulin degludec (Tresiba FlexTouch U-100 insulin) 20 units (0.2 mL) subcut BEDTIME 90 days insulin glargine (Lantus Solostar U-100 Insulin) 20 units (0.2 mL) subcut QAM insulin lispro (Humalog KwikPen (U-100) Insulin) 2 - 4 units (0.02 - 0.04 mL) subcut TID 90 days lactulose 10 grams (15 mL) PO DAILY PRN 30 days lancets (OneTouch UltraSoft 2 Lancet) Uxd 1 lancet four times a day lancets (FreeStyle Lancets) As directed linagliptin (Tradjenta) 5 mg PO DAILY 30 days lisinopril 20 mg PO DAILY loratadine 10 mg PO DAILY magnesium oxide 400 mg PO BEDTIME 90 days metoprolol succinate ER 100 mg PO DAILY pantoprazole 40 mg PO DAILY pen needle, diabetic (Comfort EZ Pen Sparkman) As directed -injects 5 X/day pen needle, diabetic (UltiCare Pen Needle) As directed pyridoxine (vitamin B6) 100 mg PO DAILY 90 days riboflavin (vitamin B2) 400 mg PO DAILY 30 days simvastatin 40 mg PO BEDTIME 90 days Ventolin HFA 90 mcg/actuation (albuterol sulfate) 2 puffs inhalation Q6H PRN 30 days NS Tobacco use date assessed: 12/30/24 Fall risk assessment: No Falls in past year Last assessed Fall Risk: 12/30/24 Dental Screening Dental Screen Date: 12/30/24 Did you have a dental visit in the last 12 months?: Yes Did you have a dental problem in the last 6 months where you did not have access to dental care?: No Was dental information given to patient?: Patient has dentist HPI HPI Comments History of Present Illness Details The patient is an 79-year-old female presenting with the management of chronic conditions including chronic kidney disease, diabetes mellitus, hypertension, and osteoporosis. The patient's renal function has deteriorated, with the glomerular filtration rate (GFR) decreasing from 42 to 17, indicating a significant decline in kidney function. She is under the care of a song plugger and avoids using ibuprofen to prevent further renal damage. The patient has a history of diabetes mellitus and has experienced issues with insulin management, requiring a switch to Lantus insulin due to inefficacy of previous insulin therapy. Her blood glucose levels were reportedly high, necessitating the use of her 's Lantus insulin, which proved effective. Hypertension is managed with multiple antihypertensive medications, including hydralazine, which was recently adjusted from 50 mg to 25 mg due to low blood pressure readings. The patient reports dizziness associated with clonidine, leading to its discontinuation. The patient is also being treated for osteoporosis with alendronate and supplements including calcium and vitamin D. Hyperlipidemia is managed with atorvastatin, and recent cholesterol levels were stable compared to previous measurements. Preventative care measures include a pneumonia vaccination, which was administered during the visit. [facility] Medical History Easy bruising OA (osteoarthritis) GERD (gastroesophageal reflux disease) Uncontrolled type 2 diabetes mellitus with hyperglycemia Renal stones Generalized abdominal pain HTN (hypertension) Elevated blood pressure reading Female pelvic pain Chest discomfort Secondary hypertension Angina at rest Constipation Acute back pain Arthritis of knee Osteoporosis KEYONNA (generalized anxiety disorder) Mild recurrent major depression GERD (gastroesophageal reflux disease) Anemia B12 deficiency Diabetic nephropathy associated with type 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 Hypertension termination clerk (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 Pure hypercholesterolemia Hypovitaminosis D Depression Long-term use of aspirin therapy Diabetes mellitus Surgical History Hx of colonoscopy Hx of cataract removal with insertion of prosthetic lens Hx of lithotripsy History of total abdominal hysterectomy Family History Father Hypertension Diabetes Mother Diabetes Social History Housing: Apartment Alcohol intake: never Patient Tobacco Use Status: Never used Tobacco e-Cigarette/Vaping Use: Never Used Second Hand Smoke Exposure: No service: No Current occupational status: disabled Cognitive needs: Yes (cane ) Hearing needs: No Vision needs: No Questionnaire Thrive Questionnaire Date Thrive assessed: 08/21/24 I am a: Patient What is your living situation today?: I have a steady place to live Within the past 12 months, did the food you bought not last and you didn't have the money to get more?: Never true Within the past 12 months, did you worry whether your food would run out before you got money to buy more?: Never true Do you have trouble paying for medicines?: No Do you have trouble getting transportation to medical appointments?: No Do you have trouble paying your heating and electricity bill?: No Do you have trouble taking care of your child, family member or friend?: No Do you have trouble with day-to-day activities such as bathing, preparing meals, shopping, managing finances, etc.?: Yes Are you currently unemployed and looking for a job?: No Are you interested in more education?: No Please select the resources that you would like help with: None Currently or been in a relationship where the following occur: No concerns reported THRIVE Score: 0 AUDIT C Alcohol Use Questionnaire (AUDIT-C) 1. How often do you have a drink containing alcohol?: Never 3. How often do you have six or more drinks on one occasion?: Never Total Score: 0 Score Reviewed/Action Taken: No KEYONNA-7 AMB Questionnaire KEYONNA-7 Date KEYONNA - 7 assessed: 04/09/24 Source: Developed by Drs. Jerry Abdi, Cate Young, Raymond De La O and colleagues, with an educational keely from [employer]. Review of Systems Const All systems reviewed & are unremarkable except as noted in HPI and below Card Denies chest pain at rest, Denies chest pain with activity, Denies edema, Denies irregular heart rhythm, Denies claudication, Denies dyspnea, Denies dyspnea on exertion, Denies orthopnea, Denies paroxysmal nocturnal dyspnea and Denies slow heart rate Resp Denies cough, Denies dyspnea and Denies dyspnea on exertion GI Denies abdominal pain, Denies change in bowel habits, Denies excessive flatus, Denies nausea and Denies vomiting Neuro Denies lack of coordination Physical exam (Primary Care) Vital Signs: Last Vital Signs Temp 97.1 F 12/30/24 10:39 Pulse 81 12/30/24 10:39 BP 110/50 L 12/30/24 11:25 Pulse Ox 94 12/30/24 10:39 Oxygen Delivery Method Room Air 12/30/24 10:39 BMI result Body Mass Index 25.1 Tobacco/Smoking Status: Tobacco use Status Tobacco use date assessed 12/30/24 12/30/24 10:42 Patient Tobacco Use Status Never used Tobacco 12/30/24 10:42 e-Cigarette/Vaping Use Never Used 12/30/24 10:42 Thrive Assessment: Date of Thrive Assessment Date Thrive assessed 08/21/24 12/30/24 10:42 Currently or been in a relationship where the following occur: No concerns reported Resp Effort & Inspection: normal respiratory effort Auscultation: clear to auscultation bilaterally Cardio Jugular venous distension: no JVD Rate: regular rate Rhythm: regular rhythm Heart sounds: S1 normal heart sound present and S2 normal heart sound present Extrem General: Yes full ROM Results AMB Hemoglobin A1c AMB Hemoglobin A1c 6.2 % Last Edit by Candie Gr MA on 12/30/24 11:50 Immunizations pneumoc 20-coirne conj-dip cr(PF) 0.5 mL IM syringe Performing Provider: Bonny Chavez MD Performing Location: [facility] Administered by: NADEGE Georges on 12/30/24 11:24 Dose Route Admin Location Dispensed Lot Number Expiration Date NDC Commercial Artist Lettering 0.5 mL IM Right Deltoid 0.5 mL [id number] 12/01/25 0614-9522-90 [facility] Total Dispensed Waste 0.5 mL 0 % VIS Given Date VIS Provided VIS Publication Date 12/30/24 Single Vaccine 24 Eligibility Eligibility Date Funding Source Not [facility] Eligible 12/30/24 Private Coding Level of Care Code Est Pt Level 4 (80075) Complex EM visit Add On G2211 Diagnoses Essential hypertension I10 Pure hypercholesterolemia E78.00 Type 2 diabetes mellitus with hyperglycemia, with long-term current use of insulin E11.65; Z79.4 Diabetes mellitus type: type 2 Diabetes mellitus long wall mining machine helper insulin use: with long wall mining machine helper use Diabetes mellitus complication status: with hyperglycemia Hyperparathyroidism E21.3 CKD (chronic kidney disease) stage 4, GFR 15-29 ml/min N18.4 Time Spent (min) 24 Assessment & Plan Assessment & Plan (1) Essential hypertension: Code(s): I10 - Essential (primary) hypertension Category: Medical (2) Pure hypercholesterolemia: Code(s): E78.00 - Pure hypercholesterolemia, unspecified Category: Medical (3) Diabetes mellitus: Code(s): E11.9 - Type 2 diabetes mellitus without complications Category: Medical Qualifiers: Diabetes mellitus type: type 2 Diabetes mellitus senior care insulin use: with senior care use Diabetes mellitus complication status: with hyperglycemia Qualified Code(s): E11.65 - Type 2 diabetes mellitus with hyperglycemia; Z79.4 - intermediate (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 (4) Hyperparathyroidism: Code(s): E21.3 - Hyperparathyroidism, unspecified Category: Medical (5) CKD (chronic kidney disease) stage 4, GFR 15-29 ml/min: Code(s): N18.4 - Chronic kidney disease, stage 4 (severe) Category: Medical Plan Plan Patient was informed and verbally consented to the use of an ambient scribe for clinic note documentation during this visit. 1. Chronic Kidney Disease The patient's chronic kidney disease is being monitored by a song plugger, with a significant decline in GFR from 42 to 17 noted. She is advised to avoid nephrotoxic medications such as ibuprofen to prevent further deterioration. 2. Diabetes Mellitus The patient has switched to Lantus insulin due to inefficacy of previous insulin therapy, which has improved her blood glucose control. 3. Hypertension Hypertension management includes multiple antihypertensive medications, with hydralazine dosage adjusted from 50 mg to 25 mg due to low blood pressure readings. Clonidine was discontinued due to dizziness. 4. Osteoporosis Osteoporosis is managed with alendronate and supplements including calcium and vitamin D. 5. Hyperlipidemia Hyperlipidemia is managed with atorvastatin, with stable cholesterol levels noted. 6. Preventative Care: Pneumonia Vaccination The patient received a pneumonia vaccination during the visit as part of her preventative care measures. Orders: Orders AMB Hemoglobin A1c Today Z13.9 - Encounter for screening, unspecified Pneumococcal 20 Immunization Today Z23 - Encounter for immunization Medications: New hydralazine 25 mg PO TID 270 tabs 1RF 90 days Refilled insulin glargine (Lantus Solostar U-100 Insulin) 20 units (0.2 mL) subcut QAM 45 mL 5RF Discontinued hydralazine Discontinued Reason: Patient Completed Course 50 mg PO TID 30 days 90 tabs 1RF I10 - Essential (primary) hypertension insulin degludec (Tresiba FlexTouch U-100 insulin) Discontinued Reason: Patient Completed Course 20 units (0.2 mL) subcut BEDTIME 90 days 18 mL 3RF E11.65 - Type 2 diabetes mellitus with hyperglycemia, Z79.4 - intermediate (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
[2024-12-30 11:25] VITALS: BP 110/50
--- OUTSIDE RECORDS SUMMARY | 2024-12-30 11:53 | XMS_ITS | Encounter Summary ---
Author Organization [facility] Address [address] [facility] [address] [place] [address] Phone Care Team Providers Care Voice Over Artist Name Role Phone Bonny Lopez MD Primary Care Provider [phone] Reason for Visit * Reason Comments Med Refill Encounter Details Date Type Department Care Team ([facility] Contact Info) Description 08/16/2022 Refill [facility] [place] [facility] [address] [place] [address] Migel Wyman MD Stage 3b [...] Upcoming Encounters Date Type Department Care Team ([facility] Contact Info) Description 03/09/2025 1:45 PM EST Office Visit [facility] [address] [place] [phone] Earnest Baer MD [address] [facility] [address] [place] [address] documented as of this encounter Visit Diagnoses Diagnosis Stage 3b chronic kidney disease (HCC) Hypertensive chronic kidney disease documented in this encounter Care Teams Voice Over Artist Relationship Specialty Start Date End Date Bonny Lopez MD [address] [place], [place] [phone] PCP - General Internal Medicine 01/27/21 documented as of this encounter
--- OUTSIDE RECORDS SUMMARY | 2024-12-30 11:53 | XMS_ITS | Clinical Summary ---
Author Organization [facility] Address [address] [facility] [address] [place] [address] Phone Care Team Providers Care Hvac Service Manager Name Role Phone Bonny Lopez MD Primary Care Provider [phone] Allergies Active Allergy Reactions Criticality Noted Date [...] BY MOUTH ONCE DAILY 28 tablet 5 12/29/19 25 Discontinued furosemide (LASIX) 20 MG tabletIndicati ons:Stage 3b chronic kidney disease (HCC),Hyperten sive chronic kidney disease TAKE 2 TABLETS BY MOUTH ONCE DAILY. 56 tablet 5 12/29/19 25 Discontinued cloNIDine (CATAPRES) 0.1 MG tablet TAKE 1 TABLET BY MOUTH TWICE DAILY IN THE MORNING AND EVENING. 60 tablet 5 12/29/19 25 Discontinued hydrALAZINE 50 MG tablet TAKE 1 TABLET BY MOUTH THREE TIMES A DAY 84 tablet 5 12/29/19 25 Discontinued Active Problems Problem Noted Date [...] Encounters Date Type Department Care Team Description 12/24/2024 Refill [facility] [address] [place] [address] Earnest Baer MD Stage 3b chronic kidney disease (HCC); Hypertensive chronic kidney disease 11/20/2024 Refill [facility] [address] [place] [address] Earnest Baer MD Stage 3b chronic kidney disease (HCC); Hypertensive chronic kidney disease 10/29/2024 Refill [facility] [address] [place] [address] Earnest Baer MD Stage 3b chronic kidney disease (HCC); Hypertensive chronic kidney disease 10/07/2024 Refill [facility] [address] [place] [address] Earnest Baer MD Stage 3b chronic kidney [...] [facility] [address] [place] [address] Earnest Baer MD [address] [facility] [address] [place] [address] Health Maintenance Due Date Last Done Comments [...] patient's age to complete this topic Insurance [facility] ([id number]) [facility] ([id number]) [place] [id number] Care Teams Hvac Service Manager Relationship Specialty Start Date End Date Bonny Lopez MD [address] [place] [address] PCP - General Internal Medicine 01/27/21
--- OUTSIDE RECORDS SUMMARY | 2024-12-30 11:53 | XMS_ITS | Encounter Summary ---
Author Organization [facility] Address [address] [facility] 200 [place] [address] Phone Care Team Providers Care Airport Manager Name Role Phone Bonny Lopez MD Primary Care Provider [phone] Reason for Visit * Reason Comments Med Refill Encounter Details Date Type Department Care Team ([facility] Contact Info) Description 12/24/2024 Refill [facility] [address] [facility] [facility] 200 [place] [address] Earnest Baer MD [address] [address] Stage 3b chronic kidney disease (HCC); Hypertensive [...] Upcoming Encounters Date Type Department Care Team ([facility] Contact Info) Description 03/09/2025 1:45 PM EST Office Visit [facility] [address] [place] [address] Earnest Baer MD [address] [address] documented as of this encounter Visit Diagnoses Diagnosis Stage 3b chronic kidney disease (HCC) Hypertensive chronic kidney disease documented in this encounter Care Teams Airport Manager Relationship Specialty Start Date End Date Bonny Lopez MD [address] [place] [address] PCP - General Internal Medicine 01/27/21 documented as of this encounter
--- OUTSIDE RECORDS SUMMARY | 2024-12-30 11:53 | XMS_ITS | Patient Health Record ---
Author Organization [facility] Address [address] [place] [address] Care Team Providers Care Roll Filler Name Role Phone Juan CURTIS, Bonny Primary Care Provider Unavail able Estevan Snyder Unavailable [phone] Allergies No Known Allergies Results Component Value [...] Problem Acquired hammer toe of right foot (1611087639133 105) Other hammer toe(s) (acquired), right foot (M20.41) Active confirmed Problem Acquired hammer toe of left foot (7095415486167 103) Other hammer toe(s) (acquired), left foot (M20.42) Active confirmed Problem Type 2 diabetes mellitus with peripheral angiopathy (878935708) Type 2 diabetes mellitus with diabetic peripheral angiopathy without gangrene (E11.51) Active confirmed Q7(A), Q8(2B), Q9(1B,2C) Vital Signs Height 5ft 1in in 08/11/2024 Weight 144 lbs 08/11/2024 BMI 27.21 kg/m2 08/11/2024 Procedures Procedure Date Ordered Date Performed Result Body Sit e 48517-GFULTJH NAIL, 1-5 08/11/2024 N/A 90998-[id number] SKIN LESIONS, 2 TO 4 08/11/2024 N/A [id number] DYSTROPHIC NAILS ANY # 08/11/2024 N/A Encounters Encounter Location Date Provider Diagnosis [facility] [place] [address] [place] [address] 08/11/2024 Estevan Snyder Type 2 diabetes mellitus [...] Treatment Pending Test Test Name Order Date [id number] NAIL, 1-5 08/11/2024 [id number] SKIN LESIONS, 2 TO 4 08/12/19 25 [id number] DYSTROPHIC NAILS ANY # Next Appt Details Provider Name:Estevan Patt Snyder , 01/14/2025 03:45:00 PM, [address] [facility], [place], [address], Insurance Providers Payer Name Payer Address Payer Phone Subscriber Number Group Number Insured Name Patient Relationship to Insured Coverage Start Date Coverage End Date [facility] [employer] Claims [address] [place] [id number] Rupali Freeman Self - patient is the insured Medical (General) History Medical History History ICD Code Diabetic Headaches/Migraines High Blood Pressure Osteoporosis
--- OUTSIDE RECORDS SUMMARY | 2024-12-30 11:53 | XMS_ITS | Encounter Summary ---
Author Organization [facility] Address [address] [facility] 200 [place] [address] Phone Care Team Providers Care Hoist Cylinder Loader Name Role Phone Bonny Lopez MD Primary Care Provider Reason for Visit * Reason Comments Med Refill Encounter Details Date Type Department Care Team ([facility] Contact Info) Description 07/19/2022 Refill [facility] [place] [facility] 200 [place] [address] Migel Wyman MD Stage 3b [...] Upcoming Encounters Date Type Department Care Team ([facility] Contact Info) Description 03/09/2025 1:45 PM EST Office Visit [facility] [address] [place] [address] Earnest Baer MD [address] [facility] 204 [place] [address] documented as of this encounter Visit Diagnoses Diagnosis Stage 3b chronic kidney disease (HCC) Hypertensive chronic kidney disease documented in this encounter Care Teams Hoist Cylinder Loader Relationship Specialty Start Date End Date Bonny Lopez MD [address] [place], [place] [phone] PCP - General Internal Medicine 01/27/21 documented as of this encounter
--- OUTSIDE RECORDS SUMMARY | 2024-12-30 11:53 | XMS_ITS | Encounter Summary ---
Author Organization [facility] Address [address] [facility] [place] [facility] 200 [place] [address] Phone Care Team Providers Care Commercial Driver Name Role Phone Bonny Lopez MD Primary Care Provider [phone] Reason for Visit * Reason Comments Med Refill Encounter Details Date Type Department Care Team ([facility] Contact Info) Description 07/21/2020 Refill [facility] [place] [facility] 200 [place] [address] Navin Leon MD Social History [...] Department Care Team ([facility] Contact Info) Description 03/09/2025 1:45 PM EST Office Visit [facility] [address] [place] [place] [phone] Earnest Baer MD [address] [facility] 204 [place] [address] documented as of this encounter Visit Diagnoses Not on filedocumented in this encounter Care Teams Commercial Driver Relationship Specialty Start Date End Date Bonny Lopez MD [address] [place], [place] [phone] PCP - General Internal Medicine 01/27/21 documented as of this encounter
--- OUTSIDE RECORDS SUMMARY | 2024-12-30 11:53 | XMS_ITS | Encounter Summary ---
Author Organization [facility] Address [address] [facility] 200 [place] [address] Phone Care Team Providers Care Dogger Name Role Phone Bonny Lopez MD Primary Care Provider [phone] Encounter Details Date Type Department Care Team (Late Contact Info) Description 10/10/2023 Office Communication [facility] [address] [place] [address] Earnest Baer MD [address] [address] Social History Tobacco Use Types [...] Visit [facility] [address] [place] [place] [address] Earnest Baer MD [address] [address] documented as of this encounter Visit Diagnoses Not on filedocumented in this encounter Care Teams Dogger Relationship Specialty Start Date End Date Bonny Lopez MD [address] [place] [address] PCP - General Internal Medicine 01/27/21 documented as of this encounter
--- OUTSIDE RECORDS SUMMARY | 2024-12-30 11:53 | XMS_ITS | Clinical Summary ---
Author Organization [employer] Address [address] [facility] 7t [place] [address] Care Team Providers Care Paint Tinter Name Role Phone Unavailable Primary Care Provider [...] Description 12/31/2024 10:00 AM EDT Office Visit [facility] [address] [place], [place] [phone] Sis Knox [address] [place] [address] Health Maintenance Due Date Last Done [...] Most Recently [place] [address] [place] [address] [place] [address] [facility] [place] [address] [place] [address]
--- OUTSIDE RECORDS SUMMARY | 2024-12-30 11:53 | XMS_ITS | Encounter Summary ---
Author Organization [facility] Address [address] [facility] [address] [place] [address] Encounters * CPT with Medical instED at [facility] on 2024-12-25 { reasonForRequest : Patient has a sore throat, and red in her throat area. ,&qu ot;patientReports : , denies :[ Increased work of breathing/labored with or without fever , Unable to speak in full sentences without distress , Discoloration of skin -cyanosis , Needs to sleep sitting up, can t catch breath ,"Shortness of breath in setting of confusion , Cough, fever greater than 2 days , History of asthma, increased use of inhaler , COPD , Cough , Shortness of breath with exertion ], chiefComplaints : Common Cold, Sore Throat", pmh : Diabetes Mellitus Type 2, Hypertension , allergies : No Known Drug Allergies , otherAllergies : , painAssessment :&quot ; , visitOutcome : , additionalComments : 79 y.o female complains of Common Cold, Sore Throat\n\[facility] calling for mother with sore throat and headaches for 3 days, no cough , fever or chills, no nausea or vomiting. \nShe denies any shortness of breath. \nThe throat is red but she does have white but she was unsure if it was her tongue or patches. \nShehas been taking tylenol but has not helped. \nShe has been drinking and trying to eat \nI provided information on the mobile health provider response time and advised the patient and/or caregiver to monitor reported signs and symptoms. I discussed the warning signs of when to seek emergency care."} SC1 sent to the above address for the pt reporting a headache and also a sore throat. Upon arrival the pt was met at the door. 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 The pt was tested for Covid,Flu, and strep and she was negative for all. The pt has been hydrating with water and Gatorade and her appetite has been normal. Dr Kennedy was contacted and the pictures of the results and the pt throat was also shown. The pts lungs were clear bilaterally and she denied any shortness of breath. Dr Kennedy advised she probably has a virus and to take Tylenolfor the headache and sore throat. The pt understood these instructions. The warning signs, chest pain, severe shortness of breath, syncope, fever, altered mental status to call 911 and go to the ED. The pt understood these instructions and then SC1 cleared the call. WRR. IV_(FLUIDS_AND/OR_MEDICATION), MEDICATION_IM, ORAL_MEDICATION, EKG, POC_BLOODWORK, POC_FLU_STREP, COVID_TEST Written by Medical instED on 2024-12-25
--- OUTSIDE RECORDS SUMMARY | 2024-12-30 11:53 | XMS_ITS | Encounter Summary ---
Author Organization [facility] Address 100 [facility] 200 [place] [address] Phone Care Team Providers Care Camelid Fiber Sorter Name Role Phone Bonny Lopez MD Primary Care Provider [phone] Reason for Visit * Reason Comments Med Refill Encounter Details Date Type Department Care Team ([facility] Contact Info) Description 09/13/2022 Refill [facility] [address] [facility] [place] [facility] 200 [place] [address] Migel Wyman MD Stage 3b [...] Date Type Department Care Team ([facility] Contact Info) Description 03/09/2025 1:45 PM EST Office Visit [facility] [address] [place] [phone] Earnest Baer MD [address] [facility] 204 [place] [address] documented as of this encounter Visit Diagnoses Diagnosis Stage 3b chronic kidney disease (HCC) Hypertensive chronic kidney disease documented in this encounter Care Teams Camelid Fiber Sorter Relationship Specialty Start Date End Date Bonny Lopez MD [address] [place], [place] [phone] PCP - General Internal Medicine 01/27/21 documented as of this encounter
--- OUTSIDE RECORDS SUMMARY | 2024-12-30 11:53 | XMS_ITS | Continuity of Care Document ---
Author Name [facility], Medical Address [address] [place] [address] Organization Unknown Address [address] [place] [address] Medications No known medications Problems No known problems
== END 2024-12-30 11:26 | disposition home or self-care (01) ==
LOC: HO.HMCH 10:37
PROVIDERS: PCP Internal Medicine; Visit Provider Internal Medicine
DX: I12.9 Hypertensive chronic kidney disease with stage 1 through stage 4 chronic kidney disease, or unspecified chronic kidney disease (principal); E11.65 Type 2 diabetes mellitus with hyperglycemia; Z79.4 Long term (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; N18.4 Chronic kidney disease, stage 4 (severe); E78.00 Pure hypercholesterolemia, unspecified; E21.3 Hyperparathyroidism, unspecified; Z23 Encounter for immunization

== ENCOUNTER → 2024-12-30 10:36 | Outpatient (BNVA) | payer OTHER, SELFPAY | PROVIDERS: PCP Internal Medicine; Visit Provider Internal Medicine | DX: E11.22 Type 2 diabetes mellitus with diabetic chronic kidney disease (principal); E11.65 Type 2 diabetes mellitus with hyperglycemia; I12.9 Hypertensive chronic kidney disease with stage 1 through stage 4 chronic kidney disease, or unspecified chronic kidney disease; N18.4 Chronic kidney disease, stage 4 (severe); M81.0 Age-related osteoporosis without current pathological fracture; E78.00 Pure hypercholesterolemia, unspecified; E21.3 Hyperparathyroidism, unspecified; Z23 Encounter for immunization; Z79.4 Long term (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 | CPT/HCPCS: 83036; 90471; 90677; 99212 ==

== ENCOUNTER 2025-01-05 13:02 | Outpatient (REF) | payer OTHER, SELFPAY ==
--- OUTSIDE RECORDS SUMMARY | 2024-11-12 06:00 | XMS_ITS ---
Author Organization [facility] Address [address] [place] [address] Care Team Providers Care Concrete Pouring Supervisor Name Role Phone Bonny Martinez MD Primary Care Provider Unavail Estevan Ennis Unavailable [phone] Philip Encounters Encounter Location Date Provider Diagnosis [address] [address] 11/12/2024 Estevan Snyder Plan Of Treatment Next Appt Details Provider Name:Estevan Snyder , 01/14/2025 03:45:00 PM, [address] [place] [address], [phone], Progress Notes * Rupali HERNANDEZDOB:[birth year] (79 yo F)Acc No.[id number]:11/12/2024 Progress Note Patient: Chapin KIRKRupali Provider: Lowell Snyder DPM :1945 A ge:79 Y S ex:Female Date:11/12/2024 Address:[address] [place] [address] Pcp:Bonny Martinez MD Subjective: * Chief Complaints: [...] 0 11/12/2024 Generated for Jair Prince on: 03:21 PM EDT
--- NOTE | ~2025-01-05 | US_ITS ---
EXAMINATION: US RETROPERITONEAL LIMITED (RENAL ONLY) CLINICAL INFORMATION: Previous KUB most recent July 2024 and renal ultrasound most recently May 2024. COMPARISON: None available. TECHNIQUE: Real-time imaging of the kidneys. FINDINGS: RIGHT KIDNEY: 9.5 x 4.9 x 4.3 cm (SAG x AP x TRV). The kidney is normal in size, contour, and echogenicity. Renal cortical thickness is normal. No calculi or focal parenchymal lesions. No hydronephrosis. LEFT KIDNEY: 9.4 x 4.9 x 4.7. cm (SAG x AP x TRV). The kidney is normal in size, contour, and echogenicity. Renal cortical thickness is normal. 2 stones measuring 4 mm in the upper and lower pole. No focal parenchymal lesions. No hydronephrosis. US/US renal BI IMPRESSION: Left renal stones. Normal right kidney. Electronically signed by: Nita Torres MD 01/05/2025 01:46 PM EDT
--- OUTSIDE RECORDS SUMMARY | 2025-01-05 15:21 | XMS_ITS | Encounter Summary ---
Author Organization [facility] [place] Address [address] [facility] 200 [place] [address] Phone Care Team Providers Care Cosmetic Consultant Name Role Phone Bonny Lopez MD Primary Care Provider [phone] Encounter Details Date Type Department Care Team (Late Contact Info) Description 10/10/2023 Office Communication [facility] [address] [place] [address] Earnest Baer MD [address] [address] Social History Tobacco Use Types [...] Visit [facility] [address] [place] [address] Earnest Baer MD [address] [address] documented as of this encounter Visit Diagnoses Not on filedocumented in this encounter Care Teams Cosmetic Consultant Relationship Specialty Start Date End Date Bonny Lopez MD [address] [place] [address] PCP - General Internal Medicine 01/27/21 documented as of this encounter
--- OUTSIDE RECORDS SUMMARY | 2025-01-05 15:21 | XMS_ITS | Clinical Summary ---
Author Organization [employer] Address [address] [employer] 7t [place] [address] Care Team Providers Care Vehicle Return Associate Name Role Phone Unavailable Primary Care Provider [...] Mass Index - - Plan of Treatment Health Maintenance Due Date Last Done Comments Dental X-Ray: Bitewings 1945 Depression Screening 1945 Lipid Panel 1945 SDOH Screening 1943 Alcohol/Substance Use Screening 1955 DTaP/Tdap/Td Vaccines (1 - Tdap) 08/06/1962 Pneumococcal Vaccine: 50+ Years (2 of 2 - PCV) 07/06/2017 07/06/2016, 09/19/2015 Zoster Vaccines (2 of 2) 10/17/2023 08/22/2023 COVID-19 Vaccine (5 - season) 2024 03/08/2022, 11/29/2021, 03/07/2021, Additional [...] Most Recently Relevant to Health Maintenance Insurance [facility] < [address] [facility]
--- OUTSIDE RECORDS SUMMARY | 2025-01-05 15:21 | XMS_ITS | Encounter Summary ---
Author Organization [facility] [place] Address [address] [facility] 200 [place] [address] Phone Care Team Providers Care Agricultural Research Engineer Name Role Phone Bonny Lopez MD Primary Care Provider [phone] Reason for Visit * Reason Comments Med Refill Encounter Details Date Type Department Care Team ([facility] Contact Info) Description 12/24/2024 Refill [facility] [address] [facility] 200 [place] [address] Earnest Baer MD [address] [address] Stage 3b chronic kidney disease [...] Upcoming Encounters Date Type Department Care Team ([facility] Contact Info) Description 03/09/2025 1:45 PM EST Office Visit [facility] [address] [place] [address] Earnest Baer MD [address] [address] documented as of this encounter Visit Diagnoses Diagnosis Stage 3b chronic kidney disease (HCC) Hypertensive chronic kidney disease documented in this encounter Care Teams Agricultural Research Engineer Relationship Specialty Start Date End Date Bonny Lopez MD [address] [place] [address] PCP - General Internal Medicine 01/27/21 documented as of this encounter
--- OUTSIDE RECORDS SUMMARY | 2025-01-05 15:21 | XMS_ITS | Encounter Summary ---
Author Organization [facility] [place] Address 100 [facility] [place] [facility] 200 [place] [address] Phone Care Team Providers Care Editor City Name Role Phone Bonny Lopez MD Primary Care Provider [phone] Reason for Visit * Reason Comments Med Refill Encounter Details Date Type Department Care Team ([facility] Contact Info) Description 07/21/2020 Refill [facility] [place] [facility] 200 [place] [address] Navin Leon MD Social History [...] Upcoming Encounters Date Type Department Care Team ([facility] Contact Info) Description 03/09/2025 1:45 PM EST Office Visit [facility] [address] [place] [phone] Earnest Baer MD [address] [facility] 204 [place] [address] documented as of this encounter Visit Diagnoses Not on filedocumented in this encounter Care Teams Editor City Relationship Specialty Start Date End Date Bonny Lopez MD [address] [place], [place] [phone] PCP - General Internal Medicine 01/27/21 documented as of this encounter
--- OUTSIDE RECORDS SUMMARY | 2025-01-05 15:21 | XMS_ITS | Patient Health Record ---
Author Organization [facility] Address [address] [place] [address] Care Team Providers Care Warehouse Administrative Assistant Name Role Phone Juan CURTIS, Bonny Primary Care Provider Unavail able Estevan Snyder Unavailable [phone] Allergies No Known Allergies Results Component Value [...] Problem Acquired hammer toe of right foot (8862699875630 105) Other hammer toe(s) (acquired), right foot (M20.41) Active confirmed Problem Acquired hammer toe of left foot (3240712385621 103) Other hammer toe(s) (acquired), left foot (M20.42) Active confirmed Problem Type 2 diabetes mellitus with peripheral angiopathy (393394447) Type 2 diabetes mellitus with diabetic peripheral angiopathy without gangrene (E11.51) Active confirmed Q7(A), Q8(2B), Q9(1B,2C) Vital Signs Height 5ft 1in in 08/11/2024 Weight 144 lbs 08/11/2024 BMI 27.21 kg/m2 08/11/2024 Procedures Procedure Date Ordered Date Performed Result Body Sit e [id number]-[id number] NAIL, 1-5 08/11/2024 N/A 67326-ZAZI SKIN LESIONS, 2 TO 4 08/11/2024 N/A [id number] DYSTROPHIC NAILS ANY # 08/11/2024 N/A Encounters Encounter Location Date Provider Diagnosis [facility] [place] [address] [place] [address] 08/11/2024 Estevan Snyder Type 2 diabetes mellitus [...] Treatment Pending Test Test Name Order Date [id number] NAIL, 1-5 08/11/2024 [id number]-GJPI SKIN LESIONS, 2 TO 4 08/12/19 25 [id number] DYSTROPHIC NAILS ANY # Next Appt Details Provider Name:Estevan Patt Snyder , 01/14/2025 03:45:00 PM, [address] [facility] [address], [place], [address], Insurance Providers Payer Name Payer Address Payer Phone Subscriber Number Group Number Insured Name Patient Relationship to Insured Coverage Start Date Coverage End Date [facility] [employer] Claims [address] [place] [id number] Rupali Freeman Self - patient is the insured Medical (General) History Medical History History ICD Code Diabetic Headaches/Migraines High Blood Pressure Osteoporosis
--- OUTSIDE RECORDS SUMMARY | 2025-01-05 15:21 | XMS_ITS | Encounter Summary ---
Author Organization [facility] [place] Address 100 [facility] 200 [place] [address] Phone Care Team Providers Care Hr Generalist Name Role Phone Bonny Lopez MD Primary Care Provider [phone] Reason for Visit * Reason Comments Med Refill Encounter Details Date Type Department Care Team ([facility] Contact Info) Description 07/19/2022 Refill [facility] [place] [facility] 200 [place] [address] Migel Wyman MD Stage 3b [...] Upcoming Encounters Date Type Department Care Team ([facility] Contact Info) Description 03/09/2025 1:45 PM EST Office Visit [facility] [address] [place] [phone] Earnest Baer MD [address] [facility] 204 [place] [address] documented as of this encounter Visit Diagnoses Diagnosis Stage 3b chronic kidney disease (HCC) Hypertensive chronic kidney disease documented in this encounter Care Teams Hr Generalist Relationship Specialty Start Date End Date Bonny Lopez MD [address] [place], [place] [phone] PCP - General Internal Medicine 01/27/21 documented as of this encounter
--- OUTSIDE RECORDS SUMMARY | 2025-01-05 15:21 | XMS_ITS | Encounter Summary ---
Author Organization [facility] Address 100 [facility] [place] [facility] 200 [place] [address] Phone Care Team Providers Care Sustainability Project Coordinator Name Role Phone Bonny Lopez MD Primary Care Provider [phone] Reason for Visit * Reason Comments Med Refill Encounter Details Date Type Department Care Team ([facility] Contact Info) Description 09/13/2022 Refill [facility] [place] [facility] 200 [place] [address] Migel Wyman MD Stage 3b [...] Encounters Date Type Department Care Team ([facility] Contact Info) Description 03/09/2025 1:45 PM EST Office Visit [facility] [address] [place] [address] Earnest Baer MD [address] [facility] 204 [place] [address] documented as of this encounter Visit Diagnoses Diagnosis Stage 3b chronic kidney disease (HCC) Hypertensive chronic kidney disease documented in this encounter Care Teams Sustainability Project Coordinator Relationship Specialty Start Date End Date Bonny Lopez MD [address] [place], [place] [phone] PCP - General Internal Medicine 01/27/21 documented as of this encounter
--- OUTSIDE RECORDS SUMMARY | 2025-01-05 15:21 | XMS_ITS | Encounter Summary ---
Author Organization [facility] Address [address] [facility] [address] [place] [address] Phone Care Team Providers Care Ware Finisher Name Role Phone Bonny Lopez MD Primary Care Provider [phone] Reason for Visit * Reason Comments Med Refill Encounter Details Date Type Department Care Team ([facility] Contact Info) Description 08/16/2022 Refill [facility] [address] [facility] 200 [place] [address] Migel Wyman MD Stage 3b [...] Upcoming Encounters Date Type Department Care Team ([facility] Contact Info) Description 03/09/2025 1:45 PM EST Office Visit [facility] [address] [place] [phone] Earnest Baer MD [address] [facility] [address] [place] [address] documented as of this encounter Visit Diagnoses Diagnosis Stage 3b chronic kidney disease (HCC) Hypertensive chronic kidney disease documented in this encounter Care Teams Ware Finisher Relationship Specialty Start Date End Date Bonny Lopez MD [address] [place], [place] [phone] PCP - General Internal Medicine 01/27/21 documented as of this encounter
--- OUTSIDE RECORDS SUMMARY | 2025-01-05 15:22 | XMS_ITS | Clinical Summary ---
Author Organization [facility] Address [address] [facility] 204 [place] [address] Phone Care Team Providers Care Subway Guard Name Role Phone Bonny Lopez MD Primary Care Provider [phone] Allergies Active Allergy Reactions Criticality Noted Date [...] [address] [place] [address] Earnest Baer MD Stage 3b chronic kidney disease (HCC); Hypertensive chronic kidney disease 11/20/2024 Refill [facility] [address] [place] [address] Earnest Baer MD Stage 3b chronic kidney disease (HCC); Hypertensive chronic kidney disease 10/29/2024 Refill [facility] [address] [place] [address] Earnest Baer MD Stage 3b chronic kidney disease (HCC); Hypertensive chronic kidney disease 10/07/2024 Refill [facility] [address] [place] [address] Earnest Baer MD Stage 3b chronic kidney [...] Visit [facility] [address] [place] [address] Earnest Baer MD [address] [facility] 204 [place] [address] Health Maintenance Due Date Last Done Comments [...] patient's age to complete this topic Insurance [facility] ([id number]) [facility] ([id number]) DIANDRA MOSS [id number] Care Teams Subway Guard Relationship Specialty Start Date End Date Bonny Lopez MD [address] [place] [address] PCP - General Internal Medicine 01/27/21
== END 2025-01-05 13:03 | disposition home or self-care (01) ==
LOC: HO.HMGCX 13:02
PROVIDERS: PCP Internal Medicine; Visit Provider Nurse Practitioner Family
DX: N20.0 Calculus of kidney (principal)
CPT/HCPCS: 76775

== ENCOUNTER → 2025-01-05 13:05 | Outpatient (BNV) | payer OTHER, SELFPAY | PROVIDERS: PCP Internal Medicine; Visit Provider Radiology Diagnostic Radiology | DX: N20.0 Calculus of kidney (principal) | CPT/HCPCS: 76775 ==

== ENCOUNTER 2025-01-06 10:04 | Outpatient (AMB) | payer OTHER, SELFPAY ==
--- OUTSIDE RECORDS SUMMARY | 2024-11-12 06:00 | XMS_ITS ---
Author Organization [facility] Address [address] [place] [address] Care Team Providers Care Supervisor Dry Paste Name Role Phone Bonny Martinez MD Primary Care Provider Unavail Estevan Ennis Unavailable [phone] Philip Encounters Encounter Location Date Provider Diagnosis [address] [address] 11/12/2024 Estevan Snyder Plan Of Treatment Next Appt Details Provider Name:Estevan Snyder , 01/14/2025 03:45:00 PM, [address] [place] [address], [phone], Progress Notes * Rupali HERNANDEZDOB:[birth year] (79 yo F)Acc No.[id number]:11/12/2024 Progress Note Patient: Chapin KIRKRupali Provider: Lowell Snyder DPM :1945 A ge:79 Y S ex:Female Date:11/12/2024 Address:[address] [place] [address] Pcp:Bonny Martinez MD Subjective: * Chief Complaints: [...] 0 11/12/2024 Generated for Jair Prince on: 11:52 AM EDT
--- NOTE | 2025-01-06 10:07 | MHC.OFFVIS ---
Intake Visit Reasons: 6m/US Intake Note: Patient is present for 6M/US Urology Medication:VITAMIN B6 Antibiotic Allergy:ATORVASTATIN Blood Thinner:ASPIRIN TODAY'S PVR:10M'S Careers Counsellor Required: No Allergies dulaglutide (Trulicity) Allergy (Intermediate, Verified 01/06/25 10:33) headache, memory loss amlodipine Adverse Reaction (Intermediate, Verified 01/06/25 10:33) leg edema atorvastatin Adverse Reaction (Intermediate, Verified 01/06/25 10:33) dry mouth omeprazole (OMEPRAZOLE) Adverse Reaction (Intermediate, Verified 01/06/25 10:33) N/V; ABDOMINAL PAIN Medication List - Last Reconciled 01/06/25 by CORINNE Perera acetaminophen ER 1,300 mg (2 x 650 mg) PO Q8H PRN 30 days alendronate 70 mg PO QWEEK 90 days amitriptyline 10 mg PO BEDTIME 30 days aspirin 81 mg PO DAILY 90 days blood pressure monitor As directed blood sugar diagnostic (OneTouch Ultra Test strips) Uxd 1 test strips four times a day blood sugar diagnostic (FreeStyle Test strips) As directed four times per day blood-glucose meter (Well[employer]ware Holdingsuch Ultra2 Meter) As directed calcium carbonate-vitamin D3 500 mg-5 mcg (200 unit) (Oyster Shell Calcium-Vitamin D3) 1 tab PO BID 90 days cholecalciferol (vitamin D3) 25 mcg PO DAILY escitalopram oxalate 10 mg PO DAILY 90 days furosemide 20 mg PO BID glucagon 3 mg/actuation (Baqsimi) 3 mg intranasal ONCE glucose 4 grams PO Q15M PRN hydralazine 25 mg PO TID 90 days [incontinence wipes As directed] insulin glargine (Lantus Solostar U-100 Insulin) 20 units (0.2 mL) subcut QAM insulin lispro (Humalog KwikPen (U-100) Insulin) 2 - 4 units (0.02 - 0.04 mL) subcut TID 90 days lactulose 10 grams (15 mL) PO DAILY PRN 30 days lancets (Paired HealthTouch UltraSoft 2 Lancet) Uxd 1 lancet four times a day lancets (FreeStyle Lancets) As directed linagliptin (Tradjenta) 5 mg PO DAILY 30 days lisinopril 20 mg PO DAILY loratadine 10 mg PO DAILY magnesium oxide 400 mg PO BEDTIME 90 days metoprolol succinate ER 100 mg PO DAILY pantoprazole 40 mg PO DAILY pen needle, diabetic (Comfort EZ Pen [place]) As directed -injects 5 X/day pen needle, diabetic (UltiCare Pen Needle) As directed pyridoxine (vitamin B6) 100 mg PO DAILY 90 days riboflavin (vitamin B2) 400 mg PO DAILY 30 days simvastatin 40 mg PO BEDTIME 90 days Ventolin HFA 90 mcg/actuation (albuterol sulfate) 2 puffs inhalation Q6H PRN 30 days NS HPI Comments Details: Rupali is a 79 year old Belgian speaking female patient of Dr. Triana who was accompanied by her DINING CHAIR SEAT CUSHION TRIMMER/grand daughter (Shahida) at todays office visit. She has a past medical history of anemia, osteoarthritis, vitamin B12 deficiency, constipation, depression, diabetes mellitus, anxiety, GERD, hypertension, osteoporosis, hypercholesteremia, and nephrolithiasis. She presents to the office today for follow-up of her nephrolithiasis and urinary tract infections. In discussion with the patient today she denies having had any UTIs and or UTI like symptoms since her last office visit here approximately 6 months ago. She does however report intermittent infrequent episodes of left-sided flank pain typically arising in the morning when attempting to get out of bed. She discusses her main concern is her ongoing headaches and migraines she continues to experience. She reports having followed up with Neurology here at [facility] in his undergoing further treatment options. Recent renal imaging results reviewed with the patient and her granddaughter today. 01/24 right kidney with no hydronephrosis, lesions, and or renal calculi noted. Left kidney with 2 nonobstructing 4 mm renal calculi 1 in the upper pole and 1 in the lower pole. No left-sided hydronephrosis or renal lesions. She reports compliance and vitamin B6 as prescribed. She also reports attempting to drink plenty of water daily. She does report urinary frequency however relates this to her diuretic as well as increase in hydration related to nephrolithiasis. She does feel symptoms are manageable. Unable to obtain urine for urinalysis today however PVR 10 mL. She currently denies any bothersome urinary issues or concerns. She denies incontinence, nocturia, hematuria, foul smelling urine, changes to urinary stream, fever, and or chills. Discussed potential causes of nephrolithiasis as well as further intervention to include surveillance monitoring versus surgical intervention. Risks and benefits of these interventions were discussed at length. Discussed importance of drinking plenty of water daily. She otherwise offers no other issues or concerns at this time. [facility] Medical History Easy bruising OA (osteoarthritis) GERD (gastroesophageal reflux disease) Uncontrolled type 2 diabetes mellitus with hyperglycemia Renal stones Generalized abdominal pain HTN (hypertension) Elevated blood pressure reading Female pelvic pain Chest discomfort Secondary hypertension Angina at rest Constipation Acute back pain Arthritis of knee Osteoporosis KEYONNA (generalized anxiety disorder) Mild recurrent major depression GERD (gastroesophageal reflux disease) Anemia B12 deficiency Diabetic nephropathy associated with type 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 Hypertension senior living (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 Pure hypercholesterolemia Hypovitaminosis D Depression Long-term use of aspirin therapy Diabetes mellitus Surgical History Hx of colonoscopy Hx of cataract removal with insertion of prosthetic lens Hx of lithotripsy History of total abdominal hysterectomy Family History Father Hypertension Diabetes Mother Diabetes Social History Housing: Apartment Alcohol intake: never Patient Tobacco Use Status: Never used Tobacco e-Cigarette/Vaping Use: Never Used Second Hand Smoke Exposure: No service: No Current occupational status: disabled Cognitive needs: Yes (cane ) Hearing needs: No Vision needs: No Review of Systems Const Reports as per HPI Eyes Reports no additional complaints ENT Reports no additional complaints Card Reports as per HPI Resp Reports no additional complaints GI Reports as per HPI Reports as per HPI Musc Reports as per HPI Neuro Reports as per HPI Psych Reports as per HPI Endo Reports as per HPI Physical Exam Const General: cooperative, healthy appearing, comfortable, no acute distress, well developed, alert and awake Orientation/consciousness: patient oriented x3 Limitations: language barrier HEENT Head: Yes normal to inspection, Yes normocephalic and Yes atraumatic Ears: hearing grossly normal bilaterally Eyes General: appearance normal, both eyes and all related structures Neck Neck: Yes normal visual inspection and Yes trachea midline Chest Chest palpation & inspection: normal inspection of the chest Resp Effort & Inspection: normal respiratory effort and able to speak in complete sentences Cardio Rate: regular rate GI Inspection: Yes normal to inspection General: Yes no CVA tenderness Back/Spine/Pelvis Back: no CVA tenderness Skin General skin exam: no rashes or lesions noted Neuro General: patient oriented x3 Extrem General: Yes normal to inspection Psych Appearance: grossly normal and well kempt Mental Status: mental status grossly normal Speech and movement: Normal speech and movement present and Clear speech present Affect: normal affect Attitude: cooperative Thought process: Normal thought process present Thought content: Normal thought content present Insight: Fair insight present (Psych) Judgement: Fair judgement present (Psych) Office Procedures Post Void Residual Post Residual Void Post Void Residual (PVR): 10 49570-Fvxd Void Residual by ultrasound Results Reviewed Results Reviewed: Date of Service: 01/05/25 Procedure(s): US renal BI FINDINGS: RIGHT KIDNEY: 9.5 x 4.9 x 4.3 cm (SAG x AP x TRV). The kidney is normal in size, contour, and echogenicity. Renal cortical thickness is normal. No calculi or focal parenchymal lesions. No hydronephrosis. LEFT KIDNEY: 9.4 x 4.9 x 4.7. cm (SAG x AP x TRV). The kidney is normal in size, contour, and echogenicity. Renal cortical thickness is normal. 2 stones measuring 4 mm in the upper and lower pole. No focal parenchymal lesions. No hydronephrosis. IMPRESSION: Left renal stones. Normal right kidney. Assessment & Plan Assessment & Plan (1) Renal calculi: Code(s): N20.0 - Calculus of kidney Category: Medical (2) Renal cyst: Code(s): N28.1 - Cyst of kidney, acquired Category: Medical Plan Unable to obtain urine for urinalysis as patient unable to void. PVR 10ml's. Recent renal ultrasound results reviewed with the patient and her granddaughter today; as noted above. We discussed potential causes of nephrolithiasis as well as further intervention and risks and benefits of these interventions. Discussed, educated, and stressed the importance of adequate hydration relation to nephrolithiasis as well as overall health and well-being. Continue vitamin B6 as discussed and prescribed; refill provided. We discussed adding 1 oz of lemon juice to water daily. Will continue with surveillance monitoring at this time. Follow-up in 6-12 months with imaging to be completed prior; or sooner with any issues, concerns, and or questions. Orders: Orders US renal BI 6 Months N20.0 - Calculus of kidney Medications: Refilled pyridoxine (vitamin B6) 100 mg PO DAILY 90 tabs 3RF 90 days N20.0 - Calculus of kidney Patient Instructions: The patient had an opportunity to ask questions regarding the treatment plan. All questions were answered. Physical exam, labs, and imaging were discussed and reviewed in detail. As well as risks, benefits, and discussion of treatment choices. No major barriers to understanding were identified. The patient expressed understanding and agreement with the above treatment plan. The patient was made aware they should contact our office by phone for worsening of their current condition, the appearance of new symptoms, or with any questions or concerns. Compliance is encouraged with any medications and follow up testing that is ordered. It is a privilege to be allowed the opportunity to participate in? your urological care.? Again, if you have any questions or concerns If you have any questions or concerns please do not hesitate to contact me. The office is [phone]. This note is constructed using voice recognition software. While every effort has been made to ensure accuracy general laborer errors may have been included. Yours sincerely, CORINNE Perera Coding Level of Care Code Est Pt Level 3 (59725) Complex EM visit Add On G2211 Diagnoses Renal calculi N20.0 Renal cyst N28.1 CPT Codes Post Residual Void - PVR CPT Code: 17288-Voqb Void Residual by ultrasound ([id number])
--- OUTSIDE RECORDS SUMMARY | 2025-01-06 11:52 | XMS_ITS | Encounter Summary ---
Author Organization [facility] Address [address] [facility] 200 [place] [address] Phone Care Team Providers Care Pharmacist Helper Name Role Phone Bonny Lopez MD Primary Care Provider Reason for Visit * Reason Comments Med Refill Encounter Details Date Type Department Care Team ([facility] Contact Info) Description 12/24/2024 Refill [facility] [address] [facility] [address] [place] [address] Earnest Baer MD [address] [address] Stage 3b chronic kidney disease [...] Care Team ([facility] Contact Info) Description 03/09/2025 1:45 PM EST Office Visit [facility] [address] [place] [address] Earnest Baer MD [address] [address] documented as of this encounter Visit Diagnoses Diagnosis Stage 3b chronic kidney disease (HCC) Hypertensive chronic kidney disease documented in this encounter Care Teams Pharmacist Helper Relationship Specialty Start Date End Date Bonny Lopez MD [address] [place] [address] PCP - General Internal Medicine 01/27/21 documented as of this encounter
--- OUTSIDE RECORDS SUMMARY | 2025-01-06 11:52 | XMS_ITS | Clinical Summary ---
Author Organization [employer] Address [address] [facility] 7[address] [place] [address] Care Team Providers Care Director Of Casework Name Role Phone Unavailable Primary Care Provider [...] Insurance [facility] < [facility]
--- OUTSIDE RECORDS SUMMARY | 2025-01-06 11:53 | XMS_ITS | Encounter Summary ---
Author Organization [facility] Address [address] [facility] 200 [place] [address] Phone Care Team Providers Care Animal Trapper Name Role Phone Bonny Lopez MD Primary Care Provider [phone] Reason for Visit * Reason Comments Med Refill Encounter Details Date Type Department Care Team ([facility] Contact Info) Description 09/13/2022 Refill [facility] [address] [facility] [facility] [address] [place] [address] Migel Wyman MD Stage 3b [...] Encounters Date Type Department Care Team ([facility] Contact Info) Description 03/09/2025 1:45 PM EST Office Visit [facility] [address] [place] [address] Earnest Baer MD [address] [facility] [address] [place] [address] documented as of this encounter Visit Diagnoses Diagnosis Stage 3b chronic kidney disease (HCC) Hypertensive chronic kidney disease documented in this encounter Care Teams Animal Trapper Relationship Specialty Start Date End Date Bonny Lopez MD [address] [place], [place] [phone] PCP - General Internal Medicine 01/27/21 documented as of this encounter
--- OUTSIDE RECORDS SUMMARY | 2025-01-06 11:53 | XMS_ITS | Patient Health Record ---
Author Organization [facility] Address [address] [place] [address] Care Team Providers Care Movie Theater Usher Name Role Phone Juan CURTIS, Bonny Primary Care Provider Unavail able Estevan Snyder Unavailable [phone] Allergies No Known Allergies Results Component Value [...] Problem Acquired hammer toe of right foot (7216719555895 105) Other hammer toe(s) (acquired), right foot (M20.41) Active confirmed Problem Acquired hammer toe of left foot (1853286370108 103) Other hammer toe(s) (acquired), left foot (M20.42) Active confirmed Problem Type 2 diabetes mellitus with peripheral angiopathy (866218727) Type 2 diabetes mellitus with diabetic peripheral angiopathy without gangrene (E11.51) Active confirmed Q7(A), Q8(2B), Q9(1B,2C) Vital Signs Height 5ft 1in in 08/11/2024 Weight 144 lbs 08/11/2024 BMI 27.21 kg/m2 08/11/2024 Procedures Procedure Date Ordered Date Performed Result Body Sit e [id number]-[id number] NAIL, 1-5 08/11/2024 N/A 07072-LZFW SKIN LESIONS, 2 TO 4 08/11/2024 N/A [id number] DYSTROPHIC NAILS ANY # 08/11/2024 N/A Encounters Encounter Location Date Provider Diagnosis [facility] [place] [address] [place] [address] 08/11/2024 Estevan Snyder Type 2 diabetes mellitus [...] Treatment Pending Test Test Name Order Date [id number] NAIL, 1-5 08/11/2024 [id number]-BHCN SKIN LESIONS, 2 TO 4 08/12/19 25 [id number] DYSTROPHIC NAILS ANY # Next Appt Details Provider Name:Estevan Patt Snyder , 01/14/2025 03:45:00 PM, [address] [facility], [facility] [address], [place], [address], Insurance Providers Payer Name Payer Address Payer Phone Subscriber Number Group Number Insured Name Patient Relationship to Insured Coverage Start Date Coverage End Date [facility] [employer] Claims [address] DIANDRA Prieto [id number] Rupali Freeman Self - patient is the insured Medical (General) History Medical History History ICD Code Diabetic Headaches/Migraines High Blood Pressure Osteoporosis
--- OUTSIDE RECORDS SUMMARY | 2025-01-06 11:53 | XMS_ITS | Encounter Summary ---
Author Organization [facility] Address [address] [facility] [address] [address] [place] [address] Phone Care Team Providers Care List Of First Job Ideas Name Role Phone Bonny Lopez MD Primary Care Provider [phone] Reason for Visit * Reason Comments Med Refill Encounter Details Date Type Department Care Team ([facility] Contact Info) Description 07/21/2020 Refill [facility] [address] [facility] [address] [place] [address] Navin Leon MD Social History [...] Upcoming Encounters Date Type Department Care Team ([facility] Contact Info) Description 03/09/2025 1:45 PM EST Office Visit [facility] [address] [place] [phone] Earnest Baer MD [address] [facility] [address] [place] [address] documented as of this encounter Visit Diagnoses Not on filedocumented in this encounter Care Teams List Of First Job Ideas Relationship Specialty Start Date End Date Bonny Lopez MD [address] [place], [place] [phone] PCP - General Internal Medicine 01/27/21 documented as of this encounter
--- OUTSIDE RECORDS SUMMARY | 2025-01-06 11:53 | XMS_ITS | Clinical Summary ---
Author Organization [facility] Address [address] [facility] 204 [place] [address] Phone Care Team Providers Care Paving Crew Foreman Name Role Phone Bonny Lopez MD Primary Care Provider [phone] Allergies Active Allergy Reactions Criticality Noted Date [...] [place] [address] [place] [address] Earnest Baer MD Stage 3b chronic kidney disease (HCC); Hypertensive chronic kidney disease 11/20/2024 Refill [facility] [address] [place] [address] Earnest Baer MD Stage 3b chronic kidney disease (HCC); Hypertensive chronic kidney disease 10/29/2024 Refill [facility] [address] [place] [address] Earnest Baer MD Stage 3b chronic kidney disease (HCC); Hypertensive chronic kidney disease 10/07/2024 Refill [facility] [address] [place] [address] Earnest Baer MD Stage 3b chronic kidney [...] Visit [facility] [address] [place] [address] Earnest Baer MD [address] [facility] 204 [place] [address] Health Maintenance Due Date Last Done Comments [...] patient's age to complete this topic Insurance [facility] ([id number]) [facility] ([id number]) DIANDRA MOSS [id number] Care Teams Paving Crew Foreman Relationship Specialty Start Date End Date Bonny Lopez MD [address] [place] [address] PCP - General Internal Medicine 01/27/21
--- OUTSIDE RECORDS SUMMARY | 2025-01-06 11:53 | XMS_ITS | Encounter Summary ---
Author Organization [facility] Address [address] [facility] 200 [place] [address] Phone Care Team Providers Care Paste Worker Name Role Phone Bonny Lopez MD Primary Care Provider [phone] Encounter Details Date Type Department Care Team (Late Contact Info) Description 10/10/2023 Office Communication [facility] [address] [place] [address] Earnest Baer MD [address] [address] Social History Tobacco Use Types [...] Visit [facility] [address] [place] [place] [address] Earnest Baer MD [address] [address] documented as of this encounter Visit Diagnoses Not on filedocumented in this encounter Care Teams Paste Worker Relationship Specialty Start Date End Date Bonny Lopez MD [address] [place] [address] PCP - General Internal Medicine 01/27/21 documented as of this encounter
--- OUTSIDE RECORDS SUMMARY | 2025-01-06 11:53 | XMS_ITS | Encounter Summary ---
Author Organization [facility] Address [facility] [address] [place] [address] Phone Care Team Providers Care Rubber Press Operator Name Role Phone Bonny Lopez MD Primary Care Provider [phone] Reason for Visit * Reason Comments Med Refill Encounter Details Date Type Department Care Team ([facility] Contact Info) Description 07/19/2022 Refill [facility] [place] [facility] [address] [place] [address] Migel Wyman MD Stage 3b [...] Upcoming Encounters Date Type Department Care Team ([facility] Contact Info) Description 03/09/2025 1:45 PM EST Office Visit [facility] [address] [place] [phone] Earnest Baer MD [address] [facility] [address] [place] [address] documented as of this encounter Visit Diagnoses Diagnosis Stage 3b chronic kidney disease (HCC) Hypertensive chronic kidney disease documented in this encounter Care Teams Rubber Press Operator Relationship Specialty Start Date End Date Bonny Lopez MD [address] [place], [place] [phone] PCP - General Internal Medicine 01/27/21 documented as of this encounter
--- OUTSIDE RECORDS SUMMARY | 2025-01-06 11:53 | XMS_ITS | Encounter Summary ---
Author Organization [facility] Address [facility] [address] [place] [address] Phone Care Team Providers Care Contract Sheltered Workshop Supervisor Name Role Phone Bonny Lopez MD Primary Care Provider [phone] Reason for Visit * Reason Comments Med Refill Encounter Details Date Type Department Care Team ([facility] Contact Info) Description 08/16/2022 Refill [facility] [place] [facility] [address] [place] [address] Migel Wyman MD Stage 3b [...] Encounters Date Type Department Care Team ([facility] Contact Info) Description 03/09/2025 1:45 PM EST Office Visit [facility] [address] [place] [phone] Earnest Baer MD [address] [facility] [address] [place] [address] documented as of this encounter Visit Diagnoses Diagnosis Stage 3b chronic kidney disease (HCC) Hypertensive chronic kidney disease documented in this encounter Care Teams Contract Sheltered Workshop Supervisor Relationship Specialty Start Date End Date Bonny Lopez MD [address] [place], [place] [phone] PCP - General Internal Medicine 01/27/21 documented as of this encounter
== END 2025-01-06 10:31 | disposition home or self-care (01) ==
LOC: HO.HUSH 10:05
PROVIDERS: PCP Internal Medicine; Visit Provider Nurse Practitioner Family
DX: N20.0 Calculus of kidney (principal); N28.1 Cyst of kidney, acquired
CPT/HCPCS: 99213; G2211

== ENCOUNTER → 2025-01-06 10:04 | Outpatient (BNVA) | payer OTHER, SELFPAY | PROVIDERS: PCP Internal Medicine; Visit Provider Nurse Practitioner Family | DX: N20.0 Calculus of kidney (principal); N28.1 Cyst of kidney, acquired | CPT/HCPCS: 51798; 99212 ==

== ENCOUNTER → 2025-01-23 09:34 | Outpatient (BNVA) | payer OTHER, SELFPAY | PROVIDERS: PCP Internal Medicine | DX: Z01.30 Encounter for examination of blood pressure without abnormal findings (principal); I10 Essential (primary) hypertension | CPT/HCPCS: 99211 ==

== ENCOUNTER 2025-02-07 13:02 | Emergency (ER) | payer OTHER, SELFPAY ==
--- OUTSIDE RECORDS SUMMARY | 2024-11-12 05:00 | XMS_ITS ---
Author Organization [facility] Address [address] [place] [address] Care Team Providers Care Pocketbook Maker Name Role Phone Bonny Martinez MD Primary Care Provider Unavail Estevan Ennis Unavailable [phone] Philip Encounters Encounter Location Date Provider Diagnosis [address] [address] 11/12/2024 Estevan Snyder Plan Of Treatment Next Appt Details Provider Name:Estevan Snyder , 05/07/2025 09:30:00 AM, [address] [place] [address], [phone], Progress Notes * Rupali HERNANDEZDOB:[birth year] (79 yo F)Acc No.[id number]:11/12/2024 Progress Note Patient: Chapin KIRKRupali Provider: Lowell Snyder DPM :1945 A ge:79 Y S ex:Female Date:11/12/2024 Address:[address] [place] [address] Pcp:Bonny Martinez MD Subjective: * Chief Complaints: * [address] Philip. * Medical History: Objective: * Vitals: Assessment: Plan: * Treatment: * Images: * The named appointment provid er may or may not be the originator of this progress note, and it is not deemed complete until electronically signed by the appointment provider. Sign off status: Pending * Provider: Lowell Snyder DPM Date: 0 11/12/2024 Generated for Jair Prince on: 04/09/2024 05:49 PM EST
--- NOTE | ~2025-02-07 | XR_ITS ---
CLINICAL HISTORY: cough 2 view chest x-ray. Comparison: 05/24/2022 Findings: No consolidation or effusion. Cardiac and mediastinal contours are stable. Bones unremarkable. Impression: 1. No acute pulmonary disease. This document has been electronically signed by: Malachi Bhandari MD on 02/07/2025 14:04:10
--- NOTE | ~2025-02-07 | CT_ITS ---
CLINICAL HISTORY: headache CT head without contrast Comparison: Brain MRI dated 10/26/2024 Findings: No intracranial mass, midline shift, hydrocephalus, or acute hemorrhage. No CT evidence of acute ischemia. Visualized paranasal sinuses and mastoid air cells normal. Orbits unremarkable. No skull fracture Impression: 1. No acute intracranial abnormalities. This document has been electronically signed by: Malachi Bhandari MD on 02/07/2025 19:03:15
--- NOTE | 2025-02-07 13:21 | ED_ITS ---
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 Huynh HPI narrative: 79-year-old female presented today with her daughter for evaluation of 3 days of symptoms of headache, runny nose, generalized body ache, cough, sore throat, +exposure to another family member who is reportedly sick at home, no recent travel, no recent use of antibiotic. Patient feels pressure on her face and there is nasal discharge. Related Data Home Medications ?Medication ?Instructions ?Recorded ?Confirmed furosemide 20 mg tablet 20 mg PO BID 08/17/21 lisinopril 20 mg tablet 20 mg PO DAILY 09/06/2210/24 pen needle, diabetic 32 gauge x #50 ea 09/06/22 (UltiCare Pen Needle) lancets 28 gauge (FreeStyle 07/04/23 01/06/25 Lancets) Previous Rx's ?Medication ?Instructions ?Recorded blood pressure monitor #1 ea 01/13/21 glucagon 3 mg/actuation nasal 3 mg intranasal ONCE #2 ea 03/10/22 spray (Baqsimi) pen needle, diabetic 32 gauge x #100 ea 04/16/2208/15 (Comfort EZ Pen [place]) glucose 4 gram chewable tablet 4 g PO Q15M PRN hypogly cemia #60 06/14/22 tabs incontinence wipes #3 multiple units 01/26/23 blood sugar diagnostic (OneTouch #100 ea 04/04/23 Ultra Test strips) blood-glucose meter (OneTouch #1 ea 04/04/23 Ultra2 Meter) lancets 30 gauge (OneTouch #100 ea 04/04/23 UltraSoft 2 Lancet) cholecalciferol (vitamin D3) 25 25 mcg PO DAILY #28 ta bs 01/30/24 mcg (1,000 unit) tablet Ventolin HFA 90 mcg/actuation 2 puff inhalation Q6H WY N 04/09/24 aerosol inhaler (albuterol sulfate) shortness of breat h or wheezing 30 days #18 grams acetaminophen 650 mg 1,300 mg (2 x 650 mg) PO Q8H PRN 04/09/24 tablet,extended release fever or pain 30 days #180 t abs lactulose 10 gram/15 mL oral 10 g (15 mL) PO DAILY PRN 04/09/24 solution constipation 30 days #237 mL insulin lispro 100 unit/mL 2 - 4 unit (0.02 - 0.04 mL) subcut 05/01/24 subcutaneous pen (Humalog KwikPen TID 90 days #15 mL (U-100) Insulin) riboflavin (vitamin B2) 400 mg 400 mg PO DAILY 30 days #30 tabs 09/19/24 tablet amitriptyline 10 mg tablet 10 mg PO BEDTIME 30 days #3 0 tabs 11/18/24 alendronate 70 mg tablet 70 mg PO QWEEK 90 days #13 t abs 11/20/24 aspirin 81 mg tablet,delayed 81 mg PO DAILY 90 days #9 0 tabs 11/20/24 release pantoprazole 40 mg tablet,delayed 40 mg PO DAILY #90 t abs 11/20/24 release simvastatin 40 mg tablet 40 mg PO BEDTIME 90 days #90 tabs 11/20/24 calcium 500 mg (as 1 tab PO BID 90 days #180 ta bs 12/24/24 carbonate)-vitamin D3 5 mcg (200 unit) tablet (Oyster Shell Calcium-Vitamin D3) hydralazine 25 mg tablet 25 mg PO TID 90 days #270 ta bs 12/30/24 insulin glargine 100 unit/mL (3 20 unit (0.2 mL) subcu t QAM #45 mL 12/30/24 mL) subcutaneous pen (Lantus Solostar U-100 Insulin) pyridoxine (vitamin B6) 100 mg 100 mg PO DAILY 90 days #90 tabs 01/06/25 tablet escitalopram oxalate 10 mg tablet 10 mg PO DAILY 90 da ys #90 tabs 01/21/25 linagliptin 5 mg tablet (Tradjenta) 5 mg PO DAILY 30 d ays #30 tabs 01/21/25 loratadine 10 mg tablet 10 mg PO DAILY #28 tabs 01/01 05/27 magnesium oxide 400 mg (241.3 mg 400 mg PO BEDTIME 90 days #90 tabs 01/21/25 magnesium) tablet metoprolol succinate 100 mg 100 mg PO DAILY #28 tabs 1 tablet,extended release 24 hr cyanocobalamin (vitamin B-12) 500 500 mcg PO BID 30 da ys #60 tabs 02/01/25 mcg tablet blood sugar diagnostic (FreeStyle #100 ea 02/06/25 Test strips) amoxicillin 875 mg-potassium 1 tab PO BID #14 tabs 11/24 clavulanate 125 mg tablet Allergies Allergy/AdvReac Type Severity Reaction Status Date / Time dulaglutide (Trulicity) Allergy Intermediate headache, Verified 02/07/25 13:24 memory loss amlodipine AdvReac Intermediate leg edema Verified 02/07/25 13:24 atorvastatin AdvReac Intermediate dry mouth Verified 02/07/25 13:24 omeprazole (OMEPRAZOLE) AdvReac Intermediate N/V; Verified 02/07/25 13:24 ABDOMINAL PAIN Review of Systems 2 Review of Systems: All other systems are reviewed and are negative Constitutional: Reports as per HPI and Reports no additional constitutional complaints Eyes: Reports as per HPI and Reports no additional eye complaints Reports system reviewed and no additional complaints, except as documented Cardiovascular: Reports as per HPI and Reports no additional cardiovascular complaints Respiratory: Reports as per HPI and Reports no additional respiratory complaints Gastrointestinal: Reports as per HPI and Reports no additional gastrointestinal complaints Genitourinary: Reports no additional female genitourinary complaints Musculoskeletal: Reports no additional musculoskeletal complaints Skin/Breast: Reports system reviewed and no additional complaints, except as docu Psychiatric: Reports no additional psychiatric complaints Endocrine: Reports no additional endocrine complaints Hematologic/Lymphatic: Reports no additional hematologic/lymphatic complaints Allergic/Immunologic: Reports no additional allergic/immunologic complaints Reports system reviewed and no additional complaints, except as documented and Reports Abnormal speech present [facility] Past Medical History Medical History Easy bruising OA (osteoarthritis) GERD (gastroesophageal reflux disease) Uncontrolled type 2 diabetes mellitus with hyperglycemia Renal stones Generalized abdominal pain HTN (hypertension) Elevated blood pressure reading Female pelvic pain Chest discomfort Secondary hypertension Angina at rest Constipation Acute back pain Arthritis of knee Osteoporosis KEYONNA (generalized anxiety disorder) Mild recurrent major depression GERD (gastroesophageal reflux disease) Anemia B12 deficiency Diabetic nephropathy associated with type 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 Pure hypercholesterolemia Hypovitaminosis D Depression Long-term use of aspirin therapy Diabetes mellitus Surgical History Hx of colonoscopy Hx of cataract removal with insertion of prosthetic lens Hx of lithotripsy History of total abdominal hysterectomy Family History Family History Father Hypertension Diabetes Mother Diabetes Social History Social History Housing: Apartment Alcohol intake: never Patient Tobacco Use Status: Never used Tobacco e-Cigarette/Vaping Use: Never Used Second Hand Smoke Exposure: No Advance Directives: No Advance Directives Information Provided: No service: No Current occupational status: disabled Cognitive needs: Yes (cane ) Hearing needs: No Vision needs: No Physical Exam ED Vital Signs: Vital Signs - 24 hr 02/07/25 13:23 02/07/25 19:50 Temperature 98.3 F 98.3 F Pulse Rate 76 76 Respiratory Rate 18 18 Blood Pressure 116/56 L 116/56 L Pulse Oximetry 99 99 Oxygen Delivery Method Room Air Room Air BMI result Body Mass Index 25.9 Vital signs have been reviewed and appear to be correct. Blood pressure elevated. Heart rate normal. Respiratory rate normal. Temperature normal. Oxygen saturation normal. Appearance: Alert. Oriented X3. No acute distress. Head: Normal external exam. Normocephalic. Atraumatic. No Lind signs noted. No raccoon eyes noted Eyes: PERRLA. EOMI. Conjunctiva and sclera normal. Eyelids normal. ENT: TM's normal, bilateral maxillary sinus tenderness on percussion, + clear nasal discharge. No trismus noted. No drooling noted. No muffled voice noted. Neck: Normal inspection. Neck supple. FROM. No adenopathy. Thyroid Normal. No meningeal signs. No neck mass noted. CVS: Normal heart rate and rhythm. Heart sound normal. No murmurs noted. Pulses normal throughout. Respiratory: No respiratory distress. Painless inspiration. Breath sounds normal. No wheezes/rales/rhonchi noted. Chest nontender. No accessory muscle usage noted or decreased air movement noted. Abdomen: Soft and nontender. Bowel sounds normal in all 4 quadrants. No distention noted. No organomegaly noted. No visible injury noted. Back: No CVA tenderness. Full range of motion noted. Skin: Skin warm and dry. Normal skin color. Normal skin turgor. No rashes/lesions/lacerations noted. Extremities: No lower extremity edema. Extremities exhibit normal range of motion. Extremities nontender. Neuro: Mental status: Normal attention, orientation, memory, and affect. Cranial nerves: Pupils are equal, round and reactive to light, EOMI, visual akhtar are fall, face is symmetric, facial sensations are normal. Motor examination normal muscle tone, strength to 4 extremities. DTR are +2, planter's are flexor. Sensory exam; normal coordination, no ataxia, gait stable. Cerebellar exam: Rxlufx-ik-[id number] and ssop-sa-hrtm is normal. Extrapyramidal system: No tremors, no rigidity with normal facial expressions. Pronator drift not present Course Course Course Narrative: Medical screening exam performed. Please refer to detailed history, exam, evaluation, and management by primary provider. Patient with generalized weakness feeling unwell for the past several days. No specific complaint. No chest pain. No fevers Reevaluation(s) Reevaluation #1: Acute sinusitis. Will start on Augmentin. Normal neuro exam in normal head CT, and headache was improved with Tylenol. Time: 20:00 Medications Administered Discontinued Medications Generic Name Dose Route Start Last Admin Trade Name Freq PRN Reason Stop Dose Admin Acetaminophen 975 mg 02/07/25 18:14 02/07/25 19:47 Acetaminophen 325 Mg Tablet PO 02/07/25 18:15 975 mg ONCE ONE Administration Amoxicillin/Clavulanate Potassium 500 mg 02/07/25 17:51 02/07/25 19:47 Amoxicillin/Potassium Clav 500 Mg Tablet PO 02/07/25 17:52 500 mg ONCE ONE Administration Medical Decision Making Differential Diagnosis Differential Diagnoses: The differential diagnosis associated with the presentation includes (Intracranial bleed, acute sinusitis, upper respiratory infection, pneumonia, pneumothorax, sinusitis, pharyngitis.) Admission/Observation Consideration of admission/observation: Escalation of care including admission/observation considered Lab Data MDM Lab Attestation statement: I reviewed the patient's lab results. 02/07/25 13:59 02/07/25 14:00 Labs: Lab Results 02/07/25 02/07/25 02/07/25 Range/Units 13:59 14:00 18:52 WBC 7.4 (4.8-10.8) X10*3/uL RBC 3.86 L (4.20-5.50) X10*6/uL Hgb 11.3 L (12.0-16.0) g/dl Hct 34.9 L (37.0-47.0) % MCV 90.4 (80.0-98.0) fL MCH 29.3 (27.0-33.0) pg MCHC 32.4 (31.0-35.0) g/dl RDW 12.9 (11.0-16.0) % Plt Count 203 (160-400) X10*3/uL MPV 11.2 (9.4-12.3) fL Immature Gran % (Auto) 0.7 H (0.0-0.4) % Neut % (Auto) 66.9 (45-73) % Lymph % (Auto) 20.9 (20-40) % Villalba % (Auto) 8.9 (2-11) % Eos % (Auto) 1.9 (0-4) % Baso % (Auto) 0.7 (0-2) % Lymph # (Auto) 1.6 (1.2-4.9) X10*3/uL Villalba # (Auto) 0.7 (0.1-1.2) X10*3/uL Eos # (Auto) 0.1 (0.0-0.4) X10*3/uL Baso # (Auto) 0.1 (0.0-0.2) X10*3/uL Abs Immat Gran (auto) 0.05 H (0.00-0.03) X10*3/uL Absolute Neuts (auto) 5.0 (2.0-8.3) x10*3/uL Absolute Nucleated RBC 0.000 (0.0-0.012) X10*3/uL Nucleated RBC % (auto) 0.0 (0.0-0.2) /100WBC Sodium 139 (135-145) mmol/L Potassium 4.0 (3.3-5.1) mmol/L Chloride 100 (96-108) mmol/L Carbon Dioxide 27 (22-29) mmol/L Anion Gap 16 (12-20) BUN 59 H (9-16) mg/dL Creatinine 2.87 H (0.5-1.4) mg/dL Estim Creat Clear Calc 12.9 Estimated GFR 16 Random Glucose 138 H (60-115) mg/dL Lactic Acid 0.6 (0.5-2.0) mmol/L Calcium 10.1 (8.4-10.2) mg/dL Total Bilirubin 0.3 (0.0-1.0) mg/dL AST 37 H (5-31) U/L ALT 35 H (0-31) U/L Alkaline Phosphatase 60 (39-117) U/L Total Protein 7.5 (6.5-8.0) g/dL Albumin 4.1 (3.5-5.0) g/dL COVID-19 (KEVIN) Negative (Negative) COVID-19 Clin Com See Note Influenza Type A (TISHA) Negative (Negative) Influenza Type B (TISHA) Negative (Negative) Influenza A & B Note See Note S. pyogenes GrpA TISHA Negative (Negative) Independent Interpretation I performed an independent interpretation of an: Plain X-Ray (Chest: No acute intrathoracic pathology.) and CT Scan (Head: No acute intracranial pathology.) Radiology Impression Discussion of test interpretation with radiology: I have reviewed the radiologist's reading. Discharge Plan Discharge Clinical Impression: Sinusitis, Headache Patient Disposition: Home, Self-Care Instructions: Sinusitis (ED) Prescriptions: New amoxicillin-pot clavulanate 875-125 mg tablet 1 tab PO BID Qty: 14 0RF No Action (DME) pen needle, diabetic [Comfort EZ Pen [place]] 32 gauge x 5/16 needle See Rx Instructions .Route Qty: 100 4RF Rx Instructions: As directed -injects 5 X/day (DME) incontinence wipes See Rx Instructions .Route .MEDSUPPLY Qty: 3 12RF Rx Instructions: As directed (DME) blood-glucose meter [OneTouch Ultra2 Meter] Misc See Rx Instructions .Route Qty: 1 0RF Rx Instructions: As directed (DME) OneTouch Ultra Test Strip See Rx Instructions .Route Qty: 100 11RF Rx Instructions: Uxd 1 test strips four times a day (DME) lancets [OneTouch UltraSoft 2 Lancet] 30 gauge misc See Rx Instructions .Route Qty: 100 11RF Rx Instructions: Uxd 1 lancet four times a day cholecalciferol (vitamin D3) 25 mcg (1,000 unit) tablet 25 mcg PO DAILY Qty: 28 3RF insulin lispro [Humalog KwikPen Insulin] 100 unit/mL insulin pen 2 - 4 unit subcut TID 90 Days Qty: 15 11RF aspirin 81 mg tablet,delayed release (DR/EC) 81 mg PO DAILY 90 Days Qty: 90 0RF pantoprazole 40 mg tablet,delayed release (DR/EC) 40 mg PO DAILY Qty: 90 0RF simvastatin 40 mg tablet 40 mg PO BEDTIME 90 Days Qty: 90 0RF alendronate 70 mg tablet 70 mg PO QWEEK 90 Days Qty: 13 0RF calcium carbonate-vitamin D3 [Oyster Shell Calcium-Vit D3] 500 mg-5 mcg (200 unit) tablet 1 tab PO BID 90 Days Qty: 180 0RF magnesium oxide 400 mg (241.3 mg magnesium) tablet 400 mg PO BEDTIME 90 Days Qty: 90 0RF escitalopram oxalate 10 mg tablet 10 mg PO DAILY 90 Days Qty: 90 0RF metoprolol succinate 100 mg tablet extended release 24 hr 100 mg PO DAILY Qty: 28 0RF loratadine 10 mg tablet 10 mg PO DAILY Qty: 28 0RF Tradjenta 5 mg tablet 5 mg PO DAILY 30 Days Qty: 30 0RF cyanocobalamin (vitamin B-12) 500 mcg tablet 500 mcg PO BID 30 Days Qty: 60 6RF (DME) FreeStyle Test Strip See Rx Instructions .Route Qty: 100 0RF Rx Instructions: As directed four times per day (DME) lancets [FreeStyle Lancets] 28 gauge misc See Rx Instructions .Route Rx Instructions: As directed (DME) blood pressure monitor Kit See Rx Instructions .Route Qty: 1 0RF Rx Instructions: As directed furosemide 20 mg tablet 20 mg PO BID Baqsimi 3 mg/actuation spray,non-aerosol 3 mg intranasal ONCE Qty: 2 5RF glucose 4 gram tablet,chewable 4 g PO Q15M PRN (Reason: hypoglycemia) Qty: 60 5RF Rx Instructions: until symptoms of low blood sugar are controlled (DME) pen needle, diabetic [UltiCare Pen Needle] 32 gauge x /32 needle See Rx Instructions .ROUTE .MEDSUPPLY Qty: 50 Rx Instructions: As directed lisinopril 20 mg tablet 20 mg PO DAILY acetaminophen 650 mg tablet extended release 1,300 mg PO Q8H PRN (Reason: fever or pain) 30 Days Qty: 180 6RF lactulose 10 gram/15 mL solution 10 g PO DAILY PRN (Reason: constipation) 30 Days Qty: 237 0RF albuterol sulfate [Ventolin HFA] 90 mcg/actuation HFA aerosol inhaler 2 puff inhalation Q6H PRN (Reason: shortness of breath or wheezing) 30 Days Qty: 18 1RF riboflavin (vitamin B2) 400 mg tablet 400 mg PO DAILY 30 Days Qty: 30 6RF insulin glargine [Lantus Solostar U-100 Insulin] 100 unit/mL (3 mL) insulin pen 20 unit subcut QAM Qty: 45 5RF hydralazine 25 mg tablet 25 mg PO TID 90 Days Qty: 270 1RF pyridoxine (vitamin B6) 100 mg tablet 100 mg PO DAILY 90 Days Qty: 90 3RF amitriptyline 10 mg tablet 10 mg PO BEDTIME 30 Days Qty: 30 3RF Referrals: Bonny Lopez MD [Primary Care Provider, Internal Medicine] Interventions: ED Discharge Assessment Last Done: 02/07/25 19:50 Discharge Date/Time: 02/07/25 19:50 Print Language: Montserratian
[2025-02-07 13:23] VITALS: BP 116/56; PULSE 76; RESP 18; TEMP 36.8; O2SAT 99; BMI 25.9
--- NOTE | 2025-02-07 13:25 | ECG_ITS ---
Test Reason : weakness Blood Pressure : */* mmHG Vent. Rate : 67 BPM Atrial Rate : 67 BPM P-R Int : 202 ms QRS Dur : 76 ms QT Int : 410 ms P-R-T Axes : 18 -6 22 degrees QTcB Int : 433 ms Normal sinus rhythm Minimal voltage criteria for LVH, may be normal variant ( R in aVL ) Borderline ECG When compared with ECG of 13-Jul-2023 10:29, No significant change was found Referred By: Bubba Bermudez Electronically Signed By: Maninder Whaley
[2025-02-07 14:11] LABS: MANUAL DIFF FLAG NO
[2025-02-07 14:19] LABS: Hematocrit 34.9 % (37.0-47.0); Hemoglobin 11.3 g/dl (12.0-16.0); Imm Gran Abs Auto 0.05 X10*3/uL (0.00-0.03); Imm Gran Pct Auto 0.7 % (0.0-0.4); Lymphocytes Absolute Auto 1.6 X10*3/uL (1.2-4.9); Mean Corpuscular HGB Conc 32.4 g/dl (31.0-35.0); Mean Corpuscular Hemoglobin 29.3 pg (27.0-33.0); Mean Corpuscular Volume 90.4 fL (80.0-98.0); NRBC Abs Auto 0.000 X10*3/uL (0.0-0.012); NRBC Pct Auto 0.0 /100WBC (0.0-0.2); Platelet Count 203 X10*3/uL (160-400); Red Blood Count 3.86 X10*6/uL (4.20-5.50); White Blood Count 7.4 X10*3/uL (4.8-10.8)
[2025-02-07 14:29] LABS: Alanine Aminotransferase 35 U/L (0-31); Albumin Level 4.1 g/dL (3.5-5.0); Alkaline Phosphatase 60 U/L (39-117); Anion Gap 16 (12-20); Aspartate Amino Transferase 37 U/L (5-31); Blood Urea Nitrogen 59 mg/dL (9-16); Calcium 10.1 mg/dL (8.4-10.2); Carbon Dioxide 27 mmol/L (22-29); Chloride 100 mmol/L (96-108); Creatinine Clr Calc Pharmacy 12.9; Estimated Glomerular Filt Rate 16; Potassium 4.0 mmol/L (3.3-5.1); Sodium 139 mmol/L (135-145); Total Protein 7.5 g/dL (6.5-8.0)
[2025-02-07 14:33] LABS: COVID-19 Test Negative (Negative); IDNOW Serial# 55D5AD1C
[2025-02-07 14:34] LABS: IDNOW Serial# 58CA691E; Influenza B2 Negative (Negative)
--- OUTSIDE RECORDS SUMMARY | 2025-02-07 17:49 | XMS_ITS | Clinical Summary ---
Author Organization [employer] Address [address] [facility] [address] [place] [address] Care Team Providers Care Dipper Clock And Watch Hands Name Role Phone Unavailable Primary Care Provider [...] Care Team (Late st Contact Info) Description 04/17/2025 10:15 AM EST Office Visit [facility] [address] [place] [address] Lili White Health Maintenance Due Date Last Done Comments Dental X-Ray: Bitewings 1945 Depression Screening 1945 Lipid Panel 1945 SDOH Screening 1943 Alcohol/Substance Use Screening 1955 DTaP/Tdap/Td Vaccines (1 - Tdap) 08/06/1962 Zoster Vaccines (2 of 2) 10/17/2023 08/22/2023 COVID-19 Vaccine (5 - season) 2024 03/08/2022, 11/29/2021, 03/07/2021, Additional history exists Influenza Vaccine (#1) 2024 , 02/03/2020, 02/03/2020, Additional history exists Dental Oral Exam 02/21/2025 08/20/2024, 02/12/2024 Dental Prophylaxis 02/21/2025 08/20/2024, 02/19/2024 Tobacco Screening 08/20/2025 08/20/2024 Dental X-Ray: Full Mouth 02/12/2027 02/12/2024 RSV Patients and Patients Aged 60 years or older Completed 08/22/2023 Pneumococcal Vaccine: 50+ Years Completed 12/30/2024, 07/06/2016, 09/19/2015 HIB Vaccines Aged Out No longer eligi [...] Most Recently Relevant to Health Maintenance Insurance [facility] < [address] [place] [id number] [place] [address] [place] [address] [place] [address]
--- OUTSIDE RECORDS SUMMARY | 2025-02-07 17:49 | XMS_ITS | Encounter Summary ---
Author Organization [facility] Address [facility] [address] [place] [address] Phone Care Team Providers Care Nail Specialist Name Role Phone Bonny Lopez MD Primary Care Provider [phone] Reason for Visit * Reason Comments Med Refill Encounter Details Date Type Department Care Team ([facility] Contact Info) Description 08/16/2022 Refill [facility] [place] [facility] [address] [place] [address] Migel Wyman MD Stage 3b [...] Care Team ([facility] Contact Info) Description 03/09/2025 1:45 PM EST Office Visit [facility] [address] [place] [phone] Earnest Baer MD [address] [facility] [address] [place] [address] documented as of this encounter Visit Diagnoses Diagnosis Stage 3b chronic kidney disease (HCC) Hypertensive chronic kidney disease documented in this encounter Care Teams Nail Specialist Relationship Specialty Start Date End Date Bonny Lopez MD [address] [place], [place] [phone] PCP - General Internal Medicine 01/27/21 documented as of this encounter
--- OUTSIDE RECORDS SUMMARY | 2025-02-07 17:49 | XMS_ITS | Encounter Summary ---
Author Organization [facility] Address [facility] [place] [facility] [address] [place] [address] Phone Care Team Providers Care Line Installation Supervisor Name Role Phone Bonny Lopez MD Primary Care Provider [phone] Reason for Visit * Reason Comments Med Refill Encounter Details Date Type Department Care Team ([facility] Contact Info) Description 09/13/2022 Refill [facility] [place] [facility] [address] [place] [address] Migel Wyman MD Stage 3b [...] Upcoming Encounters Date Type Department Care Team ([facility] Contact Info) Description 03/09/2025 1:45 PM EST Office Visit [facility] [address] [place] [phone] Earnest Baer MD [address] [facility] [address] [place] [address] documented as of this encounter Visit Diagnoses Diagnosis Stage 3b chronic kidney disease (HCC) Hypertensive chronic kidney disease documented in this encounter Care Teams Line Installation Supervisor Relationship Specialty Start Date End Date Bonny Lopez MD [address] [place], [place] [phone] PCP - General Internal Medicine 01/27/21 documented as of this encounter
--- OUTSIDE RECORDS SUMMARY | 2025-02-07 17:49 | XMS_ITS | Patient Health Record ---
Author Organization [facility] muaro Deer Address [address] [place] [address] Care Team Providers Care Top Lift And Automatic Window Repairer Name Role Phone Juan CURTIS, Bonny Primary Care Provider Unavail able ClaudioEstevan stokes Unavailable [phone] Allergies No Known Allergies Results Component Value Reference Range Notes HEMOGLOBIN A1C (GLYCOHEMOGLO BIN) Reviewed date:08/13/2024 12:37:14 PM Interpretation: Performing Lab: Notes/Report: HEMOGLOBIN A1C % (HH) 7.4 Reason For Referral No Information Medications Medication SIG (Take, Route, Frequency, Duration) Notes Start Date End Date Status Ammonium Lactate 12 % 1 application Exte rnally to affected areas of dry skin to feet except for between the toes Twice a day; Duration: 30 days Active Lantus 20 units Active Metoprolol Succinate 100 MG 1 capsule Orally Once a day Active Loratadine 10 MG 1 tablet Orally Once a day Active Tradjenta 5 MG 1 tablet Orally Once a day Active Escitalopram Oxalate 10 MG 1 tablet Orally Once a day Active Oyster Calcium Activ e cloNIDine HCl 0.1 MG 1 tablet Orally Onc e a day Active Magnesium Active Alendronate Sodium 70 MG 1 tablet 30 min utes before the first food, beverage or medicine of the day with plain water Orally Active Pantoprazole Sodium 40 MG 1 tablet 1/2 to 1 hour before morning meal Orally Once a day Active Extra Depth Orthopedic Shoes, (1) Pair With (3) Pair Custom Heat Molded Multidensity Innersoles Dx: NIDDM/PVD(E11.51), Hammertoe Foot Deformity(M20.41,M20.42), Preulcerative Skin Lesion(s)(L85.1) Wear Daily; Duration: 365 days 08/11/2024 Active Lisinopril 20 MG 1 tablet Orally Once a day Active Simvastatin 40 MG 1 tablet in the even ing Orally Once a day Active hydrALAZINE HCl 50 MG 1 tablet with food Orally Twice a day Active Furosemide 20 MG 1 tablet Orally Once a day Active Vitamin B6 Active Aspir-81 Active Immunizations Vaccine Route Administration Date Status Comme nts Influenza Unknown 01/07/2025 Administered Social History Tobacco Use: Social History Observation [...] Problem Acquired hammer toe of right foot (5863030514038 105) Other hammer toe(s) (acquired), right foot (M20.41) Active confirmed Problem Acquired hammer toe of left foot (5921603470842 103) Other hammer toe(s) (acquired), left foot (M20.42) Active confirmed Problem Type 2 diabetes mellitus with peripheral angiopathy (543279004) Type 2 diabetes mellitus with diabetic peripheral angiopathy without gangrene (E11.51) Active confirmed Q7(A), Q8(2B), Q9(1B,2C) Vital Signs Blood pressure diastolic 80 mm Hg 01/14/2025 Height 5ft 1in in 01/14/2025 Blood pressure systolic 118 mm Hg 01/14/2025 Weight 143 lbs 01/14/2025 BMI 27.02 kg/m2 01/14/2025 Procedures Procedure Date Ordered Date Performed Result Body Sit e 12975-MQGOBNE NAIL, 1-5 08/11/2024 N/A 33237-NJDU SKIN LESIONS, 2 TO 4 08/11/2024 N/A B3645-HOKUEBKG DYSTROPHIC NAILS ANY # 08/11/2024 N/A 89919-DUOBWNC NAIL, 1-5 01/14/2025 N/A 15474-OQMK SKIN LESIONS, 2 TO 4 01/14/2025 N/A V5445-HUYAQWGS DYSTROPHIC NAILS ANY # 01/14/2025 N/A Encounters Encounter Location Date Provider Diagnosis [facility] [address] 08/11/2024 Estevan Snyder Type 2 diabetes mellitus with diabetic peripheral angiopathy without gangrene E11.51 ; Other hammer toe(s) (acquired), right foot M20.41 ; Tinea unguium B35.1 ; Pain in right toe(s) M79.674 ; Pain in left toe(s) M79.675 and Other hammer toe(s) (acquired), left foot M20.[address] [facility] [address] 01/14/2025 Estevan Snyder Type 2 diabetes mellitus with diabetic peripheral angiopathy without gangrene E11.51 ; Tinea unguium B35.1 ; Pain in right toe(s) M79.674 ; Pain in left toe(s) M79.675 and Xerosis of skin L85.3 Assessments Encounter Date Diagnosis (ICD Code) Assessment Notes Treatment Notes Treatment Clinical Notes Section Notes 08/11/2024 Other hammer toe(s) (acquired), right foot (ICD-10 - M20.41) Patient Educated with: DIABETIC FOOT CARE INSTRUCTIONS.p df (DIABETIC FOOT CARE INSTRUCTIONS.p df) 08/11/2024 Type 2 diabetes mellitus with diabetic peripheral angiopathy without gangrene (ICD-10 - E11.51) Q7(A), Q8(2B), Q9(1B,2C) 01/14/2025 Tinea unguium (ICD-10 - B35.1) 01/14/2025 Type 2 diabetes mellitus with diabetic peripheral angiopathy without gangrene (ICD-10 - E11.51) Q7(A), Q8(2B), Q9(1B,2C) 01/14/2025 Pain in right toe(s) (ICD-10 - M79.674) 08/11/2024 Tinea unguium (ICD-10 - B35.1) 08/11/2024 Pain in right toe(s) (ICD-10 - M79.674) 01/14/2025 Pain in left toe(s) (ICD-10 - M79.675) 08/11/2024 Pain in left toe(s) (ICD-10 - M79.675) 08/11/2024 Other hammer toe(s) (acquired), left foot (ICD-10 - M20.42) 01/14/2025 Xerosis of skin (ICD-10 - L85.3) Plan Of Treatment Pending Test Test Name Order Date 92726-DEBXHPM NAIL, 1-5 08/11/2024 81535-SOFNCBI NAIL, 1-5 01/14/2025 81847-FDRG SKIN LESIONS, 2 TO 4 01/15/20 38020-DMGY SKIN LESIONS, 2 TO 4 08/12/19 V2932-KXGSLKLH DYSTROPHIC NAILS ANY # Y2305-CWLYHGQY DYSTROPHIC NAILS ANY # Next Appt Details Provider Name:Estevan Snyder , 05/07/2025 09:30:00 AM, [address] [facility], [place] [address], [place], [address], Insurance Providers Payer Name Payer Address Payer Phone Subscriber Number Group Number Insured Name Patient Relationship to Insured Coverage Start Date Coverage End Date [facility] CCA S[employer] Claims [address] [place] Pri[place] [id number] Rupali Freeman Self - patient is the insured Medical (General) History Medical History History ICD Code Diabetic Headaches/Migraines High Blood Pressure Osteoporosis
--- OUTSIDE RECORDS SUMMARY | 2025-02-07 17:49 | XMS_ITS | Data Portability ---
Author Organization [facility], [facility] Address [address] [place] [address] Care Team Providers Care Restaurant Area Manager Name Role Phone HIM CCA OTHER Assessment Encounter Date Assessment Date Assessment LastModified by Organization Details LastModified Time 12/25/2024 12/25/2024 As noted, we were called to see this patient regarding several days of sore throat and headache without cough, fever, or shortness of breath. The medic performed the in-person evaluation and I provided remote direction. On exam, the patient appeared well, breathing comfortably, and in no distress. The throat was mildly erythematous without exudate or tonsillar swelling. Lungs were clear bilaterally, and vitals were stable. Rapid strep, COVID, and influenza tests were all negative, making a viral upper respiratory infection the most likely cause. Impression : Viral pharyngitis with negative strep, COVID, and flu testing; no evidence of bacterial infection or airway compromise. Plan: Supportive care with acetaminophen for pain or fever Encourage hydration and soft foods as tolerated May use warm saline gargles or lozenges for throat comfort Reviewed red flags including fever, worsening pain, neck stiffness, difficulty swallowing, or shortness of breath Primary care, consider follow-up if symptoms persist beyond 7 1 0 days or worsen, to reassess for possible bacterial infection or other causes of persistent sore throat. We discussed the diagnostic uncertainty of home visits and the risks involved. In this case, the patient and I felt this to be an acceptable and reasonable amount of risk given the benefit of avoiding an ED visit. Red flags were reviewed, and the patient was advised to seek urgent care for worsening sore throat, difficulty breathing, high fever, or other concerning symptoms. [email or web address] Not available 01/06/2025 17:21:12 Plan of Treatment Reminders Order Date Submit Date Provider Last Modified By Organization Details Last Modified Time Details Appointments None recorded. Lab rapid flu (A+B) [facility]24 [facility] [address] [facility], [place], [address] 17:41:39 SARS CoV 2 (COVID-19) Ag, QL, IA, upper respiratory specimen 2024 025 [email or web address] [facility] (Centralized Electronic Ordering - All Locations), Patient Can Go To The Location Of Their Choice, [address] 09:35:57 Referral None recorded. Procedures None recorded. Surgeries None recorded. Imaging None recorded. Medication Orders None recorded. Patient TargetsNo targets recorded. Patient InstructionsNo instructions recorded. Reason for Referral None Reported. Results Created Date Observation Date Name Description Value Unit Range Abnormal Flag Note LastModifiedBy Organization Detail LastModifiedTime Result Notes None recorded. Medical Equipment None Reported. Allergies No known drug allergies Vitals Date Recorded Body height Oxygen saturation Oxygen saturation in Arterial blood by Pulse oximetry Body weight Body temperature Respiratory rate Heart rate Systolic And Diastolic Provider Name and Address Organization Details Last Updated DateTime 165.1 cm 96 % 96 % 95135.6 96 g 98.6 [degF] 16 /min 68 /min 115/57 mm[Hg] Not Available [facility] - production 14:26:50 Social History None recorded. Functional Status None recorded. Mental Status None recorded. Family History Nothing Reported. Medical History No medical history recorded. Gynecological HistoryNo gynecological history recorded. Obstetrics History GPAL:G 0 P 0 0 0 0 Past Encounters Encounter ID Performer Location Encounter Start Date Encounter Closed Date Diagnosis/Indication Diagnosis SNOMED-CT Code Diagnosis ICD10 Code Diagnosis IMO Codes Diagnosis Note [id number] Garo Kennedy MD [facility] [address] [place] [address] 12/25/2024 14:26:40 01/06/2025 18:39:55 Lower respiratory tract infection 13078255 J22 2464 Health Concerns Section Related Observation LastModified by Organization Detai ls LastModified Time None Recorded Concern Status LastModified by Organization Details LastModified Time None Recorded Advance Directives Directive None Recorded Payers Insurance Date Sequence Insurance Name Policy Number Policy Aguilar Covered Member ID Aguilar Member ID Guarantor Name 01/06/2025 1 [facility] - DOS ON OR AFTER 2022 - DUAL ELIGIBLE - SENIOR LIVING OPTIONS AND ONE CARE (MEDICARE REPLACEMENT/AD VANTAGE - HMO) Rupali Freeman [id number] Rupalimonica Freeman Notes Date Note Type Note Provider Name and Address Organization Details Recorded Time 12/25/2024 text/html CRC Nurse Triage Notes (Aisha Irby): Reason For Request: Patient has a sore throat, and red in her throat area.Denies: Increased work of breathing/labored with or without fever Unable to speak in full sentences without distress Discoloration of skin -cyanosis Needs to sleep sitting up, can t catch breath Shortness of breath in setting of confusion Cough, fever greater than 2 days History of asthma, increased use of inhaler COPD Cough Shortness of breath with exertion Chief Complaints: Common Cold, Sore ThroatPMH: Diabetes Mellitus Type 2, HypertensionPMH Reviewed at 12/25/2024:42Allergies Reviewed at 12/25/2024:42Comments: 79 y.o female complains of Common Cold, Sore Throat Daughter calling for mother with sore throat and headaches for 3 days, no cough , fever or chills, no nausea or vomiting.She denies any shortness of breath.The throat is red but she does have white but she was unsure if it was her tongue or patches.She has been taking tylenol but has not helped.She has been drinking and trying to eatI provided information on the mobile health provider response time and advised the patient and/or caregiver to monitor reported signs and symptoms. I discussed the warning signs of when to seek emergency care. Process Validation Engineer Organization Information for Hu Flynn Roberto Legal Name: [employer]. A ddress: [address] [place] [address], USMedical Director: Malachi Starks [facility] No.: [id number] Process Validation Engineer POC Test Results from Hu Flynn Rapid COVID antigen (14:20:23)COVID: - Rapid influenza antigen (14:20:24)Flu: - Rapid strep test (14:20:25)Strep: - ..................... ..................... ..................... ..................... ..................... ..................... ............... Process Validation Engineer Note From Hu Flynn: SC1 sent to the above address for the pt reporting a headache and also a sore throat. Upon arrival the pt was met at the door. 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 The pt understood these instructions. The warning signs, chest pain, severe shortness of breath, syncope, fever, altered mental status to call 911 and go to the ED. The pt understood these instructions and then CA1 cleared the call. WRR. ..................... ..................... ..................... ..................... ..................... ..................... ............... [facility] Consulted: Johnny Kennedy ..................... ..................... ..................... ..................... ..................... ..................... ............... Disposition: Fulfilled Garo Kennedy MD [address] [facility], [place], [address], [place] [facility] [employer], [facility] 01/06/2025 17:21:27 OBGyn Episode No OBEpisode recorded.
--- OUTSIDE RECORDS SUMMARY | 2025-02-07 17:49 | XMS_ITS | Encounter Summary ---
Author Organization [facility] Address [address] [facility] [address] [place] [address] Phone Care Team Providers Care Professor Of Physical Education Name Role Phone Bonny Lopez MD Primary Care Provider [phone] Reason for Visit * Reason Comments Med Refill Encounter Details Date Type Department Care Team ([facility] Contact Info) Description 07/19/2022 Refill [facility] [address] [facility] [place] [facility] [address] [place] [address] Migel Wyman MD Stage 3b [...] Type Department Care Team ([facility] Contact Info) Description 03/09/2025 1:45 PM EST Office Visit [facility] [address] [place] [address] Earnest Baer MD [address] [facility] [address] [place] [address] documented as of this encounter Visit Diagnoses Diagnosis Stage 3b chronic kidney disease (HCC) Hypertensive chronic kidney disease documented in this encounter Care Teams Professor Of Physical Education Relationship Specialty Start Date End Date Bonny Lopez MD [address] [place], [place] [id number] PCP - General Internal Medicine 01/27/21 documented as of this encounter
--- OUTSIDE RECORDS SUMMARY | 2025-02-07 17:50 | XMS_ITS | Encounter Summary ---
Author Organization [facility] Address [address] [facility] [place] [facility] [address] [place] [address] Phone Care Team Providers Care Head Filter Press Tender Name Role Phone Bonny Lopez MD Primary Care Provider [phone] Reason for Visit * Reason Comments Med Refill Encounter Details Date Type Department Care Team ([facility] Contact Info) Description 07/21/2020 Refill [facility] [address] [facility] [place] [facility] [address] [place] [address] Navin Leon MD Social History [...] Visit [facility] [address] [place] [address] [place] [phone] Earnest Baer MD [address] [facility] [address] [place] [address] documented as of this encounter Visit Diagnoses Not on filedocumented in this encounter Care Teams Head Filter Press Tender Relationship Specialty Start Date End Date Bonny Lopez MD [address] [place], [place] [id number] PCP - General Internal Medicine 01/27/21 documented as of this encounter
--- OUTSIDE RECORDS SUMMARY | 2025-02-07 17:50 | XMS_ITS | Clinical Summary ---
Author Organization [facility] Address [address] [facility] [address] [place] [address] Phone Care Team Providers Care Chief Clinical Dietitian Name Role Phone Bonny Lopez MD Primary Care Provider Allergies Active Allergy Reactions Criticality Noted Date [...] alendronate (FOSAMAX) 70 MG tablet 2 Active hydrALAZINE 50 MG tablet TAKE 1 [...] MORNING AND EVENING. 60 tablet 5 Active lisinopril 20 MG tabletIndicati ons:Stage 3b chronic kidney disease (HCC),Hyperten sive chronic kidney disease TAKE 1 TABLET BY MOUTH ONCE DAILY 28 tablet 5 01/22/20 25 Discontinued furosemide (LASIX) 20 MG tabletIndicati ons:Stage 3b chronic kidney disease (HCC),Hyperten sive chronic kidney disease TAKE 2 TABLETS BY MOUTH ONCE DAILY. 56 tablet 5 01/22/20 25 Discontinued cloNIDine (CATAPRES) 0.1 MG tablet TAKE 1 TABLET BY MOUTH TWICE DAILY IN THE MORNING AND EVENING. 60 tablet 5 01/22/20 25 Discontinued Active Problems Problem Noted Date [...] Encounters Date Type Department Care Team Description 01/21/2025 Refill [facility] [address] [place] [address] [place] [address] Earnest Baer MD Stage 3b chronic kidney disease (HCC); Hypertensive chronic kidney disease 12/24/2024 Refill [facility] [address] [place] [address] [place] [address] Earnest Baer MD Stage 3b chronic kidney disease (HCC); Hypertensive chronic kidney disease 11/20/2024 Refill [facility] [address] [place] [address] [place] [address] Earnest Baer MD Stage 3b chronic kidney [...] [facility] [address] [place] [address] [place] [address] Earnest Baer MD [address] [facility] [address] [place] [address] Health Maintenance Due Date Last Done Comments Pneumococcal Vaccine: 50+ Years (3 of 3 - PCV) 07/06/2017 07/06/2016, 09/19/2015 Diabetes: Hemoglobin A1C 05/02/2020 Diabetes: Ophthalmology Exam 05/02/2020 Diabetes: Pedal Pulse Checked 05/02/2020 Diabetes: Sensory Foot Exam 05/02/2020 Diabetes: Visual Foot Exam 05/02/2020 Pneumococcal Vaccine: Peds (0 to 5 Years) and At-Risk Patients (6 to 49 Years) Discontinued 07/06/2016, 09/19/2015 Influenza Vaccine Completed 01/07/2025, , 01/17/2017, Additional history exists Hepatitis B Vaccine Aged Out No longe r eligible based on patient's age to complete this topic Insurance ([id number]) DIANDRA MOSS [id number] [facility] ([id number]) DIANDRA [place]OSS [id number] Care Teams Chief Clinical Dietitian Relationship Specialty Start Date End Date Bonny Lopez MD [address] [place] [address] PCP - General Internal Medicine 01/27/21
[2025-02-07 19:05] LABS: IDNOW Serial# 55D5AD1C; Strep A Nucleic Acid Negative (Negative)
[2025-02-07 19:50] VITALS: BP 116/56; PULSE 76; RESP 18; TEMP 36.8; O2SAT 99
== END 2025-02-07 19:50 | disposition home or self-care (01) ==
PROVIDERS: Physician Assistant; Emergency Provider Emergency Medicine; PCP Internal Medicine
DX: R51.9 Headache, unspecified (principal); J32.9 Chronic sinusitis, unspecified; I10 Essential (primary) hypertension; E11.9 Type 2 diabetes mellitus without complications
CPT/HCPCS: 36415; 70450; 71046; 80053; 83605; 85025; 87040; 87502; 87635; 87651; 93005; 99283; 99284

== ENCOUNTER → 2025-02-07 13:23 | Outpatient (BNV) | payer OTHER, SELFPAY | PROVIDERS: PCP Internal Medicine; Visit Provider Radiology Diagnostic Radiology | DX: R51.9 Headache, unspecified (principal); R05.9 Cough, unspecified | CPT/HCPCS: 70450; 71046 ==

== ENCOUNTER → 2025-02-07 13:25 | Outpatient (BNV) | payer OTHER, SELFPAY | PROVIDERS: Emergency Provider Emergency Medicine; PCP Internal Medicine; Visit Provider Internal Medicine Cardiovascular Disease | DX: R53.1 Weakness (principal) | CPT/HCPCS: 93010 ==

== ENCOUNTER 2025-03-17 09:42 | Outpatient (REF) | payer OTHER, SELFPAY ==
--- OUTSIDE RECORDS SUMMARY | 2024-11-12 05:00 | XMS_ITS ---
Author Organization [facility] Address [address] [place] [address] Care Team Providers Care Vocal Music Instructor Name Role Phone Bonny Martinez MD Primary Care Provider Unavail Estevan Ennis Unavailable [phone] Philip Encounters Encounter Location Date Provider Diagnosis [address] [address] 11/12/2024 Estevan Snyder Plan Of Treatment Next Appt Details Provider Name:Estevan Snyder , 05/07/2025 09:30:00 AM, [address] [place] [address], [phone], Progress Notes * Rupali HERNANDEZDOB:[birth year] (79 yo F)Acc No.[id number]:11/12/2024 Progress Note Patient: Chapin KIRKRupali Provider: Lowell Snyder DPM :1945 A ge:79 Y S ex:Female Date:11/12/2024 Address:[address] [place] [address] Pcp:Bonny Martinez MD Subjective: * Chief Complaints: [...] 0 11/12/2024 Generated for Jair Prince on: 1 05/18/2024 11:31 AM EST
[2025-03-17 10:00] LABS: MANUAL DIFF FLAG NO
[2025-03-17 10:22] LABS: Hematocrit 32.6 % (37.0-47.0); Hemoglobin 10.3 g/dl (12.0-16.0); Imm Gran Abs Auto 0.02 X10*3/uL (0.00-0.03); Imm Gran Pct Auto 0.3 % (0.0-0.4); Lymphocytes Absolute Auto 1.2 X10*3/uL (1.2-4.9); Mean Corpuscular HGB Conc 31.6 g/dl (31.0-35.0); Mean Corpuscular Hemoglobin 28.7 pg (27.0-33.0); Mean Corpuscular Volume 90.8 fL (80.0-98.0); NRBC Abs Auto 0.000 X10*3/uL (0.0-0.012); NRBC Pct Auto 0.0 /100WBC (0.0-0.2); Platelet Count 197 X10*3/uL (160-400); Red Blood Count 3.59 X10*6/uL (4.20-5.50); White Blood Count 7.0 X10*3/uL (4.8-10.8)
[2025-03-17 10:45] LABS: Appearance Urine Hazy; Glucose Urine UA Negative (Negative); PH 6.0 (5.0-9.0); Specific Gravity - Urine 1.010 (1.005-1.025); UMIC TRIGGER UA YES
[2025-03-17 10:52] LABS: Parathyroid Hormone Intact 133.7 pg/mL (8.7-77.1)
[2025-03-17 10:59] LABS: Albumin Level 3.8 g/dL (3.5-5.0); Anion Gap 13 (12-20); Blood Urea Nitrogen 35 mg/dL (9-16); Calcium 9.7 mg/dL (8.4-10.2); Carbon Dioxide 32 mmol/L (22-29); Chloride 103 mmol/L (96-108); Magnesium 2.0 mg/dL (1.6-2.6); Potassium 4.6 mmol/L (3.3-5.1); Sodium 143 mmol/L (135-145)
[2025-03-17 11:16] LABS: HBS Num1 1.02 mIU/mL (0-7.99); HBc Num1 0.06 S/CO (0.00-0.79); ~HepC Num1 0.09 S/CO (0.00-0.79); ~Hepatitis B Surface Antibody NONREACTIVE (Nonreactive); ~Hepatitis C Antibody Nonreactive (Nonreactive)
--- OUTSIDE RECORDS SUMMARY | 2025-03-17 11:32 | XMS_ITS | Patient Health Record ---
Author Organization [facility] mauro [place] Address [address] [place] [address] Care Team Providers Care Ortho Tech Name Role Phone Juan CURTIS, Bonny Primary Care Provider Unavail able ClaudioEstevan stokes Unavailable [phone] Allergies No Known Allergies Results Component Value [...] Problem Acquired hammer toe of right foot (6630864771780 105) Other hammer toe(s) (acquired), right foot (M20.41) Active confirmed Problem Acquired hammer toe of left foot (2448013950788 103) Other hammer toe(s) (acquired), left foot (M20.42) Active confirmed Problem Type 2 diabetes mellitus with peripheral angiopathy (670744333) Type 2 diabetes mellitus with diabetic peripheral angiopathy without gangrene (E11.51) Active confirmed Q7(A), Q8(2B), Q9(1B,2C) Vital Signs Blood pressure diastolic 80 mm Hg 01/14/2025 Height 5ft 1in in 01/14/2025 Blood pressure systolic 118 mm Hg 01/14/2025 Weight 143 lbs 01/14/2025 BMI 27.02 kg/m2 01/14/2025 Procedures Procedure Date Ordered Date Performed Result Body Sit e 57899-PCPUZDL NAIL, 1-5 08/11/2024 N/A 43115-YNWW SKIN LESIONS, 2 TO 4 08/11/2024 N/A G0473-LROFFNMD DYSTROPHIC NAILS ANY # 08/11/2024 N/A 87725-PYYIFUA NAIL, 1-5 01/14/2025 N/A 20224-ZCAU SKIN LESIONS, 2 TO 4 01/14/2025 N/A G4254-ATWIPAID DYSTROPHIC NAILS ANY # 01/14/2025 N/A Encounters Encounter Location Date Provider Diagnosis [facility] [address] 08/11/2024 Estevan Snyder Type 2 diabetes mellitus with diabetic peripheral angiopathy without gangrene E11.51 ; Other hammer toe(s) (acquired), right foot M20.41 ; Tinea unguium B35.1 ; Pain in right toe(s) M79.674 ; Pain in left toe(s) M79.675 and Other hammer toe(s) (acquired), left foot M20.[address] [facility] [address] 01/14/2025 Estevan Snyder Type 2 diabetes mellitus [...] Treatment Pending Test Test Name Order Date 20803-LYLHZDH NAIL, 1-5 08/11/2024 54943-DNDKVFW NAIL, 1-5 01/14/2025 77674-LZDG SKIN LESIONS, 2 TO 4 01/15/20 19861-JICR SKIN LESIONS, 2 TO 4 08/12/19 A5555-EXVBZSUO DYSTROPHIC NAILS ANY # X3489-BOYRGLWL DYSTROPHIC NAILS ANY # Next Appt Details Provider Name:Estevan Snyder , 05/07/2025 09:30:00 AM, [address] [facility], [place] [address], [place], [address], Insurance Providers Payer Name Payer Address Payer Phone Subscriber Number Group Number Insured Name Patient Relationship to Insured Coverage Start Date Coverage End Date [facility] CCA SCO Claims [address] [place] [id number] Rupali Freeman Self - patient is the insured Medical (General) History Medical History History ICD Code Diabetic Headaches/Migraines High Blood Pressure Osteoporosis
--- OUTSIDE RECORDS SUMMARY | 2025-03-17 11:32 | XMS_ITS | Clinical Summary ---
Author Organization [employer] Address [address] [facility] [address] [place] [address] Care Team Providers Care Second Worker Name Role Phone Unavailable Primary Care Provider [...] 10:15 AM EST Office Visit [facility] [address] [place] [address] Lili White Health Maintenance Due Date Last [...] Most Recently Relevant to Health Maintenance Insurance [facility] < [facility]
[2025-03-17 11:38] LABS: Microalbum/Creatinine Ratio Ur 60.1 ug/mg cr (<30); Protein/Creatinine Ratio, Ur 0.20 (<0.2); Total Protein Urine Random 23 mg/dL (<12)
[2025-03-18 16:47] LABS: Kappa/Lambda Lt Ch Free Ratio 1.03 (0.26-1.65)
[2025-03-19 13:14] LABS: HBsAGNum1 0.28 S/CO (0.00-0.99); Hepatitis B Surface Antigen Negative (Negative)
== END 2025-03-17 09:43 | disposition home or self-care (01) ==
LOC: HO.LAB 09:42
PROVIDERS: Absent Provider Internal Medicine Nephrology; PCP Internal Medicine; Visit Provider Nurse Practitioner Family
DX: E11.22 Type 2 diabetes mellitus with diabetic chronic kidney disease (principal); N18.4 Chronic kidney disease, stage 4 (severe)
CPT/HCPCS: 36415; 80069; 81001; 82043; 82306; 82570; 83521; 83735; 83970; 84156; 84165; 85025; 86038; 86160; 86704; 86706; 86803; 87340

== ENCOUNTER 2025-03-25 10:39 | Outpatient (AMB) | payer OTHER, SELFPAY ==
--- OUTSIDE RECORDS SUMMARY | 2024-11-12 05:00 | XMS_ITS ---
Author Organization [facility] Address [address] [place] [address] Care Team Providers Care Paint Stock Clerk Name Role Phone Bonny Martinez MD Primary Care Provider Unavail Estevan Ennis Unavailable [phone] Philip Encounters Encounter Location Date Provider Diagnosis [address] [address] 11/12/2024 Estevan Snyder Plan Of Treatment Next Appt Details Provider Name:Estevan Snyder , 05/07/2025 09:30:00 AM, [address] [place] [address], [phone], Progress Notes * Rupali HERNANDEZDOB:[birth year] (79 yo F)Acc No.[id number]:11/12/2024 Progress Note Patient: Chapin KIRKRupali Provider: Lowell Snyder DPM :1945 A ge:79 Y S ex:Female Date:11/12/2024 Address:[address] [place] [address] Pcp:Bonny Martinez MD Subjective: * Chief Complaints: [...] 0 11/12/2024 Generated for Jair Prince on: 05/26/2024 08:17 AM EST
--- OUTSIDE RECORDS SUMMARY | 2025-03-25 10:44 | XMS_ITS | Encounter Summary ---
Author Organization [facility] Address [address] [facility] [place] [facility] [address] [place] [address] Phone Care Team Providers Care Knife Sharpener Name Role Phone Bonny Lopez MD Primary Care Provider [phone] Reason for Visit * Reason Comments Med Refill Encounter Details Date Type Department Care Team ([facility] Contact Info) Description 07/21/2020 [facility] [address] [facility] [address] [place] [address] Navin Leon MD Social History [...] Upcoming Encounters Date Type Department Care Team ([facility] Contact Info) Description 03/30/2025 1:00 PM EST Office [facility] [address] [place] [address] [place] [address] Earnest Baer MD [address] [facility] [address] [place] [address] documented as of this encounter Visit Diagnoses Not on filedocumented in this encounter Care Teams Knife Sharpener Relationship Specialty Start Date End Date Bonny Lopez MD [address] [place], [place] [phone] PCP - General Internal Medicine 01/27/21 documented as of this encounter
--- OUTSIDE RECORDS SUMMARY | 2025-03-25 10:44 | XMS_ITS | Encounter Summary ---
Author Organization [facility] Address [address] [facility] [address] [place] [address] Phone Care Team Providers Care Ammonium Nitrate Neutralizer Name Role Phone Bonny Lopez MD Primary Care Provider [phone] Reason for Visit * Reason Comments Med Refill Encounter Details Date Type Department Care Team ([facility] Contact Info) Description 08/16/2022 Refill [facility] [address] [facility] [address] [place] [address] Migel Wyman MD [address] [place] [address] Stage 3b chronic kidney disease (HCC); Hypertensive [...] Upcoming Encounters Date Type Department Care Team ([facility] Contact Info) Description 03/30/2025 1:00 PM EST Office Visit [facility] [address] [place] [address] Earnest Baer MD [address] [facility] [address] [place] [address] documented as of this encounter Visit Diagnoses Diagnosis Stage 3b chronic kidney disease (HCC) Hypertensive chronic kidney disease documented in this encounter Care Teams Ammonium Nitrate Neutralizer Relationship Specialty Start Date End Date Bonny Lopez MD [address] [place] [address] PCP - General Internal Medicine 01/27/21 documented as of this encounter
--- OUTSIDE RECORDS SUMMARY | 2025-03-25 10:44 | XMS_ITS | Encounter Summary ---
Author Organization [facility] Address [address] [facility] [address] [place] [address] Phone Care Team Providers Care Associate Professor Of Geology Name Role Phone Bonny Lopez MD Primary Care Provider [phone] Reason for Visit * Reason Comments Med Refill Encounter Details Date Type Department Care Team ([facility] Contact Info) Description 09/13/2022 [facility]ill [facility] [address] [facility] [address] [place] [address] Migel Wyman MD [address] [place] [address] Stage 3b chronic kidney disease (HCC); Hypertensive [...] Upcoming Encounters Date Type Department Care Team ([facility] Contact Info) Description 03/30/2025 1:00 PM EST Office Visit [facility] [address] [place] [address] Earnest Baer MD [address] [facility] [address] [place] [address] documented as of this encounter Visit Diagnoses Diagnosis Stage 3b chronic kidney disease (HCC) Hypertensive chronic kidney disease documented in this encounter Care Teams Associate Professor Of Geology Relationship Specialty Start Date End Date Bonny Lopez MD [address] [place] [address] PCP - General Internal Medicine 01/27/21 documented as of this encounter
--- OUTSIDE RECORDS SUMMARY | 2025-03-25 10:44 | XMS_ITS | Clinical Summary ---
Author Organization [facility] Address [address] [facility] [address] [place] [address] Phone Care Team Providers Care Project Control Manager Name Role Phone Sully Lopez MD Primary Care Provider [phone] Allergies Active Allergy Reactions Criticality Noted Date [...] 100 UNIT/ML inj pen 06/26/19 21 Active alendronate (FOSAMAX) 70 MG tablet 07/06/19 22 Active hydrALAZINE 50 MG tablet TAKE 1 TABLET BY MOUTH THREE TIMES A DAY 84 tablet 12/29/19 25 Active furosemide (LASIX) 20 MG tabletIndicati ons:Stage 3b chronic kidney disease (HCC),Hyperten sive chronic kidney disease TAKE 2 TABLETS BY MOUTH ONCE DAILY. 56 tablet 03/18/20 25 Active Invokamet XR 50-500 MG tablet sustained-rele ase 24 hour 07/06/19 21 025 Discontinued(Al ternate therapy) lisinopril 20 MG tabletIndicati ons:Stage 3b chronic kidney disease (HCC),Hyperten sive chronic kidney disease TAKE 1 TABLET BY MOUTH ONCE DAILY 28 tablet 02/22/20 25 025 Discontinued(Al ternate therapy) furosemide (LASIX) 20 MG tabletIndicati ons:Stage 3b chronic kidney disease (HCC),Hyperten sive chronic kidney disease TAKE 2 TABLETS BY MOUTH ONCE DAILY. 56 tablet 02/22/20 25 025 Discontinued cloNIDine (CATAPRES) 0.1 MG tablet TAKE 1 TABLET BY MOUTH TWICE DAILY IN THE MORNING AND EVENING. 60 tablet 02/22/20 25 025 Discontinued(Al ternate therapy) Active Problems Problem Noted Date Diagnosed Date Chronic kidney disease, stage 4 (severe) Renal osteodystrophy 11/08/2023 Renal osteodystrophy 07/28/2021 Stage 3b chronic kidney disease 07/06/2020 Type 2 diabetes mellitus wit h diabetic chronic kidney disease 07/06/2020 Hypertensive chronic kidney disease 07/06/2020 Diabetes mellitus 06/21/2020 Essential hypertension 06/21/2020 Renal disorder due to type 2 diabetes mellitus 0 06/21/2020 Acute nontraumatic kidney injury 06/21/2020 Encounters Date Type Department Care Team Description 03/18/2025 Refill [facility] [address] [place] [address] Earnest Baer MD Stage 3b chronic kidney disease (HCC); Hypertensive chronic kidney disease 03/17/2025 Orders Only [facility] [address] [place] [address] [address] [place] [address] Earnest Baer MD 03/09/2025 1:45 PM EST Office Visit [facility] [address] [place] [address] [facility] [address] Earnest Baer MD Renal disorder due to type 2 diabetes mellitus <Without medication use ; Diabetic nephropathy> (HCC) (Primary Dx); Chronic kidney disease, stage 4 (severe) (HCC) 03/06/2025 Orders Only [facility] [address] [facility] [address] [place] [phone] Thelma Yang MD 02/20/2025 Refill [facility] [address] [place] [phone] Earnest Baer MD Stage 3b chronic kidney disease (HCC); Hypertensive chronic kidney disease 01/21/2025 Refill [facility] [address] [place] [phone] Earnest Baer MD Stage 3b chronic kidney disease (HCC); Hypertensive chronic kidney disease 12/24/2024 Refill [facility] [address] [place] [phone] Earenst Baer MD Stage 3b chronic kidney disease [...] Care Team (Late st Contact Info) Description 03/30/2025 1:00 PM EST Office Visit [facility] [address] [address] [place] [address] Earnest Baer MD [address] [facility] [address] [place] [address] Health Maintenance Due Date Last Done Comments Pneumococcal Vaccine: 50+ Years (3 of 3 - PCV) 07/06/2017 07/06/2016, 09/19/2015, 10/16/2014 Diabetes: Ophthalmology Exam 05/02/2020 Diabetes: Pedal Pulse Checked 05/02/2020 Diabetes: Sensory Foot Exam 05/02/2020 Diabetes: Visual Foot Exam 05/02/2020 Diabetes: Hemoglobin A1C 04/06/2025 01/04/2025 Pneumococcal Vaccine: Peds (0 to 5 Years) and At-Risk Patients (6 to 49 Years) Discontinued 07/06/2016, 09/19/2015, 10/16/2014 Influenza Vaccine Completed 01/07/2025, , 12/25/2020, Additional history exists Hepatitis B Vaccine Aged Out No longe r eligible based on patient's age to complete this topic Procedures Procedure Name Priority Date/Time Associated Diagnosis Comments ALBUMIN, URINE, RANDOM Routine 03/17/2025 10:18 AM EST PROTEIN / CREATININE RATIO, URINE Routine 03/17/2025 10:18 AM EST Renal disorder due to type 2 diabetes mellitus <Without medication use ; Diabetic nephropathy> (HCC) Chronic kidney disease, stage 4 (severe) (HCC) URINALYSIS WITH MICROSCOPIC Routine 03/17/2025 10:18 AM EST Renal disorder due to type 2 diabetes mellitus <Without medication use ; Diabetic nephropathy> (HCC) Chronic kidney disease, stage 4 (severe) (HCC) SULLY W/REFLEX Routine 03/17/2025 9:59 AM EST HEPATITIS B CORE AB TOTAL Routine 03/17/2025 9:59 AM EST PTH, INTACT (HC) Routine 03/17/2025 9:59 AM EST CBC AND DIFFERENTIAL Routine 03/17/2025 9:59 AM EST C4 COMPLEMENT Routine 03/17/2025 9:59 AM EST Renal disorder due to type 2 diabetes mellitus <Without medication use ; Diabetic nephropathy> (HCC) Chronic kidney disease, stage 4 (severe) (HCC) C3 COMPLEMENT Routine 03/17/2025 9:59 AM EST Renal disorder due to type 2 diabetes mellitus <Without medication use ; Diabetic nephropathy> (HCC) Chronic kidney disease, stage 4 (severe) (HCC) HEPATITIS C ANTIBODY Routine 03/17/2025 9:59 AM EST Renal disorder due to type 2 diabetes mellitus <Without medication use ; Diabetic nephropathy> (HCC) Chronic kidney disease, stage 4 (severe) (HCC) HEPATITIS B SURFACE ANTIGEN Routine 03/17/2025 9:59 AM EST Renal disorder due to type 2 diabetes mellitus <Without medication use ; Diabetic nephropathy> (HCC) Chronic kidney disease, stage 4 (severe) (HCC) HEPATITIS B SURFACE ANTIBODY QUANT Routine 03/17/2025 9:59 AM EST Renal disorder due to type 2 diabetes mellitus <Without medication use ; Diabetic nephropathy> (HCC) Chronic kidney disease, stage 4 (severe) (HCC) KAPPA/LAMBDA FREE LT CHAINS W/RATIO Routine 03/17/2025 9:59 AM EST Renal disorder due to type 2 diabetes mellitus <Without medication use ; Diabetic nephropathy> (HCC) Chronic kidney disease, stage 4 (severe) (HCC) PROTEIN ELECTROPHORESIS, SERUM Routine 03/17/2025 9:59 AM EST Renal disorder due to type 2 diabetes mellitus <Without medication use ; Diabetic nephropathy> (HCC) Chronic kidney disease, stage 4 (severe) (HCC) MAGNESIUM Routine 03/17/2025 9:59 AM EST Renal disorder due to type 2 diabetes mellitus <Without medication use ; Diabetic nephropathy> (HCC) Chronic kidney disease, stage 4 (severe) (HCC) VITAMIN D 25 HYDROXY Routine 03/17/2025 9:59 AM EST Renal disorder due to type 2 diabetes mellitus <Without medication use ; Diabetic nephropathy> (HCC) Chronic kidney disease, stage 4 (severe) (HCC) RENAL FUNCTION PANEL Routine 03/17/2025 9:59 AM EST Renal disorder due to type 2 diabetes mellitus <Without medication use ; Diabetic nephropathy> (HCC) Chronic kidney disease, stage 4 (severe) (HCC) RENAL FUNCTION PANEL (EXTERNAL LAB ENTRY) Routine 02/07/2025 11:24 AM EST ALT EXT LABS Routine 01/04/2025 from Last 3 Months Results * (ABNORMAL) Protein, Total, Random Urine w/Creatinine (Protein/Creat Ratio) (03/17/2025 10:18 AM EST) Protein Urine Random 23(H) <12 mg/dL See order comments Protein/Creatin ine Ratio, Urine 0.20 <0.2 See order comments Comment: The spot urine protein:creatinine ratio may increase to 0.3 during normal . Urine Urine specimen obtained by clean catch procedure / Unknown 03/17/2025 10:18 AM EST 03/17/2025 10:18 AM EST us Earnest Baer MD LAB URINE ORDERABLES Final Re sult [place] See order comments [place] [address] * (ABNORMAL) Albumin, urine, random (03/17/2025 10:18 AM EST) Creatinine, Urine 113.08 mg/dL Se e order comments Urine Microalbumin 68.0 mg/L See order comments Microalbumin/Crea tinine Ratio 60.1(H) <30 ug/mg cr See order comments Comment: Albumin/Creatinine Ratio Reference Ranges: Normal: < 30 ug/mg creatinine Microalbuminuria: 30 - 300 ug/mg creatinine Clinical Albuminuria: > 300 ug/mg creatinine 03/17/2025 10:1 8 AM EST 03/17/2025 10:18 AM EST Earnest Baer MD LAB URINE ORDERABLES Final Re sult Performing Organization Address [facility] de Phone Number See order comments [place] [address] * (ABNORMAL) Urinalysis with microscopic (03/17/2025 10:18 AM EST) Color Urine Yellow See orde r comments Appearance Urine Hazy See order comments pH Urine 6.0 5.0 - 9.0 See order comments Glucose Urine Negative Negative mg/dL See order comments Blood, Urine Negative Negative See ord er comments Specific [place] Urine 1.010 1.005 - 1.025 See order comments Protein Urine Trace Neg-Trace mg/dL See order comments Ketones, Urine Negative Negative mg/dL See order comments Nitrite, Urine Negative Negative See o rder comments Leukocyte Esterase Urine Moderate (2+)(A) Negative See order comments RBC, Urine 0-2 0 - 2 /HPF See orde r comments WBC >50(A) 0 - 5 /HPF See order comments Squamous Epithelial, Urine 11-20 0 - 2 /HPF See order comments Bacteria, Urine 3+ None Seen See order comments Hyaline Casts, Urine 3-5 0 - 2 /LPF See order comments Urine Urine specimen obtained by clean catch procedure / Unknown 03/17/2025 10:18 AM EST 03/17/2025 10:18 AM EST Earnest Baer MD LAB URINE ORDERABLES Final Re sult Performing Organization Address City/[facility] Co de Phone Number See order comments [place] [address] * (ABNORMAL) PTH, Intact (03/17/2025 9:59 AM EST) Parathyroid Hormone, Intact 133.7(H) 8.7 - 77.1 pg/mL See order comments 03/17/2025 9:59 AM EST 03/17/2025 9:59 AM EST Earnest Baer MD LAB BLOOD ORDERABLES Final Re sult Performing Organization Address [facility]/ZIP Co de Phone Number [place] See order comments [place] [address] * SULLY W/Reflex (03/17/2025 9:59 AM EST) SULLY Screen NEGATIVE NEGATIVE See order comments Comment: SULLY IFA is a first line screen for detecting the presence of up to approximately 150 autoantibodies in various autoimmune diseases. A negative SULLY IFA result suggests an SULLY-associated autoimmune disease is not present at this time, but is not definitive. If there is high clinical suspicion for Sjogren's syndrome, testing for anti-SS-A/Ro antibody should be considered. Anti-Radha-1 antibody should be considered for clinically suspected inflammatory myopathies. AC-0: Negative International Consensus on SULLY Patterns (https://doi.org/10.1515/ohos-9960-6908) For additional information, please refer to http://education.CogMetal/faq/KCY871 (This link is being provided for informational/ educational purposes only.) THIS TEST WAS PERFORMED AT: [facility] [address] [place] [phone] REDDY JONES MD SULLY TNP See order comments SULLY Pattern TNP See orde r comments SULLY TITER 2 TNP See orde r comments SULLY Pattern 2 TNP See or mell comments SULLY TITER 3 TNP See orde r comments SULLY Pattern 3 TNP See or mell comments 03/17/2025 9:59 AM EST 03/17/2025 9:59 AM EST Earnest Baer MD LAB BLOOD ORDERABLES Final Re sult Performing Organization Address [facility] Co de Phone Number [place] See order comments [place] [address] * Hepatitis C antibody (03/17/2025 9:59 AM EST) Hepatitis C Antibody Nonreactive Nonreactive See order comments Comment: Antibodies to HCV not detected; does not exclude early acute HCV infection. Blood Venous blood / Unknown 03/17/2025 9:59 AM EST 03/17/2025 9:59 AM EST Earnest Baer MD LAB BLOOD ORDERABLES Final Re sult Performing Organization Address [facility] de Phone Number [place] See order comments [place] [address] * (ABNORMAL) [place]/Lambda free LT chains w/ratio, Serum (03/17/2025 9:59 AM EST) Pathologist [facility] [place] Free Light Chain 49.0(A) 3.3 - 19.4 mg/L See order comments Lambda Free Light Chain 47.6(A) 5.7 - 26.3 mg/L See order comments [place]/Lambda LC Ratio 1.03 0.26 - 1.65 See order comments Comment: Free kappa/lambda ratio in serum of normal individuals is 0.26-1.65. Excess production of free kappa or lambda chains can alter this ratio. Monoclonal free light chains are found in serum of patients with multiple myeloma, Waldenstrom's macroglobulinemia, mu-heavy chain disease, primary amyloidosis, light chain deposition disease, monoclonal gammopathy of undetermined significance, and lymphoproliferative disorders. Measurement of free light chain concentration in serum is useful for diagnosis, prognosis, monitoring disease activity and following response to therapy of these disorders. THIS TEST WAS PERFORMED AT: [facility] [address] [place] [phone] REDDY JONES MD Blood Venous blood / Unknown 03/17/2025 9:59 AM EST 03/17/2025 9:59 AM EST Earnest Baer MD LAB BLOOD ORDERABLES Final Re sult Performing Organization Address [facility] Co de Phone Number [place] See order comments [place] [address] * Hepatitis B Core Antibody, Total (03/17/2025 9:59 AM EST) Hep B Core Total Ab Nonreactive Nonreactive See order comments 03/17/2025 9:59 AM EST 03/17/2025 9:59 AM EST Earnest Baer MD LAB BLOOD ORDERABLES Final Re sult Performing Organization Address [facility] de Phone Number [place] See order comments [place] [address] * Vitamin D 25 Hydroxy (03/17/2025 9:59 AM EST) Vitamin D, 25-Hydroxy 48.3 >30 ng/mL See order comments Comment: Health Based Reference Values* < 20 ng/mL Deficient 20-30 ng/mL Insufficient > 30 ng/mL Sufficient *Rush STARK. N Engl J Med. 2007;357:266-280 There is no well-established upper level of normal vitamin D levels. Some laboratories use 50 ng/mL as an upper limit of normal. However, toxicity is patient-dependent and may occur at any level. Careful correlation with the patient's presentation is necessary and, if there is concern for vitamin D toxicity, treatment should be considered irrespective of the serum level. Care must be taken in interpreting Vitamin D results from different laboratories and methodologies. Published data demonstrated that results from patients undergoing hemodialysis may show a negative bias when tested with various automated 25-OH vitamin D assays when compared to LC-MS/MS. When testing samples from patients whose predominant form of Vitamin D is Vitamin D2, such as patients receiving Vitamin D2 supplementation, results that are subtherapeutic should be confirmed with another method such as LC-MS/MS. Blood Venous blood / Unknown 03/17/2025 9:59 AM EST 03/17/2025 9:59 AM EST Earnest Baer MD LAB BLOOD ORDERABLES Final Re sult Performing Organization Address [facility] Co de Phone Number [place] See order comments [place] [address] * Hepatitis B Surface Antibody (03/17/2025 9:59 AM EST) [facility] Hep B Surface Antibody NONREACTIVE Nonreactive See order comments Comment:Nonreactive: < 8.00 mIU/mL Blood Venous blood / Unknown 03/17/2025 9:59 AM EST 03/17/2025 9:59 AM EST us Earnest Baer MD LAB BLOOD ORDERABLES Final Re sult Performing Organization Address [facility] de Phone Number [place] See order comments [place] [address] * Hepatitis B Surface Antigen (03/17/2025 9:59 AM EST) [facility] Hep B Surface Antigen Negative Negative See order comments Blood Venous blood / Unknown 03/17/2025 9:59 AM EST 03/17/2025 9:59 AM EST us Earnest Baer MD LAB BLOOD ORDERABLES Final Re sult Performing Organization Address [facility] Phone Number [place] See order comments [place] [address] * (ABNORMAL) CBC and Differential (03/17/2025 9:59 AM EST) [facility] WBC 7.0 4.8 - 10.8 X10*3/uL See order comments RBC 3.59(L) 4.20 - 5.50 X10*6/uL See order comments Hgb 10.3(L) 12.0 - 16.0 g/dl See order comments Hematocrit 32.6(L) 37.0 - 47.0 % See order comments MCV 90.8 80.0 - 98.0 fL See order comments MCH 28.7 27.0 - 33.0 pg See order comments MCHC 31.6 31.0 - 35.0 g/dl See order comments RDW 13.0 11.0 - 16.0 % See order comments Platelets 197 160 - 400 X10*3/uL See order comments MPV 11.0 9.4 - 12.3 fL See order comments Neutrophils % Auto 75.0(H) 45 - 73 % See order comments Immature Granulocytes 0.3 0.0 - 0.4 % See order comments Lymphocytes Relative 16.5(L) 20 - 40 % See order comments Monocytes 5.5 2 - 11 % See order comments Eosinophils Relative 2.0 0 - 4 % See order comments Basophils Relative 0.7 0 - 2 % See order comments nRBC Count 0.0 0.0 - 0.2 /100WBC See order comments Neutrophils Absolute 5.2 2.0 - 8.3 x10*3/uL See order comments Immature Grans (Absolute) 0.02 0.00 - 0.03 X10*3/uL See order comments Lymphocytes Absolute 1.2 1.2 - 4.9 X10*3/uL See order comments Monocytes Absolute 0.4 0.1 - 1.2 X10*3/uL See order comments Eosinophils Absolute 0.1 0.0 - 0.4 X10*3/uL See order comments Basophils Absolute 0.1 0.0 - 0.2 X10*3/uL See order comments NRBC Absolute 0.000 0.0 - 0.012 X10*3/uL See order comments 03/17/2025 9:59 AM EST 03/17/2025 9:59 AM EST Earnest Baer MD LAB BLOOD ORDERABLES Final Re sult [place] See order comments [place] [address] * C3 Complement (03/17/2025 9:59 AM EST) C3 Complement 102 mg/dL See or mell comments Comment: Reference Range <1 year: Not established 1-14 years: 82-173 15-80 years: 83-193 > or = 81 years Not established THIS TEST WAS PERFORMED AT: [facility] [address] [place] [phone] REDDY JONES MD Blood Venous blood / Unknown 03/17/2025 9:59 AM EST 03/17/2025 9:59 AM EST Earnest Baer MD LAB BLOOD ORDERABLES Final [facility] See order comments [place] [address] * C4 Complement (03/17/2025 9:59 AM EST) Pathologist [facility] C4 Complement 17 mg/dL See or mell comments Comment: Reference Range <1 year: Not established 1-14 years: 13-46 15-80 years: 15-57 > or = 81 years Not established THIS TEST WAS PERFORMED AT: [facility] [address] [place] [phone] REDDY JONES MD Blood Venous blood / Unknown 03/17/2025 9:59 AM EST 03/17/2025 9:59 AM EST Earnest Baer MD LAB BLOOD ORDERABLES Final Re sult [place] See order comments [place] [address] * Protein electrophoresis, serum (03/17/2025 9:59 AM EST) Pathologist [facility] Total Protein Electrophoresis 6.8 6.1 - 8.1 g/dL See order comments Albumin 3.8 3.8 - 4.8 g/dL See order comments A-1 Antitrypsin 0.3 0.2 - 0.3 g/dL See order comments Alpha 2 0.8 0.5 - 0.9 g/dL See order comments Beta-1 0.4 0.4 - 0.6 g/dL See order comments Beta-2 0.4 0.2 - 0.5 g/dL See order comments Gamma Globulin % 1.1 0.8 - 1.7 g/dL See order comments Abnormal Protein Band 1 TNP See order comments Abnormal Protein Band 2 TNP See order comments Abnormal Protein Band 3 TNP See order comments Protein Electrophoresis Interpretation, Serum SEE NOTE See order comments Comment: Normal Serum Protein Electrophoresis Pattern. No abnormal protein bands (M-protein) detected. THIS TEST WAS PERFORMED AT: [facility] [address] [place] [phone] REDDY JONES MD Blood Venous blood / Unknown 03/17/2025 9:59 AM EST 03/17/2025 9:59 AM EST us Earnest Baer MD LAB BLOOD ORDERABLES Final Re sult Performing Organization Address [facility] Co de Phone Number [place] See order comments [place] [address] * Magnesium (03/17/2025 9:59 AM EST) Magnesium 2.0 1.6 - 2.6 mg/dL See order comments Blood Venous blood / Unknown 03/17/2025 9:59 AM EST 03/17/2025 9:59 AM EST us Earnest Baer MD LAB BLOOD ORDERABLES Final Re sult Performing Organization Address [facility] de Phone Number [place] See order comments [place] [address] * (ABNORMAL) Renal Function Panel (03/17/2025 9:59 AM EST) Sodium 143 135 - 145 mmol/L See order comments Potassium 4.6 3.3 - 5.1 mmol/L See order comments Chloride 103 96 - 108 mmol/L See order comments Bicarbonate (CO2) 32(H) 22 - 29 mmol/L See order comments Anion Gap 13 12 - 20 See order comments BUN 35(H) 9 - 16 mg/dL See order comments Creatinine Serum 2.15(H) 0.5 - 1.4 mg/dL See order comments Glucose 170(H) 60 - 115 mg/dL See order comments Calcium 9.7 8.4 - 10.2 mg/dL See order comments Phosphorus, Serum 3.3 2.7 - 4.5 mg/dL See order comments Albumin 3.8 3.5 - 5.0 g/dL See order comments Blood Venous blood / Unknown 03/17/2025 9:59 AM EST 03/17/2025 9:59 AM EST us Earnest Baer MD LAB BLOOD ORDERABLES Final Re sult Performing Organization Address [facility] de Phone Number [place] See order comments [place] [address] * Renal Function Panel (External Lab) (02/07/2025 11:24 AM EST) Blood Historical Provider LAB BLOOD ORDERABLES Yamila l Result * (ABNORMAL) ALT EXT LABS (01/04/2025) Hemoglobin A1C 6.2(A) 4.0 - 6.0 01/04/2025 Historical Provider LAB BLOOD ORDERABLES Yamila l Result from Last 3 Months Insurance ([id number]) ([id number]) Care Teams Project Control Manager Relationship Specialty Start Date End Date Sully Lopez MD [address] [place] [address] PCP - General Internal Medicine 01/27/21
--- OUTSIDE RECORDS SUMMARY | 2025-03-25 10:44 | XMS_ITS | Patient Health Record ---
Author Organization [facility] mauro [place] Address [address] [place] [address] Care Team Providers Care Rail Layer Name Role Phone Juan CURTIS, Bonny Primary Care Provider Unavail able ClaudioEstevan stokes Unavailable [phone] Allergies No Known Allergies Results Component Value [...] Problem Acquired hammer toe of right foot (8816042343473 105) Other hammer toe(s) (acquired), right foot (M20.41) Active confirmed Problem Acquired hammer toe of left foot (0810078246113 103) Other hammer toe(s) (acquired), left foot (M20.42) Active confirmed Problem Type 2 diabetes mellitus with peripheral angiopathy (366602273) Type 2 diabetes mellitus with diabetic peripheral angiopathy without gangrene (E11.51) Active confirmed Q7(A), Q8(2B), Q9(1B,2C) Vital Signs Blood pressure diastolic 80 mm Hg 01/14/2025 Height 5ft 1in in 01/14/2025 Blood pressure systolic 118 mm Hg 01/14/2025 Weight 143 lbs 01/14/2025 BMI 27.02 kg/m2 01/14/2025 Procedures Procedure Date Ordered Date Performed Result Body Sit e 52489-QPZCASV NAIL, 1-5 08/11/2024 N/A 25679-CMAY SKIN LESIONS, 2 TO 4 08/11/2024 N/A X3940-AKMSWBLN DYSTROPHIC NAILS ANY # 08/11/2024 N/A 22868-GKRXSDD NAIL, 1-5 01/14/2025 N/A 62045-FERY SKIN LESIONS, 2 TO 4 01/14/2025 N/A V3667-YRFXJTWH DYSTROPHIC NAILS ANY # 01/14/2025 N/A Encounters Encounter Location Date Provider Diagnosis [facility] [address] 08/11/2024 Estevan Snyder Type 2 diabetes mellitus with diabetic peripheral angiopathy without gangrene E11.51 ; Other hammer toe(s) (acquired), right foot M20.41 ; Tinea unguium B35.1 ; Pain in right toe(s) M79.674 ; Pain in left toe(s) M79.675 and Other hammer toe(s) (acquired), left foot M20.[address] [facility] [address] 01/14/2025 Estevan Snyder Type 2 diabetes mellitus [...] Treatment Pending Test Test Name Order Date 80629-WPRMXPE NAIL, 1-5 08/11/2024 64025-VNBTNLX NAIL, 1-5 01/14/2025 77502-HIHP SKIN LESIONS, 2 TO 4 01/15/20 10771-MDLJ SKIN LESIONS, 2 TO 4 08/12/19 N0300-ATPFDOLY DYSTROPHIC NAILS ANY # T2002-BEKVLHWG DYSTROPHIC NAILS ANY # Next Appt Details Provider Name:Estevan Snyder , 05/07/2025 09:30:00 AM, [address] [facility], [place] [address], [place], [address], Insurance Providers Payer Name Payer Address Payer Phone Subscriber Number Group Number Insured Name Patient Relationship to Insured Coverage Start Date Coverage End Date [facility] [employer] Claims [address] [place] [id number] Rupali Freeman Self - patient is the insured Medical (General) History Medical History History ICD Code Diabetic Headaches/Migraines High Blood Pressure Osteoporosis
--- OUTSIDE RECORDS SUMMARY | 2025-03-25 10:44 | XMS_ITS | Continuity of Care Document ---
Author Organization [employer] [facility], [facility] [employer] [facility] Address [address] [place] [address] Care Team Providers Care Pipe Organ Mechanic Name Role Phone HIM CCA OTHER Assessment [...] breathing, high fever, or other concerning symptoms. [email or web address] Not available 01/06/2025 17:21:12 Plan of Treatment Reminders Order Date Submit Date Provider Last Modified By Organization Details Last Modified Time Details Appointments None recorded. Lab rapid flu (A+B) 2024 [facility] [address] [facility], [place], [address] 17:41:39 SARS CoV 2 (COVID-19) Ag, QL, IA, upper respiratory specimen 2024 025 [email or web address] [facility] (Centralized Electronic Ordering - All Locations), Patient Can Go To The Location Of Their Choice, [address] 09:35:57 Referral None recorded. Procedures None recorded. [...] Vitals Date Recorded Body height Oxygen saturation Body weight Body temperature Respiratory rate Heart rate Systolic And Diastolic Provider Name and Address Organization Details Last Updated DateTime 165.1 cm 96 % 90242.6 96 g 98.6 [degF] 16 /min 68 [...] ICD10 Code Diagnosis IMO Codes Diagnosis Note 27181 Garo Kennedy MD [address] [address] 12/25/2024 14:26:40 01/06/2025 18:39:55 Lower respiratory tract infection 69086630 J22 2464 Health Concerns Section Related Observation LastModified by Organization Detai ls LastModified Time None Recorded Concern Status LastModified by Organization Details LastModified Time None Recorded Payers Encounter Date Sequence Insurance Name Policy Number Policy Aguilar Covered Member ID Aguilar Member ID Guarantor Name 12/25/[address] [facility] - DOS ON OR AFTER 2022 - DUAL ELIGIBLE - [employer] OPTIONS AND ONE CARE (MEDICARE REPLACEMENT/AD VANTAGE - HMO) Rupali Freeman [id number] Rupali Freeman Notes Date Note Type Note Provider [...] signs of when to seek emergency care. Newswriter Organization Information for Hu Flynn Camila Mejia Legal Name: [employer] A ddress: [address] [place] [address], USMedical Director: Malachi Starks [facility] No.: [id number] Newswriter POC Test Results from Hu Flynn JOANYonis Rapid COVID antigen (14:20:23)COVID: - Rapid influenza antigen (14:20:24)Flu: - Rapid strep test (14:20:25)Strep: - ..................... ..................... ..................... ..................... ..................... ..................... ............... Newswriter Note From Hu Flynn: W[place]1 sent to the above address for the pt reporting a headache and also a sore throat. Upon arrival the pt was met at the door. 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 WRR. ..................... ..................... ..................... ..................... ..................... ..................... ............... [facility] Consulted: Johnny Kennedy ..................... ..................... ..................... ..................... ..................... ..................... ............... Disposition: Fulfilled Garo Kennedy MD [address] [place] [address],[address] [facility], [place], [address], [employer], STEFANO 01/06/2025 17:21:27 OBGyn Episode No OBEpisode recorded.
--- OUTSIDE RECORDS SUMMARY | 2025-03-25 10:44 | XMS_ITS | Encounter Summary ---
Author Organization [facility] Address [address] [facility] [address] [place] [address] Phone Care Team Providers Care Solid Waste Facility Operator Name Role Phone Bonny Lopez MD Primary Care Provider [phone] Reason for Visit * Reason Comments Med Refill Encounter Details Date Type Department Care Team ([facility] Contact Info) Description 07/19/2022 Refill [facility] [address] [facility] [address] [place] [address] Migel Wyman MD [address] [place] [address] Stage 3b chronic kidney disease (HCC); Hypertensive [...] Upcoming Encounters Date Type Department Care Team ([facility] Contact Info) Description 03/30/2025 1:00 PM EST Office Visit [facility] [address] [place] [address] [place] [address] Earnest Baer MD [address] [facility] [address] [place] [address] documented as of this encounter Visit Diagnoses Diagnosis Stage 3b chronic kidney disease (HCC) Hypertensive chronic kidney disease documented in this encounter Care Teams Solid Waste Facility Operator Relationship Specialty Start Date End Date Bonny Lopez MD [address] [place] [address] PCP - General Internal Medicine 01/27/21 documented as of this encounter
--- OUTSIDE RECORDS SUMMARY | 2025-03-25 10:45 | XMS_ITS | Data Portability ---
Author Organization [employer] [facility], [facility] Address [address] [place] [address] Care Team Providers Care Tube Former Operator Name Role Phone HIM CCA OTHER Assessment [...] breathing, high fever, or other concerning symptoms. [email or web address] Not available 01/06/2025 17:21:12 Plan of Treatment Reminders Order Date Submit Date Provider Last Modified By Organization Details Last Modified Time Details Appointments None recorded. Lab rapid flu (A+B) 2024 025 ANUPAM [facility], [address] [facility], [place], [address] 17:41:39 SARS CoV 2 (COVID-19) Ag, QL, IA, upper respiratory specimen 2024 025 [email or web address] [facility] (Centralized Electronic Ordering - All Locations), Patient Can Go To The Location Of Their Choice, [address] 09:35:57 Referral None recorded. Procedures None recorded. [...] Last Updated DateTime 165.1 cm 96 % 24438.6 96 g 98.6 [degF] 16 /min 68 [...] ICD10 Code Diagnosis IMO Codes Diagnosis Note 13409 Garo Kennedy MD [address] [address] 12/25/2024 14:26:40 01/06/2025 18:39:55 Lower respiratory tract infection 98430201 J22 2464 Health Concerns Section Related Observation LastModified by Organization Detai ls LastModified Time None Recorded Concern Status LastModified by Organization Details LastModified Time None Recorded Advance Directives Directive None Recorded Payers Insurance Date Sequence Insurance Name Policy Number Policy Aguilar Covered Member ID Aguilar Member ID Guarantor Name 01/06/2025 1 [facility] - DOS ON OR AFTER 2022 - DUAL ELIGIBLE - [employer] OPTIONS AND ONE CARE (MEDICARE REPLACEMENT/AD VANTAGE - HMO) Rupali Freeman [id number] Rupali Pete Notes Date Note Type Note Provider Name [...] signs of when to seek emergency care. Freelance Court Reporter Organization Information for Hu Flynn Roberto Legal Name: [employer] A ddress: [address] [place] [address], USMedical Director: Malachi Starks [facility] No.: [id number] [address]elance [address] Reporter POC Test Results from Hu Flynn JOANYonis Rapid COVID antigen (14:20:23)COVID: - Rapid influenza antigen (14:20:24)Flu: - Rapid strep test (14::25)Strep: - ..................... ..................... ..................... ..................... ..................... ..................... ............... Freelance Court Reporter Note From Hu Flynn: SD1 sent to the above address for the pt reporting a headache and also a sore throat. Upon arrival the pt was met at the door. 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 WRR. ..................... ..................... ..................... ..................... ..................... ..................... ............... [facility] Consulted: Johnny Kennedy ..................... ..................... ..................... ..................... ..................... ..................... ............... Disposition: Fulfilled Garo Kennedy MD [address] [place] [address],[address], [place], [address], [employer] 01/06/2025 17:21:27 OBGyn Episode No OBEpisode recorded.
[2025-03-25 11:03] VITALS: BP 150/80; BMI 25.3
--- NOTE | 2025-03-25 11:03 | A.OFFVIS_ITS ---
Vital Signs 3 03/25/25 11:03 Height 5 ft 1 in Weight 134 lb BMI 25.3 BP 150/80 H Blood Pressure Location Rt brachial Position Sitting Intake Visit Reasons: 3 mo Follow up Intake Note: Pt presents to the office today for c/o a burning head pain that started about 2 months ago. Pt states she has pain that wraps around her head that goes to her neck and ears. Reel Man Required: Yes Reel Man Services: Reel Man Offered & Declined Reel Man Name: Granddaughter Interpreted Accompanied by: Self / Same As Patient Allergies dulaglutide (Trulicity) Allergy (Intermediate, Verified 02/07/25 13:24) headache, memory loss amlodipine Adverse Reaction (Intermediate, Verified 02/07/25 13:24) leg edema atorvastatin Adverse Reaction (Intermediate, Verified 02/07/25 13:24) dry mouth omeprazole (OMEPRAZOLE) Adverse Reaction (Intermediate, Verified 02/07/25 13:24) N/V; ABDOMINAL PAIN HPI Comments Details: 79-year-old female presents for follow-up for headache. Patient is accompanied by her granddaughter, Shahida. Interval medical history: * 02/07/2025, [facility] [place] ER evaluation for URI symptoms with increased headache. Head CT was unremarkable. Headache had resolved with prn Tylenol. Patient was discharged home on Augmentin. Symptoms have since resolved. * Interval exacerbation of chronic kidney disease, for which she is followed closely by her face burler, Dr. Baer. She has renal follow-up in 5 days. Interval labs: Notable for chronic mild anemia, chronic renal impairment interval exacerbation, normal phosphorus, elevated PTH, double positive SULLY, which was negative on follow-up, low-normal folate and B12 with elevated homocystine and methylmalonic acid levels. Thus, patient was started on vitamin B12 supplement. Patient reports she continues to have headache and some dizziness. Her granddaughter states that she does drink a lot of water on a regular basis. She does endorse ongoing neck tightness, though her granddaughter has bought ROM more supportive pillow She states with the amitriptyline had decreased the intensity of these headaches, that she tolerated well. However, it is no longer in her medication bubble pack. Granddaughter states that it was not intentionally discontinued by another provider. Tylenol 650 mg as needed helps the headache some. She continues to have short-term memory lapses, or will forget what she is about to say or do. L11/18/2024, HPI: Patient denies any significant medical history changes. 10/28/2024, MRI brain with and without contrast: * No acute intracranial finding or abnormal enhancement. * Nonspecific mild supratentorial white matter signals, most frequently ascribed to chronic small vessel ischemic disease. Patient has not yet had labs done. Patient reports she continues to have a daily frontal/temporal/ear throbbing headache associated with photophobia, dizziness, concentrating, and activity intolerance. She has started riboflavin 400 mg q.a.m. and magnesium 400 mg q.h.s. She is taking Tylenol every day, but cannot quantify how much today. Today, she is open to discussing other prescription migraine treatment options. She states, jokingly, that her daughter thinks she may have Alzheimer's, as sometimes she may forget what she was about to say or do. She states this is worse when her headache symptoms are worse. 09/19/2024, initial HPI: 79-year-old female presents for new patient headache disorder consultation. Patient is accompanied by her granddaughter, Shahida. History of Present Illness - Patient reports she starting having episodes of headache and dizziness, which can occur separately or together approximately 2-3 months ago, without precipitating infection, accident, or specific trigger. * Patient denies history of headache or migraine. - Patient's granddaughter also notes that patient started to become more forgetful during this period as well, now patient is requiring more assistance with remembering appointments and doing daily tasks. - Dizziness is present, leading to a fear of falling. Previous neurological care for this headache: None Past medical history and ROS are notable for: - Osteoporosis is managed with weekly medication. Knee pain. Neck tightness- which is new. - Gait changes, fear falling, however denies falls. - Hypertension and HLD is treated with multiple medications, with inconsistent blood pressure control. - Anemia and Vitamin B12 deficiency are being treated. - History of kidney stones. - Diabetes mellitus is well-controlled. - Constipation Family history of migraine: Daughter and granddaughter Headache questionnaire: Onset of initial headache symptoms: 2-3 months ago Initial precipitating cause of this headache: No known triggers causes Previous workup for this headache: None Types of headache disorders: 1 Typical headache characteristics: Prodrome symptoms: Denies Aura: Denies Headache pain intensity: Mild Location, quality, characteristics of this headache: Bilateral frontal head discomfort and ear discomfort Associated migraine symptoms: dizziness, difficulty concentrating, watery eyes, activity intolerance Headache postdrome: Denies Headache aggravating factors: Unsure Headache triggers: Stress Time of day this headache usually occurs: No specific time of day Duration of this headache: 2 hours Frequency of this headache: Couple of days a week How does headache impact your life? Does need to lay down in a dark space Current acute medication use/interventions: Tylenol with usual positive effect Current preventative medication use: None Current non-pharmacological interventions: Rests in a dark place Headache Lifestyle Factors - Drinks two cups of coffee daily - Drinks a lot of water and sugar-free juice Social History - Lives with , who does not assist with household tasks - Uses a cane for mobility due to fear of falling Cognitive Health The patient exhibits memory impairment over the past two to three months, requiring assistance with daily activities and showing increased forgetfulness. Exercise The patient uses a cane for mobility and has a cautious gait due to fear of falling. Nutrition The patient consumes two cups of coffee daily and drinks a lot of water and sugar-free juice. Sleep Patient denies any sleep problems. However, granddaughter states that patient does talk in her sleep. Substance Use - Denies alcohol, tobacco, or marijuana use [facility] Medical History Easy bruising OA (osteoarthritis) GERD (gastroesophageal reflux disease) Uncontrolled type 2 diabetes mellitus with hyperglycemia Renal stones Generalized abdominal pain HTN (hypertension) Elevated blood pressure reading Female pelvic pain Chest discomfort Secondary hypertension Angina at rest Constipation Acute back pain Arthritis of knee Osteoporosis KEYONNA (generalized anxiety disorder) Mild recurrent major depression GERD (gastroesophageal reflux disease) Anemia B12 deficiency Diabetic nephropathy associated with type 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 Hypertension roasterman (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 Pure hypercholesterolemia Hypovitaminosis D Depression Long-term use of aspirin therapy Diabetes mellitus Surgical History Hx of colonoscopy Hx of cataract removal with insertion of prosthetic lens Hx of lithotripsy History of total abdominal hysterectomy Family History Father Hypertension Diabetes Mother Diabetes Social History Housing: Apartment Alcohol intake: never Patient Tobacco Use Status: Never used Tobacco e-Cigarette/Vaping Use: Never Used Second Hand Smoke Exposure: No service: No Current occupational status: disabled Cognitive needs: Yes (cane ) Hearing needs: No Vision needs: No Physical Exam Vital Signs: Last Vital Signs BP 150/80 H 03/25/25 11:03 BMI result Body Mass Index 25.3 Resp Effort & Inspection: normal respiratory effort and able to speak in complete sentences Neuro Other: Alert and oriented to person, and general time and place (for example, she was able to state that she was at a [facility] appointment, though thought we were in a [facility] rather than [place]; she was able to state that the season was cold, but could not recall the name of the season ?cielo MMSE: 14 (omitted repeat phrase prompt, as this does not translate well into either linguistic or cultural Prydeinig: Ask the patient to repeat the phrase 'No ifs, ands, or buts' after you. Poor clock drawing: Mu the numbers in an incorrect order, and had difficulties understanding how she should draw the hands of the clock to show 10 minutes of 2 o'clock, in ultimately could not draw these correctly. Cranial nerves: Yes CN's II-XII intact bilaterally Psych Appearance: grossly normal Mental Status: mental status grossly normal Speech and movement: Normal speech and movement present Affect: normal affect Attitude: cooperative Thought process: Normal thought process present Orientation What is the (year) (season) (date) (day) (month)?: day and month Where are we (state) (county) (town or city) (hospital) (floor)?: county, hospital/clinic and floor Registration Name of 3 unrelated objects clearly and slowly, then ask patient to repeat all 3 of them. (1st repeat determines score. Make sure they can repeat all three): o bject 1, object 2 and object 3 Language Show patient a wristwatch & ask what it is. Repeat for pencil.: watch and pencil Ask the patient to 'take a piece of paper with their right hand' 'fold paper in half' 'place paper on floor': take paper in right hand and place paper on floor Print the sentence 'CLOSE YOUR EYES' on a piece. If patient actually closes eyes then score.: followed written direction Give patient a blank piece of paper & ask to write a sentence. Score if it contains a noun & verb.: sentence contains subject and verb Score Score: 14 Results Reviewed Results Reviewed: Laboratory Tests 12/22/24 02/07/25 02/07/25 09:53 13:59 14:00 WBC 7.6 7.4 RBC 3.70 L 3.86 L Hgb 10.8 L 11.3 L Hct 33.7 L 34.9 L MCV 91.1 90.4 ESR 43 H Sodium 141 139 Potassium 4.0 4.0 Chloride 101 100 Carbon Dioxide 33 H 27 Anion Gap 11 L 16 BUN 64 H 59 H Creatinine 2.68 H 2.87 H Estimated GFR 17 Calcium 9.8 Ionized Calcium 5.5 Phosphorus 2.3 L Magnesium Iron 72 TIBC 250 % Saturation 29 Unsat Iron Binding 178 Total Bilirubin 0.4 AST 58 H ALT 26 Alkaline Phosphatase 50 C-Reactive Protein < 0.10 Total Protein 7.3 Albumin 4.1 Triglycerides 88 Cholesterol 164 LDL Cholesterol, Calc 93 HDL Cholesterol 54 Vitamin B12 429 Methylmalonic Acid 516 H 25-OH Vitamin D Total 52.8 Folate 4.6 Homocysteine 40.4 H TSH 1.75 PTH Intact 100.6 H Rheumatoid Factor < 13.0 SULLY Screen POSITIVE A SULLY Titer 1:40 H SULLY Titer 2 1:40 H SULLY Pattern Nuclear, Speckled A SULLY Pattern 2 Mitotic, Centrosome A Complement C3 Complement C4 Free [place] LC, Quant Free Lambda LC, Quant Free [place]/Lambda Ratio T.pallidum Ab (EIA) Nonreactive Lyme Screen IgG & IgM <0.90 Hep Bs Antigen Hep Bs Antibody Hep B Core Total Ab Hepatitis C Ab (EIA) 03/17/25 09:59 WBC 7.0 RBC 3.59 L Hgb 10.3 L Hct 32.6 L MCV ESR Sodium 143 Potassium 4.6 Chloride 103 Carbon Dioxide 32 H Anion Gap 13 BUN 35 H Creatinine 2.15 H Estimated GFR Calcium 9.7 Ionized Calcium Phosphorus 3.3 Magnesium 2.0 Iron TIBC % Saturation Unsat Iron Binding Total Bilirubin AST ALT Alkaline Phosphatase C-Reactive Protein Total Protein Albumin Triglycerides Cholesterol LDL Cholesterol, Calc HDL Cholesterol Vitamin B12 Methylmalonic Acid 25-OH Vitamin D Total 48.3 Folate Homocysteine TSH PTH Intact 133.7 H Rheumatoid Factor SULLY Screen NEGATIVE SULLY Titer SULLY Titer 2 SULLY Pattern SULLY Pattern 2 Complement C3 102 Complement C4 17 Free [place] LC, Quant 49.0 H Free Lambda LC, Quant 47.6 H Free [place]/Lambda Ratio 1.03 T.pallidum Ab (EIA) Lyme Screen IgG & IgM Hep Bs Antigen Negative Hep Bs Antibody NONREACTIVE Hep B Core Total Ab Nonreactive Hepatitis C Ab (EIA) Nonreactive Assessment & Plan Assessment & Plan (1) Chronic migraine without aura without status migrainosus, not intractable: Comment: Probable. ? component of vestibular migraine. Code(s): G43.709 - Chronic migraine without aura, not intractable, without status migrainosus Category: Medical (2) Dizziness: Code(s): R42 - Dizziness and giddiness Category: Medical (3) Cognitive changes: Code(s): R41.89 - Other symptoms and signs involving cognitive functions and awareness Category: Medical Plan 10/28/2024, MRI brain with and without contrast: * No acute intracranial finding or abnormal enhancement. * Nonspecific mild supratentorial white matter signals, most frequently ascribed to chronic small vessel ischemic disease. * No findings to account for patient's headache or cognitive symptoms. For overall headache and dizziness care: * Considered PT for headache, dizziness, balance- patient declines at this time * Continue to use cane For acute headache and dizziness treatment: * May continue Tylenol 650-a 1000 mg every 4-6 hours as needed, not to exceed 3000 mg per day. For headache and dizziness prevention treatment: * We will request PT eval and treat for headache and chronic neck pain * Continue riboflavin 400 mg daily in the morning * Continue magnesium 400 mg daily at bedtime * Continue Amitriptyline 10mg daily at bedtime. * Headache treatment contraindications: Topiramate due to history of kidney stones. For Memory impairment * Results of MMSE reviewed with patient and family, she would not be a candidate to undergo amyloid PET scan, as an MMSE result less than 22/30 prohibits her from being a candidate for an anti amyloid targeted dementia therapy, at this time. * Reviewed interval labs as ordered- notable for low vitamin B12 level * Continue vitamin B12 supplement * Continue vitamin-D supplement * Monitor cognitive symptom response to above treatment plan * Continue to optimize cardiovascular and metabolic risk factors through through both pharmacological and lifestyle management. Will follow-up upon review of above and patient to follow-up in clinic in 3-6 months or sooner prn. Orders: Orders 2 PT Evaluation and Treatment 03/25/25 G43.709 - Chronic migraine without aura, not intractable, without status migrainosus Medications: Refilled 2 amitriptyline 10 mg PO BEDTIME 30 tabs 6RF 30 days Coding Level of Care Code Est Pt Level 4 (91819) Diagnoses Chronic migraine without aura without status migrainosus, not intractable G43.709 Dizziness R42 Cognitive changes R41.89
== END 2025-03-25 12:31 | disposition home or self-care (01) ==
LOC: HO.HSMS 10:40
PROVIDERS: PCP Internal Medicine; Visit Provider Nurse Practitioner Family
DX: G43.709 Chronic migraine without aura, not intractable, without status migrainosus (principal); R42 Dizziness and giddiness; R41.89 Other symptoms and signs involving cognitive functions and awareness
CPT/HCPCS: 99214

== ENCOUNTER → 2025-03-25 10:39 | Outpatient (BNVA) | payer OTHER, SELFPAY | PROVIDERS: PCP Internal Medicine; Visit Provider Nurse Practitioner Family | DX: G43.709 Chronic migraine without aura, not intractable, without status migrainosus (principal); R42 Dizziness and giddiness; R41.89 Other symptoms and signs involving cognitive functions and awareness; Z79.899 Other long term (current) drug therapy | CPT/HCPCS: 99212 ==